=== PATIENT | male | born 1985 | race Caucasian/White ===

== ENCOUNTER → 2017-07-25 07:54 | Outpatient (CLI) | payer BC, SELFPAY ==
--- NOTE | 2017-07-25 08:06 | MRI_ITS ---
STUDY: MRI LEFT MIDFOOT REASON FOR EXAM: Male, 31 years old. Plantar fasciitis TECHNIQUE: Standardized fat and water weighted pulse sequences were obtained in all 3 orthogonal planes. COMPARISON: None. FINDINGS: There is mild edema about the plantar fascia insertion. There is a small plantar calcaneal enthesophyte (image 14, 16, 17/30 sagittal inversion recovery, T1). There is bone marrow edema at the plantar aspect of the lateral cuneiform (image 14, 15/30). There is mild bone marrow edema about the third tarsometatarsal joint (12/30 sagittal T2 fat sat). There is edema/atrophy of the abductor digiti minimi musculature (image 21/32 axial T2). There is chronic fracture deformity at the medial malleolus (image 13/32 axial T2). There is fluid at the first MTP joint (image 23/30 sagittal inversion recovery There is fluid at the intermetatarsal bursa at the third web space (image 48/32 axial T2). Normal talonavicular articulation. Normal calcaneocuboid articulation. Normal navicular-cuneiform articulations. Normal intercuneiform articulations. Normal first tarsometatarsal articulation. Normal Lisfranc ligament. Normal cuboid fourth and cuboid fifth tarsometatarsal articulation. Normal first through fifth metatarsi. Normal tibialis anterior tendon. Normal extensor hallucis longus tendon. Normal extensor digitorum longus tendons. Normal peroneus longus tendon and distal insertion. Normal peroneus brevis tendon and distal insertion. Normal subcutis adipose space. 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
--- NOTE | 2017-07-25 08:06 | MRI_ITS ---
STUDY: MRI RIGHT MIDFOOT REASON FOR EXAM: Male, 31 years old. Plantar foot pain for 5 years. No known injury. TECHNIQUE: Standardized fat and water weighted pulse sequences were obtained in all 3 orthogonal planes. COMPARISON: None. FINDINGS: Normal talonavicular articulation. Normal calcaneocuboid articulation. Normal navicular-cuneiform articulations. Normal intercuneiform articulations. Normal first tarsometatarsal articulation. Normal Lisfranc ligament. Normal second and third tarsometatarsal articulations. Normal cuboid fourth and cuboid fifth tarsometatarsal articulation. Normal first through fifth metatarsi. There is mild posterior tibialis tendinosis with tenosynovitis (axial series 8 images 9-14). Normal extensor hallucis longus tendon. Normal extensor digitorum longus tendons. Normal peroneus longus tendon and distal insertion. Normal peroneus brevis tendon and distal insertion. There is minimal thickening of the proximal plantar fascia with an inferior calcaneal spur which may represent mild plantar fasciitis (sagittal series 3 and 4 images 16-19). Normal intrinsic muscles of the mid and forefoot region. Normal extensor digitorum brevis muscle. Normal subcutis adipose space. MRI/Lower Ext/No Jt/w/o IMPRESSION: Mild posterior tibialis tendinosis with tenosynovitis. Mild proximal plantar fasciitis. Electronically Signed: Xavier Chapa MD at 19:17 EDT , Service support ,
== END ==
PROVIDERS: Family Provider Family Medicine; PCP Family Medicine; Visit Provider Podiatrist
DX: M72.2 Plantar fascial fibromatosis (principal)
CPT/HCPCS: 73718

== ENCOUNTER → 2017-11-05 06:59 | Outpatient (CLI) | payer BC, SELFPAY ==
[2017-11-05 07:52] LABS: Microalbumin,Random Urine 84.1 mg/L (NO RANGE EST.); Microalbumin:Creatinine Ratio 51.9 mg/g CRE (<30 mg/g CRE)
[2017-11-05 07:53] LABS: Hemoglobin A1c 7.6 % (4.2-6.3)
[2017-11-05 08:09] LABS: AST(SGOT) 23 U/L (15-37); Alanine Aminotransfer ALT/SGPT 51 U/L (16-61); Albumin, Serum 3.8 g/dL (3.2-5.0); Alkaline Phosphatase 84 U/L (45-117); Anion Gap 7 (5-15); BUN 19 mg/dL (7-18); BUN/Creat Ratio 20.5 RATIO (10-20); Chloride 104 mmol/L (98-107); Cholesterol 171 mg/dL (200); Creatinine, Serum 0.93 mg/dL (0.70-1.30); EST Glomerular Filtration Rate 101 mL/min (>60); Est Glom Filt Rate - Afr Amer 123 mL/min (>60); Free T3 3.9 pg/mL (2.18-3.98); Globulin 3.8 g/dL (2.2-4.2); Glucose 133 mg/dL (74-106); High Density Lipoprotein 41 mg/dL; Protein, Total 7.6 g/dL (6.4-8.2); Sodium Level 141 mmol/L (136-145); T4 Free Direct 0.92 ng/dL (0.76-1.46); Thyroid Stim Hormone (TSH) 2.84 uIU/mL (0.358-3.74); Triglycerides 140 mg/dL; Very Low Density Lipoprotein 28 mg/dL (5-40)
[2017-11-09 14:07] LABS: Testosterone, Free 11.15 ng/dL (5.00-21.00)
[2017-11-09 14:55] LABS: Testosterone, % Free 4.55 % (1.50-4.20); Testosterone, Total 245 ng/dL (264-916)
[2017-11-10 15:27] LABS: Vitamin D 1,25-Dihydroxy 29.1 pg/mL (19.9-79.3)
== END ==
PROVIDERS: Family Provider Family Medicine; PCP Family Medicine; Visit Provider Nurse Practitioner
DX: E10.9 Type 1 diabetes mellitus without complications (principal)
CPT/HCPCS: 36415; 80053; 80061; 82043; 82570; 82652; 83036; 84402; 84403; 84439; 84443; 84481

== ENCOUNTER → 2017-11-11 07:30 | Outpatient (CLI) | payer BC, SELFPAY ==
--- NOTE | 2017-11-11 07:32 | RAD_ITS ---
STUDY: X-RAY - PELVIS AND RIGHT HIP REASON FOR EXAM: Male, 32 years old. Right hip pain for one week TECHNIQUE: Radiological exam, hip, unilateral, with pelvis when performed; 2 or 3 views. COMPARISON: None. FINDINGS: There is a non-specific bowel gas pattern. Normal visualized soft tissue structures. Normal bilateral iliac wings, sacroiliac joints and visualized sacrum. Normal bilateral superior and inferior pubic rami. Normal pubic symphysis. Normal bilateral ischial tuberosities. There are calcifications on each side of the central pelvis that may suggest vas deferens calcifications. Normal visualized femoral head. Normal acetabulum. Os acetabuli noted. Normal hip joint. RAD/HIP, UNI W/ Pelvis 2-3 Views IMPRESSION: 1. Normal x-ray examination of the pelvis and hip. 2. Possible vas deferens calcifications, which can be associated with diabetes mellitus. Electronically Signed: Noah Osborne MD at 11:33 EDT , Service support ,
== END ==
PROVIDERS: Family Provider Family Medicine; PCP Family Medicine; Visit Provider Physician Assistant
DX: M25.551 Pain in right hip (principal)
CPT/HCPCS: 73502

== ENCOUNTER → 2017-11-18 06:38 | Outpatient (CLI) | payer BC, SELFPAY ==
[2017-11-18 09:25] LABS: D-Dimer Quantitative (DVT/PE) < 0.27 FEU/ug/m (0.27-0.49)
== END ==
PROVIDERS: Family Provider Family Medicine; PCP Family Medicine; Visit Provider Physician Assistant
DX: M79.651 Pain in right thigh (principal)
CPT/HCPCS: 36415; 85379

== ENCOUNTER → 2018-05-01 09:19 | Outpatient (CLI) | payer BC, SELFPAY ==
[2018-04-14 08:23] VITALS: BMI 50.4
[2018-05-01 09:25] LABS: Bacteria 0 SEEN /hpf (None Seen); Mucous, Urine 0 SEEN /hpf (<or=2+); Squamous Epithelial Cells - UA 0 SEEN /hpf (0-5); White Blood Cells 0 SEEN /hpf (0-5)
[2018-05-01 09:53] LABS: Color, Urine Yellow (Yellow); Glucose, Dipstick Normal (Normal); Ketone-Dipstick Negative (Negative); Leukocyte Esterase-Dipstick Negative /ul (Negative); Nitrite-Dipstick Negative (Negative); Occult Blood-Urine 10 /ul (Negative); Protein-Dipstick 30 mg/dl (Negative); Urine Bilirubin Dipstick Negative (Negative); Urine Clarity Sl. Cloudy (Clear); Urine Urobilinogen Normal (Normal)
[2018-05-01 10:01] LABS: Red Blood Cells-Urine 0-5 SEEN /hpf (0-5)
[2018-05-01 10:14] LABS: Microalbumin:Creatinine Ratio 42.5 mg/g CRE (<30 mg/g CRE)
[2018-05-01 10:25] LABS: ALB/GLOB Ratio 1.1 RATIO (0.9-2.4); AST(SGOT) 17 U/L (15-37); Alanine Aminotransfer ALT/SGPT 43 U/L (16-61); Albumin, Serum 3.8 g/dL (3.2-5.0); Alkaline Phosphatase 75 U/L (45-117); Anion Gap 9 (5-15); BUN 16 mg/dL (7-18); BUN/Creat Ratio 16.8 RATIO (10-20); Calcium,Total 8.8 mg/dL (8.5-10.1); Chloride 104 mmol/L (98-107); Creatinine, Serum 0.96 mg/dL (0.70-1.30); EST Glomerular Filtration Rate 98 mL/min (>60); Est Glom Filt Rate - Afr Amer 119 mL/min (>60); Globulin 3.5 g/dL (2.2-4.2); Glucose 144 mg/dL (74-106); Potassium 4.3 mmol/L (3.5-5.1); Protein, Total 7.3 g/dL (6.4-8.2); Sodium Level 142 mmol/L (136-145)
== END ==
PROVIDERS: Family Provider Family Medicine; PCP Family Medicine; Referring Provider Nurse Practitioner; Visit Provider Nurse Practitioner
DX: E10.9 Type 1 diabetes mellitus without complications (principal)
CPT/HCPCS: 36415; 80053; 81001; 82043; 82570; 83036

== ENCOUNTER → 2018-06-25 10:15 | Outpatient (CLI) | payer BC, SELFPAY ==
[2018-06-25 09:00] VITALS: BMI 50.4
--- NOTE | 2018-06-25 10:25 | RAD_ITS ---
STUDY: X-RAY - CERVICAL SPINE REASON FOR EXAM: Male, 32 years old. Bilateral arm numbness TECHNIQUE: . 4 view(s) of the cervical spine were obtained. COMPARISON: None FINDINGS: There is partial fusion of the liver to bodies and posterior elements of C2 and C3. There is there is asymmetry in the sizes of the first ribs. The left is smaller. There is straightening of the cervical spine. The disc spaces are well-maintained. The prevertebral soft tissues are normal. 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 No acute fractures. No disc disease. Electronically Signed: Waldo Quintero MD at 5:06 EDT Tel , Service support ,
== END ==
PROVIDERS: Family Provider Internal Medicine; PCP Internal Medicine; Referring Provider Internal Medicine; Visit Provider Internal Medicine
DX: G62.9 Polyneuropathy, unspecified (principal)
CPT/HCPCS: 72040

== ENCOUNTER → 2018-07-28 08:21 | Outpatient (CLI) | payer BC, SELFPAY ==
[2018-07-28 08:12] VITALS: BMI 50.4
--- NOTE | 2018-07-28 08:23 | RAD_ITS ---
STUDY: X-RAY - LEFT KNEE REASON FOR EXAM: Male, 32 years old. Pain, decreased range of motion TECHNIQUE: 5 view(s) of the knee. COMPARISON: 2015 FINDINGS: Normal visualized distal femur. Normal visualized proximal tibia and fibula. Normal proximal tibiofibular articulation. Normal medial femorotibial compartment. Normal lateral femorotibial compartment. Normal patellofemoral articulation. The soft tissue structures are unremarkable. RAD/Knee 4 or More Views IMPRESSION: Normal x-ray examination of the knee. Electronically Signed: Dmitry Cuevas MD at 8:54 EDT , Service support ,
== END ==
PROVIDERS: Family Provider Internal Medicine; PCP Internal Medicine; Referring Provider Orthopaedic Surgery; Visit Provider Orthopaedic Surgery
DX: M25.562 Pain in left knee (principal)
CPT/HCPCS: 73564

== ENCOUNTER → 2018-08-06 22:40 | Outpatient (CLI) | payer BC, SELFPAY ==
[2018-06-25 09:00] VITALS: BMI 50.4
[2018-07-28 08:12] VITALS: BMI 50.4
== END ==
PROVIDERS: Family Provider Internal Medicine; PCP Internal Medicine; Referring Provider Internal Medicine; Visit Provider Internal Medicine
DX: G47.33 Obstructive sleep apnea (adult) (pediatric) (principal)
CPT/HCPCS: 95811

== ENCOUNTER → 2018-11-29 08:00 | Outpatient (CLI) | payer BC, SELFPAY ==
[2018-08-20 09:51] VITALS: BMI 50.4
[2018-11-24 07:05] VITALS: BMI 50.4
== END ==
PROVIDERS: Family Provider Internal Medicine; PCP Internal Medicine; Referring Provider Nurse Practitioner Acute Care; Visit Provider Nurse Practitioner Acute Care
DX: Z46.89 Encounter for fitting and adjustment of other specified devices (principal)

== ENCOUNTER → 2019-01-07 14:42 | Outpatient (CLI) | payer BC, SELFPAY ==
[2019-01-07 07:35] VITALS: BMI 50.4
== END ==
PROVIDERS: Family Provider Internal Medicine; PCP Internal Medicine; Referring Provider Physician Assistant Surgical; Visit Provider Physician Assistant Surgical
DX: J02.9 Acute pharyngitis, unspecified (principal)
CPT/HCPCS: 87070

== ENCOUNTER → 2019-01-26 08:55 | Outpatient (CLI) | payer BC, SELFPAY ==
[2019-01-26 08:11] VITALS: BMI 50.4
--- NOTE | 2019-01-26 08:57 | RAD_ITS ---
STUDY: X-RAY CHEST REASON FOR EXAM: Male, 33 years old. 3 week history of congestion and cough. TECHNIQUE: PA and lateral views of the chest. COMPARISON: None. FINDINGS: Minimal increased markings at the lung bases suggestive of atelectasis. There is no demonstrated pleural abnormality. There is borderline cardiomegaly. Normal mediastinum and chris. Normal visualized pulmonary arteries. Normal visualized aortic arch and descending thoracic aorta. Normal visualized thoracic spine. Normal visualized ribs, clavicles, and shoulders. There is no demonstrated abnormality of the visualized soft tissue structures of the upper abdomen. RAD/Chest PA and Lateral IMPRESSION: Borderline cardiomegaly. Mild degree of increased markings at the lung bases suggestive of atelectasis. Electronically Signed: Elmer Boswell, at 15:43 EDT , Service support ,
== END ==
PROVIDERS: Family Provider Internal Medicine; PCP Internal Medicine; Referring Provider Nurse Practitioner Family; Visit Provider Nurse Practitioner Family
DX: R05 Cough (principal)
CPT/HCPCS: 71046

== ENCOUNTER → 2019-05-11 08:05 | Outpatient (CLI) | payer BC, SELFPAY ==
[2019-04-27 16:13] VITALS: BMI 50.4
[2019-05-11 08:08] LABS: Bacteria 0 SEEN /hpf (None Seen); Mucous, Urine 0 SEEN /hpf (<or=2+); Red Blood Cells-Urine 0 SEEN /hpf (0-5); Squamous Epithelial Cells - UA 0 SEEN /hpf (0-5); White Blood Cells 0 SEEN /hpf (0-5)
[2019-05-11 12:43] LABS: Color, Urine Yellow (Yellow); Glucose, Dipstick 1000 mg/dl (Normal); Ketone-Dipstick 5 mg/dl (Negative); Leukocyte Esterase-Dipstick Negative /ul (Negative); Nitrite-Dipstick Negative (Negative); Occult Blood-Urine Negative /ul (Negative); Protein-Dipstick 15 mg/dl (Negative); Urine Bilirubin Dipstick Negative (Negative); Urine Clarity Clear (Clear); Urine Urobilinogen Normal (Normal)
[2019-05-11 13:07] LABS: ALB/GLOB Ratio 0.9 RATIO (0.9-2.4); AST(SGOT) 24 U/L (15-37); Alanine Aminotransfer ALT/SGPT 70 U/L (12-78); Albumin, Serum 3.8 g/dL (3.4-5.0); Alkaline Phosphatase 101 U/L (50-136); Anion Gap 6 (5-15); BUN 25 mg/dL (7-18); BUN/Creat Ratio 21.4 RATIO (10-20); Calcium,Total 9.6 mg/dL (8.5-10.1); Chloride 100 mmol/L (98-107); Cholesterol 192 mg/dL (200); Creatinine, Serum 1.17 mg/dL (0.70-1.30); EST Glomerular Filtration Rate 77 mL/min (>60); Est Glom Filt Rate - Afr Amer 93 mL/min (>60); Globulin 4.1 g/dL (2.3-3.5); Glucose 276 mg/dL (70-110); High Density Lipoprotein 39 mg/dL; Potassium 4.2 mmol/L (3.5-5.1); Protein, Total 7.9 g/dL (6.4-8.2); Sodium Level 134 mmol/L (136-145); Triglycerides 181 mg/dL; Very Low Density Lipoprotein 36 mg/dL (5-40)
[2019-05-11 13:26] LABS: Microalbumin,Random Urine 91.6 mg/L (NO RANGE EST.); Microalbumin:Creatinine Ratio 97.9 mg/g CRE (<30 mg/g CRE)
== END ==
PROVIDERS: Internal Medicine Endocrinology, Diabetes & Metabolism; PCP Internal Medicine; Referring Provider Nurse Practitioner Family; Visit Provider Nurse Practitioner Family
DX: E10.9 Type 1 diabetes mellitus without complications (principal); R10.9 Unspecified abdominal pain
CPT/HCPCS: 36415; 80053; 80061; 81001; 82043; 82570; 84443; 87086

== ENCOUNTER 2019-07-19 08:00 | Outpatient (RCR) | payer BC, SELFPAY ==
[2019-05-11 08:08] VITALS: BMI 50.4
--- NOTE | 2019-05-25 09:12 | HP.PTEVAL_ITS ---
Patient's Visit Information TISH FLANAGAN is a 33 year old M referred to Physical Therapy by Gaurang Simon DPM with a diagnosis of B plantar fasciatis with heel spurring. Date of Evaluation: 05/24/19 Physical Therapist: Travis Negrete DPT - Visit Plan Frequency: 2x /Week Duration: 4 Weeks Plan: Start with graston/DN/US to B plantar fascia, DF stretching. Add in foot intrinsic strengthening, glute and glute med strengthening. Educate on gait mechanics as well. - Subjective Findings: Pt. is here today for his initial evaluation with diagnosis of B plantar fascitis, and heel spurs. Pt. is known to this PT as he has been seen for simialr issue a few years ago. Pt. reports having increased symptoms for years, but has been steadily getting worse. Pt. does year orthotics with some relief. Pt. works in [employer] where he stands on his feet most of the day. PT. reprots increased pain with initial standing and after working a longer day. He has increased pain with walking and standing. Pt. does have some tingling in his big toes, unknown cause. He also has had a previous L ACL repain inwhich reports has never been great. Pt. is hopeful to reduce symptoms in order to get back to all recreational and work activities without limitations. - Pain R plantar fascial origin Pain Intensity (Out of 10): 3 Pain Intensity Range: 1, 8 L plantar fascial origin Pain Intensity (Out of 10): 2 Pain Intensity Range: 1, 8 - Objective POSTURE: In stance patient has compensated rearfoot valgus, with subsequent knee valgus as well. PALPATION: Pt. has increased tenderness along plantar fascia and longitudinal arch Bilaterally. NO calf pain, no forefoot pain. ROM: Pt. has very tight B achilles tendon (R ankle 3deg of dorsiflexion, L ankle 5 deg of dorsiflexion. pt. has normal rest of motion of ankle. NEURO: normal sensation and DTR of B LEs. MMT: PT. has normal strenght of B ankles, hips weak especially with hip abd 4/5. GAIT: Pt. has increased calcaneal vaglus during heel strike with over pronation during heel to mid foot rocker moment, minimal supination during push off. Pt. has increased pain durign push off and stand phases of gait cycle bilaterally. STAIRS: Pt. has incraesed pain with dscending, early heel off noted. use of BHR to complete. - Goals Goal 1:: LTG: PT. to be I with HEP. Goal Time Frame: 4-6 Weeks Goal 2:: LTG: Pt. to have increased B ankle DF to atleast 12deg. Goal Time Frame: 4-6 Weeks Goal 3:: STG: Pt. to have decreased pain to 0-2/10 with initial walking in mornings. Goal Time Frame: 2-4 Weeks Goal 4:: LTG: Pt. complete all work related activities with 0-2/10 pain in B longitudinal arches. Goal Time Frame: 4-6 Weeks Goal 5:: LTG: pt. to ambulate unlimited distances with 0-2/10 pain in B longitudinal arches. Goal Time Frame: 4-6 Weeks - Rehabilitation Potential Physical Therapy Diagnosis: Pt. has signs and symptoms consistent with B plantar fasciatis with marked compensated rearfoot valgus. Pt. would benefit from PT to increase ankle mobility, especially DF, stabilization of rearfoot, hip abductor strengthening and pain management with use of initial modalitie. Rehabilitation Potential: Good - Anticipated Interventions Patient/Client Instruction: Educate patient on: Condition, Plan of Care, Risk Factors, Benefits of Fitness Program For the Purpose of:: To improve health and function, To foster healthy habits, To improve decision making, To facilitate caregiver knowledge, To improve self management, To prevent re-injury, To improve ability to perform tasks related to life management, To improve tolerance to ADL's Therapeutic Exercise to Include: Strength training, Power training, Body mechanics, Postural training, Flexibilty training, Gait and locomotor training, Passive ROM, Active ROM For the Purpose of:: To decrease pain, To decrease swelling/inflammation, To increase ROM, To improve nutrient delivery to tissue, To increase oxygenation perfusion, To improve muscle performance and motor function, To improve gait and locomotor functions, To improve health of tissue, To decrease soft tissue restriction, To increase flexibility/ROM Manual Therapy Techniques to Include: Mobilization, Passive ROM, Functional dry needling, Soft tissue mobilization For the Purpose of:: To decrease pain, To decrease swelling/inflammation, To increase ROM, To improve nutrient delivery to tissue, To improve muscle performance and motor function Ultrasound (thermal/non thermal): Yes For the Purpose of:: To decrease pain, To decrease swelling/inflammation, To inc rease ROM Thank you for the opportunity to evaluate your patient. For Medicare and Medicare HMO plans, please review the plan of care and approve it. It will need to be FAXED BACK to us at [phone] for Medicare purposes. For Medicare only, by signing this I certify the plan of care. Please let me know if there are questions or concerns regarding this plan of care. Physician Signature: Date:
--- NOTE | 2019-07-05 10:36 | HP.PTREVAL_ITS ---
Gaurang Simon, ZOEY, It has been my pleasure to treat TISH FLANAGAN over the last 6 visits for B plantar fasciatis with heel spurring. Please see the progress note below for an update on the physical therapy plan of care! Subjective: Pt. arrives today with reports I am doing okay today. Pt. reports having 2/10 pain in B feet this date. Pt. is to get his orthotics back tomorrow. I talked with him about weaning into wearing them to increase tolerance and he altering foot position. Pt. reports being 40% better overall. Pt. is hopeful that his orthotics with be helpful when he gets them. He continues to be sore by the end of the day/evening. He reports stretching at home with good consistency. Objective/Function: Pt. continues to have decreased symptoms post PT. Pt. has improved tolerance with stnding and walking, but continues to have increased pain by the end of a work day and with initial standing/walking in AMs. Pt. has not been able to wear his orthotics. pt. has imrpoved nkle DF to 9deg on R 10deg of L. Pt. has good strength of ankle throughout. Pt. continues to present with increased rearfoot varus bilatearlly. I am hopeful that a orthotic that will keep his calcaneus in a more neutral posioning that this will help his foot. Pt. reports having benefit with PT thus far and in ~40% better overall. I still believe he has more room to improve and that I can help him do so. I am asking for 4-6 more visits to address his symptoms and progress him with strengthening and stability with use of orthotics. Plan Plan: Start with osman/MARILYN/ to B plantar fascia, DF stretching. Add in foot intrinsic strengthening, glute and glute med strengthening. Educate on gait mec hanics as well. Goals Goal 1:: LTG: PT. to be I with HEP. Goal Time Frame: 4-6 Weeks Goal Progress: Progressing Goal 2:: LTG: Pt. to have increased B ankle DF to atleast 12deg. Goal Time Frame: 4-6 Weeks Goal Progress: Progressing Goal 3:: STG: Pt. to have decreased pain to 0-2/10 with initial walking in mornings. Goal Time Frame: 2-4 Weeks Goal Progress: Progressing Goal 4:: LTG: Pt. complete all work related activities with 0-2/10 pain in B longitudinal arches. Goal Time Frame: 4-6 Weeks Goal Progress: Progressing Goal 5:: LTG: pt. to ambulate unlimited distances with 0-2/10 pain in B longitudinal arches. Goal Time Frame: 4-6 Weeks Goal Progress: Progressing Anticipated Interventions Patient/Client Instruction: Educate patient on: Condition, Plan of Care, Risk Factors, Benefits of Fitness Program For the Purpose of:: To improve health and function, To foster healthy habits, To improve decision making, To facilitate caregiver knowledge, To improve self management, To prevent re-injury, To improve ability to perform tasks related to life management, To improve tolerance to ADL's Therapeutic Exercise to Include: Strength training, Power training, Body mechanics, Postural training, Flexibilty training, Gait and locomotor training, Passive ROM, Active ROM For the Purpose of:: To decrease pain, To decrease swelling/inflammation, To increase ROM, To improve nutrient delivery to tissue, To increase oxygenation perfusion, To improve muscle performance and motor function, To improve gait and locomotor functions, To improve health of tissue, To decrease soft tissue restriction, To increase flexibility/ROM Manual Therapy Techniques to Include: Mobilization, Passive ROM, Functional dry needling, Soft tissue mobilization For the Purpose of:: To decrease pain, To decrease swelling/inflammation, To increase ROM, To improve nutrient delivery to tissue, To improve muscle performance and motor function Ultrasound (thermal/non thermal): Yes For the Purpose of:: To decrease pain, To decrease swelling/inflammation, To increase ROM Please do not hesitate to contact me at [phone] by phone or if you have questions or concerns regarding this new plan of care! Sincerely, Travis Negrete DPT
--- NOTE | 2019-07-19 09:15 | HP.PTDCSUM_ITS ---
It has been my pleasure to treat TISH FLANAGAN referred by Gaurang Simon DPM, with the diagnosis of B plantar fasciatis with heel spurring for a total of 8 visit(s). Discharge Date: 07/19/19 Please see the following information for a summary of their discharge status. Subjective: Pt. reports that he is doing okay. He is still sore when he walking. He is stretching consistenty. He is liking his orthotics, but is still having symptoms. Pt. reports being ~50% better overall. R plantar fascial origin Pain Intensity (Out of 10): 2 L plantar fascial origin Pain Intensity (Out of 10): 2 % Improvement: 50 Objective/Function: Pt. has good ROM of his G/S complex ~12deg bilaterally. Pt. has good strength throughout. Pt. is point tender at his origin of his plantar facia. Pt. still presents with a calcaneal varus in stance. Improved with or thotics. Goal 1:: LTG: PT. to be I with HEP. Goal Progress: Goal Met Goal 2:: LTG: Pt. to have increased B ankle DF to atleast 12deg. Goal Progress: Goal Met Goal 3:: STG: Pt. to have decreased pain to 0-2/10 with initial walking in mornings. Goal Progress: Progressing Goal 4:: LTG: Pt. complete all work related activities with 0-2/10 pain in B longitudinal arches. Goal Progress: Progressing Goal 5:: LTG: pt. to ambulate unlimited distances with 0-2/10 pain in B longitudinal arches. Goal Progress: Progressing Plan: Pt. to be DC back to physician for follow up. Pt. is to continue with his stretching and strengthening at home. Discharge Comments: Pt. was treated for his B plantar fascitis. Pt. reports about 50% improvement of symptoms. Pt. was treated with stretching, manual and US. Pt. did not desire to try DN as he as done this in the past without success. Pt. made some progress, but still has some pain. Pt. is to follow up with his physician and continue with his stretching at home. Pt. consents. If there are questions or concerns regarding this patient's physical therapy, please feel free to call me at [phone]. Thank you for the referral of this patient. Sincerely, Travis Negrete DPT
== END 2019-07-19 10:29 | disposition home or self-care (01) ==
LOC: PT 08:00
PROVIDERS: PCP Internal Medicine; Referring Provider Podiatrist; Visit Provider Podiatrist
DX: M72.2 Plantar fascial fibromatosis (principal); M77.31 Calcaneal spur, right foot; M77.32 Calcaneal spur, left foot
CPT/HCPCS: 97035; 97140; 97161

== ENCOUNTER → 2019-09-21 07:42 | Outpatient (CLI) | payer BC, SELFPAY ==
[2019-06-08 08:10] VITALS: BMI 51.6
[2019-09-07 08:16] VITALS: BMI 50.4
--- NOTE | 2019-09-21 14:10 | NEURO ---
NCS and/or EMG Patient Report Ordering Doctor: Marko Hickey DATE OF SERVICE: 09/21/19 Chester Metcalf is a 34-year-old male presents for electrodiagnostic testing of the upper limbs. He reports numbness and tingling in both hands Electrodiagnostic findings: Median motor nerve demonstrates prolonged distal latency bilaterally with normal amplitude and reduced conduction velocity. Normal ulnar motor response noted bilaterally. Absent median sensory response at the wrist and palm bilaterally. Normal ulnar and radial sensory responses. Prolonged median and ulnar F waves are noted. On needle EMG, all muscles tested in the upper limb showed no evidence of denervation with normal motor unit action potentials. Electrodiagnostic assessment: This is an abnormal study in the upper limbs 1. Electrodiagnostic findings demonstrate bilateral median mononeuropathy. This consistent with an advanced bilateral carpal tunnel syndrome. If there are any further questions, please do not hesitate to contact me.
== END ==
PROVIDERS: PCP Internal Medicine; Referring Provider Nurse Practitioner Family; Visit Provider Nurse Practitioner Family
DX: R20.0 Anesthesia of skin (principal); R20.2 Paresthesia of skin
CPT/HCPCS: 95886; 95912

== ENCOUNTER → 2019-10-11 10:18 | Outpatient (CLI) | payer BC, SELFPAY ==
[2019-10-11 10:07] VITALS: BMI 50.4
--- NOTE | 2019-10-11 10:19 | RAD_ITS ---
STUDY: X-RAY - LEFT WRIST REASON FOR EXAM: Numbness/tingling in first through third fingers of bilateral hands and occasionally in the fourth and fifth fingers. TECHNIQUE: 3 view(s) of the wrist were obtained. COMPARISON: None. FINDINGS: Normal visualized distal radius and ulna. There is negative ulnar variance. Normal radiocarpal articulation. Normal distal radioulnar articulation. Normal carpal bones. Normal carpal articulations. Normal carpometacarpal articulation of the thumb. Normal second through fifth carpometacarpal articulations. Normal visualized metacarpal bones. The soft tissue structures are unremarkable. RAD/Wrist min 3 Views IMPRESSION: Unremarkable x-ray examination of the left wrist. Electronically Signed: Reji Reis MD at 13:55 EDT Tel , Service support ,
--- NOTE | 2019-10-11 10:19 | RAD_ITS ---
STUDY: X-RAY - RIGHT WRIST REASON FOR EXAM: Numbness/tingling in first through third fingers of bilateral hands and occasionally in the fourth and fifth fingers. TECHNIQUE: 3 view(s) of the wrist were obtained. COMPARISON: None. FINDINGS: Normal visualized distal radius and ulna. There is negative ulnar variance. Normal radiocarpal articulation. Normal distal radioulnar articulation. Normal carpal bones. Normal carpal articulations. Normal carpometacarpal articulation of the thumb. Normal second through fifth carpometacarpal articulations. Normal visualized metacarpal bones. There is a small metallic foreign body at the radial aspect of the distal first metacarpal diaphysis. RAD/Wrist min 3 Views IMPRESSION: Small metallic foreign body adjacent to the first metacarpal. Electronically Signed: Reji Reis MD at 13:55 EDT Tel , Service support ,
--- NOTE | 2019-10-11 11:09 | RAD_ITS ---
STUDY: X-RAY - RIGHT ELBOW REASON FOR EXAM: Male, 34 years old. BILATERAL WRIST N/T, ELBOW PAIN TECHNIQUE: 4 view(s) of the elbow. COMPARISON: None. FINDINGS: Normal visualized humerus, radius and ulna. Normal radiocapitellar and ulnotrochlear articulations. The soft tissue structures are unremarkable. There is no demonstrated fracture. RAD/Elbow min 3 Views IMPRESSION: Normal x-ray examination of the elbow. Electronically Signed: Eulalio Louis MD at 22:11 EDT , Service support ,
--- NOTE | 2019-10-11 11:23 | RAD_ITS ---
STUDY: X-RAY - LEFT ELBOW REASON FOR EXAM: Male, 34 years old. BILATERAL WRIST N/T, ELBOW PAIN TECHNIQUE: 3 view(s) of the elbow. COMPARISON: None. FINDINGS: Normal visualized humerus, radius and ulna. Normal radiocapitellar and ulnotrochlear articulations. The soft tissue structures are unremarkable. There is no demonstrated fracture. RAD/Elbow min 3 Views IMPRESSION: Normal x-ray examination of the elbow. Electronically Signed: Eulalio Louis MD at 22:13 EDT , Service support ,
== END ==
PROVIDERS: PCP Internal Medicine; Referring Provider Orthopaedic Surgery; Visit Provider Orthopaedic Surgery
DX: M77.11 Lateral epicondylitis, right elbow (principal); M77.12 Lateral epicondylitis, left elbow; G56.03 Carpal tunnel syndrome, bilateral upper limbs
CPT/HCPCS: 73080; 73110

== ENCOUNTER 2019-11-30 05:54 | Day surgery (SDC) | payer BC, SELFPAY ==
[2019-10-11 10:07] VITALS: BMI 50.4
--- NOTE | 2019-10-11 11:15 | HP_ITS ---
I have re-examined the patient. There are no clinical changes since date of exam. Intake Vital Signs 10/11/19 BMI 50.4 Intake Visit Reasons: Bilat wrist Chief Complaint: BL wrists Accompanied by: self Is patient in pain?: Yes Pain scale (1-10): 4 Allergies losartan Allergy (Severe, Verified 09/07/19 08:12) Unknown aspirin Allergy (Verified 09/07/19 08:12) Hives menthol [From Icy Hot] Adverse Reaction (Verified 09/07/19 08:12) Other methyl salicylate [From Icy Hot] Adverse Reaction (Verified 09/07/19 08:12) peeled skin off fabric softener Allergy (Unknown, Uncoded 09/07/19 08:12) Rash Medications cholecalciferol (vitamin D3) 125 mcg (5,000 unit) tablet 5,000 unit PO DAILY 06/25/18 [History Confirmed 10/11/19] multivitamin 1 tab PO DAILY 06/25/18 [History Confirmed 10/11/19] lisinopril 20 mg tablet 20 mg PO DAILY #90 tab 04/27/19 [Rx Confirmed 10/11/19] trazodone 50 mg tablet 50 mg PO QHS PRN #90 tab 04/27/19 [Rx Confirmed 10/11/19] flash glucose sensor See Rx Instructions .ROUTE .MEDSUPPLY #2 ea 07/07/19 [Rx Confirmed 10/11/19] blood sugar diagnostic See Dose Instructions .ROUTE .MEDSUPPLY #600 ea 08/07/19 [Rx Confirmed 10/11/19] metformin 1,000 mg tablet,extended release 24hr 1,000 mg PO BID #180 tab 08/07/19 [Rx Confirmed 10/11/19] fluticasone propionate 50 mcg/actuation nasal spray,suspension 2 spray INTRANASAL DAILY #15.8 g 08/09/19 [Rx Confirmed 10/11/19] insulin glulisine U-100 100 unit/mL subcutaneous solution See Rx Instructions SC .q day #50 ml 08/09/19 [Rx Confirmed 10/11/19] insulin syringe-needle U-100 0.5 mL 31 gauge x 16 See Rx Instructions .ROUTE .MEDSUPPLY #20 ea 08/09/19 [Rx Confirmed 10/11/19] montelukast 10 mg tablet 10 mg PO QHS #90 tab 08/09/19 [Rx Confirmed 10/11/19] lorazepam 0.5 mg tablet 0.5 mg PO QHS PRN #10 tab 09/07/19 [Rx Confirmed 10/11/19] PFSH Social History (Updated 10/11/19 @ 11:[address] Aishwarya Porter DO) Smoking Status: Never smoker second hand exposure: No alcohol intake: current substance use type: does not use what type of physical activity do you participate in: none HPI Bilat wrist: Surgical H&P: Yes Details: Parts of this documentation were recorded by a scribe, this documentation accurately reflects the service provided and the decisions made by me, Dr. Aishwarya Porter, 10/11/19 0959. TISH FLANAGAN is a 34 year old M here today for BL carpal tunnel syndrome. New patient seen today per request of dr price. States he has had this numbness for the last 5-6 years but has worsened over the last 6 months. He states he has BL 1st through 3rd finger numbness along with occasional numbness of the 4th and 5th fingers. He also c/o generalized hand pain along with BL elbow pain. 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 Denies any injections or surgery. He has been doing BL wrist night splinting for about 4 weeks which was not effective and made his symptoms worsen. Ortho Exam Right Wrist/Hand Skin/Wound: No Swelling, No Ecchymosis, Yes capillary refill normal Right Wrist: Yes ROM-Extension 0-60, ROM-Flexion 0-80, ROM-Pronation 0-80, ROM- Supination 0-90, Durken's Test, Phalen's and Thenar Atrophy Motor: EPL: 5, FDP-2: 4, 1st Dorsal Interosseous: 5, APB: 4 Sensation: Radial: I, Ulnar: I, Median: D Left Wrist/Hand Skin/Wound: No Swelling, No Ecchymosis, No erythema Left Wrist: Yes ROM-Extension 0-60, Yes ROM-Flexion 0-80, Yes ROM-Pronation 0- 80, Yes ROM-Supination 0-90, Yes Durken's Test, Yes Phalen's and Yes Thenar Atrophy Motor: EPL: 5, FDP-2: 4, 1st Dorsal Interosseous: 5, APB: 4 Sensation: Radial: I, Ulnar: I, Median: D Assessment & Plan Problems 1. Bilateral carpal tunnel syndrome G56.03 2. Lateral epicondylitis of both elbows M77.11; M77.12 Plan Personally reviewed patients EMG and X-rays of the BL wrists. Patient educated that he has BL severe carpal tunnel syndrome which is where his nerve is being compressed and causing the numbness. Treatment options include do nothing or bracing or injections or carpal tunnel release. Patient wishes to proceed with CTR of one of his wrists. Educated that he will be off work for about 6 weeks for recovery. Reviewed the pre-operative plans with the patient. Risks and benefits of the procedure were fully explained, including but not limited to infection, neurovascular injury, continued pain, arthritis, stiffness, need for further surgery, re-injury, DVT, PE, general risks of anesthesia, and loss of limb or life. Patient educated that he also has lateral epicondylitis which is the cause of his BL elbow pain and we can do this injection during his surgery because it is a painful injection. Treatment for the lateral epicondylitis is do nothing or injections or PT. Follow up to sign surgery consent or sooner if pain, swelling, numbness or associated symptoms, or concerns develop. All questions answered. Patient in agreement of plan. Orders Orders: Wrist min 3 Views Today G56.03 Elbow min 3 Views Today M77.11, M77.12 Wrist min 3 Views Today G56.03 Wrist min 3 Views Today G56.03 Elbow min 3 Views Today M77.11, M77.12 Elbow min 3 Views Today M77.11, M77.12 Coding Level of Care Code 32956 Diagnoses Bilateral carpal tunnel syndrome G56.03 Lateral epicondylitis of both elbows M77.11; M77.12 COVID (Procedure Consent) Procedure Criteria Procedure Criteria: Yes Elective The surgeon/proceduralist and patient have discussed in detail the risk of exposure to and/or potential harm posed by the COVID-19 virus with having a surgery/procedure at this time versus the risk of? delaying the surgery/procedure. It is not possible to know either the risk of delaying the surgery or procedure or chance of getting an infection with perfect accuracy, but a joint decision was made between the patient and the surgeon/proceduralist ?to proceed at this time with the scheduled surgery/procedure as indicated on the consent form. 10/11/19 1115 <Electronically signed by Aishwarya pena DO> Date _ Aishwarya Porter DO
[2019-11-10 08:19] VITALS: BMI 50.4
[2019-11-30] VITALS (7 sets, daily range): BP systolic 104–140; BP diastolic 70–94; PULSE 89–121; RESP 16–20; TEMP 36.4–36.7; O2SAT 95–97; BMI 51.8
[2019-11-30] MEDS: Lactated Ringers 1,000 ML 100 ML IV (06:59)
--- NOTE | 2019-11-30 07:22 | DCINST_ITS ---
Discharge Diet: No Restrictions - Leave dressing on until seen in postop clinic in 10-14 days for suture removal, keep dressing clean, dry, intact; change dressing if gets wet/dirty, call with concerns Discharge Activity: May Not Drive May shower in (days): 1 Ice area for (Minutes): 20 - Every hour while awake. Weight Bearing Status: Weight bearing as tolerated Keep extremity elevated above heart level: Operative Extremity Call your doctor if your incision/area has: Continuous Slow Oozing, Sudden Increased Bleeding, Increased Pain/ Swelling, Increased Redness, Foul Smelling Discharge Call your doctor if you observe: Fever of 101 or Higher, Coldness, Increased Pain, Numbness or Tingling, Change in Color, Calf discomfort Allergies/Adverse Reactions: Allergies losartan Allergy (Severe, Verified 11/30/19 06:51) Unknown aspirin Allergy (Verified 11/30/19 06:51) Hives menthol [From Icy Hot] Adverse Reaction (Verified 11/30/19 06:51) Other methyl salicylate [From Icy Hot] Adverse Reaction (Verified 11/30/19 06:51) peeled skin off fabric softener Allergy (Unknown, Uncoded 11/30/19 06:51) Rash Scented Medications to take at Discharge cholecalciferol (vitamin D3) 125 mcg (5,000 unit) tablet 5,000 unit PO DAILY 06/25/18 multivitamin 1 tab PO DAILY 06/25/18 lisinopril 20 mg tablet 20 mg PO DAILY #90 tab 04/27/19 trazodone 50 mg tablet 50 mg PO QHS PRN #90 tab 04/27/19 metformin 1,000 mg tablet,extended release 24hr 1,000 mg PO BID #180 tab 08/07/19 montelukast 10 mg tablet 10 mg PO QHS #90 tab 08/09/19 lorazepam 0.5 mg tablet 0.5 mg PO QHS PRN #10 tab 09/07/19 Fluticasone Propionate 2 spray INTRANASAL DAILY PRN 11/21/19 Insulin Glulisine [Apidra] 0 unit SQ CONT 11/21/19 Hydrocodone Bitart/Apap 5-325 [[place] 5MG-325MG] 1 - 2 tablet PO Q6H PRN PRN 5 Days #20 tablet 11/30/19 The following prescriptions were given: Hydrocodone Bitart/Apap 5-325 [[place] 5MG-325MG] 1 - 2 tablet PO Q6H PRN PRN 5 Days #20 tablet PRN Reason: Pain Transmission Status: Sent to [facility] Primary Care Physician: Laisha Pitt MD [Primary Care Provider] - Test Results: Test results from this visit will be discussed in further detail at your follow- up appointment, if applicable. Please Follow Up With: Aishwarya Porter, - [phone]
--- NOTE | 2019-11-30 07:22 | PCM.OPRPT ---
Report of Operation Date of Procedure: 11/30/19 Pre-Operative Diagnosis: left carpal tunnel syndrome Post-Operative Diagnosis: same Surgery/Procedure Performed:: left carpal tunnel release, left lateral epicondylitis injection Type of Anesthesia:: Zeinab Crook Anesthesiologist: Parminder Barnett Estimated Blood Loss (mL): min Fluids Replaced: see chart Description of Procedure: Preoperative note Patient is a { 34 yom } patient with nerve conduction study confirming carpal tunnel syndrome. Patient failed conservative treatment for carpal tunnel elected proceed with left carpal tunnel release. Risks benefits and alternatives surgery discussed with patient. Risks including but not limited to blood loss, blood clot, infection, neurovascular injury, failure procedure, loss of life and loss of limb. Patient is aware like proceed with left carpal tunnel release. We discussed the current risk associated COVID-19. While it is understood that there is a community spread of COVID 19 the risk of arabella COVID-19 while at [facility] is very low, however, the risk cannot be completely mitigated because of the community spread of the disease. We discussed in detail the risk of exposure to and or potential harm posed by the COVID-19 virus with having a surgery/procedure at this time versus the risk of delaying the surgery/procedure. Is not possible to know either the risk of delaying the surgery procedure or chance of getting an infection with perfect accuracy, but a joint decision was made to proceed at this time with a schedule surgery/procedure as indicated on the consent form. Patient was notified that we will need to comply with any screening or testing [facility] wishes to perform or that surgery may be delayed for any positive results. Operative note Patient seen and examined preoperative holding area. Left hand was marked. History and physical and consent reviewed. Patient was brought to the operating room placed supine on the operating table. Sign in, anesthesia, antibiotics were administered. Left upper extremity was prepped and draped after Zeinab block was initiated. All bony prominences well-padded SCDs placed on bilateral lower extremities. We marked out our incisions for our carpal tunnel release at the intersection of Wilfredo's line in the fourth ray flexed. We extended about a centimeter and a half. Timeout was performed. We then checked ensure that the [place] block was working with pickups which it was. We then used a 15 blade to make a skin incision. We then dissected down tenotomy syllable of the transverse carpal ligament. We then used a new 15 blade cut through the transverse carpal ligament down to the level of the median nerve. We then further released the median nerve the combination of the 15 blade and tenotomies. The nerve was grayish in color and adherent to the transverse carpal ligament volarly. We released the transverse carpal ligament distally to the fat pad and then proximally under standard technique. We then palpated to ensure that we released all of the transverse carpal ligament which we did. We irrigated the incision with copious amounts of sterile saline. All bleeders were coagulated. The incision was closed with interrupted 4-0 nylon stitches. Then under standard sterile technique we injected his left lateral condyle epicondyle with 1 cc bupivacaine 1/2 cc Kenalog 40. Tourniquet was deflated for total working time of 14 minutes. Patient tolerated procedure well there were no complications. Patient transferred to recovery room in stable condition. Postoperative note Hospital pharmacy has prescription Leave dressing clean dry and intact Follow-up in 2 weeks Call with concerns This note was generated with [employer] dictation software. It may contain incorrect words, spelling, and punctuation that were not noted in checking the note before signing.
[2019-11-30] MEDS: Mupirocin Ointment 22gm Tube 1 APPLIC (08:07)
[2019-11-30] MEDS: Bupivacaine Mpf 0.5% 30 ML VIAL (08:07)
[2019-11-30] MEDS: Triamcinolone Acetonide 40 MG/ML Vial (08:07)
[2019-11-30 08:10] LABS: Bedside Glucose 190 mg/dL (70-110)
--- NOTE | 2019-11-30 08:13 | HP_ITS ---
I have re-examined the patient. There are no clinical changes since date of exam. Intake Visit Reasons: Bilat wrist Chief Complaint: BL wrists Accompanied by: self Is patient in pain?: Yes Pain scale (1-10): 4 Allergies losartan Allergy (Severe, Verified 09/07/19 08:12) Unknown aspirin Allergy (Verified 09/07/19 08:12) Hives menthol [From Icy Hot] Adverse Reaction (Verified 09/07/19 08:12) Other methyl salicylate [From Icy Hot] Adverse Reaction (Verified 09/07/19 08:12) peeled skin off fabric softener Allergy (Unknown, Uncoded 09/07/19 08:12) Rash Medications cholecalciferol (vitamin D3) 125 mcg (5,000 unit) tablet 5,000 unit PO DAILY 06/25/18 [History Confirmed 10/11/19] multivitamin 1 tab PO DAILY 06/25/18 [History Confirmed 10/11/19] lisinopril 20 mg tablet 20 mg PO DAILY #90 tab 04/27/19 [Rx Confirmed 10/11/19] trazodone 50 mg tablet 50 mg PO QHS PRN #90 tab 04/27/19 [Rx Confirmed 10/11/19] flash glucose sensor See Rx Instructions .ROUTE .MEDSUPPLY #2 ea 07/07/19 [Rx Confirmed 10/11/19] blood sugar diagnostic See Dose Instructions .ROUTE .MEDSUPPLY #600 ea 08/07/19 [Rx Confirmed 10/11/19] metformin 1,000 mg tablet,extended release 24hr 1,000 mg PO BID #180 tab 08/07/19 [Rx Confirmed 10/11/19] fluticasone propionate 50 mcg/actuation nasal spray,suspension 2 spray INTRANASAL DAILY #15.8 g 08/09/19 [Rx Confirmed 10/11/19] insulin glulisine U-100 100 unit/mL subcutaneous solution See Rx Instructions SC .q day #50 ml 08/09/19 [Rx Confirmed 10/11/19] insulin syringe-needle U-100 0.5 mL 31 gauge x 08/19 See Rx Instructions .ROUTE .MEDSUPPLY #20 ea 08/09/19 [Rx Confirmed 10/11/19] montelukast 10 mg tablet 10 mg PO QHS #90 tab 08/09/19 [Rx Confirmed 10/11/19] lorazepam 0.5 mg tablet 0.5 mg PO QHS PRN #10 tab 09/07/19 [Rx Confirmed 10/11/19] [facility] Social History (Updated 10/11/19 @ 11:[address] Aishwarya Porter, ) Smoking Status: Never smoker second hand exposure: No alcohol intake: current substance use type: does not use what type of physical activity do you participate in: none HPI Bilat wrist: Surgical H&P: Yes Details: Parts of this documentation were recorded by a scribe, this documentation accurately reflects the service provided and the decisions made by me, Dr. Aishwarya Porter, 10/11/19 0959. TISH FLANAGAN is a 34 year old M here today for BL carpal tunnel syndrome. New patient seen today per request of dr price. States he has had this numbness for the last 5-6 years but has worsened over the last 6 months. He states he has BL 1st through 3rd finger numbness along with occasional numbness of the 4th and 5th fingers. He also c/o generalized hand pain along with BL elbow pain. 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 Denies any injections or surgery. He has been doing BL wrist night splinting for about 4 weeks which was not effective and made his symptoms worsen. Ortho Exam Right Wrist/Hand Skin/Wound: No Swelling, No Ecchymosis, Yes capillary refill normal Right Wrist: Yes ROM-Extension 0-60, ROM-Flexion 0-80, ROM-Pronation 0-80, ROM- Supination 0-90, Durken's Test, Phalen's and Thenar Atrophy Motor: EPL: 5, FDP-2: 4, 1st Dorsal Interosseous: 5, APB: 4 Sensation: Radial: I, Ulnar: I, Median: D Left Wrist/Hand Skin/Wound: No Swelling, No Ecchymosis, No erythema Left Wrist: Yes ROM-Extension 0-60, Yes ROM-Flexion 0-80, Yes ROM-Pronation 0- 80, Yes ROM-Supination 0-90, Yes Durken's Test, Yes Phalen's and Yes Thenar Atrophy Motor: EPL: 5, FDP-2: 4, 1st Dorsal Interosseous: 5, APB: 4 Sensation: Radial: I, Ulnar: I, Median: D Assessment & Plan Problems 1. Bilateral carpal tunnel syndrome G56.03 2. Lateral epicondylitis of both elbows M77.11; M77.12 Plan Personally reviewed patients EMG and X-rays of the BL wrists. Patient educated that he has BL severe carpal tunnel syndrome which is where his nerve is being compressed and causing the numbness. Treatment options include do nothing or bracing or injections or carpal tunnel release. Patient wishes to proceed with CTR of one of his wrists. Educated that he will be off work for about 6 weeks for recovery. Reviewed the pre-operative plans with the patient. Risks and benefits of the procedure were fully explained, including but not limited to infection, neurovascular injury, continued pain, arthritis, stiffness, need for further surgery, re-injury, DVT, PE, general risks of anesthesia, and loss of limb or life. Patient educated that he also has lateral epicondylitis which is the cause of his BL elbow pain and we can do this injection during his surgery because it is a painful injection. Treatment for the lateral epicondylitis is do nothing or injections or PT. Follow up to sign surgery consent or sooner if pain, swelling, numbness or associated symptoms, or concerns develop. All questions answered. Patient in agreement of plan. Orders Orders: Wrist min 3 Views Today G56.03 Elbow min 3 Views Today M77.11, M77.12 Wrist min 3 Views Today G56.03 Wrist min 3 Views Today G56.03 Elbow min 3 Views Today M77.11, M77.12 Elbow min 3 Views Today M77.11, M77.12 Coding Level of Care Code 81251 Diagnoses Bilateral carpal tunnel syndrome G56.03 Lateral epicondylitis of both elbows M77.11; M77.12 COVID (Procedure Consent) Procedure Criteria Procedure Criteria: Yes Elective The surgeon/proceduralist and patient have discussed in detail the risk of exposure to and/or potential harm posed by the COVID-19 virus with having a surgery/procedure at this time versus the risk of? delaying the surgery/procedure. It is not possible to know either the risk of delaying the surgery or procedure or chance of getting an infection with perfect accuracy, but a joint decision was made between the patient and the surgeon/proceduralist ?to proceed at this time with the scheduled surgery/procedure as indicated on the consent form.
== END 2019-11-30 09:14 | disposition home or self-care (01) ==
LOC: SDC 05:54 → AC 05:55
PROVIDERS: Anesthesiology; PCP Internal Medicine; Referring Provider Orthopaedic Surgery; Visit Provider Orthopaedic Surgery
PROC: (CPT 64721; principal; 2019-11-30 07:15)
DX: G56.02 Carpal tunnel syndrome, left upper limb (principal); M77.11 Lateral epicondylitis, right elbow; E11.9 Type 2 diabetes mellitus without complications; G47.30 Sleep apnea, unspecified; J32.9 Chronic sinusitis, unspecified; G25.81 Restless legs syndrome; Z87.891 Personal history of nicotine dependence; Z79.899 Other long term (current) drug therapy; Z79.4 Long term (current) use of insulin; Z96.41 Presence of insulin pump (external) (internal)
CPT/HCPCS: 20605; 64721; 82962; 87635; 94799; J7120; U0003

== ENCOUNTER 2019-12-14 17:00 | Outpatient (RCR) | payer BC, SELFPAY ==
[2019-09-07 08:16] VITALS: BMI 50.4
[2019-10-11 10:07] VITALS: BMI 50.4
--- NOTE | 2019-10-13 09:54 | HP.PTEVAL_ITS ---
Patient's Visit Information TISH FLANAGAN is a 34 year old M referred to Physical Therapy by Dr. Gaurang Simon DPM with a diagnosis of B plantar fascitis. Date of Evaluation: 10/13/19 Physical Therapist: Travis Negrete DPT - Visit Plan Frequency: 3x /Week Duration: 4 Weeks Plan: Start with agressive manual/DF/graston techniques. Add in calf stretching. Progress to foot intrinsic strengthening, ankle stability, glute strengthening and hip abductor strengthening. - Subjective Pt. is here today for his initial evaluatuon with diagnosis of B plantar fasciatis. Pt. 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 Pt. 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 Pt. has had therapy in the past with positive results and is wearing orthotics. Pt. reports symptoms are the same bilaterally. Pt. did have an MRI which showed PF and post tib tendonitis. Pt. reports that him and his physician did talk about EPAT machine and surgery and he wished to hold of on these options in lue of conservative care. Pt. is hopeful to reduce symptoms in order to get back to all recreational and work activities without limitations. - Pain R plantar fascia Pain Intensity (Out of 10): 4 Pain Intensity Range: 2, 9 L plantar fascia Pain Intensity (Out of 10): 4 Pain Intensity Range: 2, 9 - Objective POSTURE: Pt. has B pes planus that worsens in SLS bilaterally. Both feet are symmetrical in this positioning. He also has calcaneal valgus positoning. Pt. has B hip IR and knee valgus positining as well. PALPATION: Pt. is tender throughotu B planatar fascia, only medial aspect. No pain with lateral plantar fascia noted. Pt. has pain throughout B longitudinal arches as well. NEURO: B normal sensation and DTR. ROM: Pt. has tight calves bilaterally R ankle: 9deg DF, L ankle 11deg DF. Pt. has normal PF and ankle EVR. Pt. has tight HS and hip ER as well. MMT: Pt. has normal strength of BLEs, except hip ER and abd 4/5, and foot flexor intrinsics 4/5. GAIT: Pt. ambulates with decreased tempo. He has increased B ples planus with over pronation during stance phase Bilaterally. Pt. has increased knee valgus positining during stance phase Amadeo. Minimal hip ex tension noted. Special test: + windlass bilaterally, both Wbing and non WBing. - Goals Goal 1:: LTG: pt. to be I with HEP Goal Time Frame: 4-6 Weeks Goal 2:: STG: Pt. to have increased B ankle DF to 15deg allowing for improved gait pattern. Goal Time Frame: 2-4 Weeks Goal 3:: LTG: pt. to stand 8-10 hours (work shifts) with 0-2/10 pain in B plantar fascia allowing for increased tolerance to work duties. Goal Time Frame: 4-6 Weeks Goal 4:: STG: Pt. to walk community level distances with 0-2/10 pain B plantar fascia. Goal Time Frame: 2-4 Weeks Goal 5:: LTG: Pt. to have increased strength of B foot intrinsics, B hip abductors, B hip ER and B hip extensors. Goal Time Frame: 4-6 Weeks - Rehabilitation Potential Physical Therapy Diagnosis: Pt. has signs and symptoms consistent B plantar fascitis. Pt. has increased pain with WBing bilaterally and pain with stance phases of gait. Pt. would benefit from PT to work on aggresssive manual, Deep friction to reduce tissue tendon allowing for beter ability for mid and forefoot to contour to floor during stance phases. Progressing to foot/ankle and hip strengthening to promote better stability and foot with standing and walking. Rehabilitation Potential: Good - Anticipated Interventions Patient/Client Instruction: Educate patient on: Condition, Plan of Care, Risk Factors, Benefits of Fitness Program For the Purpose of:: To facilitate caregiver knowledge, To improve self management, To prevent re-injury, To improve ability to perform tasks related to life management, To improve tolerance to ADL's Therapeutic Exercise to Include: Strength training, Power training, Endurance training, Balance training, Flexibilty training, Passive ROM, Active ROM For the Purpose of:: To decrease pain, To decrease swelling/inflammation, To increase ROM, To improve nutrient delivery to tissue, To increase oxygenation perfusion, To improve muscle performance and motor function, To improve ability to perform ADL's, To increase tolerance to activity/condition/position, To improve gait and locomotor functions, To improve health of tissue, To decrease soft tissue restriction, To increase flexibility/ROM Manual Therapy Techniques to Include: Mobilization, Passive ROM, Soft tissue mobilization Comment: osman, aggressive deep friction For the Purpose of:: To decrease pain, To decrease swelling/inflammation, To increase ROM, To improve nutrient delivery to tissue, To increase oxygenation perfusion Thank you for the opportunity to evaluate your patient. For Medicare and Medicare HMO plans, please review the plan of care and approve it. It will need to be FAXED BACK to us at [phone] for Medicare purposes. For Medicare only, by signing this I certify the plan of care. Please let me know if there are questions or concerns regarding this plan of care. Physician Signature: Date:
--- NOTE | 2019-11-10 09:17 | HP.PTREVAL ---
Dr. Gaurang Simon, DPM, It has been my pleasure to treat TISH FLANAGAN over the last 7 visits for B plantar fascitis. Please see the progress note below for an update on the physical therapy plan of care! Subjective: Pt. reports about 20% better overall. Pt. reports I feel pretty good for about a day after PT, but then it comes back. He continues to report increased plantar fascia pain. Pt. did trial lying down on his stomach after work last time that really caused increased tightness in his feet and back. Pt. reports being HEP compliant Objective/Function: Pt. reports beign 20% better overall. Pt. has good relief 1/10 in B plantar fascia post PT, but reports relief stays about 8-16 hours after then wears off back to normal sorenes. His pain continues to be in medial longitudinal arch. GAIT: Pt. continues to walk with increased toeing out. Pt. has improved hindfoot varus, but still present. Pt. has antalgic pattern noted as well. Pt. has good strength, but cotniues to be tight with in his calf and foot. Pt. reports greatest relief with DFM and self pressure with baseball. Overall patient is slowly improving. Plan Plan: Requesting 6 more visits. Focus end range stretching, contract relax stretching, firm deep friction, and higher level functional strengthening. Goals Goal 1:: LTG: pt. to be I with HEP Goal Time Frame: 4-6 Weeks Goal Progress: Goal Met Goal 2:: STG: Pt. to have increased B ankle DF to 15deg allowing for improved gait pattern. Goal Time Frame: 2-4 Weeks Goal Progress: Progressing Goal 3:: LTG: pt. to stand 8-10 hours (work shifts) with 0-2/10 pain in B plantar fascia allowing for increased tolerance to work duties. Goal Time Frame: 4-6 Weeks Goal Progress: Progressing Goal 4:: STG: Pt. to walk community level distances with 0-2/10 pain B plantar fascia. Goal Time Frame: 2-4 Weeks Goal Progress: Progressing Goal 5:: LTG: Pt. to have increased strength of B foot intrinsics, B hip abductors, B hip ER and B hip extensors. Goal Time Frame: 4-6 Weeks Goal Progress: Progressing Anticipated Interventions Patient/Client Instruction: Educate patient on: Condition, Plan of Care, Risk Factors, Benefits of Fitness Program For the Purpose of:: To facilitate caregiver knowledge, To improve self management, To prevent re-injury, To improve ability to perform tasks related to life management, To improve tolerance to ADL's Therapeutic Exercise to Include: Strength training, Power training, Endurance training, Balance training, Flexibilty training, Passive ROM, Active ROM For the Purpose of:: To decrease pain, To decrease swelling/inflammation, To increase ROM, To improve nutrient delivery to tissue, To increase oxygenation perfusion, To improve muscle performance and motor function, To improve ability to perform ADL's, To increase tolerance to activity/condition/position, To improve gait and locomotor functions, To improve health of tissue, To decrease soft tissue restriction, To increase flexibility/ROM Manual Therapy Techniques to Include: Mobilization, Passive ROM, Soft tissue mobilization Comment: christie brewer deep friction For the Purpose of:: To decrease pain, To decrease swelling/inflammation, To increase ROM, To improve nutrient delivery to tissue, To increase oxygenation perfusion Please do not hesitate to contact me at [phone] by phone or if you have questions or concerns regarding this new plan of care! Sincerely, Travis Negrete DPT
--- NOTE | 2019-12-15 07:49 | HP.PTREVAL ---
Dr. Gaurang Simon, DPM, It has been my pleasure to treat TISH FLANAGAN over the last 8 visits for B plantar fascitis. Please see the progress note below for an update on the physical therapy plan of care! Subjective: Pt. reports my feet have been feeling a little bit better, but I have been off work for the last month or so. Pt. was unable to attend PT for the last month after having carpal tunnel surgery and having some mild complications with healing. Pt's wrist is doing better and is no ready to resume PT. Pt. date span is running out, so I am requesting more visit to again work on the previous plan of care. Objective/Function: Pt. reports beign 45% better overall. Pt. has good relief with PT previously and has decreased pain recently as he has been at home recovering from carpal tunnel surgery. GAIT: Pt. continues to walk with increased toeing out. Pt. has improved hindfoot varus, but still present. Pt. has antalgic pattern noted as well. He has overall decreased step length bilaterally and Pt. has good strength, but cotniues to be tight with in his calf and foot. Pt. reports greatest relief with DFM and self pressure with baseball. He has made some overall improvements with symptoms. He does have reduced symptoms with reduced time spent on his feet. I would like to contiune to work on ROM and increasing tissue tolerance to standing/walking. Plan Plan: Requesting another 4 visits as he was unable to attend his previous alotted visits due to have wrist surgery. Goals Goal 1:: LTG: pt. to be I with HEP Goal Time Frame: 4-6 Weeks Goal Progress: Goal Met Goal 2:: STG: Pt. to have increased B ankle DF to 15deg allowing for improved gait pattern. Goal Time Frame: 2-4 Weeks Goal Progress: Progressing Goal 3:: LTG: pt. to stand 8-10 hours (work shifts) with 0-2/10 pain in B plantar fascia allowing for increased tolerance to work duties. Goal Time Frame: 4-6 Weeks Goal Progress: Progressing Goal 4:: STG: Pt. to walk community level distances with 0-2/10 pain B plantar fascia. Goal Time Frame: 2-4 Weeks Goal Progress: Progressing Goal 5:: LTG: Pt. to have increased strength of B foot intrinsics, B hip abductors, B hip ER and B hip extensors. Goal Time Frame: 4-6 Weeks Goal Progress: Progressing Anticipated Interventions Patient/Client Instruction: Educate patient on: Condition, Plan of Care, Risk Factors, Benefits of Fitness Program For the Purpose of:: To facilitate caregiver knowledge, To improve self management, To prevent re-injury, To improve ability to perform tasks related to life management, To improve tolerance to ADL's Therapeutic Exercise to Include: Strength training, Power training, Endurance training, Balance training, Flexibilty training, Passive ROM, Active ROM For the Purpose of:: To decrease pain, To decrease swelling/inflammation, To increase ROM, To improve nutrient delivery to tissue, To increase oxygenation perfusion, To improve muscle performance and motor function, To improve ability to perform ADL's, To increase tolerance to activity/condition/position, To improve gait and locomotor functions, To improve health of tissue, To decrease soft tissue restriction, To increase flexibility/ROM Manual Therapy Techniques to Include: Mobilization, Passive ROM, Soft tissue mobilization Comment: christie brewer deep friction For the Purpose of:: To decrease pain, To decrease swelling/inflammation, To increase ROM, To improve nutrient delivery to tissue, To increase oxygenation perfusion Please do not hesitate to contact me at [phone] by phone or if you have questions or concerns regarding this new plan of care! Sincerely, Travis Negrete DPT
== END 2019-12-14 19:00 | disposition home or self-care (01) ==
LOC: PT 17:00
PROVIDERS: PCP Internal Medicine; Referring Provider Podiatrist; Visit Provider Podiatrist
DX: M72.2 Plantar fascial fibromatosis (principal)
CPT/HCPCS: 97110; 97140; 97161; 97164; 97530

== ENCOUNTER → 2019-12-28 10:26 | Outpatient (CLI) | payer BC, SELFPAY ==
[2019-12-28 09:57] VITALS: BMI 51.8
[2019-12-28 12:43] LABS: Absolute Lymphocyte Count 2.14 X10^3/uL (0.83-4.51); Absolute Neutrophil Count 5.8 X10^3/uL (2.0-7.7); Basophil# 0.05 X10^3/uL; Basophil% 0.6 % (0-1); Eosinophils% 2.2 % (0-5); Hematocrit 45.3 % (40-54); Hemoglobin 15.1 g/dL (13.0-16.5); Lymphocyte # 2.14 X10^3/ul (4.0); Lymphocyte % 24.1 % (19-41); Mean Corp Hgb Conc 33.3 g/dL (32-36); Mean Corpuscular Hgb 27.7 pg (27.0-32.0); Mean Corpuscular Volume 83.1 fL (80-94); Mean Platelet Vol. 9.8 fl (6.2-12.0); Monocyte# 0.62 X10^3/uL; NRBC Flagged by Analyzer 0 % (0-5); Neutrophil # 5.82 X10^3/uL (2.7-7.7); Neutrophil % 65.4 % (47-70); Platelet Count 241 K/mm3 (150-450); RBC Distribution Width CV 13.3 % (11.6-14.6); RBC Distribution Width SD 40.1 fl (35.1-43.9); Red Blood Count 5.45 M/mm3 (4.6-6.2); White Blood Count 8.9 K/mm3 (4.4-11.0)
[2019-12-28 13:24] LABS: AST(SGOT) 25 U/L (15-37); Alanine Aminotransfer ALT/SGPT 51 U/L (16-61); Albumin, Serum 3.8 g/dL (3.2-5.0); Alkaline Phosphatase 86 U/L (45-117); Anion Gap 6 (5-15); BUN 16 mg/dL (7-18); BUN/Creat Ratio 13.9 RATIO (10-20); Calcium,Total 9.5 mg/dL (8.5-10.1); Chloride 101 mmol/L (98-107); Cholesterol 191 mg/dL (200); Creatinine, Serum 1.15 mg/dL (0.70-1.30); EST Glomerular Filtration Rate 78 mL/min (>60); Est Glom Filt Rate - Afr Amer 95 mL/min (>60); Globulin 3.9 g/dL (2.2-4.2); Glucose 266 mg/dL (74-106); High Density Lipoprotein 45 mg/dL; Potassium 4.5 mmol/L (3.5-5.1); Protein, Total 7.7 g/dL (6.4-8.2); Sodium Level 136 mmol/L (136-145); Triglycerides 138 mg/dL; Very Low Density Lipoprotein 28 mg/dL (5-40)
[2019-12-28 13:36] LABS: Microalbumin,Random Urine 91.1 mg/L (NO RANGE EST.); Microalbumin:Creatinine Ratio 74.7 mg/g CRE (<30 mg/g CRE)
== END ==
PROVIDERS: PCP Internal Medicine; Visit Provider Nurse Practitioner Family
DX: E10.9 Type 1 diabetes mellitus without complications (principal); I10 Essential (primary) hypertension
CPT/HCPCS: 36415; 80053; 80061; 82043; 82570; 84443; 85025

== ENCOUNTER 2020-01-25 05:58 | Day surgery (SDC) | payer BC, SELFPAY ==
[2019-12-13 09:24] VITALS: BMI 51.8
[2020-01-10 09:44] VITALS: BMI 51.8
[2020-01-25] VITALS (7 sets, daily range): BP systolic 122–144; BP diastolic 61–91; PULSE 91–98; RESP 16–18; TEMP 36.4–37.2; O2SAT 95–100; BMI 52.9
[2020-01-25] MEDS: Lactated Ringers 1,000 ML 100 ML IV (06:40)
[2020-01-25 07:00] LABS: Bedside Glucose 211 mg/dL (70-110)
[2020-01-25] MEDS: Cefazolin 2 GM in 0.9% Normal Saline 100 ML IV (07:20)
--- NOTE | 2020-01-25 07:29 | PCM.HP.BLA ---
History and Physical Estrogen pain no changes I have re-examined the patient. There are no clinical changes since date of exam. This is for patient is here for a right carpal tunnel release and right lateral epicondyle injection ADDENDUM Addendum entered and electronically signed by Aishwarya Porter DO 01/17/20 08:55: Discussed with patient the fact that he still has chronic right carpal tunnel on his left on his right as well. His left is resolved. At this time patient will elected to proceed with right carpal tunnel release discussed possible right lateral epicondyle injection at the same time. As patient also has tender along his right lateral epicondyle with pain with resisted extension. Patient is aware of risks and would like to see with right carpal tunnel release and right carpal right lateral epicondyle injection. We discussed the current risk associated COVID-19. While it is understood that there is a community spread of COVID 19 the risk of arabella COVID-19 while at [facility] is very low, however, the risk cannot be completely mitigated because of the community spread of the disease. We discussed in detail the risk of exposure to and or potential harm posed by the COVID-19 virus with having a surgery/procedure at this time versus the risk of delaying the surgery/procedure. Is not possible to know either the risk of delaying the surgery procedure or chance of getting an infection with perfect accuracy, but a joint decision was made to proceed at this time with a schedule surgery/procedure as indicated on the consent form. Patient was notified that we will need to comply with any screening or testing [facility] wishes to perform or that surgery may be delayed for any positive results. Assessment & Plan Plan - Dr. Aishwarya Porter DO Advised d/t new skin, make sure to use sunscreen to protect. As well as using Vitamin E on scar to promote healing. Educated pt has pain at left cmc, numbness in first three fingers has resolved. Suggested ordering occupationall therapy. Patient is in agreement. Reviewed the pre-operative plans with the patient. Risks and benefits of the procedure were fully explained, including but not limited to infection, neurovascular injury, continued pain, arthritis, stiffness, need for further surgery, re-injury, DVT, PE, general risks of anesthesia, and loss of limb or life. The patient understands all the risks and does wish to proceed with written consent. All questions answered. Patient in agreement of plan. We discussed the current risk associated COVID-19. While it is understood that there is a community spread of COVID 19 the risk of arabella COVID-19 while at [facility] is very low, however, the risk cannot be completely mitigated because of the community spread of the disease. We discussed in detail the risk of exposure to and or potential harm posed by the COVID-19 virus with having a surgery/procedure at this time versus the risk of delaying the surgery/procedure. Is not possible to know either the risk of delaying the surgery procedure or chance of getting an infection with perfect accuracy, but a joint decision was made to proceed at this time with a schedule surgery/procedure as indicated on the consent form. Patient was notified that we will need to comply with any screening or testing [facility] wishes to perform or that surgery may be delayed for any positive results. Intake Intake Visit Reasons: Left Hand/Wrist Chief Complaint: 3 month f/u Allergies losartan Allergy (Severe, Verified 12/30/19 14:28) Unknown aspirin Allergy (Verified 12/30/19 14:28) Hives menthol [From Icy Hot] Adverse Reaction (Verified 12/30/19 14:28) Other methyl salicylate [From Icy Hot] Adverse Reaction (Verified 12/30/19 14:28) peeled skin off fabric softener Allergy (Unknown, Uncoded 12/30/19 14:28) Rash [facility] Social History (Updated 01/10/20 @ 10:[address] Aishwarya Porter DO) Smoking Status: Former smoker second hand exposure: No alcohol intake: current substance use type: does not use what type of physical activity do you participate in: none HPI Left Hand/Wrist: Details: Parts of this documentation were recorded by a scribe, this documentation accurately reflects the service provided and the decisions made by me, Dr. Aishwarya Porter, DO 01/10/20 0942. TISH FLANAGAN is a 34 year old M here today for f/u s/p left carpal tunnel release, left lateral epicondylitis injection. DOS: 11/30/2019. Ortho Exam Left Wrist/Hand Date of Surgery: 11/30/19 Skin/Wound: Yes healed Assessment & Plan Plan Advised d/t new skin, make sure to use sunscreen to protect. As well as using Vitamin E on scar to promote healing. Educated pt has pain at left cmc, numbness in first three fingers has resolved. Suggested ordering occupationall therapy. Patient is in agreement. Reviewed the pre-operative plans with the patient. Risks and benefits of the procedure were fully explained, including but not limited to infection, neurovascular injury, continued pain, arthritis, stiffness, need for further surgery, re-injury, DVT, PE, general risks of anesthesia, and loss of limb or life. The patient understands all the risks and does wish to proceed with written consent. All questions answered. Patient in agreement of plan. Coding Level of Care Code Global Post Op
--- NOTE | 2020-01-25 07:30 | DCINST_ITS ---
Discharge Diet: No Restrictions - Leave dressing on until seen in postop clinic in 10-14 days for suture removal, keep dressing clean, dry, intact; change dressing if gets wet/dirty, call with concerns Discharge Activity: May Not Drive May shower in (days): 1 Ice area for (Minutes): 20 - Every hour while awake. Weight Bearing Status: Weight bearing as tolerated Keep extremity elevated above heart level: Operative Extremity Call your doctor if your incision/area has: Continuous Slow Oozing, Sudden Increased Bleeding, Increased Pain/ Swelling, Increased Redness, Foul Smelling Discharge Call your doctor if you observe: Fever of 101 or Higher, Coldness, Increased Pain, Numbness or Tingling, Change in Color, Calf discomfort Allergies/Adverse Reactions: Allergies losartan Allergy (Severe, Verified 01/16/20 13:03) Unknown aspirin Allergy (Verified 01/16/20 13:03) Hives menthol [From Icy Hot] Adverse Reaction (Verified 01/16/20 13:03) Other methyl salicylate [From Icy Hot] Adverse Reaction (Verified 01/16/20 13:03) peeled skin off fabric softener Allergy (Unknown, Uncoded 01/16/20 13:03) Rash Scented Medications to take at Discharge cholecalciferol (vitamin D3) 125 mcg (5,000 unit) tablet 5,000 unit PO DAILY 06/25/18 multivitamin 1 tab PO DAILY 06/25/18 trazodone 50 mg tablet 50 mg PO QHS PRN #90 tab 04/27/19 Fluticasone Propionate 2 spray INTRANASAL DAILY PRN 11/21/19 Insulin Glulisine [Apidra] 0 unit SQ CONT 11/21/19 bupropion HCl 150 mg tablet,12 hr sustained-release 150 mg PO BID #180 ea 12/28/19 lisinopril 30 mg tablet 30 mg PO DAILY #90 tab 12/28/19 Montelukast Sodium 10 mg PO QHS PRN 01/16/20 Primary Care Physician: Laisha Pitt MD [Primary Care Provider] - Test Results: Test results from this visit will be discussed in further detail at your follow- up appointment, if applicable. Please Follow Up With: Aishwarya Porter, DO - [phone]
--- NOTE | 2020-01-25 07:30 | PCM.OPRPT ---
Report of Operation Date of Procedure: 01/25/20 Pre-Operative Diagnosis: right carpal tunnel syndrome, right lateral epicondylitis Post-Operative Diagnosis: same Surgery/Procedure Performed:: right carpal tunnel release, right lateral epicondyle injection 1/2cc kenalog, 1cc bupivicaine Type of Anesthesia:: BlockZeinab Anesthesiologist: Parminder Barnett Estimated Blood Loss (mL): min Fluids Replaced: 600cc Description of Procedure: Preoperative note Patient is a 34 year old patient with nerve conduction study confirming carpal tunnel syndrome And right lateral epicondylitis. Patient failed conservative treatment for her carpal tunnel elected proceed with right carpal tunnel release And right lateral epicondyle injection. Risks benefits and alternatives surgery discussed with patient. Risks including but not limited to blood loss, blood clot, infection, neurovascular injury, failure procedure, loss of life and loss of limb. Patient is aware like proceed with right carpal tunnel release And right lateral epicondyle injection. Operative note Patient seen and examined preoperative holding area. right hand was marked. History and physical and consent reviewed. Patient was brought to the operating room placed supine on the operating table. Sign in, anesthesia, antibiotics were administered. right upper extremity was prepped and draped after Zeinab block was initiated. All bony prominences well-padded SCDs placed on bilateral lower extremities. We marked out our incisions for our carpal tunnel release at the intersection of Wilfredo's line in the fourth ray flexed. We extended about a centimeter and a half. Timeout was performed. We then checked ensure that the [place] block was working with pickups which it was. We then used a 15 blade to make a skin incision. We then dissected down tenotomy syllable of the transverse carpal ligament. We then used a new 15 blade cut through the transverse carpal ligament down to the level of the median nerve. We then further released the median nerve the combination of the 15 blade and tenotomies. The nerve was grayish in color and adherent to the transverse carpal ligament volarly. We released the transverse carpal ligament distally to the fat pad and then proximally under standard technique. We then palpated to ensure that we released all of the transverse carpal ligament which we did. We irrigated the incision with copious amounts of sterile saline. All bleeders were coagulated. The incision was closed with interrupted 4-0 nylon stitches. Tourniquet was deflated for total working time of 11 minutes. We then entered standard sterile technique injected the lateral epicondyle and applied a bandaid to injection site. Patient tolerated procedure well there were no complications. Patient transferred to recovery room in stable condition. Postoperative note Leave dressing clean dry and intact Follow-up in 2 weeks Call with concerns This note was generated with Striking[employer] dictation software. It may contain incorrect words, spelling, and punctuation that were not noted in checking the note before signing
[2020-01-25] MEDS: Mupirocin Ointment 22gm Tube 1 APPLIC (07:58)
[2020-01-25] MEDS: Triamcinolone Acetonide 40 MG/ML Vial (07:59)
[2020-01-25] MEDS: Bupivacaine 0.25% 30 ML Vial (07:59)
== END 2020-01-25 09:19 | disposition home or self-care (01) ==
LOC: SDC 05:58 → AC 05:58
PROVIDERS: Anesthesiology; PCP Internal Medicine; Referring Provider Orthopaedic Surgery; Visit Provider Orthopaedic Surgery
PROC: (CPT 64721; principal; 2020-01-25 07:15)
DX: G56.01 Carpal tunnel syndrome, right upper limb (principal); M77.11 Lateral epicondylitis, right elbow; Z20.828 Contact with and (suspected) exposure to other viral communicable diseases; E11.9 Type 2 diabetes mellitus without complications; I10 Essential (primary) hypertension; G47.30 Sleep apnea, unspecified; Z96.41 Presence of insulin pump (external) (internal); Z79.899 Other long term (current) drug therapy; Z87.891 Personal history of nicotine dependence
CPT/HCPCS: 01810; 20605; 64721; 82962; 87635; C9803; J7120; A4216; U0003

== ENCOUNTER 2020-02-21 09:30 | Outpatient (RCR) | payer BC, SELFPAY ==
[2020-01-10 09:44] VITALS: BMI 51.8
--- NOTE | 2020-01-17 15:52 | HP.OTEVAL_ITS ---
Patient's Visit Information TISH FLANAGAN is a 34 year old M, referred to Occupational Therapy by Dr. Aishwarya Porter DO, with a diagnosis of left CTR/ right cmc OA. Date of Evaluation: 01/17/20 Occupational Therapist: Aleksandra Haskins, OTR/Vianca, CHT - Subjective This 34 year old male was seen for OT eval with dx of a left CTR/ left CMC OA. 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 pt states he had a CTR done 11/30/19. pt states tingling and numbess went away- but now has some thumb pain and feeling of thumb instability. pt would like his pain to decrease so he can use left UE prior to having his right CTR done in about a week. 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 with ADls and IADLs by d/c Goal:: pt will report no pain greater than 1/10 with use of left hand with ADls and IADls by d/c Goal:: pt will demo understanding of thumb care, thumb stabilization ex and possible use of brace for work tasks by end of 4th visit. - Rehabilitation General Assessment: pt demo with a decrease use of left hand/ pinch tasks for ADLs and IADLs. pain in left thumb while performing cooking tasks. pt would benefit from skilled OT services 2x week for 4 weeks to return pt to [facility]. Today therapist ed. pt on CMC OA, CTR, scar mtg and thumb stabilization ex. pt demo understanding and agree to POC. Rehabilitation Potential: Good - Anticipated Interventions A/AAROM/PROM, Strengthening, Scar Care, Modalities, Orthoses, Joint Protection/Energy Conservation, Ergonomic Education, ADL Training - Visit Plan Frequency: 1-2x /Week Duration: 4 Weeks General Plan: Therapy will cont. to ed. on thumb care and stabilization ex. along with use of PB or US to decrease pts pain. therapy will work with pt on work ergo. to avoid excessive stress of thumb positions with job tasks. pt agree to POC TEXT: Thank you for the opportunity to evaluate your patient. For Medicare and Medicare HMO plans, please review the plan of care and approve it. It will need to be FAXED BACK to us at [phone] for Medicare purposes. Please let me know if there are questions or concerns regarding this plan of care. Physician Signature: Date:
--- NOTE | 2020-02-21 10:26 | HP.OTDCSUM ---
It has been my pleasure to treat TISH FLANAGAN under orders from Dr. Aishwarya Porter, , for the diagnosis of left CTR/ right cmc OA for a total of 9 visit(s). Please see the following information for a summary of their discharge status. 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 left CTR 11/30/19 pt demo a increase in left carrier operator strength from 68# to 70# pts right lateral pinch is 12# a increase from 10# left lateral pinch initial was 10# and now 12#- pts right tripod pinch was 16# now 12# and left tripod pinch inital 4# now 12# and right tip pinch inital 8# now 10# and left initial tip pinch at 4# now 10#- pts sensation is now WNL at monofilament testing left hand all at 2.83 and right hand thumb, IF, RF,LF at 2.83 and right MF at 3.22 this demo a increase in pts sensation on right following sx. pt feels senation is wnl and he can perform all ADLs task at IND level- pt is c/o of bilateral cmc hand- therapist ed. pt on UB t-band HEP to increase posture and increase BUE strength. pt has handouts and agree to HEP Patient Goals: Regain Strength, Decrease Pain, Use Hand/Wrist/Arm Normally Again Goal:: pt will demo a increase in left thumb pinch strength by 4# to increase pts ind. with ADls and IADLs by d/c Goal:: pt will report no pain greater than 1/10 with use of left hand with ADls and IADls by d/c Goal:: pt will demo understanding of thumb care, thumb stabilization ex and possible use of brace for work tasks by end of 4th visit. Plan: D/C Discharge Comments: pt has made good gains with strength- pts sensation has returned and he's feeling good about that. But pt states he has bilateral thumb pain at CMC- therapist noted bilateral thumb MP motion is limited this will increase stress on CMC with FMS- therapsit ed. pt on joint protection and use of possible supportive cmc brace. pt demo understanding and will ask about pain and possible cortisone shot. pt d/c now with HEP. If there are questions or concerns regarding this patient's occupational therapy, please fell free to call me at [phone]. Thank you for the referral of this patient. Sincerely, Aleksandra Haskins OTR/L, CHT
== END 2020-02-21 12:32 | disposition home or self-care (01) ==
LOC: OT 09:30
PROVIDERS: PCP Internal Medicine; Referring Provider Orthopaedic Surgery; Visit Provider Orthopaedic Surgery
DX: Z47.89 Encounter for other orthopedic aftercare (principal); M18.9 Osteoarthritis of first carpometacarpal joint, unspecified
CPT/HCPCS: 97035; 97110; 97166; 97530; 97760

== ENCOUNTER → 2020-06-22 | Outpatient (CLI) | payer BC, SELFPAY ==
[2020-04-13 16:41] VITALS: BMI 51.9
[2020-06-22 22:40] LABS: M R Staph aureus DNA By PCR Negative (Negative); Probe Check PASS; Specimen Processing Control PASS; Staph aureus DNA By PCR NEGATIVE (Negative)
== END | disposition home or self-care (01) ==
LOC: LABSPEC 15:41
PROVIDERS: PCP Internal Medicine; Referring Provider Podiatrist; Visit Provider Podiatrist
DX: L60.0 Ingrowing nail (principal); L03.116 Cellulitis of left lower limb
CPT/HCPCS: 87070; 87075; 87077; 87186; 87205; 87640

== ENCOUNTER 2020-06-29 15:16 | Outpatient (RCR) | payer BC, SELFPAY ==
[2020-04-13 16:41] VITALS: BMI 51.9
== END 2020-09-11 23:59 ==
LOC: IMMUN 15:16
PROVIDERS: PCP Nurse Practitioner Family; Visit Provider Family Medicine
DX: Z23 Encounter for immunization (principal)
CPT/HCPCS: 0001A; 0002A; 91300

== ENCOUNTER → 2020-07-12 06:11 | Outpatient (CLI) | payer BC, SELFPAY ==
[2020-04-13 16:41] VITALS: BMI 51.9
[2020-07-12 06:50] LABS: Absolute Lymphocyte Count 1.86 X10^3/uL (0.83-4.51); Absolute Neutrophil Count 6.2 X10^3/uL (2.0-7.7); Basophil# 0.05 X10^3/uL; Basophil% 0.5 % (0-1); Eosinophil# 0.33 X10^3/uL; Eosinophils% 3.5 % (0-5); Hematocrit 44.2 % (40-54); Hemoglobin 14.6 g/dL (13.0-16.5); Lymphocyte # 1.86 X10^3/ul (4.0); Mean Corpuscular Hgb 27.4 pg (27.0-32.0); Mean Corpuscular Volume 82.9 fL (80-94); Mean Platelet Vol. 9.3 fl (6.2-12.0); Monocyte# 0.87 X10^3/uL; Monocyte% 9.3 % (0-10); NRBC Flagged by Analyzer 0 % (0-5); Neutrophil # 6.15 X10^3/uL (2.7-7.7); Neutrophil % 66.2 % (47-70); Platelet Count 216 K/mm3 (150-450); RBC Distribution Width CV 13.4 % (11.6-14.6); RBC Distribution Width SD 39.2 fl (35.1-43.9); Red Blood Count 5.33 M/mm3 (4.6-6.2); White Blood Count 9.3 K/mm3 (4.4-11.0)
[2020-07-12 07:14] LABS: ALB/GLOB Ratio 1.1 RATIO (0.9-2.4); AST(SGOT) 36 U/L (15-37); Alanine Aminotransfer ALT/SGPT 79 U/L (16-61); Albumin, Serum 3.7 g/dL (3.2-5.0); Alkaline Phosphatase 86 U/L (45-117); Anion Gap 4 (5-15); BUN 16 mg/dL (7-18); BUN/Creat Ratio 16.1 RATIO (10-20); Calcium,Total 8.9 mg/dL (8.5-10.1); Chloride 102 mmol/L (98-107); EST Glomerular Filtration Rate 92 mL/min (>60); Est Glom Filt Rate - Afr Amer 111 mL/min (>60); Globulin 3.4 g/dL (2.2-4.2); Glucose 149 mg/dL (74-106); Potassium 3.8 mmol/L (3.5-5.1); Protein, Total 7.1 g/dL (6.4-8.2); Sodium Level 137 mmol/L (136-145)
== END ==
PROVIDERS: PCP Nurse Practitioner Family; Referring Provider Podiatrist; Visit Provider Podiatrist
DX: L03.039 Cellulitis of unspecified toe (principal)
CPT/HCPCS: 36415; 80053; 85025

== ENCOUNTER → 2021-01-05 07:09 | Outpatient (CLI) | payer BC, SELFPAY ==
[2021-01-05 08:17] LABS: Microalbumin,Random Urine 32.2 mg/L (NO RANGE EST.); Microalbumin:Creatinine Ratio 35.2 mg/g CRE (<30 mg/g CRE)
[2021-01-05 08:39] LABS: ALB/GLOB Ratio 0.9 RATIO (0.9-2.4); AST(SGOT) 16 U/L (15-37); Alanine Aminotransfer ALT/SGPT 42 U/L (16-61); Albumin, Serum 3.5 g/dL (3.2-5.0); Alkaline Phosphatase 87 U/L (45-117); Anion Gap 8 (5-15); BUN 16 mg/dL (7-18); BUN/Creat Ratio 19.2 RATIO (10-20); Calcium,Total 8.7 mg/dL (8.5-10.1); Chloride 105 mmol/L (98-107); Cholesterol 156 mg/dL (200); Creatinine, Serum 0.83 mg/dL (0.70-1.30); EST Glomerular Filtration Rate 113 mL/min (>60); Est Glom Filt Rate - Afr Amer 136 mL/min (>60); Globulin 3.8 g/dL (2.2-4.2); Glucose 158 mg/dL (74-106); High Density Lipoprotein 44 mg/dL; Potassium 4.1 mmol/L (3.5-5.1); Protein, Total 7.3 g/dL (6.4-8.2); Sodium Level 139 mmol/L (136-145); Thyroid Stim Hormone (TSH) 1.15 uIU/mL (0.358-3.74); Triglycerides 59 mg/dL; Very Low Density Lipoprotein 12 mg/dL (5-40)
== END ==
PROVIDERS: PCP Family Medicine; Referring Provider Family Medicine; Visit Provider Family Medicine
DX: E10.9 Type 1 diabetes mellitus without complications (principal); I10 Essential (primary) hypertension; R63.5 Abnormal weight gain; R53.83 Other fatigue
CPT/HCPCS: 36415; 80053; 80061; 82043; 82533; 82570; 84402; 84403; 84443

== ENCOUNTER → 2021-01-21 | Outpatient (CLI) | payer BC, SELFPAY | END | disposition home or self-care (01) | PROVIDERS: PCP Family Medicine; Referring Provider Family Medicine; Visit Provider Family Medicine | DX: N39.0 Urinary tract infection, site not specified (principal) | CPT/HCPCS: 87086; 87088 ==

== ENCOUNTER 2021-04-04 17:30 | Outpatient (RCR) | payer BC, SELFPAY ==
--- NOTE | 2021-02-07 09:06 | HP.PTEVAL ---
Patient's Visit Information TISH FLANAGAN is a 35 year old M referred to Physical Therapy by Dr. Gaurang Simon DPM with a diagnosis of Bilateral plantar fasciitis. Date of Evaluation: 02/06/21 Physical Therapist: Travis Negrete DPT - Visit Plan Frequency: 1-2x /Week Duration: 6 Weeks Plan: Pt presents to physical therapy with limited ROM in dorsiflexion, weakness in dorsiflexors and pain with ambulation. It is my clinical impression that the patient would benefit from physical therapy to increase flexibility and decrease pain in plantarfascia allowing daily activities such as stairs and work to be more tolerable. - Subjective Tish presents to physical therapy with bilateral foot pain. He states his feet have always have problems, with a history of crum splints, plantar fasciitis, and a burning sensation on his feet. Pt reports his doctor would like him to improve right flexion of his big toe. In the past, utilization of graston has relieved some pain. Pt states 4-5 weeks ago is when he noticed the pain worsening, which led him to schedule a PT appointment. He states when he sits down or does stairs his pain will get worse. The pain is the worst in the morning, but continues through work each day. Pt states his goals for PT are to improve flexibility of his big toe and foot to help relieve some of the pain. - Pain Right Foot Pain Intensity (Out of 10): 5 Pain Intensity Range: 3, 10 Left Foot Pain Intensity (Out of 10): 5 Pain Intensity Range: 3, 10 - Objective ROM: Right :DF/PF : AROM: 10-0- 41 PROM 16-0- 60 ; Left DF/PF: AROM: 1-0-54, PROM 5-0- 54. STRENGTH: R foot: 4+ DF , PF 5, inversion 4+, eversion 5, L: R foot: 4+ DF , PF 5, inversion 4+, eversion 5. GAIT: walks very flat footed, excessive supination during stance phase avoids toe off big toe. PALPATION: pain on calcaneus near insertion point of plantar fascia. Special tests: + windlass test (bilaterally) - Balance/Special Test Scores Lower Extremity Functional Score: 58 - Goals Goal 1:: STG: Pt will report less than 4/ 10 pain during work Goal Time Frame: 2-4 Weeks Goal 2:: LTG: Pt will make it through full day of work with less than or equal to 0-2/10 pain. Goal Time Frame: 2-4 Weeks Goal 3:: LTG: Pt will improve L DF ROM to 7 degrees to improve gait pattern. Goal 4:: Pt will be independent with HEP. Goal Time Frame: 2-4 Weeks - Rehabilitation Potential Physical Therapy Diagnosis: dorsiflexion weakness, limited DF ROM, foot pain Rehabilitation Potential: Good - Anticipated Interventions Patient/Client Instruction: Educate patient on: Condition, Plan of Care, Benefits of Fitness Program For the Purpose of:: To decrease pain, To increase ROM, To improve ability to perform ADL's, To increase tolerance to activity/condition/position, To improve ability of physical actions for home/community/work/leisure, To increase flexibility/ROM Therapeutic Exercise to Include: Strength training, Passive ROM, Active ROM For the Purpose of:: To decrease pain, To increase ROM, To improve ability to perform ADL's, To decrease soft tissue restriction, To increase flexibility/ROM Manual Therapy Techniques to Include: Soft tissue mobilization For the Purpose of:: To decrease pain, To increase ROM, To decrease soft tissue restriction, To increase flexibility/ROM Thank you for the opportunity to evaluate your patient. For Medicare and Medicare HMO plans, please review the plan of care and approve it. It will need to be FAXED BACK to us at [phone] for Medicare purposes. For Medicare only, by signing this I certify the plan of care. Please let me know if there are questions or concerns regarding this plan of care. Physician Signature: Date:
--- NOTE | 2021-03-11 09:47 | HP.PTREVAL ---
Dr. Gaurang Simon, DPM, It has been my pleasure to treat TISH FLANAGAN over the last 7 visits for Bilateral plantar fasciitis. Please see the progress note below for an update on the physical therapy plan of care! Subjective: Pt. reports overall doing better. Pt. reports being 50% better when he is doing therapy and stretching, but does have increased pain in both B plantar fascia and at his B heels as well. Pt. reports 3/10 in B plantar fascia and 3/10 in R heel, 5/10 in L heel. Pt. reports no issues with HEP, but has pain with standing at work. Stands all day at work. Objective/Function: Pt. has decent DF bilaterally passively 12deg on R, 14deg on L. Pt. has ~6 deg bilat actively. Pt. has has flat feet bilaterally and increased pronation during stance phase. He does wear orthotics which seem to slightly help, but not drastically. I would like him to continue to work on intrinsic strengthening, post tibialis strengthening, DF stretching, self manual techniques. I would like to see him a few more visits to further progress his strengthening and monitor stretching. Plan Plan: I would like to see him x1 per week for 4 more weeks to further progress HEP with focus on stretching and intrinsic strengthening/ post tibialis strengthening. Balance/Gait/Functional tests - Balance/Special Test Scores Lower Extremity Functional Score: 61 Goals Goal 1:: STG: Pt will report less than 4/ 10 pain during work Goal Time Frame: 2-4 Weeks Goal Progress: Progressing Goal 2:: LTG: Pt will make it through full day of work with less than or equal to 0-2/10 pain. Goal Time Frame: 2-4 Weeks Goal Progress: Progressing Goal 3:: LTG: Pt will improve L DF ROM to 7 degrees to improve gait pattern. Goal Progress: Goal Met Goal 4:: Pt will be independent with HEP. Goal Time Frame: 2-4 Weeks Goal Progress: Progressing Anticipated Interventions Patient/Client Instruction: Educate patient on: Condition, Plan of Care, Benefits of Fitness Program For the Purpose of:: To decrease pain, To increase ROM, To improve ability to perform ADL's, To increase tolerance to activity/condition/position, To improve ability of physical actions for home/community/work/leisure, To increase flexibility/ROM Therapeutic Exercise to Include: Strength training, Passive ROM, Active ROM For the Purpose of:: To decrease pain, To increase ROM, To improve ability to perform ADL's, To decrease soft tissue restriction, To increase flexibility/ROM Manual Therapy Techniques to Include: Soft tissue mobilization For the Purpose of:: To decrease pain, To increase ROM, To decrease soft tissue restriction, To increase flexibility/ROM Please do not hesitate to contact me at [phone] by phone or if you have questions or concerns regarding this new plan of care! Sincerely, NICCI GarciaT
== END 2021-04-04 19:00 | disposition home or self-care (01) ==
LOC: PT 17:30
PROVIDERS: PCP Family Medicine; Referring Provider Podiatrist; Visit Provider Podiatrist
DX: M72.2 Plantar fascial fibromatosis (principal)
CPT/HCPCS: 97110; 97140; 97161; 97530

== ENCOUNTER → 2021-08-17 | Outpatient (CLI) | payer BC, SELFPAY ==
--- NOTE | 2021-08-17 08:17 | MRI_ITS ---
STUDY: MRI RIGHT MIDFOOT REASON FOR EXAM: Male, 35 years old. PLANTAR FASCITIS TECHNIQUE: Standardized fat and water weighted pulse sequences were obtained in all 3 orthogonal planes. COMPARISON: None. FINDINGS: Normal talonavicular articulation. Normal calcaneocuboid articulation. Normal navicular-cuneiform articulations. Normal intercuneiform articulations. Mild first tarsometatarsal joint arthrosis with erosion of the lateral aspect of the first cuneiform bone. Normal Lisfranc ligament. Mild second and third tarsometatarsal joint arthrosis with erosions of the base of the second third metatarsal bones and stress reaction of the proximal shaft. Mild fourth tarsometatarsal joint arthrosis with erosion of the base of the fourth metatarsal bone. Mild stress reaction of the proximal shaft of the second third metatarsal bones. Mild first, second, and third intermetatarsal bursitis. Normal tibialis anterior tendon. Normal extensor hallucis longus tendon. Normal extensor digitorum longus tendons. Normal peroneus longus tendon and distal insertion. Normal peroneus brevis tendon and distal insertion. Normal intrinsic muscles of the mid and forefoot region. Normal extensor digitorum brevis muscle. Normal subcutis adipose space. Mild plantar fasciitis. MRI/Lower Ext/No Jt/w/o IMPRESSION: Mild midfoot arthrosis with erosions and stress reaction of the proximal shaft of the second third metatarsal bones and the first, second, and third intermetatarsal bursitis. Electronically Signed: Jose Drake MD at 15:04 EDT ,
--- NOTE | 2021-08-17 08:17 | MRI_ITS ---
STUDY: MRI LEFT MIDFOOT REASON FOR EXAM: Male, 35 years old. PLANTAR FASCITIS TECHNIQUE: Standardized fat and water weighted pulse sequences were obtained in all 3 orthogonal planes. COMPARISON: 07/25/2017 FINDINGS: Normal talonavicular articulation. Normal calcaneocuboid articulation. Normal navicular-cuneiform articulations. Normal intercuneiform articulations. Normal first tarsometatarsal articulation. Normal Lisfranc ligament. Mild third tarsometatarsal joint arthrosis with a small erosion of the plantar aspect of the third cuneiform bone. Normal second tarsometatarsal joint. Normal cuboid fourth and cuboid fifth tarsometatarsal articulation. Mild stress reaction of the shaft of the second third metatarsal bones. Third intermetatarsal space bursitis. Normal tibialis anterior tendon. Normal extensor hallucis longus tendon. Normal extensor digitorum longus tendons. Normal peroneus longus tendon and distal insertion. Normal peroneus brevis tendon and distal insertion. Normal intrinsic muscles of the mid and forefoot region. Normal extensor digitorum brevis muscle. Normal subcutis adipose space. Mild plantar fasciitis. MRI/Lower Ext/No Jt/w/o IMPRESSION: Mild third tarsometatarsal joint arthrosis with mild stress reaction of the shaft of the second third metatarsal bones and third intermetatarsal space bursitis. Electronically Signed: Jose Drake MD at 14:57 EDT ,
== END | disposition home or self-care (01) ==
LOC: MRI 08:05
PROVIDERS: PCP Family Medicine; Visit Provider Podiatrist
DX: M72.2 Plantar fascial fibromatosis (principal)
CPT/HCPCS: 73718

== ENCOUNTER → 2021-09-04 | Outpatient (CLI) | payer BC, SELFPAY ==
[2021-09-04 17:34] LABS: Absolute Lymphocyte Count 2.51 X10^3/uL (0.83-4.51); Absolute Neutrophil Count 4.8 X10^3/uL (2.0-7.7); Basophil# 0.06 X10^3/uL; Basophil% 0.7 % (0-1); Eosinophil# 0.27 X10^3/uL; Eosinophils% 3.2 % (0-5); Hematocrit 45.6 % (40-54); Hemoglobin 15.3 g/dL (13.0-16.5); Lymphocyte # 2.51 X10^3/ul (0.83-4.51); Lymphocyte % 29.5 % (19-41); Mean Corp Hgb Conc 33.6 g/dL (32-36); Mean Corpuscular Hgb 27.1 pg (27.0-32.0); Mean Corpuscular Volume 80.7 fL (80-94); Mean Platelet Vol. 9.5 fl (6.2-12.0); Monocyte# 0.84 X10^3/uL; Monocyte% 9.9 % (0-10); NRBC Flagged by Analyzer 0 % (0-5); Neutrophil % 56.3 % (47-70); Platelet Count 236 K/mm3 (150-450); RBC Distribution Width CV 13.2 % (11.6-14.6); RBC Distribution Width SD 38.3 fl (35.1-43.9); Red Blood Count 5.65 M/mm3 (4.6-6.2); White Blood Count 8.5 K/mm3 (4.4-11.0)
[2021-09-04 17:49] LABS: Erythrocyte Sedimentation Rate 13 mm/hr (0-20)
[2021-09-04 18:01] LABS: ALB/GLOB Ratio 1.1 RATIO (0.9-2.4); AST(SGOT) 31 U/L (15-37); Alanine Aminotransfer ALT/SGPT 55 U/L (16-61); Albumin, Serum 3.8 g/dL (3.2-5.0); Alkaline Phosphatase 95 U/L (45-117); Anion Gap 9 (5-15); BUN 24 mg/dL (7-18); BUN/Creat Ratio 23.3 RATIO (10-20); CRP 9.64 mg/L (0.0-3.0); Calcium,Total 9.1 mg/dL (8.5-10.1); Chloride 102 mmol/L (98-107); Creatinine, Serum 1.03 mg/dL (0.70-1.30); EST Glomerular Filtration Rate 88 mL/min (>60); Est Glom Filt Rate - Afr Amer 106 mL/min (>60); Globulin 3.5 g/dL (2.2-4.2); Glucose 162 mg/dL (74-106); Potassium 3.6 mmol/L (3.5-5.1); Protein, Total 7.3 g/dL (6.4-8.2); Rheumatoid Factor < 10.0 IU/mL (<15); Sodium Level 137 mmol/L (136-145); Uric Acid 4.4 mg/dL (3.5-7.2)
[2021-09-06 16:40] LABS: ANTINUCLEAR ANTIBODIES DIRECT Negative (Negative)
[2021-09-07 07:33] LABS: CCP IgG Antibodies < 1 units (0-19)
== END | disposition home or self-care (01) ==
LOC: MTLAB 16:23
PROVIDERS: PCP Family Medicine; Referring Provider Podiatrist; Visit Provider Podiatrist
DX: M19.071 Primary osteoarthritis, right ankle and foot (principal); M19.072 Primary osteoarthritis, left ankle and foot
CPT/HCPCS: 36415; 80053; 82306; 84443; 84550; 85025; 85652; 86038; 86140; 86200; 86431

== ENCOUNTER → 2021-10-21 | Outpatient (CLI) | payer BC, SELFPAY ==
--- NOTE | 2021-10-21 14:04 | VDLE_ITS ---
Reason For Study: Calf Pain RIGHT LEFT GSV is normal. GSV is normal. CFV is compressible, spontaneous, phasic, CFV is compressible, spontaneous, phasic, competent and demonstrates normal competent, and demonstrates normal augmentation. augmentation. FV is compressible, spontaneous, phasic, FV is compressible, spontaneous, phasic, competent and demonstrates normal competent and demonstrates normal augmentation. augmentation. POP V is compressible, spontaneous, phasic, POP V is compressible, spontaneous, phasic, competent and demonstrates normal competent and demonstrates normal augmentation. augmentation. T/P Trunk is compressible. T/P Trunk is compressible. PTV is compressible. PTV is compressible. RT PerV is compressible. LT PerV is compressible. Procedure This is a venous duplex using B-mode, color flow and spectral Doppler. Exam performed in department. A preliminary report was called and/or faxed to Dr. Simon. VL/Venous Duplex US - Amadeo Extrem Interpretation Summary Deep veins of the lower extremities are bilaterally patent and compressible seg mentally. There is no evidence of deep vein thrombosis on either side. Valvular competence appears in tact within the proximal deep venous systems bilaterally. The great saphenous veins appear bila terally patent and compressible segmentally. Ordering Physician: Gaurang Simon Referring Physician: Marko Anne Performed By: Marisol Parker, TRUDY, RVT
== END | disposition home or self-care (01) ==
LOC: CVS 14:02
PROVIDERS: PCP Family Medicine; Referring Provider Podiatrist; Visit Provider Podiatrist
DX: M79.661 Pain in right lower leg (principal); I82.493 Acute embolism and thrombosis of other specified deep vein of lower extremity, bilateral; M79.662 Pain in left lower leg
CPT/HCPCS: 93970

== ENCOUNTER → 2021-11-16 | Outpatient (CLI) | payer BC, SELFPAY ==
--- NOTE | 2021-11-16 08:16 | RAD_ITS ---
STUDY: RIGHT KNEE X-RAY SERIES--2 VIEWS OF 0 HOURS ON 11/16/2021 REASON FOR EXAM: 36-year-old male with symptoms of inflammatory polyarthropathy. TECHNIQUE: 2 view(s) of the knee. COMPARISON: None. FINDINGS: No fractures or dislocations. Mild narrowing of the lateral joint space with mild osteophytic degenerative changes. No other arthritic or degenerative changes. No osseous lytic, sclerotic or mass lesions are evident. The patella has normal appearance. No joint effusion. Normal surrounding soft tissues. RAD/Knee 1 or 2 Views IMPRESSION: 1. Mild narrowing of the lateral joint space with mild osteophytic degenerative changes. 2. No other arthritic or degenerative changes. 3. Normal appearing patella. 4. No fractures or dislocations. 5. No joint effusion. Normal surrounding soft tissues. Electronically Signed: Padilla Hinojosa MD at 1:57 EDT ,
--- NOTE | 2021-11-16 08:17 | RAD_ITS ---
STUDY: UPRIGHT X-RAY OF THE LEFT KNEE AND A SUNRISE VIEW OF THE PATELLA OF 2037 HOURS ON 11/16/2021 REASON FOR EXAM: 36-year-old male with symptoms of an inflammatory polyarthropathy. TECHNIQUE: 2 view(s) of the knee. COMPARISON: None. FINDINGS: There is no evidence of fractures or dislocations. The left knee joint is balanced. There are no arthritic or degenerative changes. The patella has normal appearance. The surrounding soft tissues are normal. RAD/Knee 1 or 2 Views IMPRESSION: 1. Normal examination of the left knee. 2. No arthritic or degenerative changes. Balanced knee joint. 3. Normal appearing patella. 4. No fractures or dislocations. 5. Normal surrounding soft tissues. Electronically Signed: Padilla Hinojosa MD at 1:54 EDT ,
[2021-11-16 09:42] LABS: Absolute Lymphocyte Count 1.89 X10^3/uL (0.83-4.51); Absolute Neutrophil Count 5.1 X10^3/uL (2.0-7.7); Basophil# 0.05 X10^3/uL; Basophil% 0.6 % (0-1); Eosinophil# 0.14 X10^3/uL; Eosinophils% 1.8 % (0-5); Hematocrit 46.4 % (40-54); Hemoglobin 15.7 g/dL (13.0-16.5); Lymphocyte # 1.89 X10^3/ul (0.83-4.51); Lymphocyte % 24.1 % (19-41); Mean Corp Hgb Conc 33.8 g/dL (32-36); Mean Corpuscular Hgb 27.5 pg (27.0-32.0); Mean Corpuscular Volume 81.4 fL (80-94); Mean Platelet Vol. 9.7 fl (6.2-12.0); Monocyte# 0.63 X10^3/uL; NRBC Flagged by Analyzer 0 % (0-5); Neutrophil # 5.09 X10^3/uL (2.7-7.7); Neutrophil % 65.1 % (47-70); Platelet Count 219 K/mm3 (150-450); RBC Distribution Width CV 13.5 % (11.6-14.6); RBC Distribution Width SD 39.5 fl (35.1-43.9); White Blood Count 7.8 K/mm3 (4.4-11.0)
[2021-11-16 10:09] LABS: AST(SGOT) 19 U/L (15-37); Alanine Aminotransfer ALT/SGPT 42 U/L (16-61); Albumin, Serum 3.6 g/dL (3.2-5.0); Alkaline Phosphatase 91 U/L (45-117); Anion Gap 5 (5-15); BUN 19 mg/dL (7-18); BUN/Creat Ratio 20.6 RATIO (10-20); Calcium,Total 8.7 mg/dL (8.5-10.1); Chloride 105 mmol/L (98-107); Creatinine, Serum 0.92 mg/dL (0.70-1.30); EST Glomerular Filtration Rate 100 mL/min (>60); Est Glom Filt Rate - Afr Amer 121 mL/min (>60); Globulin 3.6 g/dL (2.2-4.2); Glucose 178 mg/dL (74-106); Potassium 4.2 mmol/L (3.5-5.1); Protein, Total 7.2 g/dL (6.4-8.2); Sodium Level 138 mmol/L (136-145)
[2021-11-18 08:35] LABS: Hepatitis B Surface Antibody Reactive; Hepatitis B Surface Antigen Non-Reactive (Nonreactive); Hepatitis C Antibody Non-Reactive (Nonreactive)
== END | disposition home or self-care (01) ==
LOC: RAD 08:14
PROVIDERS: PCP Family Medicine; Referring Provider Internal Medicine Rheumatology; Visit Provider Internal Medicine Rheumatology
DX: M06.4 Inflammatory polyarthropathy (principal); E10.9 Type 1 diabetes mellitus without complications; I10 Essential (primary) hypertension; F98.8 Other specified behavioral and emotional disorders with onset usually occurring in childhood and adolescence; M21.41 Flat foot [pes planus] (acquired), right foot
CPT/HCPCS: 36415; 73560; 80053; 85025; 86706; 86803; 87340

== ENCOUNTER → 2022-01-27 | Outpatient (CLI) | payer OTHER, SELFPAY ==
[2022-01-27 15:51] LABS: Absolute Lymphocyte Count 2.92 X10^3/uL (0.83-4.51); Absolute Neutrophil Count 6.4 X10^3/uL (2.0-7.7); Basophil# 0.06 X10^3/uL; Basophil% 0.6 % (0-1); Eosinophil# 0.18 X10^3/uL; Eosinophils% 1.8 % (0-5); Hematocrit 44.9 % (40-54); Hemoglobin 15.3 g/dL (13.0-16.5); Lymphocyte # 2.92 X10^3/ul (0.83-4.51); Lymphocyte % 28.4 % (19-41); Mean Corp Hgb Conc 34.1 g/dL (32-36); Mean Corpuscular Volume 82.1 fL (80-94); Mean Platelet Vol. 9.2 fl (6.2-12.0); Monocyte# 0.66 X10^3/uL; Monocyte% 6.4 % (0-10); NRBC Flagged by Analyzer 0 % (0-5); Neutrophil # 6.42 X10^3/uL (2.7-7.7); Neutrophil % 62.5 % (47-70); Platelet Count 232 K/mm3 (150-450); RBC Distribution Width CV 13.5 % (11.6-14.6); RBC Distribution Width SD 40.1 fl (35.1-43.9); Red Blood Count 5.47 M/mm3 (4.6-6.2); White Blood Count 10.3 K/mm3 (4.4-11.0)
[2022-01-27 16:29] LABS: ALB/GLOB Ratio 1.1 RATIO (0.9-2.4); AST(SGOT) 23 U/L (15-37); Alanine Aminotransfer ALT/SGPT 50 U/L (16-61); Albumin, Serum 3.8 g/dL (3.2-5.0); Alkaline Phosphatase 88 U/L (45-117); Anion Gap 5 (5-15); BUN 22 mg/dL (7-18); BUN/Creat Ratio 15.6 RATIO (10-20); Calcium,Total 8.9 mg/dL (8.5-10.1); Chloride 106 mmol/L (98-107); Creatinine, Serum 1.41 mg/dL (0.70-1.30); EST Glomerular Filtration Rate 61 mL/min (>60); Est Glom Filt Rate - Afr Amer 74 mL/min (>60); Globulin 3.4 g/dL (2.2-4.2); Glucose 153 mg/dL (74-106); Potassium 3.8 mmol/L (3.5-5.1); Protein, Total 7.2 g/dL (6.4-8.2); Sodium Level 139 mmol/L (136-145)
== END | disposition home or self-care (01) ==
LOC: LAB 15:09
PROVIDERS: PCP Family Medicine; Referring Provider Internal Medicine Rheumatology; Visit Provider Internal Medicine Rheumatology
DX: M06.4 Inflammatory polyarthropathy (principal); E10.9 Type 1 diabetes mellitus without complications; Z79.899 Other long term (current) drug therapy; I10 Essential (primary) hypertension; F98.8 Other specified behavioral and emotional disorders with onset usually occurring in childhood and adolescence; M21.41 Flat foot [pes planus] (acquired), right foot
CPT/HCPCS: 36415; 80053; 85025

== ENCOUNTER → 2022-03-27 | Outpatient (CLI) | payer OTHER, SELFPAY ==
[2022-03-27 17:08] LABS: Absolute Lymphocyte Count 3.35 X10^3/uL (0.83-4.51); Basophil# 0.06 X10^3/uL; Basophil% 0.6 % (0-1); Eosinophil# 0.25 X10^3/uL; Eosinophils% 2.4 % (0-5); Hematocrit 45.3 % (40-54); Lymphocyte # 3.35 X10^3/ul (0.83-4.51); Lymphocyte % 31.9 % (19-41); Mean Corp Hgb Conc 33.1 g/dL (32-36); Mean Corpuscular Hgb 27.3 pg (27.0-32.0); Mean Corpuscular Volume 82.5 fL (80-94); Monocyte# 0.79 X10^3/uL; Monocyte% 7.5 % (0-10); NRBC Flagged by Analyzer 0 % (0-5); Neutrophil % 57.1 % (47-70); Platelet Count 213 K/mm3 (150-450); RBC Distribution Width CV 13.5 % (11.6-14.6); RBC Distribution Width SD 40.3 fl (35.1-43.9); Red Blood Count 5.49 M/mm3 (4.6-6.2); White Blood Count 10.5 K/mm3 (4.4-11.0)
[2022-03-27 17:19] LABS: AST(SGOT) 48 U/L (15-37); Alanine Aminotransfer ALT/SGPT 57 U/L (16-61); Albumin, Serum 3.6 g/dL (3.2-5.0); Alkaline Phosphatase 100 U/L (45-117); Anion Gap 5 (5-15); BUN 22 mg/dL (7-18); BUN/Creat Ratio 19.8 RATIO (10-20); Calcium,Total 9.5 mg/dL (8.5-10.1); Chloride 100 mmol/L (98-107); Creatinine, Serum 1.11 mg/dL (0.70-1.30); EST Glomerular Filtration Rate 80 mL/min (>60); Est Glom Filt Rate - Afr Amer 97 mL/min (>60); Globulin 3.7 g/dL (2.2-4.2); Glucose 162 mg/dL (74-106); Potassium 4.2 mmol/L (3.5-5.1); Protein, Total 7.3 g/dL (6.4-8.2); Sodium Level 137 mmol/L (136-145)
== END | disposition home or self-care (01) ==
LOC: LAB 15:59
PROVIDERS: PCP Family Medicine; Visit Provider Internal Medicine Rheumatology
DX: M06.4 Inflammatory polyarthropathy (principal); Z79.899 Other long term (current) drug therapy
CPT/HCPCS: 36415; 80053; 85025

== ENCOUNTER → 2022-04-02 | Outpatient (CLI) | payer OTHER, SELFPAY ==
[2022-04-02 18:34] LABS: ALB/GLOB Ratio 1.2 RATIO (0.9-2.4); AST(SGOT) 25 U/L (15-37); Alanine Aminotransfer ALT/SGPT 58 U/L (16-61); Albumin, Serum 3.9 g/dL (3.2-5.0); Alkaline Phosphatase 109 U/L (45-117); Anion Gap 6 (5-15); BUN 21 mg/dL (7-18); BUN/Creat Ratio 20.8 RATIO (10-20); Calcium,Total 8.9 mg/dL (8.5-10.1); Chloride 101 mmol/L (98-107); Creatinine, Serum 1.01 mg/dL (0.70-1.30); EST Glomerular Filtration Rate 90 mL/min (>60); Est Glom Filt Rate - Afr Amer 108 mL/min (>60); Globulin 3.2 g/dL (2.2-4.2); Glucose 182 mg/dL (74-106); Potassium 3.9 mmol/L (3.5-5.1); Protein, Total 7.1 g/dL (6.4-8.2); Sodium Level 137 mmol/L (136-145)
== END | disposition home or self-care (01) ==
LOC: MTLAB 16:44
PROVIDERS: PCP Family Medicine; Referring Provider Internal Medicine Rheumatology; Visit Provider Internal Medicine Rheumatology
DX: M06.4 Inflammatory polyarthropathy (principal); E10.9 Type 1 diabetes mellitus without complications; I10 Essential (primary) hypertension; F98.8 Other specified behavioral and emotional disorders with onset usually occurring in childhood and adolescence; M21.41 Flat foot [pes planus] (acquired), right foot; Z79.899 Other long term (current) drug therapy
CPT/HCPCS: 36415; 80053

== ENCOUNTER → 2022-05-17 | Outpatient (CLI) | payer OTHER, SELFPAY ==
[2022-05-17 08:40] LABS: Absolute Lymphocyte Count 2.02 X10^3/uL (0.83-4.51); Absolute Neutrophil Count 5.1 X10^3/uL (2.0-7.7); Basophil# 0.07 X10^3/uL; Basophil% 0.8 % (0-1); Eosinophil# 0.28 X10^3/uL; Eosinophils% 3.4 % (0-5); Hematocrit 46.6 % (40-54); Hemoglobin 15.7 g/dL (13.0-16.5); Lymphocyte # 2.02 X10^3/ul (0.83-4.51); Lymphocyte % 24.5 % (19-41); Mean Corp Hgb Conc 33.7 g/dL (32-36); Mean Corpuscular Hgb 28.2 pg (27.0-32.0); Mean Corpuscular Volume 83.8 fL (80-94); Mean Platelet Vol. 9.2 fl (6.2-12.0); Monocyte# 0.73 X10^3/uL; Monocyte% 8.9 % (0-10); NRBC Flagged by Analyzer 0 % (0-5); Neutrophil # 5.09 X10^3/uL (2.7-7.7); Neutrophil % 61.8 % (47-70); Platelet Count 216 K/mm3 (150-450); RBC Distribution Width CV 14.2 % (11.6-14.6); RBC Distribution Width SD 42.5 fl (35.1-43.9); Red Blood Count 5.56 M/mm3 (4.6-6.2); White Blood Count 8.2 K/mm3 (4.4-11.0)
[2022-05-17 09:14] LABS: AST(SGOT) 34 U/L (15-37); Alanine Aminotransfer ALT/SGPT 65 U/L (16-61); Albumin, Serum 3.6 g/dL (3.2-5.0); Alkaline Phosphatase 84 U/L (45-117); BUN 21 mg/dL (7-18); BUN/Creat Ratio 22.4 RATIO (10-20); Calcium,Total 8.8 mg/dL (8.5-10.1); Chloride 105 mmol/L (98-107); Creatinine, Serum 0.94 mg/dL (0.70-1.30); EST Glomerular Filtration Rate 98 mL/min (>60); Est Glom Filt Rate - Afr Amer 118 mL/min (>60); Globulin 3.6 g/dL (2.2-4.2); Glucose 157 mg/dL (74-106); Potassium 4.1 mmol/L (3.5-5.1); Protein, Total 7.2 g/dL (6.4-8.2); Sodium Level 140 mmol/L (136-145)
[2022-05-17 09:15] LABS: Anion Gap 7 (5-15)
== END | disposition home or self-care (01) ==
LOC: LAB 08:20
PROVIDERS: PCP Family Medicine; Referring Provider Internal Medicine Rheumatology; Visit Provider Internal Medicine Rheumatology
DX: M06.4 Inflammatory polyarthropathy (principal); E10.9 Type 1 diabetes mellitus without complications; I10 Essential (primary) hypertension; F98.8 Other specified behavioral and emotional disorders with onset usually occurring in childhood and adolescence; M21.41 Flat foot [pes planus] (acquired), right foot; Z79.899 Other long term (current) drug therapy
CPT/HCPCS: 36415; 80053; 85025

== ENCOUNTER → 2022-06-17 | Outpatient (CLI) | payer OTHER, SELFPAY ==
[2022-06-17 17:42] LABS: Absolute Neutrophil Count 6.1 X10^3/uL (2.0-7.7); Eosinophil# 0.34 X10^3/uL; Eosinophils% 3.4 % (0-5); Hematocrit 45.7 % (40-54); Hemoglobin 15.1 g/dL (13.0-16.5); Lymphocyte % 26.2 % (19-41); Mean Corpuscular Hgb 27.6 pg (27.0-32.0); Mean Corpuscular Volume 83.5 fL (80-94); Mean Platelet Vol. 9.2 fl (6.2-12.0); Monocyte# 0.73 X10^3/uL; Monocyte% 7.4 % (0-10); NRBC Flagged by Analyzer 0 % (0-5); Neutrophil # 6.13 X10^3/uL (2.7-7.7); Neutrophil % 61.7 % (47-70); Platelet Count 213 K/mm3 (150-450); RBC Distribution Width CV 12.9 % (11.6-14.6); RBC Distribution Width SD 38.8 fl (35.1-43.9); Red Blood Count 5.47 M/mm3 (4.6-6.2); White Blood Count 9.9 K/mm3 (4.4-11.0)
[2022-06-17 19:15] LABS: ALB/GLOB Ratio 1.2 RATIO (0.9-2.4); AST(SGOT) 25 U/L (15-37); Alanine Aminotransfer ALT/SGPT 47 U/L (16-61); Albumin, Serum 3.8 g/dL (3.2-5.0); Alkaline Phosphatase 89 U/L (45-117); Anion Gap 8 (5-15); BUN 20 mg/dL (7-18); BUN/Creat Ratio 18.2 RATIO (10-20); Calcium,Total 9.6 mg/dL (8.5-10.1); Chloride 100 mmol/L (98-107); EST Glomerular Filtration Rate 81 mL/min (>60); Est Glom Filt Rate - Afr Amer 98 mL/min (>60); Globulin 3.3 g/dL (2.2-4.2); Glucose 177 mg/dL (74-106); Potassium 3.7 mmol/L (3.5-5.1); Protein, Total 7.1 g/dL (6.4-8.2); Sodium Level 137 mmol/L (136-145)
== END | disposition home or self-care (01) ==
PROVIDERS: PCP Family Medicine; Referring Provider Internal Medicine Rheumatology; Visit Provider Internal Medicine Rheumatology
DX: M06.4 Inflammatory polyarthropathy (principal); Z79.899 Other long term (current) drug therapy
CPT/HCPCS: 36415; 80053; 85025

== ENCOUNTER → 2022-06-21 | Outpatient (CLI) | payer OTHER, SELFPAY ==
--- NOTE | 2022-06-21 10:31 | US_ITS ---
STUDY: ABDOMINAL ULTRASOUND - RIGHT UPPER QUADRANT REASON FOR VISIT: Male, 36 years old. ABDOMEN PAIN ELEVATED LFT''S TECHNIQUE: Ultrasound evaluation of the right upper quadrant was performed with real-time and static solomon-scale imaging. TECHNICAL QUALITY: Adequate. COMPARISON: None FINDINGS: Liver: The liver has a size in centimeters of21. There is increased echogenicity consistent with fatty infiltration. The bile ducts are within normal limits. There is hepatic color flow. The direction of portal flow is hepatopetal. There is no demonstrated mass lesion. Gallbladder: Normal distended gallbladder. The gallbladder wall measures 2 mm. There is a negative sonographic Ann''s sign. There is no pericholecystic fluid. There are no gallstones. Common Bile Duct (C.B.D.): The common bile duct measures ( in mm): 6 Pancreas: Normal size of the head, body of the pancreas. There is normal echogenicity of the pancreas. There is no demonstrated pancreatic mass or cyst. Right Kidney: Normal size of the right kidney. The right kidney measures 14.2 cm. . Normal renal cortex. There is no demonstrated renal mass or cyst. There is no right hydronephrosis. Aorta: It is not visualized. There is too much overlying bowel gas. . US/Abdomen Limited IMPRESSION: Fatty liver. enlarged liver Electronically Signed: Corwin Agee MD at 21:52 EDT ,
== END | disposition home or self-care (01) ==
PROVIDERS: PCP Family Medicine; Visit Provider Internal Medicine Rheumatology
DX: M06.4 Inflammatory polyarthropathy (principal); Z79.899 Other long term (current) drug therapy
CPT/HCPCS: 76705

== ENCOUNTER → 2022-08-16 | Outpatient (CLI) | payer OTHER, SELFPAY ==
[2022-08-16 10:00] LABS: Absolute Lymphocyte Count 1.78 X10^3/uL (0.83-4.51); Absolute Neutrophil Count 4.5 X10^3/uL (2.0-7.7); Basophil# 0.05 X10^3/uL; Basophil% 0.7 % (0-1); Eosinophil# 0.14 X10^3/uL; Hematocrit 46.1 % (40-54); Hemoglobin 15.4 g/dL (13.0-16.5); Lymphocyte # 1.78 X10^3/ul (0.83-4.51); Lymphocyte % 25.2 % (19-41); Mean Corp Hgb Conc 33.4 g/dL (32-36); Mean Corpuscular Hgb 27.7 pg (27.0-32.0); Mean Corpuscular Volume 82.9 fL (80-94); Mean Platelet Vol. 9.5 fl (6.2-12.0); Monocyte# 0.55 X10^3/uL; Monocyte% 7.8 % (0-10); NRBC Flagged by Analyzer 0 % (0-5); Neutrophil # 4.53 X10^3/uL (2.7-7.7); Platelet Count 202 K/mm3 (150-450); RBC Distribution Width CV 13.9 % (11.6-14.6); RBC Distribution Width SD 41.9 fl (35.1-43.9); Red Blood Count 5.56 M/mm3 (4.6-6.2); White Blood Count 7.1 K/mm3 (4.4-11.0)
[2022-08-16 10:22] LABS: ALB/GLOB Ratio 1.3 RATIO (0.9-2.4); AST(SGOT) 22 U/L (15-37); Alanine Aminotransfer ALT/SGPT 51 U/L (16-61); Albumin, Serum 3.9 g/dL (3.2-5.0); Alkaline Phosphatase 74 U/L (45-117); Anion Gap 4 (5-15); BUN 16 mg/dL (7-18); Calcium,Total 8.7 mg/dL (8.5-10.1); Chloride 106 mmol/L (98-107); Creatinine, Serum 0.94 mg/dL (0.70-1.30); EST Glomerular Filtration Rate 97 mL/min (>60); Est Glom Filt Rate - Afr Amer 117 mL/min (>60); Globulin 3.1 g/dL (2.2-4.2); Glucose 168 mg/dL (74-106); Sodium Level 139 mmol/L (136-145)
== END | disposition home or self-care (01) ==
LOC: LAB 09:15
PROVIDERS: PCP Family Medicine; Referring Provider Internal Medicine Rheumatology; Visit Provider Internal Medicine Rheumatology
DX: M06.4 Inflammatory polyarthropathy (principal); Z79.899 Other long term (current) drug therapy
CPT/HCPCS: 36415; 80053; 85025

== ENCOUNTER → 2022-10-20 | Outpatient (CLI) | payer OTHER, SELFPAY ==
[2022-10-20 17:29] LABS: Absolute Lymphocyte Count 2.81 X10^3/uL (0.83-4.51); Basophil# 0.05 X10^3/uL; Basophil% 0.5 % (0-1); Eosinophil# 0.21 X10^3/uL; Eosinophils% 2.1 % (0-5); Hematocrit 46.2 % (40-54); Hemoglobin 15.2 g/dL (13.0-16.5); Lymphocyte # 2.81 X10^3/ul (0.83-4.51); Lymphocyte % 28.5 % (19-41); Mean Corp Hgb Conc 32.9 g/dL (32-36); Mean Corpuscular Volume 85.2 fL (80-94); Monocyte# 0.78 X10^3/uL; Monocyte% 7.9 % (0-10); NRBC Flagged by Analyzer 0 % (0-5); Neutrophil # 5.98 X10^3/uL (2.7-7.7); Neutrophil % 60.6 % (47-70); Platelet Count 223 K/mm3 (150-450); RBC Distribution Width CV 14.3 % (11.6-14.6); RBC Distribution Width SD 43.4 fl (35.1-43.9); Red Blood Count 5.42 M/mm3 (4.6-6.2); White Blood Count 9.9 K/mm3 (4.4-11.0)
[2022-10-20 18:03] LABS: ALB/GLOB Ratio 1.1 RATIO (0.9-2.4); AST(SGOT) 27 U/L (15-37); Alanine Aminotransfer ALT/SGPT 50 U/L (16-61); Albumin, Serum 3.7 g/dL (3.2-5.0); Alkaline Phosphatase 86 U/L (45-117); Anion Gap 6 (5-15); BUN 15 mg/dL (7-18); BUN/Creat Ratio 16.3 RATIO (10-20); Calcium,Total 9.6 mg/dL (8.5-10.1); Chloride 104 mmol/L (98-107); Cholesterol 156 mg/dL (200); Creatinine, Serum 0.92 mg/dL (0.70-1.30); EST Glomerular Filtration Rate 100 mL/min (>60); Est Glom Filt Rate - Afr Amer 121 mL/min (>60); Globulin 3.5 g/dL (2.2-4.2); Glucose 93 mg/dL (74-106); High Density Lipoprotein 45 mg/dL; Potassium 3.7 mmol/L (3.5-5.1); Protein, Total 7.2 g/dL (6.4-8.2); Sodium Level 138 mmol/L (136-145); Thyroid Stim Hormone (TSH) 2.31 uIU/mL (0.358-3.74); Triglycerides 129 mg/dL; Very Low Density Lipoprotein 26 mg/dL (5-40)
[2022-10-20 18:26] LABS: Creatinine, Urine (random) < 13.00 mg/dL (NO RANGE EST.); Microalbumin,Random Urine < 5.0 mg/L (NO RANGE EST.)
== END | disposition home or self-care (01) ==
PROVIDERS: PCP Family Medicine; Referring Provider Internal Medicine Rheumatology; Visit Provider Internal Medicine Rheumatology
DX: M06.4 Inflammatory polyarthropathy (principal); Z79.899 Other long term (current) drug therapy
CPT/HCPCS: 36415; 80053; 80061; 82043; 82570; 84443; 85025

== ENCOUNTER → 2022-12-27 | Outpatient (CLI) | payer OTHER, SELFPAY ==
[2022-12-27 07:38] LABS: Absolute Lymphocyte Count 2.17 X10^3/uL (0.83-4.51); Absolute Neutrophil Count 4.4 X10^3/uL (2.0-7.7); Basophil# 0.06 X10^3/uL; Basophil% 0.8 % (0-1); Eosinophil# 0.17 X10^3/uL; Eosinophils% 2.3 % (0-5); Hematocrit 45.7 % (40-54); Hemoglobin 15.1 g/dL (13.0-16.5); Lymphocyte # 2.17 X10^3/ul (0.83-4.51); Lymphocyte % 28.8 % (19-41); Mean Corpuscular Hgb 28.4 pg (27.0-32.0); Mean Corpuscular Volume 85.9 fL (80-94); Mean Platelet Vol. 9.2 fl (6.2-12.0); Monocyte# 0.67 X10^3/uL; Monocyte% 8.9 % (0-10); NRBC Flagged by Analyzer 0 % (0-5); Neutrophil # 4.43 X10^3/uL (2.7-7.7); Neutrophil % 58.8 % (47-70); Platelet Count 226 K/mm3 (150-450); RBC Distribution Width CV 14.2 % (11.6-14.6); RBC Distribution Width SD 43.1 fl (35.1-43.9); Red Blood Count 5.32 M/mm3 (4.6-6.2); White Blood Count 7.5 K/mm3 (4.4-11.0)
[2022-12-27 08:23] LABS: ALB/GLOB Ratio 1.1 RATIO (0.9-2.4); AST(SGOT) 15 U/L (15-37); Alanine Aminotransfer ALT/SGPT 51 U/L (16-61); Albumin, Serum 3.7 g/dL (3.2-5.0); Alkaline Phosphatase 80 U/L (45-117); Anion Gap 3 (5-15); BUN 23 mg/dL (7-18); BUN/Creat Ratio 23.2 RATIO (10-20); Calcium,Total 8.4 mg/dL (8.5-10.1); Chloride 108 mmol/L (98-107); Creatinine, Serum 0.99 mg/dL (0.70-1.30); EST Glomerular Filtration Rate 91 mL/min (>60); Est Glom Filt Rate - Afr Amer 110 mL/min (>60); Globulin 3.4 g/dL (2.2-4.2); Glucose 135 mg/dL (74-106); Potassium 3.9 mmol/L (3.5-5.1); Protein, Total 7.1 g/dL (6.4-8.2); Sodium Level 140 mmol/L (136-145)
== END | disposition home or self-care (01) ==
LOC: LAB 07:15
PROVIDERS: PCP Family Medicine; Referring Provider Internal Medicine Rheumatology; Visit Provider Internal Medicine Rheumatology
DX: M06.4 Inflammatory polyarthropathy (principal); E10.9 Type 1 diabetes mellitus without complications; I10 Essential (primary) hypertension; F98.8 Other specified behavioral and emotional disorders with onset usually occurring in childhood and adolescence; M21.41 Flat foot [pes planus] (acquired), right foot; K76.0 Fatty (change of) liver, not elsewhere classified; Z79.899 Other long term (current) drug therapy
CPT/HCPCS: 36415; 80053; 85025

== ENCOUNTER → 2022-12-29 | Outpatient (CLI) | payer OTHER, SELFPAY ==
--- NOTE | 2022-12-29 16:46 | NEURO ---
NCS and/or EMG Patient Report Ordering Doctor: Farhad Marshall DATE OF SERVICE: 12/29/22 Findings: Nerve conduction studies were performed in the right and left upper extremities. The right median motor study recording the abductor pollicis brevis showed a normal amplitude, prolonged distal latency and slowed conduction velocity. The right ulnar motor study recording the abductor digiti minimi showed a normal amplitude, normal distal latency and normal conduction velocity. No conduction block or focal slowing was present across the elbow. The right median sensory response recording digit two showed a reduced amplitude, prolonged latency and markedly slowed conduction velocity. The right ulnar sensory response recording digit five showed a normal amplitude, latency and conduction velocity. The right radial sensory response recording over the extensor snuff box showed a normal amplitude, latency and conduction velocity. The left median motor study recording the abductor pollicis brevis showed a reduced amplitude, prolonged distal latency and slowed conduction velocity. The left ulnar motor study recording the abductor digiti minimi showed a normal amplitude, normal distal latency and normal conduction velocity. No conduction block or focal slowing was present across the elbow. The left median sensory response recording digit two showed a reduced amplitude, prolonged latency and markedly slowed conduction velocity. The left ulnar sensory response recording digit five showed a normal amplitude, latency and conduction velocity. The left radial sensory response recording over the extensor snuff box showed a normal amplitude, latency and conduction velocity. Needle EMG of the right abductor pollicis brevis revealed no active denervation. Motor units were slightly large amplitude. Needle EMG of the left abductor pollicis brevis revealed sparse active denervation. Motor units were slightly large amplitude. Impression: This is an abnormal study. 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 The pathophysiology is demyelination, though there is significant sensory axon loss. That said, there has been interval improvement in sensory amplitudes compared to the prior study approximately three years ago. All of these findings are compatible with the clinical diagnosis of carpal tunnel syndrome. A neuromuscular ultrasound could be considered to evaluate for recurrent entrapment of the median nerve. Jin Ceja D.O. Multi Select Codes Neurology Neurology Interp Codes: 16337-31 [facility] [place] tst done w/nerv tst park (interp) (Qty:2) and 77422-[address] [facility] cnd test 9-10 studies (interp)
== END | disposition home or self-care (01) ==
LOC: PSN 15:27
PROVIDERS: PCP Family Medicine; Referring Provider Orthopaedic Surgery Sports Medicine; Visit Provider Orthopaedic Surgery Sports Medicine
DX: G56.03 Carpal tunnel syndrome, bilateral upper limbs (principal)
CPT/HCPCS: 95885; 95911

== ENCOUNTER → 2023-02-28 | Outpatient (CLI) | payer OTHER, SELFPAY ==
[2023-02-28 08:43] LABS: Absolute Lymphocyte Count 2.05 X10^3/uL (0.83-4.51); Absolute Neutrophil Count 4.3 X10^3/uL (2.0-7.7); Basophil# 0.05 X10^3/uL; Basophil% 0.7 % (0-1); Eosinophil# 0.23 X10^3/uL; Eosinophils% 3.2 % (0-5); Hemoglobin 15.5 g/dL (13.0-16.5); Lymphocyte # 2.05 X10^3/ul (0.83-4.51); Lymphocyte % 28.2 % (19-41); Mean Corp Hgb Conc 33.7 g/dL (32-36); Mean Corpuscular Hgb 28.7 pg (27.0-32.0); Mean Corpuscular Volume 85.2 fL (80-94); Mean Platelet Vol. 9.1 fl (6.2-12.0); Monocyte# 0.65 X10^3/uL; Monocyte% 8.9 % (0-10); NRBC Flagged by Analyzer 0 % (0-5); Neutrophil # 4.27 X10^3/uL (2.7-7.7); Neutrophil % 58.7 % (47-70); Platelet Count 198 K/mm3 (150-450); RBC Distribution Width CV 14.1 % (11.6-14.6); RBC Distribution Width SD 42.5 fl (35.1-43.9); White Blood Count 7.3 K/mm3 (4.4-11.0)
[2023-02-28 09:01] LABS: ALB/GLOB Ratio 1.2 RATIO (0.9-2.4); AST(SGOT) 14 U/L (15-37); Alanine Aminotransfer ALT/SGPT 45 U/L (16-61); Albumin, Serum 3.6 g/dL (3.2-5.0); Alkaline Phosphatase 72 U/L (45-117); Anion Gap 2 (5-15); BUN 16 mg/dL (7-18); BUN/Creat Ratio 16.3 RATIO (10-20); Calcium,Total 8.5 mg/dL (8.5-10.1); Chloride 107 mmol/L (98-107); Creatinine, Serum 0.98 mg/dL (0.70-1.30); EST Glomerular Filtration Rate 92 mL/min (>60); Est Glom Filt Rate - Afr Amer 111 mL/min (>60); Glucose 152 mg/dL (74-106); Potassium 4.1 mmol/L (3.5-5.1); Protein, Total 6.6 g/dL (6.4-8.2); Sodium Level 138 mmol/L (136-145)
[2023-03-04 00:06] LABS: QNTFERON TB Mitogen Value > 10.00 IU/mL (.); QNTFERON TB Nil Value 0.02 IU/mL (.); QNTFERON TB1+ Ag Value 0.03 IU/mL (.); QNTFERON TB2+ Ag Value 0.03 IU/mL (.); QNTIFERON TB Positive Criteria Negative (Negative)
== END | disposition home or self-care (01) ==
LOC: LAB 08:23
PROVIDERS: PCP Family Medicine; Referring Provider Internal Medicine Rheumatology; Visit Provider Internal Medicine Rheumatology
DX: M06.4 Inflammatory polyarthropathy (principal); Z79.899 Other long term (current) drug therapy
CPT/HCPCS: 36415; 80053; 85025; 86480

== ENCOUNTER → 2023-05-25 | Outpatient (CLI) | payer OTHER, SELFPAY ==
[2023-05-25 18:01] LABS: Absolute Lymphocyte Count 2.24 X10^3/uL (0.83-4.51); Absolute Neutrophil Count 4.2 X10^3/uL (2.0-7.7); Basophil# 0.05 X10^3/uL; Basophil% 0.7 % (0-1); Eosinophil# 0.24 X10^3/uL; Eosinophils% 3.2 % (0-5); Hematocrit 43.8 % (40-54); Hemoglobin 14.8 g/dL (13.0-16.5); Lymphocyte # 2.24 X10^3/ul (0.83-4.51); Lymphocyte % 29.4 % (19-41); Mean Corp Hgb Conc 33.8 g/dL (32-36); Mean Corpuscular Hgb 27.9 pg (27.0-32.0); Mean Corpuscular Volume 82.5 fL (80-94); Monocyte# 0.84 X10^3/uL; NRBC Flagged by Analyzer 0 % (0-5); Neutrophil # 4.23 X10^3/uL (2.7-7.7); Neutrophil % 55.6 % (47-70); Platelet Count 210 K/mm3 (150-450); RBC Distribution Width CV 14.1 % (11.6-14.6); RBC Distribution Width SD 41.6 fl (35.1-43.9); Red Blood Count 5.31 M/mm3 (4.6-6.2); White Blood Count 7.6 K/mm3 (4.4-11.0)
--- OUTSIDE RECORDS SUMMARY | 2023-05-25 18:01 | XMS RPT_ITS | CCD ---
Author Name Unknown Address [address] [place] [address] Organization [facility] Care Team Providers Care Machine Filler Servicer Name Role Phone Morgan Ty Unavailable Dilcia Plunkett NP Unavailable [phone] Kohler, Landy N Unavailable Kimberly Levine LPN Unavailable Unavailable Kohler, Landy N Unavailable Neda Shrestha Unavailable Edita, Landy N Unavailable Dilcia Plunkett NP Unavailable [phone] Kohler, Landy N Unavailable Kohler, Landy N Unavailable Allergies Allergy Classification Reported Allergen(s) Allergy Type Date of Onset Reaction(s) Facility (19 sources) aspirin; Translations: [ASPIRIN] drug allergy Hives, swelling [facility] Work Phone: (19 sources) losartan drug allergy 5 numbness/tingli ng [facility] Work Phone: Medications Completed/Discontinued Medications Medication Drug Class(es) Dates Sig (Normalized) Sig (Original) amoxicillin 875 mg / clavulanate 125 mg oral tablet (20 sources) Penicillin-class Antibacterial Start: 08-20-2015 End: 2015 take 1 tablet by mouth twice daily AMOXICILLIN-POT CLAVULANATE 875-125 MG TABS 1 tablet by mouth twice per day for sinusitis AMOXICILLIN-POT CLAVULANATE [id number] Marko Anne DO Problems Active Problems Problem Classification Problem Date Documented Date Episodic/Chronic Diabetes mellitus without complication (20 sources) Type 1 diabetes mellitus; Translations: [Type 2 diabetes mellitus] Onset: 05-07-2015 04-04-2014 Chronic Disorders of lipid metabolism (19 sources) Hyperlipidemia; Translations: [Hyperlipidemia, unspecified] Onset: 08-02-2016 08-02-2016 Chronic Essential hypertension (19 sources) Hypertensive disorder; Translations: [Essential (primary) hypertension] Onset: 10-05-2014 10-05-2014 Chronic Joint disorders and dislocations; trauma-related (20 sources) Derangement of lateral meniscus; Translations: [Derangement of knee] Onset: 06-27-2015 07-09-2015 Chronic Osteoarthritis (19 sources) Osteoarthritis of knee; Translations: [Unilateral primary osteoarthritis, left knee] Onset: 06-27-2015 07-09-2015 Chronic Other nutritional; endocrine; and metabolic disorders (20 sources) Morbid obesity; Translations: [Overweight] Onset: 04-04-2014 04-04-2014 Chronic Other nutritional; endocrine; and metabolic disorders (4 sources) Overweight; Translations: [Overweight] Onset: 08-02-2016 08-02-2016 Chronic Other upper respiratory disease (19 sources) Allergic rhinitis; Translations: [Allergic rhinitis, unspecified] Onset: 08-20-2015 08-20-2015 Chronic Unclassified (19 sources) Obstructive sleep apnea syndrome; Translations: [Obstructive sleep apnea (adult) (pediatric)] Onset: 04-19-2014 04-19-2014 Chronic Unclassified (9 sources) Aftercare ; Translations: [Encounter for other orthopedic aftercare] Onset: 11-10-2016 11-10-2016 Past or Other Problems Problem Classification Problem Date Documented Date Episodic/Chronic Allergic reactions (19 sources) Environmental allergy; Translations: [Other allergy] Onset: 10-05-2014 10-05-2014 Episodic Inflammation, infection of eye (19 sources) Conjunctivitis; Translations: [Unspecified conjunctivitis] Onset: 04-04-2014 04-04-2014 Episodic Other aftercare (9 sources) Sprain of anterior cruciate ligament of left knee, subsequent encounter; Translations: [Sprain of anterior cruciate ligament of left knee, subsequent encounter] Onset: 10-03-2016 10-10-2016 Episodic Other circulatory disease (20 sources) Elevated blood-pressure reading without diagnosis of hypertension; Translations: [Elevated blood-pressure reading, without diagnosis of hypertension] Onset: 04-04-2014 Resolved: 10-05-2014 04-04-2014 Episodic Other connective tissue disease (19 sources) Foot pain; Translations: [Pain in unspecified foot] Onset: 03-15-2015 Resolved: 03-18-2015 03-15-2015 Episodic Other non-traumatic joint disorders (20 sources) Knee pain; Translations: [Pain in unspecified knee] Onset: 06-20-2015 Resolved: 06-23-2015 06-20-2015 Episodic Other upper respiratory disease (19 sources) Nasal congestion; Translations: [Nasal congestion] Onset: 05-03-2015 05-03-2015 Episodic Other upper respiratory infections (20 sources) Acute sinusitis; Translations: [Acute sinusitis, unspecified] Onset: 04-04-2014 Resolved: 09-03-2015 10-05-2014 Episodic Spondylosis; intervertebral disc disorders; other back problems (19 sources) Piriformis syndrome; Translations: [Lesion of sciatic nerve, left lower limb] Onset: 05-03-2015 05-03-2015 Episodic Sprains and strains (20 sources) Sprain of anterior cruciate ligament of unspecified knee, initial encounter; Translations: [Sprain of anterior cruciate ligament of left knee, subsequent encounter] Onset: 11-05-2015 11-22-2015 Episodic Unclassified (20 sources) Hypersomnia; Translations: [Hypersomnia, unspecified] Onset: 04-04-2014 Resolved: 04-19-2014 04-19-2014 Episodic Results Test Name Value Interpretation Reference Range Facil ity Vital Signs Date Time Vital Sign Value Performing Clinician Facility 10-20-2016 16:23-0400 BMI (Body Mass Index) 52.04 kg/m2 [facility] Work Phone: 10-20-2016 16:23-0400 Body Temperature 97.8 [degF] [facility] Work Phone: 10-20-2016 16:23-0400 BP Diastolic 86 mm[Hg] [facility] Work Phone: 10-20-2016 16:23-0400 BP Systolic 138 mm[Hg] [facility] Work Phone: 10-20-2016 16:23-0400 Height 190.5 cm Morgan Salamanca [facility] Work Phone: 10-20-2016 16:23-0400 Pulse (Heart Rate) 93 /min [facility] Work Phone: 10-20-2016 16:23-0400 Respiratory Rate 22 /min Morgan JESSICA [facility]ad[facility] Work Phone: 10-20-2016 16:23-0400 Weight 188.88 kg Morgan Salamanca [facility] Work Phone: 07-24-2016 16:06-0400 BMI (Body Mass Index) 50.24 kg/m2 Dilcia Dimitrios [facility] Work Phone: 07-24-2016 16:06-0400 Body Temperature 98.1 [degF] Dilcia Boggsdominic [employer] GRINDER OPERATOR [facility] Work Phone: 07-24-2016 16:06-0400 BP Diastolic 98 mm[Hg] Dilcia Plunkett SHEAR GRINDER OPERATOR [facility] Work Phone: 07-24-2016 16:06-0400 BP Systolic 136 mm[Hg] Dilcia Plunkett SHEAR GRINDER OPERATOR [facility] Work Phone: 07-24-2016 16:06-0400 Height 190.5 cm Dilcia Plunkett SHEAR GRINDER OPERATOR [facility] Work Phone: 07-24-2016 16:06-0400 Pulse (Heart Rate) 106 /min Dilcia Boggsdominic SHEAR GRINDER OPERATOR [facility] Work Phone: 07-24-2016 16:06-0400 Pulse Oximetry 96 % Dilcia Boggsdominic [facility] Work Phone: 07-24-2016 16:06-0400 Respiratory Rate 16 /min Dilcia Boggsdominic SHEAR GRINDER OPERATOR [facility] Work Phone: 07-24-2016 16:06-0400 Weight 182.35 kg Dilcia Shodominic SHEAR GRINDER OPERATOR [facility] Work Phone: 08-20-2015 14:51-7206 BSA (Body Surface Area) 2.93 m2 [facility] Work Phone: Procedures Date Procedure Procedure Detail Performing Clinician Start: 10-26-2015 End: 10-29-2016 Mri any jt lower extrem w/o contrast matrl Morgan Ty Work Phone: Start: 10-26-2015 End: 10-29-2016 Mri jnt of lwr extre w/o dye Morgan Josh Ty Work Phone: Start: 06-27-2015 End: 10-29-2016 Radiologic exam knee complete 4/more views Morgan Ty Work Phone: Start: 06-27-2015 End: 10-29-2016 X-ray exam, knee, 4 or more Morgan Ty Work Phone: Plan of Treatment Date Care Activity Detail Author Start: 01-16-2017 End: 01-16-2017 Appointment Appointment [facility] Work Phone: Start: 12-05-2016 End: 12-05-2016 Appointment Appointment [facility] Work Phone: Start: 11-12-2016 End: 11-12-2016 Physical Therapy General Physical Therapy [facility], [address] [place] [address], [phone] [facility] Work Phone: Start: 11-12-2016 End: 11-12-2016 Physical Therapy General Physical Therapy [facility], [address] [place] [address], [phone] [facility] Work Phone: Start: 11-10-2016 End: 11-10-2016 Appointment Appointment [facility] Work Phone: Start: 10-28-2016 End: 10-28-2016 Appointment Appointment [facility] Work Phone: Start: 10-22-2016 End: 10-22-2016 Appointment Appointment [facility] Work Phone: Start: 10-22-2016 End: 10-22-2016 Appointment Appointment [facility] Work Phone: Start: 10-20-2016 End: 10-20-2016 Appointment Appointment [facility] Work Phone: Start: 10-20-2016 End: 10-20-2016 *CMP Complete Metabolic Panel *CMP Complete Metabolic Panel [facility] Work Phone: Start: 10-20-2016 End: 10-20-2016 *Microalbumin, Creatine Ratio, rand urine *Microalbumin, Creatine Ratio, rand urine [facility] Work Phone: Start: 10-20-2016 End: 10-20-2016 Hemoglobin A1c/Hemoglobin.total mass fraction (Bld) *HgA1C [facility] Work Phone: Start: 10-20-2016 End: 10-20-2016 Lipid panel [AGGREGATE] *Lipid Profile [facility] Work Phone: Start: 10-20-2016 End: 10-20-2016 *CMP Complete Metabolic Panel *CMP Complete Metabolic Panel [facility] Work Phone: Start: 10-20-2016 End: 10-20-2016 *Microalbumin, Creatine Ratio, rand urine *Microalbumin, Creatine Ratio, rand urine [facility] Work Phone: Start: 10-20-2016 End: 10-20-2016 HbA1c *HgA1C [facility] Work Phone: Start: 10-20-2016 End: 10-20-2016 Lipid panel [AGGREGATE] *Lipid Profile [facility] Work Phone: Start: 10-03-2016 End: 10-03-2016 Appointment Appointment [facility] Work Phone: Start: 07-24-2016 End: 08-02-2016 *CMP Complete Metabolic Panel *CMP Complete Metabolic Panel [facility] Work Phone: Start: 07-24-2016 End: 08-02-2016 *Microalbumin, Creatine Ratio, rand urine *Microalbumin, Creatine Ratio, rand urine [facility] Work Phone: Start: 07-24-2016 End: 08-02-2016 Hemoglobin A1c/Hemoglobin.total mass fraction (Bld) *HgA1C [facility] Work Phone: Start: 07-24-2016 End: 08-02-2016 Lipid panel [AGGREGATE] *Lipid Profile [facility] Work Phone: Start: 07-24-2016 End: 08-02-2016 *CMP Complete Metabolic Panel *CMP Complete Metabolic Panel [facility] Work Phone: Start: 07-24-2016 End: 08-02-2016 *Microalbumin, Creatine Ratio, rand urine *Microalbumin, Creatine Ratio, rand urine [facility] Work Phone: Start: 07-24-2016 End: 08-02-2016 HbA1c *HgA1C [facility] Work Phone: Start: 07-24-2016 End: 08-02-2016 Lipid panel [AGGREGATE] *Lipid Profile [facility] Work Phone: Start: 10-26-2015 End: 10-29-2016 Mri any jt lower extrem w/o contrast matrl MRI Joint Lower Extremity [facility] Work Phone: Start: 10-26-2015 End: 10-29-2016 Mri jnt of lwr extre w/o dye MRI Joint Lower Extremity [facility] Work Phone: Start: 10-04-2015 End: 10-09-[address] [facility] Nutrition Services, [address], [place], [address] [facility] Work Phone: Start: 10-04-2015 End: 10-09-[address] [facility] Nutrition Services, [address], [place], [address] [facility] Work Phone: Start: 06-27-2015 End: 10-29-2016 Radiologic exam knee complete 4/more views X-Ray, Knee [facility] Work Phone: Start: 06-27-2015 End: 10-29-2016 X-ray exam, knee, 4 or more X-Ray, Knee [facility] Work Phone: Start: 06-20-2015 End: 06-22-2015 Orthopedic Referral Orthopedic Referral Morgan Ty DO, [facility] Orthopa[facility] Medicine, [address] [place] [address], [address], [place], [address] [facility] Work Phone: Start: 06-20-2015 End: 06-22-2015 Orthopedic Referral Orthopedic Referral Morgan Ty DO, [facility] Orthopa[facility]ics [facility] Sports Medicine, [address] [place] [address], [address], [place], [address] [facility] Work Phone: Start: 05-07-2015 End: 05-09-2015 Endocrinology Referral Endocrinology Referral Reena Avalos MD, [address] [place] [address], [phone] [facility] Work Phone: Start: 05-07-2015 End: 05-09-2015 Endocrinology Referral Endocrinology Referral Reena Avalos MD, [address] [place] [address], [phone] [facility] Work Phone: Start: 03-15-2015 End: 03-16-2015 Podiatry Referral Podiatry Referral Gaurang Simon, [facility], [address], [facility], [place], [address] [facility] Work Phone: Start: 03-15-2015 End: 03-16-[address] [facility] Nutrition Services, [address] [place], [address] [facility] Work Phone: Start: 03-15-2015 End: 03-16-2015 Podiatry Referral Podiatry Referral [facility], [facility], [address] [facility], [place], [address] [facility] Work Phone: Start: 03-15-2015 End: 03-16-[address] [facility] Nutrition Services, [address] [place], [address] [facility] Work Phone: Start: 05-09-2014 End: 05-16-2014 Endocrinology Referral Endocrinology Referral Reena Avalos MD, [address] [place] [address], [phone] [facility] Work Phone: Start: 05-09-2014 End: 05-16-2014 Endocrinology Referral Endocrinology Referral Reena Avalos MD, [address] [place] [address], [phone] [facility] Work Phone: Medical Equipment Procedure Code Equipment Code Equipment Origin al Text Equipment Identifier Dates INSULIN PEN NEEDLE EASY TOUCH PE N NEEDLES 29G X 12MM [facility] [id number] Start: 08-18-2016 End: 11-18-2024 Additional Source Comments FOR RECORDS PERTAINING TO PATIENTS WHO ARE OR HAVE BEEN ENROLLED IN A CHEMICAL DEPENDENCY/SUBSTANCEABUSE PROGRAM, SOME INFORMATION MAY BE OMITTED. This clinical summary was aggregated from multiple sources. Caution should be exercised in using it in the provision of clinical care. This summary normalizes information from multiple sources, and as a consequence, information in this document may materially change the coding, format and clinical context of patient data. In addition, data may be omitted in some cases. CLINICAL DECISIONS SHOULD BE BASED ON THE PRIMARY CLINICAL RECORDS. [facility]. provides no warranty or guarantee of the accuracy or completeness of information in this document.
[2023-05-25 18:28] LABS: ALB/GLOB Ratio 1.1 RATIO (0.9-2.4); AST(SGOT) 29 U/L (15-37); Alanine Aminotransfer ALT/SGPT 57 U/L (16-61); Albumin, Serum 3.8 g/dL (3.2-5.0); Alkaline Phosphatase 80 U/L (45-117); Anion Gap 6 (5-15); BUN 17 mg/dL (7-18); BUN/Creat Ratio 16.2 RATIO (10-20); Calcium,Total 9.4 mg/dL (8.5-10.1); Chloride 102 mmol/L (98-107); Creatinine, Serum 1.05 mg/dL (0.70-1.30); EST Glomerular Filtration Rate 85 mL/min (>60); Est Glom Filt Rate - Afr Amer 103 mL/min (>60); Globulin 3.4 g/dL (2.2-4.2); Glucose 113 mg/dL (74-106); Potassium 3.5 mmol/L (3.5-5.1); Protein, Total 7.2 g/dL (6.4-8.2); Sodium Level 138 mmol/L (136-145)
== END | disposition home or self-care (01) ==
PROVIDERS: PCP Family Medicine; Referring Provider Internal Medicine Rheumatology; Visit Provider Internal Medicine Rheumatology
DX: M06.4 Inflammatory polyarthropathy (principal); Z79.899 Other long term (current) drug therapy
CPT/HCPCS: 36415; 80053; 85025

== ENCOUNTER → 2023-08-13 | Outpatient (CLI) | payer OTHER, SELFPAY ==
[2023-08-13 17:49] LABS: Absolute Lymphocyte Count 2.99 X10^3/uL (0.83-4.51); Absolute Neutrophil Count 6.3 X10^3/uL (2.0-7.7); Basophil# 0.07 X10^3/uL; Basophil% 0.7 % (0-1); Eosinophil# 0.19 X10^3/uL; Eosinophils% 1.8 % (0-5); Hematocrit 46.1 % (40-54); Hemoglobin 15.3 g/dL (13.0-16.5); Lymphocyte # 2.99 X10^3/ul (0.83-4.51); Lymphocyte % 28.7 % (19-41); Mean Corp Hgb Conc 33.2 g/dL (32-36); Mean Corpuscular Hgb 27.9 pg (27.0-32.0); Mean Corpuscular Volume 84.1 fL (80-94); Mean Platelet Vol. 9.5 fl (6.2-12.0); Monocyte# 0.81 X10^3/uL; Monocyte% 7.8 % (0-10); NRBC Flagged by Analyzer 0 % (0-5); Neutrophil # 6.34 X10^3/uL (2.7-7.7); Neutrophil % 60.7 % (47-70); Platelet Count 225 K/mm3 (150-450); RBC Distribution Width CV 14.1 % (11.6-14.6); RBC Distribution Width SD 42.8 fl (35.1-43.9); Red Blood Count 5.48 M/mm3 (4.6-6.2); White Blood Count 10.4 K/mm3 (4.4-11.0)
[2023-08-13 18:13] LABS: ALB/GLOB Ratio 1.2 RATIO (0.9-2.4); AST(SGOT) 34 U/L (15-37); Alanine Aminotransfer ALT/SGPT 69 U/L (16-61); Alkaline Phosphatase 74 U/L (45-117); Anion Gap 6 (5-15); BUN 19 mg/dL (7-18); BUN/Creat Ratio 20.4 RATIO (10-20); Calcium,Total 9.4 mg/dL (8.5-10.1); Chloride 103 mmol/L (98-107); Creatinine, Serum 0.93 mg/dL (0.70-1.30); EST Glomerular Filtration Rate 98 mL/min (>60); Est Glom Filt Rate - Afr Amer 118 mL/min (>60); Globulin 3.2 g/dL (2.2-4.2); Glucose 111 mg/dL (74-106); Potassium 3.9 mmol/L (3.5-5.1); Protein, Total 7.2 g/dL (6.4-8.2); Sodium Level 139 mmol/L (136-145)
== END | disposition home or self-care (01) ==
LOC: MTLAB 15:16
PROVIDERS: PCP Family Medicine; Referring Provider Internal Medicine Rheumatology; Visit Provider Internal Medicine Rheumatology
DX: M06.09 Rheumatoid arthritis without rheumatoid factor, multiple sites (principal); K76.0 Fatty (change of) liver, not elsewhere classified; Z79.899 Other long term (current) drug therapy
CPT/HCPCS: 36415; 80053; 85025

== ENCOUNTER → 2023-11-06 | Outpatient (CLI) | payer OTHER, SELFPAY ==
[2023-11-06 17:38] LABS: Absolute Lymphocyte Count 2.94 X10^3/uL (0.83-4.51); Absolute Neutrophil Count 5.4 X10^3/uL (2.0-7.7); Basophil# 0.06 X10^3/uL; Basophil% 0.6 % (0-1); Eosinophil# 0.24 X10^3/uL; Eosinophils% 2.5 % (0-5); Hematocrit 44.3 % (40-54); Hemoglobin 14.5 g/dL (13.0-16.5); Lymphocyte # 2.94 X10^3/ul (0.83-4.51); Lymphocyte % 30.9 % (19-41); Mean Corp Hgb Conc 32.7 g/dL (32-36); Mean Corpuscular Hgb 27.7 pg (27.0-32.0); Mean Corpuscular Volume 84.5 fL (80-94); Mean Platelet Vol. 10.3 fl (6.2-12.0); Monocyte# 0.86 X10^3/uL; NRBC Flagged by Analyzer 0 % (0-5); Neutrophil # 5.38 X10^3/uL (2.7-7.7); Neutrophil % 56.7 % (47-70); Platelet Count 209 K/mm3 (150-450); RBC Distribution Width CV 13.5 % (11.6-14.6); RBC Distribution Width SD 41.5 fl (35.1-43.9); Red Blood Count 5.24 M/mm3 (4.6-6.2); White Blood Count 9.5 K/mm3 (4.4-11.0)
[2023-11-06 18:10] LABS: ALB/GLOB Ratio 1.2 RATIO (0.9-2.4); AST(SGOT) 28 U/L (15-37); Alanine Aminotransfer ALT/SGPT 58 U/L (16-61); Albumin, Serum 3.8 g/dL (3.2-5.0); Alkaline Phosphatase 90 U/L (45-117); Anion Gap 7 (5-15); BUN 22 mg/dL (7-18); Calcium,Total 9.3 mg/dL (8.5-10.1); Chloride 103 mmol/L (98-107); Creatinine, Serum 1.22 mg/dL (0.70-1.30); EST Glomerular Filtration Rate 71 mL/min (>60); Est Glom Filt Rate - Afr Amer 86 mL/min (>60); Globulin 3.3 g/dL (2.2-4.2); Glucose 104 mg/dL (74-106); Potassium 3.7 mmol/L (3.5-5.1); Protein, Total 7.1 g/dL (6.4-8.2); Sodium Level 139 mmol/L (136-145)
== END | disposition home or self-care (01) ==
LOC: MTLAB 15:13
PROVIDERS: PCP Family Medicine; Referring Provider Internal Medicine Rheumatology; Visit Provider Internal Medicine Rheumatology
DX: M06.09 Rheumatoid arthritis without rheumatoid factor, multiple sites (principal); Z79.899 Other long term (current) drug therapy
CPT/HCPCS: 36415; 80053; 85025

== ENCOUNTER → 2024-01-26 | Outpatient (CLI) | payer OTHER, SELFPAY ==
[2024-01-26 17:39] LABS: Absolute Lymphocyte Count 2.36 X10^3/uL (0.83-4.51); Absolute Neutrophil Count 4.6 X10^3/uL (2.0-7.7); Basophil# 0.04 X10^3/uL; Basophil% 0.5 % (0-1); Eosinophil# 0.17 X10^3/uL; Eosinophils% 2.2 % (0-5); Hematocrit 44.4 % (40-54); Lymphocyte # 2.36 X10^3/ul (0.83-4.51); Lymphocyte % 30.4 % (19-41); Mean Corp Hgb Conc 33.8 g/dL (32-36); Mean Corpuscular Hgb 28.2 pg (27.0-32.0); Mean Corpuscular Volume 83.6 fL (80-94); Mean Platelet Vol. 9.3 fl (6.2-12.0); Monocyte# 0.54 X10^3/uL; NRBC Flagged by Analyzer 0 % (0-5); Neutrophil # 4.63 X10^3/uL (2.7-7.7); Neutrophil % 59.6 % (47-70); Platelet Count 215 K/mm3 (150-450); RBC Distribution Width CV 13.4 % (11.6-14.6); RBC Distribution Width SD 40.6 fl (35.1-43.9); Red Blood Count 5.31 M/mm3 (4.6-6.2); White Blood Count 7.8 K/mm3 (4.4-11.0)
[2024-01-26 18:02] LABS: ALB/GLOB Ratio 1.2 RATIO (0.9-2.4); AST(SGOT) 27 U/L (15-37); Alanine Aminotransfer ALT/SGPT 68 U/L (16-61); Albumin, Serum 3.9 g/dL (3.2-5.0); Alkaline Phosphatase 77 U/L (45-117); Anion Gap 6 (5-15); BUN 19 mg/dL (7-18); BUN/Creat Ratio 17.8 RATIO (10-20); Calcium,Total 9.5 mg/dL (8.5-10.1); Chloride 103 mmol/L (98-107); Creatinine, Serum 1.07 mg/dL (0.70-1.30); EST Glomerular Filtration Rate 83 mL/min (>60); Est Glom Filt Rate - Afr Amer 100 mL/min (>60); Globulin 3.3 g/dL (2.2-4.2); Glucose 147 mg/dL (74-106); Potassium 3.5 mmol/L (3.5-5.1); Protein, Total 7.2 g/dL (6.4-8.2); Sodium Level 138 mmol/L (136-145)
== END | disposition home or self-care (01) ==
LOC: MTLAB 15:17
PROVIDERS: PCP Family Medicine; Referring Provider Internal Medicine Rheumatology; Visit Provider Internal Medicine Rheumatology
DX: M06.09 Rheumatoid arthritis without rheumatoid factor, multiple sites (principal); Z79.899 Other long term (current) drug therapy
CPT/HCPCS: 36415; 80053; 85025

== ENCOUNTER → 2024-02-26 | Outpatient (CLI) | payer OTHER, SELFPAY ==
[2024-02-26 18:07] LABS: ALB/GLOB Ratio 1.1 RATIO (0.9-2.4); AST(SGOT) 24 U/L (15-37); Alanine Aminotransfer ALT/SGPT 50 U/L (16-61); Albumin, Serum 3.8 g/dL (3.2-5.0); Alkaline Phosphatase 81 U/L (45-117); Anion Gap 8 (5-15); BUN 22 mg/dL (7-18); BUN/Creat Ratio 23.7 RATIO (10-20); Calcium,Total 9.3 mg/dL (8.5-10.1); Chloride 100 mmol/L (98-107); Creatinine, Serum 0.93 mg/dL (0.70-1.30); EST Glomerular Filtration Rate 97 mL/min (>60); Est Glom Filt Rate - Afr Amer 118 mL/min (>60); Globulin 3.6 g/dL (2.2-4.2); Glucose 106 mg/dL (74-106); Potassium 3.6 mmol/L (3.5-5.1); Protein, Total 7.4 g/dL (6.4-8.2); Sodium Level 137 mmol/L (136-145)
== END | disposition home or self-care (01) ==
LOC: MTLAB 15:15
PROVIDERS: PCP Family Medicine; Referring Provider Internal Medicine Rheumatology; Visit Provider Internal Medicine Rheumatology
DX: M06.00 Rheumatoid arthritis without rheumatoid factor, unspecified site (principal); Z79.899 Other long term (current) drug therapy
CPT/HCPCS: 36415; 80053

== ENCOUNTER → 2024-04-25 | Outpatient (CLI) | payer BC, SELFPAY ==
[2024-04-25 17:22] LABS: Absolute Lymphocyte Count 2.68 X10^3/uL (0.83-4.51); Absolute Neutrophil Count 5.9 X10^3/uL (2.0-7.7); Basophil# 0.06 X10^3/uL; Basophil% 0.6 % (0-1); Eosinophil# 0.21 X10^3/uL; Eosinophils% 2.2 % (0-5); Hematocrit 44.2 % (40-54); Hemoglobin 14.6 g/dL (13.0-16.5); Lymphocyte # 2.68 X10^3/ul (0.83-4.51); Mean Corpuscular Hgb 27.3 pg (27.0-32.0); Mean Corpuscular Volume 82.8 fL (80-94); Mean Platelet Vol. 9.1 fl (6.2-12.0); Monocyte# 0.66 X10^3/uL; Monocyte% 6.9 % (0-10); NRBC Flagged by Analyzer 0 % (0-5); Neutrophil # 5.91 X10^3/uL (2.7-7.7); Neutrophil % 61.9 % (47-70); Platelet Count 250 K/mm3 (150-450); RBC Distribution Width CV 13.9 % (11.6-14.6); RBC Distribution Width SD 41.5 fl (35.1-43.9); Red Blood Count 5.34 M/mm3 (4.6-6.2); White Blood Count 9.6 K/mm3 (4.4-11.0)
[2024-04-25 17:36] LABS: ALB/GLOB Ratio 1.1 RATIO (0.9-2.4); AST(SGOT) 28 U/L (15-37); Alanine Aminotransfer ALT/SGPT 85 U/L (16-61); Albumin, Serum 3.7 g/dL (3.2-5.0); Alkaline Phosphatase 84 U/L (45-117); Anion Gap 7 (5-15); BUN 23 mg/dL (7-18); BUN/Creat Ratio 20.5 RATIO (10-20); Calcium,Total 9.4 mg/dL (8.5-10.1); Chloride 103 mmol/L (98-107); Creatinine, Serum 1.12 mg/dL (0.70-1.30); EST Glomerular Filtration Rate 79 mL/min (>60); Est Glom Filt Rate - Afr Amer 95 mL/min (>60); Globulin 3.4 g/dL (2.2-4.2); Glucose 118 mg/dL (74-106); Potassium 3.8 mmol/L (3.5-5.1); Protein, Total 7.1 g/dL (6.4-8.2); Sodium Level 139 mmol/L (136-145)
== END | disposition home or self-care (01) ==
PROVIDERS: PCP Family Medicine; Referring Provider Internal Medicine Rheumatology; Visit Provider Internal Medicine Rheumatology
DX: M06.00 Rheumatoid arthritis without rheumatoid factor, unspecified site (principal); Z79.899 Other long term (current) drug therapy
CPT/HCPCS: 36415; 80053; 85025

== ENCOUNTER → 2024-05-21 | Outpatient (CLI) | payer BC, SELFPAY ==
[2024-05-21 10:15] LABS: Cholesterol 141 mg/dL (200); Follicle Stimulating Hormone 7.3 mIU/mL; High Density Lipoprotein 43 mg/dL; Luteinizing Hormone 4.6 mIU/mL; Triglycerides 76 mg/dL; Very Low Density Lipoprotein 15 mg/dL (5-40)
[2024-05-21 11:35] LABS: Microalbumin,Random Urine 17.9 mg/L (NO RANGE EST.); Microalbumin:Creatinine Ratio 15.2 mg/g CRE (<30 mg/g CRE)
[2024-05-25 15:08] LABS: Testosterone, % Free 3.77 % (1.50-4.20); Testosterone, Free 12.29 ng/dL (5.00-21.00); Testosterone, Total 326 ng/dL (264-916)
== END | disposition home or self-care (01) ==
LOC: LAB 09:20
PROVIDERS: PCP Family Medicine; Referring Provider Internal Medicine Endocrinology, Diabetes & Metabolism; Visit Provider Internal Medicine Endocrinology, Diabetes & Metabolism
DX: E10.29 Type 1 diabetes mellitus with other diabetic kidney complication (principal); E66.01 Morbid (severe) obesity due to excess calories; Z68.42 Body mass index [BMI] 45.0-49.9, adult; E10.59 Type 1 diabetes mellitus with other circulatory complications; E10.42 Type 1 diabetes mellitus with diabetic polyneuropathy; R80.9 Proteinuria, unspecified; I10 Essential (primary) hypertension; Z96.41 Presence of insulin pump (external) (internal); E88.09 Other disorders of plasma-protein metabolism, not elsewhere classified
CPT/HCPCS: 36415; 80061; 82043; 82570; 83001; 83002; 84402; 84403

== ENCOUNTER → 2024-06-13 | Outpatient (CLI) | payer BC, SELFPAY ==
[2024-06-13 18:11] LABS: ALB/GLOB Ratio 1.6 RATIO (0.9-2.4); AST(SGOT) 27 U/L (<=37); Alanine Aminotransfer ALT/SGPT 37 U/L (<=46); Albumin, Serum 4.3 g/dL (3.5-5.0); Alkaline Phosphatase 83 U/L (40-129); Anion Gap 13 (5-15); BUN 22 mg/dL (4-19); BUN/Creat Ratio 20.8 RATIO (10-20); Calcium,Total 9.6 mg/dL (7.6-11.0); Carbon Dioxide 26.5 mmol/L (21.0-32.0); Chloride 99 mmol/L (98-108); Creatinine, Serum 1.05 mg/dL (0.70-1.20); EST Glomerular Filtration Rate 94 (>60); Globulin 2.7 g/dL (2.2-4.2); Glucose 117 mg/dL (70-99); Potassium 3.8 mmol/L (3.3-5.1); Sodium Level 139 mmol/L (133-145); Total Bilirubin 0.31 mg/dL (0.00-1.30)
== END | disposition home or self-care (01) ==
LOC: MTLAB 15:10
PROVIDERS: PCP Family Medicine; Referring Provider Internal Medicine Rheumatology; Visit Provider Internal Medicine Rheumatology
DX: M06.00 Rheumatoid arthritis without rheumatoid factor, unspecified site (principal); K76.0 Fatty (change of) liver, not elsewhere classified; Z79.899 Other long term (current) drug therapy
CPT/HCPCS: 36415; 80053

== ENCOUNTER → 2024-08-15 | Outpatient (CLI) | payer BC, SELFPAY ==
[2024-08-15 18:07] LABS: Absolute Neutrophil Count 6.9 X10^3/uL (2.0-7.7); Basophil# 0.05 X10^3/uL; Basophil% 0.5 % (0-1); Eosinophil# 0.04 X10^3/uL; Eosinophils% 0.4 % (0-5); Hematocrit 45.2 % (40-54); Hemoglobin 15.6 g/dL (13.0-16.5); Lymphocyte % 20.6 % (19-41); Mean Corp Hgb Conc 34.5 g/dL (32-36); Mean Corpuscular Hgb 27.7 pg (27.0-32.0); Mean Corpuscular Volume 80.3 fL (80-94); Mean Platelet Vol. 9.8 fl (6.2-12.0); Monocyte# 0.66 X10^3/uL; Monocyte% 6.8 % (0-10); NRBC Flagged by Analyzer 0 % (0-5); Neutrophil # 6.93 X10^3/uL (2.7-7.7); Neutrophil % 71.3 % (47-70); Platelet Count 231 K/mm3 (150-450); RBC Distribution Width CV 13.6 % (11.6-14.6); RBC Distribution Width SD 39.1 fl (35.1-43.9); Red Blood Count 5.63 M/mm3 (4.6-6.2); White Blood Count 9.7 K/mm3 (4.4-11.0)
[2024-08-15 19:15] LABS: ALB/GLOB Ratio 1.6 RATIO (0.9-2.4); AST(SGOT) 32 U/L (<=37); Alanine Aminotransfer ALT/SGPT 42 U/L (<=46); Albumin, Serum 4.4 g/dL (3.5-5.0); Alkaline Phosphatase 84 U/L (40-129); Anion Gap 13 (5-15); BUN 22 mg/dL (4-19); BUN/Creat Ratio 19.3 RATIO (10-20); Calcium,Total 9.5 mg/dL (7.6-11.0); Carbon Dioxide 24.9 mmol/L (21.0-32.0); Chloride 101 mmol/L (98-108); Creatinine, Serum 1.16 mg/dL (0.70-1.20); EST Glomerular Filtration Rate 84 (>60); Globulin 2.7 g/dL (2.2-4.2); Glucose 130 mg/dL (70-99); Potassium 3.7 mmol/L (3.3-5.1); Protein, Total 7.1 g/dL (5.9-8.4); Sodium Level 138 mmol/L (133-145); Total Bilirubin 0.41 mg/dL (0.00-1.30)
== END | disposition home or self-care (01) ==
LOC: MTLAB 15:09
PROVIDERS: PCP Family Medicine; Referring Provider Internal Medicine Rheumatology; Visit Provider Internal Medicine Rheumatology
DX: M06.00 Rheumatoid arthritis without rheumatoid factor, unspecified site (principal); Z79.899 Other long term (current) drug therapy
CPT/HCPCS: 36415; 80053; 85025

== ENCOUNTER → 2024-11-14 | Outpatient (CLI) | payer BC, SELFPAY ==
[2024-11-14 18:06] LABS: Hematocrit 44.3 % (40-54); Hemoglobin 15.3 g/dL (13.0-16.5); Immature Granulocytes Count 0.020 X10^3/uL (0.0-0.0); Mean Corp Hgb Conc 34.5 g/dL (32-36); Mean Corpuscular Volume 80.5 fL (80-94); Mean Platelet Vol. 9.8 fl (6.2-12.0); NRBC Flagged by Analyzer 0 % (0-5); Platelet Count 217 K/mm3 (150-450); RBC Distribution Width CV 13.6 % (11.6-14.6); RBC Distribution Width SD 39.3 fl (35.1-43.9); Red Blood Count 5.50 M/mm3 (4.6-6.2); White Blood Count 9.4 K/mm3 (4.4-11.0)
[2024-11-14 18:28] LABS: AST(SGOT) 27 U/L (<=37); Alanine Aminotransfer ALT/SGPT 37 U/L (<=46); Albumin, Serum 4.5 g/dL (3.5-5.0); Alkaline Phosphatase 77 U/L (40-129); Anion Gap 14 (5-15); BUN 19 mg/dL (4-19); BUN/Creat Ratio 17.3 RATIO (10-20); Calcium,Total 9.6 mg/dL (7.6-11.0); Carbon Dioxide 26.5 mmol/L (21.0-32.0); Chloride 98 mmol/L (98-108); Globulin 2.4 g/dL (2.2-4.2); Glucose 96 mg/dL (70-99); Potassium 3.5 mmol/L (3.3-5.1)
--- OUTSIDE RECORDS SUMMARY | 2024-11-14 21:13 | XMS RPT_ITS | CCD ---
Author Organization [facility] Care Team Providers [employer] Name Role Phone Morgan Ty Unavailable Dilcia Plunkett NP Unavailable Carmen Kohlerica N Unavailable Kimberly Levine LPN Unavailable Unavailable Carmen Kohlerica N Unavailable Neda Shrestha Unavailable González Kohlerssica N Unavailable Dilcia Plunkett NP Unavailable Carmen Kohlerica N Unavailable González Kohlerssica N Unavailable Ruperto POE, SELENA Zhu Referring Provider [phone] Alejandro Waddell Attending Provider [phone] Dr. Marko Anne Primary Care Provider [phone] Dr. Marko Anne Primary Care Provider [phone] Dr. Marko Anne Referring Provider SELENA Whitehead Attending Provider Dr. Marko Anne Primary Care Provider [phone] Dr. Marko Anne Referring Provider Dr. Alejandro Waddell Attending Provider [phone] Dr. Marko Anne Primary Care Provider [phone] Dr. Marko Anne Referring Provider Dr. Alejandro Waddell Attending Provider Dr. Marko Anne Primary Care Provider [phone] Dr. Marko Anne Referring Provider MD Farhad Marshall Attending Provider Dr. Marko Anne Primary Care Provider [phone] Dr. Marko Anne Referring Provider Dr. Alejandro Waddell Attending Provider MD Farhad Marshall Referring Provider MD Farhad Marshall Other Provider Dr. Jin Ceja Attending Provider MD Farhad Marshall Attending Provider Dr. Marko Anne Primary Care Provider [phone] Marko Anne Referring Provider Dr. Alejandro Waddell Attending Provider Omid MILLS, Dr. Zhu Primary Care Provider Nicole HEDRICK, Dr. Germain Attending Provider Nicole HEDRICK, Dr. Gemrain Referring Provider Omid MILLS, Dr. Zhu Referring Provider [phone] Dr. Alejandro Waddell MD Attending Provider Dr. Alejandro Waddell MD Referring Provider Dr. Marko Anne DO Primary Care Provider Dr. Jessa Rivera MD Attending Provider Dr. Jessa Rivera MD Referring Provider Dr. Marko Anne DO Primary Care Provider Dr. Alejandro Waddell MD Attending Provider Nicole HEDRICK, Dr. Germain Attending Provider Nicole HEDRICK, Dr. Germain Referring Provider Dr. Marko Anne DO Referring Provider [phone] Dr. Marko Anne DO Primary Care Provider Nicole HEDRICK, Dr. Germain Attending Provider Dr. Jessa Rivera MD Referring Provider Dr. Alejandro Waddell MD Attending Provider Zane Casas Attending Provider [phone] Omid, Marko Primary Care Unavailable Vellanki, Jessa Attending Unavailable Vellanki, Jessa Referring Unavailable Omid, Marko Primary Care Unavailable Vellanki, Jessa Attending Unavailable Vellanki, Jessa Referring Unavailable Omid, Marko Primary Care Unavailable Vellanki, Jessa Attending Unavailable Vellanki, Jessa Referring Unavailable Omid, Marko Primary Care Unavailable Bairon, Alejandro Referring Unavailable Bairon, Alejandro Attending Unavailable Omid, Marko Primary Care Unavailable Omid, Marko Referring Unavailable Bairon, Alejandro Attending Unavailable Omid, Marko Primary Care Unavailable Omid, Marko Referring Unavailable Bairon, Alejandro Attending Unavailable Omid, Marko Primary Care Unavailable Omid, Marko Referring Unavailable Zane Casas Attending Unavailable Omid, Marko Primary Care Unavailable Omid, Marko Referring Unavailable Bairon, Alejandro Attending Unavailable Omid, Marko Primary Care Unavailable Omid, Marko Referring Unavailable Zane Casas Attending Unavailable Omid, Marko Primary Care Unavailable Omid, Marko Referring Unavailable Chester Dnaiel Attending Unavailable Omid, Marko Primary Care Unavailable Vellanki, Jessa Attending Unavailable Vellanki, Jessa Referring Unavailable Omid, Marko Primary Care Unavailable Vellanki, Jessa Attending Unavailable Vellanki, Jessa Referring Unavailable Vellanki, Jessa Referring Unavailable Vellanki, Jessa Attending Unavailable Omid, Marko Primary Care Unavailable Allergies Allergy Classification Reported Allergen(s) Allergy Type Date of Onset Reaction(s) Facility (20 sources) aspirin; Translations: [ASPIRIN] drug allergy 05-28-19 22 Hives, swelling, Hives [facility] Work Phone: (19 sources) losartan drug allergy 07-04-19 15 numbness/tingl ing [facility] Work Phone: (15 sources) Losartan Drug Allergy 05-28-19 22 Unknown [facility] (15 sources) Menthol Drug Allergy 05-28-19 22 Other [facility] (15 sources) methyl salicylate Drug Allergy 05-28-19 22 peeled skin off [facility] (16 sources) Penicillins; Translations: [Penicillins] Propensity to adverse reactions 05-28-19 22 Itching [facility] (8 sources) fabric softener Allergy to substance 05-28-19 Rash [facility] (8 sources) Environmental Allergies: Uncoded; Translations: [Environmental Allergies: Uncoded] Allergy to substance 09-26-19 Rash [facility] Comment on above: fabric softener (1 source) Losartan Drug Allergy 10-15-19 [facility] (1 source) Menthol Drug Allergy 10-15-19 [facility] (1 source) methyl salicylate Drug Allergy 10-15-19 [facility] Medications Current Medications Medication Drug Class(es) Dates Sig (Normalized) Sig (Original) Adalimumab-Adaz (4 sources) Start: 11-20-2023 Adalimumab-Adaz (Hyrimoz(Cf) Pen) 40 mg/0.4 mL pen injector Active 40 mg SC every 2 weeks November 20, 2023 12:00am cholecalciferol 0.125 mg oral tablet (20 sources) Vitamin D Start: 06-25-2018 take 1 tablet by mouth once daily Cholecalciferol (Vitamin D3) 5,000 unit tablet Active 5000 U PO DAILY June 25, 2018 12:00am Start: 10-27-2016 End: 11-11-2017 take 1 capsule by mouth once daily Cholecalciferol (Vitamin D3) 2,000 UNIT capsule Discontinued 2000 U PO DAILY October 27, 2016 12:00am November 11, 2017 6:56am Start: 04-04-2014 take 1 tablet by kwan th once daily TH VITAMIN D3 2000 UNIT CAPS One tablet by mouth daily CHOLECALCIFEROL [id number] Marko Anne DO fluticasone propionate 0.05 mg/actuat metered dose nasal spray (20 sources) Corticosteroid Start: 11-21-2019 Fluticasone Pr opionate 16 GM spray,suspension Active 2 NMA INTRANASAL DAILY as needed for Nasal Congestion November 21, 2019 9:03am administer into each nostril Start: 08-09-2019 End: 11-21-2019 take 50 ug nasal route once daily Fluticasone Propionate (Flonase Allergy Relief) 50 mcg/actuation spray,suspension Discontinued 2 NMA INTRANASAL DAILY 15.8 1 August 09, 2019 12:00am November 21, 2019 9:03am administer into each nostril Start: 08-09-2019 End: 11-21-2019 take 1 spray(s) nasal route once daily Fluticasone Propionate Active 2 SPRAY INTRANASAL DAILY November 21, 2019 8:03am administer into each nostril folic acid 1 mg oral tablet (6 sources) Start: 11-18-2022 take 1 tablet by mouth once daily Folic Acid 1 mg tablet Active 1 mg PO DAILY November 18, 2022 12:00am 0.1 ml glucagon 5 mg/ml auto-injector (4 sources) Antihypoglycemic Agent Start: 05-13-2024 Glucagon (Gvoke Hypopen 2-Pack) 0.5 mg/0.1 mL auto-injector Active 1 mg SC ONCE 0.2 3 May 13, 2024 1:00am as a single dose; may repeat once after 15 minutes if no response hydroCHLOROthiazide 12.5 mg oral tablet (20 sources) Thiazide Diuretic Start: 09-15-2024 End: 09-15-2024 take 1 tablet by mouth once daily in the morning Hydrochlorothiazide 12.5 mg tablet Active 12.5 mg PO EVERY MORNING 90 3 September 15, 2024 4:19pm Start: 11-28-2021 End: 11-18-2022 take 1 tablet by mouth once daily Hydrochlorothiazide 12.5 mg tablet Discontinued 12.5 mg PO DAILY 90 1 November 28, 2021 12:00am November 18, 2022 3:37pm Hypertension Essential (primary) hypertension Start: 03-28-2020 End: 05-28-2021 take 1 tablet by mouth once daily in the morning Hydrochlorothiazide 25 mg tablet Discontinued 25 mg PO EVERY MORNING 90 March 28, 2020 1:00am May 28, 2021 4:57pm hydroxychloroquine sulfate 200 mg oral tablet (6 sources) Antimalarial, Antirheumatic Agent Start: 11-18-2022 take 1 tablet by mouth twice daily Hydroxychloroquine 200 mg tablet Active 200 mg PO TWICE A DAY November 18, 2022 12:00am Insulin Glargine (Lantus U-100 Insulin) 100 unit/mL solution (14 sources) Start: 09-15-2024 Insulin Glargine (Lantus U-100 Insulin) 100 unit/mL solution Active 40 U SC TWICE A DAY as needed for in case of pump failure September 15, 2024 4:01pm Start: 01-02-2022 End: 09-15-2024 Insulin Glargine (Lantus U-1 00 Insulin) 100 unit/mL solution Discontinued 40 U SC TWICE A DAY 01 04January 02, 2022 12:00am September 15, 2024 4:02pm in case of pump failure Start: 01-02-2022 End: 09-15-2024 Insulin Glargine (Lantus U-1 00 Insulin) 100 unit/mL solution Discontinued 40 U SC TWICE A DAY January 02, 2022 12:00am September 15, 2024 4:02pm Start: 01-02-2022 Insulin Glargi ne (Lantus U-100 Insulin) 100 unit/mL solution Active 40 U SC TWICE A DAY January 02, 2022 12:00am Start: 01-02-2022 Insulin Glargi ne (Lantus U-100 Insulin) 100 unit/mL solution Active 40 UNIT SC TWICE A DAY January 01, 2022 11:00pm Start: 01-02-2022 Insulin Glargi ne (Lantus U-100 Insulin) 100 unit/mL solution Active 40 UNIT SC TWICE A DAY January 02, 2022 12:00am methotrexate 2.5 mg oral tablet (8 sources) Folate Analog Metabolic Inhibitor Start: 09-15-2024 Methotrexate Sodium 2.5 mg tablet Active 15 mg PO EVERY WEEK September 15, 2024 4:02pm Start: 11-18-2022 End: 09-15-2024 take 1 tablet by mouth every week Methotrexate Sodium 2.5 mg tablet Discontinued 2.5 mg PO EVERY WEEK November 18, 2022 12:00am September 15, 2024 4:02pm montelukast 10 mg oral tablet (20 sources) Leukotriene Receptor Antagonist Start: 08-09-2019 End: 01-16-2020 take 1 tablet by mouth at bedtime as needed Montelukast 10 MG tablet Active 10 mg PO AT BEDTIME as needed for Allergies January 16, 2020 1:05pm Start: 08-20-2015 End: 04-14-2017 take 1 tablet by mouth at bedtime Montelukast (Singulair) 10 mg tablet Discontinued 10 mg PO AT BEDTIME April 02, 2017 1:00am April 14, 2017 9:01am Multivitamin (One-A-Day Essential) tablet (15 sources) Start: 06-25-2018 take 1 tablet by mouth once daily Multivitamin (One-A-Day Essential) tablet Active 1 TABLET PO DAILY June 25, 2018 8:39am Start: 06-25-2018 Multivitamin ( One-A-Day Essential) tablet Active 1 {tbl} PO DAILY June 25, 2018 12:00am Start: 06-25-2018 take 1 tablet by kwan th once daily Multivitamin (One-A-Day Essential) tablet Active 1 TABLET PO DAILY June 24, 2018 11:00pm Start: 06-25-2018 take 1 tablet by kwan th once daily Multivitamin (One-A-Day Essential) tablet Active 1 TABLET PO DAILY June 25, 2018 12:00am predniSONE 10 mg oral tablet (6 sources) Start: 11-18-2022 Prednisone 10 mg tablet Active 10 mg PO As Directed November 18, 2022 12:00am see taper instructions Tirzepatide (Mounjaro) 15 mg/0.5 mL pen injector (4 sources) Start: 05-13-2024 Tirzepatide (M ounjaro) 15 mg/0.5 mL pen injector Active 15 mg SC EVERY WEEK 2 May 13, 2024 1:00am Start: 05-13-2024 Tirzepatide (M ounjaro) 15 mg/0.5 mL pen injector Active 15 mg SC EVERY WEEK 2 May 13, 2024 1:00am traMADol hydrochloride 50 mg oral tablet (2 sources) Opioid Agonist Start: 09-15-2024 take 1 tablet by mouth three times daily as needed Tramadol 50 mg tablet Active 50 mg PO THREE TIMES A DAY as needed September 15, 2024 12:00am Completed/Discontinued Medications Medication Drug Class(es) Dates Sig (Normalized) Sig (Original) acetaminophen 325 mg / HYDROcodone bitartrate 5 mg oral tablet (20 sources) Opioid Agonist Start: 11-30-2019 End: 12-05-2019 take 1-2 tablets by mouth every six hours as needed for pain Hydrocodone-Acetamin ophen 1 TABLET tablet Discontinued 1 - 2 {tbl} PO EVERY 6 HOURS NEEDED as needed for Pain 20 5 0 November 30, 2019 December 04, 2019 12:00am December 05, 2019 12:02am Postoperative pain Other acute postprocedural pain stop all other narcotics and tylenol products Start: 11-30-2019 End: 12-05-2019 take 1-2 tablets by mouth every six hours as needed Hydrocodone-Acetaminophen Discontinued 1 - 2 TABLET PO EVERY 6 HOURS NEEDED 20 5 November 30, 2019 December 04, 2019 11:02pm stop all other narcotics and tylenol products Start: 10-28-2016 End: 04-02-2017 Hydrocodone-Acetaminophen 1 TABLET tablet Discontinued 1 - 2 {tbl} PO EVERY 6 HOURS NEEDED as needed for Pain 60 0 October 28, 2016 12:00am April 02, 2017 1:11pm Start: 10-28-2016 End: 04-02-2017 take 1 tablet by mouth every six hours as needed Hydrocodone-Acetaminophen Discontinued 1 - 2 TABLET PO EVERY 6 HOURS NEEDED 60 October 27, 2016 11:00pm April 02, 2017 12:11pm amLODIPine 5 mg oral tablet (6 sources) Dihydropyridine Calcium Channel Gina Start: 11-18-2022 End: 09-15-2024 take 1 tablet by mouth once daily Amlodipine 5 mg tablet Discontinued 5 mg PO DAILY November 18, 2022 12:00am September 15, 2024 4:19pm amoxicillin 875 mg / clavulanate 125 mg oral tablet (20 sources) Penicillin-class Antibacterial Start: 12-24-2018 End: 01-03-2019 Amoxicillin-Pot Clavulanate (Augmentin) 875-125 mg tablet Discontinued 1 {tbl} PO Q12H 20 10 0 December 24, 2018 12:00am January 02, 2019 12:00am January 03, 2019 12:07am Acute sinusitis, unspecified Start: 03-29-2018 End: 04-08-2018 Amoxicillin-Pot Clavulanate (Augmentin) 875-125 mg tablet Discontinued 1 {tbl} PO Q12H 20 10 0 March 29, 2018 1:00am April 07, 2018 1:00am April 08, 2018 1:10am Acute sinusitis, unspecified Start: 12-25-2017 End: 01-04-2018 Amoxicillin-Pot Clavulanate (Augmentin) 875-125 mg tablet Discontinued 1 {tbl} PO Q12H 20 10 0 December 25, 2017 12:00am January 03, 2018 12:00am January 04, 2018 12:10am Local infection of the skin and subcutaneous tissue, unspecified Start: 08-20-2015 End: 2015 take 1 tablet by mouth twice daily AMOXICILLIN-POT CLAVULANATE 875-125 MG TABS 1 tablet by mouth twice per day for sinusitis AMOXICILLIN-POT CLAVULANATE [id number] Marko A Omid DO Start: 04-04-2014 End: 04-14-2014 take 1 tablet by mouth twice daily AMOXICILLIN-POT CLAVULANATE 875-125 MG TABS 1 tablet by mouth twice per day for sinusitis AMOXICILLIN-POT CLAVULANATE [id number] Marko A Omid DO 24 hr amphetamine aspartate 5 mg / amphetamine sulfate 5 mg / dextroamphetamine saccharate 5 mg / dextroamphetamine sulfate 5 mg extended release oral capsule (15 sources) Central Nervous System Stimulant Start: 05-28-2021 End: 11-18-2022 Dextroamphetamine-Amphetamin e 20 mg capsule,extended release 24hr Discontinued NMA PO 0 May 28, 2021 1:00am November 18, 2022 3:36pm ascorbic acid 1000 mg oral tablet (20 sources) Start: 04-02-2017 End: 11-11-2017 take 1 g by mouth once daily Ascorbic Acid (Vitamin C) Discontinued 1 GM PO daily April 02, 2017 12:00am November 11, 2017 5:56am Start: 04-04-2014 End: 11-11-2017 take 1 g by mouth once daily Ascorbic Acid (Vitamin C) 1,000 mg tablet Discontinued 1 g PO daily April 02, 2017 1:00am November 11, 2017 6:56am atomoxetine 40 mg oral capsule (6 sources) Norepinephrine Reuptake Inhibitor Start: 11-18-2022 End: 05-13-2024 take 1 capsule by mouth twice daily Atomoxetine 40 mg capsule Discontinued 40 mg PO TWICE A DAY November 18, 2022 12:00am May 13, 2024 4:35pm azithromycin 250 mg oral tablet (20 sources) Macrolide Antimicrobial Start: 04-19-2014 End: 05-03-2015 take 2 tablets by mouth once, then take 1 tablet by mouth once daily, then take 2-5 tablets by mouth AZITHROMYCIN 250 MG TABS 2 PO on day 1 then 1 PO daily on days 2-5 AZITHROMYCIN [id number] Marko Anne DO benzonatate 100 mg oral capsule (15 sources) Non-narcotic Antitussive Start: 01-26-2019 End: 02-25-2019 take 1 capsule by mouth three times daily as needed for cough Benzonatate (Tessalon Perles) 100 mg capsule Discontinued 100 mg PO THREE TIMES A DAY as needed for cough 30 0 January 26, 2019 12:00am February 25, 2019 5:23pm 12 hr buPROPion hydrochloride 150 mg extended release oral tablet (20 sources) Aminoketone Start: 12-28-2019 End: 05-20-2022 Bupropion Hcl (Wellbutrin Sr) 150 mg tablet sustained-release 12 hr Discontinued 150 mg PO TWICE A DAY 180 1 December 28, 2019 12:00am May 20, 2022 4:33pm start daily for the first 3 days then increase to twice daily Start: 06-25-2018 End: 02-25-2019 take 1 tablet by mouth twice daily Bupropion Hcl 150 mg tablet sustained-release 12 hr Discontinued 150 mg PO TWICE A DAY 180 2 July 23, 2018 9:03am February 25, 2019 5:23pm canagliflozin 300 mg oral tablet (15 sources) Sodium-Glucose Cotransporter 2 Inhibitor Start: 03-24-2019 End: 03-24-2019 take 1 tablet by mouth once daily in the morning Canagliflozin (Invokana) 300 mg tablet Discontinued 300 mg PO EVERY MORNING 90 3 March 24, 2019 1:00am March 24, 2019 10:35am cephalexin 500 mg oral capsule (19 sources) Cephalosporin Antibacterial Start: 01-14-2024 End: 01-24-2024 take 1 capsule by mouth every eight hours Cephalexin 500 mg capsule Discontinued 500 mg PO Q8H 30 10 0 January 14, 2024 12:00am January 23, 2024 12:00am January 24, 2024 12:08am Start: 10-28-2016 End: 04-02-2017 take 1 capsule by mouth every twelve hours Cephalexin 500 MG capsule Discontinued 500 mg PO EVERY 12 HOURS 10 October 28, 2016 12:00am April 02, 2017 1:11pm dapagliflozin 10 mg oral tablet (20 sources) Sodium-Glucose Cotransporter 2 Inhibitor Start: 11-27-2020 End: 06-09-2024 take 1 tablet by mouth once daily Dapagliflozin Propanediol (Farxiga) 10 mg tablet Discontinued 10 mg PO DAILY June 29, 2023 12:48pm November 20, 2023 3:58pm docusate sodium 100 mg oral capsule (20 sources) Start: 10-28-2016 End: 04-02-2017 take 1 capsule by mouth twice daily as needed for constipation Docusate Sodium 100 MG capsule Discontinued 100 mg PO TWICE DAILY NEEDED as needed for Constipation October 28, 2016 12:00am April 02, 2017 1:11pm doxycycline hyclate 100 mg oral capsule (15 sources) Tetracycline-class Drug Start: 01-07-2019 End: 01-17-2019 take 1 capsule by mouth twice daily Doxycycline Hyclate 100 mg capsule Discontinued 100 mg PO TWICE A DAY 20 January 07, 2019 12:00am January 16, 2019 12:00am January 17, 2019 12:08am Acute sinusitis, unspecified empagliflozin 25 mg oral tablet (15 sources) Sodium-Glucose Cotransporter 2 Inhibitor Start: 03-24-2019 End: 04-27-2019 take 1 tablet by mouth once daily in the morning Empagliflozin (Jardiance) 25 mg tablet Discontinued 25 mg PO EVERY MORNING March 24, 2019 1:00am April 27, 2019 9:11am GLUCOSE BLOOD (10 sources) Start: 08-18-2016 End: 11-18-2024 ONETOUCH ULTRA BLUE STRP Check BG 4-6 times daily GLUCOSE BLOOD [id number] Dilcia Plunkett NP Start: 08-18-2016 End: 11-18-2024 ONETOUCH ULTRA BLUE STRP Zeenat ck BG 4-6 times daily GLUCOSE BLOOD [id number] Dilcia Plunkett NP GLUCOSE BLOOD (3 sources) Start: 08-18-2016 End: 11-18-2024 ONETOUCH ULTRA BLUE STRP Check BG 4-6 times daily GLUCOSE BLOOD [id number] Dilcia Plunkett NP GLUCOSE BLOOD (4 sources) Start: 08-18-2016 End: 11-18-2024 Magisto ULTRA BLUE STRP Check BG 4-6 times daily GLUCOSE BLOOD [id number] Dilcia Plunkett NP 1.5 ml insulin glargine 300 unt/ml pen injector (20 sources) Insulin Analog Start: 10-27-2016 End: 03-17-2017 Insulin Glargine U-300 Conc 300 UNIT/ML insulin pen Discontinued 70 U SQ AT BEDTIME October 27, 2016 12:00am March 17, 2017 4:17pm Start: 04-04-2014 End: 03-17-2017 inject 30 [IU] by subcutaneous injection once daily Insulin Glargine U-300 Conc 300 UNIT/ML insulin pen Discontinued 30 U SQ DAILY October 27, 2016 12:00am March 17, 2017 4:17pm Start: 04-04-2014 TOUJEO SOLOSTA R 300 UNIT/ML SOPN 30 U in the morning and 90U in the evening INSULIN GLARGINE [id number] Dilcia Plunkett NP Start: 04-04-2014 TOUJEO SOLOSTA R 300 UNIT/ML SOPN 30 U in the morning and 88U in the evening INSULIN GLARGINE [id number] Marko A [facility] DO Start: 04-04-2014 LANTUS SOLOSTA R 100 UNIT/ML SOPN 57 units in the morning, and 63 units in the evening. INSULIN GLARGINE [id number] [facility] DO Start: 04-04-2014 LANTUS SOLOSTA R 100 UNIT/ML SOPN 57 units in the morning, and 63 units in the evening. INSULIN GLARGINE [id number] [facility] DO Start: 04-04-2014 LANTUS SOLOSTA R 100 UNIT/ML SOPN 55 units in the morning, and 65 units in the evening. INSULIN GLARGINE [id number] Laura Tidwell LPN Start: 04-04-2014 TOUJEO SOLOSTA R 300 UNIT/ML SOPN 30 U in the morning and 90U in the evening INSULIN GLARGINE [id number] Dilcia Plunkett [employer] Start: 04-04-2014 TOUJEO SOLOSTA R 300 UNIT/ML SOPN morning and evening INSULIN GLARGINE [id number] Marko Clark [facility] Start: 04-04-2014 TOUJEO SOLOSTA R 300 UNIT/ML SOPN 30 U in the morning and 90U in the evening INSULIN GLARGINE [id number] Dilcia Plunkett [employer] Start: 04-04-2014 LANTUS SOLOSTA R 100 UNIT/ML SOPN 57 units in the morning, and 63 units in the evening. INSULIN GLARGINE [id number] Marko Clark [facility] Start: 04-04-2014 LANTUS SOLOSTA R 100 UNIT/ML SOPN 55 units in the morning, and 65 units in the evening. INSULIN GLARGINE [id number] Laura Tidwell LPN Start: 04-04-2014 LANTUS SOLOSTA R 100 UNIT/ML SOPN 55 units in the morning, and 65 units in the evening. INSULIN GLARGINE [id number] Marko Clark [facility] Start: 04-04-2014 TOUJEO SOLOSTA R 300 UNIT/ML SOPN morning and evening INSULIN GLARGINE [id number] Marko Amber [facility] Start: 04-04-2014 TOUJEO SOLOSTA R 300 UNIT/ML SOPN 30 U in the morning and 88U in the evening INSULIN GLARGINE [id number] Marko Amber [facility] insulin glulisine, human 100 unt/ml injectable solution (20 sources) Insulin Analog Start: 12-03-2022 End: 06-13-2024 Insulin Glulisine U-100 (Apidra U-100 Insulin) 100 unit/mL solution Discontinued 160 U continuous subcutaneous infusion .continuous 144 1 October 20, 2023 9:03am June 13, 2024 9:14am Type 1 diabetes mellitus Type 1 diabetes mellitus with other diabetic kidney complication Proteinuria, unspecified Start: 02-04-2021 End: 05-28-2021 Insulin Glulisine U-100 100 unit/mL solution Discontinued 180 U SC DAILY 60 6 February 04, 2021 9:41am May 28, 2021 4:54pm VIA PUMP Start: 04-13-2020 End: 02-01-2021 Insulin Glulisine U-100 100 unit/mL solution Discontinued 180 U SC DAILY 60 6 November 27, 2020 3:58pm February 01, 2021 2:49pm VIA PUMP Start: 11-21-2019 End: 04-13-2020 Insulin Glulisine U-100 100 UNIT/ML solution Discontinued 0 U SQ Continuous November 21, 2019 12:00am April 13, 2020 5:59pm dose varies/via pump Start: 11-21-2019 End: 04-13-2020 Insulin Glulisine U-100 Disc ontinued 0 UNIT SQ Continuous November 20, 2019 11:00pm April 13, 2020 4:59pm dose varies/via pump Start: 08-02-2019 End: 08-09-2019 Insulin Glulisine U-100 (Api olga U-100 Insulin) 100 unit/mL solution Discontinued 0 SC .q day 50 6 August 02, 2019 10:04am August 09, 2019 8:56am Type 1 diabetes mellitus without complications e10.9 uses up to 160U qd via pump SC .q day Start: 10-29-2017 End: 08-09-2019 Insulin Glulisine U-100 (Api olga Solostar U-100 Insulin) 100 unit/mL insulin pen Discontinued 40 U SC once daily before breakfast 15 4 August 20, 2018 2:17pm August 09, 2019 8:56am Use in case of pump failure Start: 08-04-2017 End: 08-02-2019 Insulin Glulisine U-100 (Api olga U-100 Insulin) 100 unit/mL solution Discontinued 0 SC .q day 50 August 20, 2018 2:17pm August 02, 2019 10:47am Type 1 diabetes mellitus without complications e10.9 uses up to 150U qd via pump SC .q day insulin lispro 100 unt/ml injectable solution (20 sources) Insulin Analogue Start: 11-18-2022 End: 12-03-2022 Insulin Lispro (Humalog U-100 Insulin) 100 unit/mL solution Discontinued 150 U SC DAILY 50 7 November 18, 2022 12:00am December 03, 2022 11:51am via insulin pump Start: 02-18-2021 End: 02-17-2022 Insulin Lispro (Humalog U-10 0 Insulin) 100 unit/mL solution Discontinued 180 U continuous subcutaneous infusion .continuous 60 6 May 28, 2021 4:54pm February 17, 2022 9:08am Diabetes mellitus Obesity Type 1 diabetes mellitus with hyperglycemia Morbid (severe) obesity due to excess calories Body mass index [BMI] 50.0-59.9, adult Start: 02-01-2021 End: 02-04-2021 Insulin Lispro (Humalog U-10 0 Insulin) 100 unit/mL solution Discontinued 180 U continuous subcutaneous infusion .continuous 60 6 February 01, 2021 12:00am February 04, 2021 9:41am Start: 03-17-2017 End: 03-19-2017 inject 1 [IU] by subcutaneous injection every hour at mealtime Insulin Lispro (Humalog U-100 Insulin) 100 unit/mL solution Discontinued 3 units/hr Continuous Subcutaneous Infusion daily 50 0 March 17, 2017 1:00am March 19, 2017 4:57pm Type 1 diabetes mellitus without complications approx 20-25 units per meal Start: 07-30-2016 HUMALOG KWIKPE N 100 UNIT/ML SOPN Use 20 units in the AM, Use 27 units with lunch, and 26 units in the evening. Add 2 units for every 50 points. over 150. INSULIN LISPRO [id number] Dilcia Plunkett NP Start: 07-30-2016 HUMALOG KWIKPE N 100 UNIT/ML SOPN Use 20 units in the AM, Use 27 units with lunch, and 26 units in the evening. Add 2 units for every 50 points. over 150. INSULIN LISPRO [id number] Dilcia Plunkett NP Start: 07-30-2016 HUMALOG KWIKPE N 100 UNIT/ML SOPN Use 20 units in the AM, Use 27 units with lunch, and 26 units in the evening. Add 2 units for every 50 points. over 150. INSULIN LISPRO [id number] Dilcia Plunkett NP Start: 07-30-2016 HUMALOG KWIKPE N 100 UNIT/ML SOPN Use 20 units in the AM, Use 27 units with lunch, and 26 units in the evening. Add 2 units for every 50 points. over 150. INSULIN LISPRO [id number] Dilcia Plunkett NP Start: 07-30-2016 HUMALOG KWIKPE N 100 UNIT/ML SOPN Use 20 units in the AM, Use 27 units with lunch, and 26 units in the evening. Add 2 units for every 50 carbs over 150. INSULIN LISPRO [id number] Dilcia Plunkett NP Start: 07-30-2016 HUMALOG KWIKPE N 100 UNIT/ML SOPN Use 20 units in the AM, Use 27 units with lunch, and 26 units in the evening. Add 2 units for every 50 carbs over 150. INSULIN LISPRO [id number] Dilcia Plunkett NP INSULIN PEN NEEDLE (10 sources) Start: 08-18-2016 End: 11-18-2024 EASY TOUCH PEN NEEDLES 29G X 12MM Use 5-6 daily INSULIN PEN NEEDLE [id number] Dilcia Plunkett NP Start: 08-18-2016 End: 11-18-2024 EASY TOUCH PEN NEEDLES 29G X 12MM MISC Use 5-6 daily INSULIN PEN NEEDLE [id number] Dilcia Plunkett NP INSULIN PEN NEEDLE (3 sources) Start: 08-18-2016 End: 11-18-2024 EASY TOUCH PEN NEEDLES 29G X 12MM Use 5-6 daily INSULIN PEN NEEDLE [id number] Dilcia Plunkett NP insulin aspart, human 100 unt/ml injectable solution (20 sources) Insulin Analog Start: 11-06-2023 End: 05-13-2024 Insulin Aspart (Niacinamide) (Fiasp U-100 Insulin) 100 unit/mL solution Discontinued 160 U SC DAILY 150 November 06, 2023 12:00am May 13, 2024 4:35pm via insulin pump Start: 02-17-2022 End: 12-03-2022 Insulin Aspart (Niacinamide) (Fiasp U-100 Insulin) 100 unit/mL solution Discontinued 180 U SC DAILY 160 July 07, 2022 12:00am December 03, 2022 11:51am via insulin pump Start: 03-19-2017 End: 08-04-2017 inject 20-25 [IU] by subcutaneous injection once at mealtime Insulin Aspart U-100 (Novolog U-100 Insulin Aspart) 100 unit/mL solution Discontinued 3 units/hr Continuous Subcutaneous Infusion daily 50 April 16, 2017 1:51pm August 04, 2017 1:26pm MDD up to 150 U daily approx 20-25 U per meal Start: 10-27-2016 End: 04-02-2017 Insulin Aspart U-100 100 UNI TS/ML insulin pen Discontinued 20 U SC DAILY October 27, 2016 12:00am April 02, 2017 1:08pm Start: 10-27-2016 End: 04-02-2017 Insulin Aspart U-100 Discont inued 20 UNITS SC DAILY October 26, 2016 11:00pm April 02, 2017 12:08pm Start: 04-04-2014 End: 07-03-2022 NOVOLOG FLEXPEN 100 UNIT/ML SOPN Take 35 units with each meal and correction up to total of 135 daily INSULIN ASPART [id number] Dilcia Plunkett NP Start: 04-04-2014 End: 07-03-2022 NOVOLOG FLEXPEN 100 UNIT/ML SOPN Take 35 units with each meal and correction up to total of 135 daily INSULIN ASPART [id number] Dilcia Plunkett NP Start: 04-04-2014 NOVOLOG FLEXPE N 100 UNIT/ML SOPN 15 units with breakfast, 27 units with lunch, and 28 units with dinner. For every 50 over 150, add 2 extra units INSULIN ASPART [id number] Marko Anne DO Start: 04-04-2014 NOVOLOG FLEXPE N 100 UNIT/ML SOPN 20 units with breakfast, 27 units with lunch, and 26 units with dinner. For every 50 over 150, add 2 extra units INSULIN ASPART [id number] Dilcia Plunkett NP Start: 04-04-2014 End: 07-03-2022 NOVOLOG FLEXPEN 100 UNIT/ML SOPN Take 35 units with each meal and correction up to total of 135 daily INSULIN ASPART [id number] Dilcia Tijerina Dimitrios [employer] Start: 04-04-2014 NOVOLOG FLEXPE N 100 UNIT/ML SOPN 20 units with breakfast, 27 units with lunch, and 26 units with dinner. For every 50 over 150, add 2 extra units INSULIN ASPART [id number] Dilcia Tijerina Dimitrios [employer] Start: 04-04-2014 NOVOLOG FLEXPE N 100 UNIT/ML SOPN 20 units with breakfast, 27 units with lunch, and 26 units with dinner. For every 50 over 150, add 2 extra units INSULIN ASPART [id number] Dilcia Tijerina Dimitrios [employer] Start: 04-04-2014 NOVOLOG FLEXPE N 100 UNIT/ML SOPN 20 units with breakfast, 27 units with lunch, and 26 units with dinner. For every 50 over 150, add 2 extra units INSULIN ASPART [id number] Marko Anne DO Start: 04-04-2014 NOVOLOG FLEXPE N 100 UNIT/ML SOPN 15 units with breakfast, 27 units with lunch, and 27 units with dinner. For every 50 over 150, add 2 extra units INSULIN ASPART [id number] Marko Anne DO Start: 04-04-2014 NOVOLOG FLEXPE N 100 UNIT/ML SOPN 15 units with breakfast, 27 units with lunch, and 28 units with dinner. For every 50 over 150, add 2 extra units INSULIN ASPART [id number] Marko Anne DO Start: 04-04-2014 NOVOLOG FLEXPE N 100 UNIT/ML SOPN 15 units with breakfast, 27 units with lunch, and 28 units with dinner. For every 50 over 150, add 2 extra units INSULIN ASPART [id number] Laura Tidwell LPN levoFLOXacin 500 mg oral tablet (15 sources) Quinolone Antimicrobial Start: 01-26-2019 End: 02-25-2019 take 1 tablet by mouth once daily Levofloxacin (Levaquin) 500 mg tablet Discontinued 500 mg PO DAILY 10 0 January 26, 2019 12:00am February 25, 2019 5:24pm lisinopril 40 mg oral tablet (20 sources) Angiotensin Converting Enzyme Inhibitor Start: 03-28-2020 End: 05-28-2021 take 1 tablet by mouth once daily Lisinopril 40 mg tablet Discontinued 40 mg PO DAILY 90 3 March 28, 2020 10:54am May 28, 2021 4:57pm Start: 12-28-2019 End: 03-28-2020 take 1 tablet by mouth once daily Lisinopril 30 mg tablet Discontinued 30 mg PO DAILY 90 3 December 28, 2019 10:12am March 28, 2020 10:58am Start: 04-27-2019 End: 12-28-2019 take 1 tablet by mouth once daily Lisinopril 20 mg tablet Discontinued 20 mg PO DAILY 90 3 April 27, 2019 1:00am December 28, 2019 10:14am Start: 01-26-2019 End: 03-24-2019 take 1 tablet by mouth once daily Lisinopril 20 mg tablet Discontinued 20 mg PO DAILY 90 3 January 26, 2019 8:34am March 24, 2019 9:32am Start: 10-26-2018 End: 01-26-2019 take 1 tablet by mouth once daily Lisinopril 10 mg tablet Discontinued 10 mg PO DAILY 90 3 October 26, 2018 9:18am January 26, 2019 8:34am Start: 07-03-2014 End: 10-26-2018 take 1 tablet by mouth once daily Lisinopril 5 mg tablet Discontinued 5 mg PO DAILY 30 May 05, 2018 2:58pm October 26, 2018 9:19am LORazepam 0.5 mg oral tablet (20 sources) Benzodiazepine Start: 06-08-2019 End: 12-28-2019 take 1 tablet by mouth at bedtime as needed for anxiety Lorazepam (Ativan) 0.5 mg tablet Discontinued 0.5 mg PO AT BEDTIME as needed for anxiety 10 0 September 07, 2019 4:03pm December 28, 2019 10:24am losartan potassium 50 mg oral tablet (15 sources) Angiotensin 2 Receptor Gina Start: 03-24-2019 End: 04-27-2019 take 1 tablet by mouth once daily Losartan 50 mg tablet Discontinued 50 mg PO DAILY 30 March 24, 2019 1:00am April 27, 2019 9:10am meloxicam 15 mg oral tablet (15 sources) Nonsteroidal Anti-inflammatory Drug Start: 07-28-2018 End: 11-24-2018 take 1 tablet by mouth once daily Meloxicam (Mobic) 15 mg tablet Discontinued 15 mg PO DAILY 30 1 Britt 24th, 2019 12:00am November 24, 2018 6:50am do not take with other NSAID osmotic 24 hr metFORMIN hydrochloride 1000 mg extended release oral tablet (20 sources) Biguanide Start: 08-07-2019 End: 12-30-2019 take 1 tablet by mouth twice daily Metformin 1,000 mg tablet extended release 24hr Discontinued 1000 mg PO TWICE A DAY 180 August 07, 2019 12:00am December 30, 2019 2:29pm Start: 01-26-2019 End: 03-24-2019 take 1 tablet by mouth twice daily Metformin 1,000 mg tablet Discontinued 1000 mg PO TWICE A DAY 180 3 January 26, 2019 8:33am March 24, 2019 9:46am Start: 06-25-2018 End: 01-26-2019 take 1 tablet by mouth twice daily Metformin 500 mg tablet Discontinued 500 mg PO TWICE A DAY 180 3 July 23, 2018 9:04am January 26, 2019 8:34am methylPREDNISolone acetate 40 mg/ml injectable suspension (2 sources) Corticosteroid Start: 07-28-2018 End: 07-28-2018 Depo-Medrol (methylprednisolone acetate) 40 mg/mL suspension for injection Discontinued 40 MG INTRAARTIC ONCE July 28, 2018 7:37am July 28, 2018 9:00am mometasone furoate 0.05 mg/actuat metered dose nasal spray (20 sources) Corticosteroid Start: 04-02-2017 End: 04-14-2017 Mometasone (Nasonex) 50 mcg/actuation spray,non-aerosol Discontinued 2 NMA INTRANASAL daily April 02, 2017 1:00am April 14, 2017 9:02am Start: 04-02-2017 End: 04-14-2017 Mometasone (Nasonex) 50 mcg/ actuation spray,non-aerosol Discontinued 2 SPRAY INTRANASAL daily April 02, 2017 12:00am April 14, 2017 8:02am Start: 10-05-2014 take 2 spray(s) nasa l route once daily NASONEX 50 MCG/ACT SUSP 2 sprays in each nostril daily MOMETASONE FUROATE [id number] Laura Tidwell LPN Start: 10-05-2014 take 2 spray(s) nasa l route once daily NASONEX 50 MCG/ACT SUSP 2 sprays in each nostril daily MOMETASONE FUROATE [id number] Marko A Omid DO Start: 10-05-2014 take 2 spray(s) nasa l route once daily NASONEX 50 MCG/ACT SUSP 2 sprays in each nostril daily MOMETASONE FUROATE [id number] Laura Tidwell LPN Start: 10-05-2014 take 2 spray(s) nasa l route once daily NASONEX 50 MCG/ACT SUSP 2 sprays in each nostril daily MOMETASONE FUROATE [id number] Laura Tidwell LPN Start: 10-05-2014 take 2 spray(s) nasa l route once daily NASONEX 50 MCG/ACT SUSP 2 sprays in each nostril daily MOMETASONE FUROATE [id number] Marko A Omid DO MULTIPLE VITAMINS-MINERALS (12 sources) Start: 04-04-2014 take 1 tablet by mouth once daily MENS MULTIVITAMIN PLUS TABS One tablet by mouth daily MULTIPLE VITAMINS-MINERALS [id number] Marko A Omid DO MULTIPLE VITAMINS-MINERALS (7 sources) Start: 04-04-2014 take 1 tablet by mouth once daily MENS MULTIVITAMIN PLUS TABS One tablet by mouth daily MULTIPLE VITAMINS-MINERALS [id number] Marko A Omid DO Start: 04-04-2014 take 1 tablet by kwan th once daily MENS MULTIVITAMIN PLUS TABS One tablet by mouth daily MULTIPLE VITAMINS-MINERALS [id number] Marko A [facility] DO Multivitamin preparation (11 sources) Start: 04-02-2017 End: 11-11-2017 take 1 tablet by mouth once daily Multivitamin Discontinued 1 TABLET PO daily April 02, 2017 1:13pm November 11, 2017 6:56am Start: 04-02-2017 End: 11-11-2017 take 1 tablet by mouth once daily Multivitamin Discontinued 1 TABLET PO daily April 02, 2017 12:00am November 11, 2017 5:56am Start: 04-02-2017 End: 11-11-2017 take 1 tablet by mouth once daily Multivitamin Discontinued 1 TABLET PO daily April 02, 2017 1:00am November 11, 2017 6:56am Multivitamin tablet (4 sources) Start: 04-02-2017 End: 11-11-2017 Multivitamin tablet Discontinued 1 {tbl} PO daily April 02, 2017 1:00am November 11, 2017 6:56am prednisoLONE acetate 10 mg/ml ophthalmic suspension (20 sources) Corticosteroid Start: 04-02-2017 End: 04-14-2017 Prednisolone Acetate (Omnipred) 1 % drops,suspension Discontinued 1 NMA OPHTHALMIC EVERY 6 HOURS April 02, 2017 1:00am April 14, 2017 9:01am Start: 04-04-2014 OMNIPRED 1 % S SKILLED NURSING as instructed by ophthalmology PREDNISOLONE ACETATE [id number] Laura Tidwell LPN Start: 04-04-2014 OMNIPRED 1 % S SKILLED NURSING as instructed by ophthalmology PREDNISOLONE ACETATE [id number] Marko Anne DO Start: 04-04-2014 OMNIPRED 1 % S SKILLED NURSING as instructed by ophthalmology PREDNISOLONE ACETATE [id number] Laura Tidwell LPN Start: 04-04-2014 OMNIPRED 1 % S SKILLED NURSING as instructed by ophthalmology PREDNISOLONE ACETATE [id number] Laura Tidwell LPN Start: 04-04-2014 OMNIPRED 1 % S SKILLED NURSING as instructed by ophthalmology PREDNISOLONE ACETATE [id number] Marko Anne DO promethazine hydrochloride 25 mg oral tablet (20 sources) Phenothiazine Start: 10-28-2016 End: 04-02-2017 take 1 tablet by mouth every four hours as needed for nausea Promethazine 25 MG tablet Discontinued 25 mg PO EVERY 4 HOURS NEEDED as needed for Nausea 10 0 October 28, 2016 12:00am April 02, 2017 1:11pm 0.25 mg, 0.5 mg dose 1.5 ml semaglutide 1.34 mg/ml pen injector (9 sources) Start: 05-20-2022 End: 07-07-2022 Semaglutide (Ozempic) 0.25 mg or 0.5 mg(2 mg/1.5 mL) pen injector Discontinued 0.5 mg SC EVERY WEEK 1.5 6 May 20, 2022 1:00am July 07, 2022 8:54am for 4 weeks Semaglutide (7 sources) Start: 07-07-2022 End: 08-08-2022 Semaglutide (Ozempic) 1 mg/dose (4 mg/3 mL) pen injector Discontinued 1 mg SC EVERY WEEK 3 July 07, 2022 12:00am August 08, 2022 12:41pm Start: 07-07-2022 End: 08-08-2022 Semaglutide (Ozempic) 1 mg/d ose (4 mg/3 mL) pen injector Discontinued 1 mg SC EVERY WEEK July 07, 2022 12:00am August 08, 2022 12:41pm Start: 07-07-2022 End: 08-08-2022 Semaglutide (Ozempic) 1 mg/d ose (4 mg/3 mL) pen injector Discontinued 1 MG SC EVERY WEEK July 06, 2022 11:00pm August 08, 2022 11:41am Start: 07-07-2022 End: 08-08-2022 Semaglutide (Ozempic) 1 mg/d ose (4 mg/3 mL) pen injector Discontinued 1 MG SC EVERY WEEK July 07, 2022 12:00am August 08, 2022 12:41pm Semaglutide (Ozempic) 2 mg/d ose (8 mg/3 mL) pen injector (11 sources) Start: 06-30-2023 End: 11-20-2023 Semaglutide (Ozempic) 2 mg/d ose (8 mg/3 mL) pen injector Discontinued 2 mg SC EVERY WEEK 3 June 30, 2023 7:23am November 20, 2023 3:56pm Start: 06-30-2023 End: 11-20-2023 Semaglutide (Ozempic) 2 mg/d ose (8 mg/3 mL) pen injector Discontinued 2 mg SC EVERY WEEK 3 June 30, 2023 7:23am November 20, 2023 3:56pm Start: 08-08-2022 End: 11-18-2022 Semaglutide (Ozempic) 2 mg/d ose (8 mg/3 mL) pen injector Discontinued 2 mg SC EVERY WEEK 3 August 08, 2022 12:00am November 18, 2022 3:37pm Start: 08-08-2022 End: 11-18-2022 Semaglutide (Ozempic) 2 mg/d ose (8 mg/3 mL) pen injector Discontinued 2 mg SC EVERY WEEK 3 August 08, 2022 12:00am November 18, 2022 3:37pm Start: 08-08-2022 End: 11-18-2022 Semaglutide (Ozempic) 2 mg/d ose (8 mg/3 mL) pen injector Discontinued 2 MG SC EVERY WEEK 3 August 07, 2022 11:00pm November 18, 2022 2:37pm Start: 08-08-2022 Semaglutide (O zempic) 2 mg/dose (8 mg/3 mL) pen injector Active 2 MG SC EVERY WEEK 3 August 08, 2022 12:00am Tirzepatide (Mounjaro) 10 mg/0.5 mL pen injector (4 sources) Start: 11-20-2023 End: 03-17-2024 Tirzepatide (Mounjaro) 10 mg /0.5 mL pen injector Discontinued 10 mg SC EVERY WEEK 2 November 20, 2023 12:00am March 17, 2024 12:01pm Start: 11-20-2023 End: 03-17-2024 Tirzepatide (Mounjaro) 10 mg /0.5 mL pen injector Discontinued 10 mg SC EVERY WEEK 2 November 20, 2023 12:00am March 17, 2024 12:01pm Tirzepatide (Mounjaro) 12.5 mg/0.5 mL pen injector (4 sources) Start: 03-17-2024 End: 05-13-2024 Tirzepatide (Mounjaro) 12.5 mg/0.5 mL pen injector Discontinued 12.5 mg SC EVERY WEEK 6 March 17, 2024 1:00am May 13, 2024 5:13pm Start: 03-17-2024 End: 05-13-2024 Tirzepatide (Mounjaro) 12.5 mg/0.5 mL pen injector Discontinued 12.5 mg SC EVERY WEEK March 17, 2024 1:00am May 13, 2024 5:13pm Tirzepatide (Mounjaro) 2.5 mg/0.5 mL pen injector (12 sources) Start: 11-28-2021 End: 05-20-2022 Tirzepatide (Mounjaro) 2.5 mg/0.5 mL pen injector Discontinued 2.5 mg SC EVERY WEEK 2 03 06November 28, 2021 12:00am May 20, 2022 4:34pm Start: 11-28-2021 End: 05-20-2022 Tirzepatide (Mounjaro) 2.5 m g/0.5 mL pen injector Discontinued 2.5 mg SC EVERY WEEK 2 November 28, 2021 12:00am May 20, 2022 4:34pm Start: 11-28-2021 End: 05-20-2022 Tirzepatide (Mounjaro) 2.5 m g/0.5 mL pen injector Discontinued 2.5 MG SC EVERY WEEK 2 November 28, 2021 12:00am May 20, 2022 4:34pm Start: 11-28-2021 End: 05-20-2022 Tirzepatide (Mounjaro) 2.5 m g/0.5 mL pen injector Discontinued 2.5 MG SC EVERY WEEK 2 November 27, 2021 11:00pm May 20, 2022 3:34pm Start: 11-28-2021 Tirzepatide (M ounjaro) 2.5 mg/0.5 mL pen injector Active 2.5 MG SC EVERY WEEK 2 November 27, 2021 11:00pm Start: 11-28-2021 Tirzepatide (M ounjaro) 2.5 mg/0.5 mL pen injector Active 2.5 MG SC EVERY WEEK 2 November 28, 2021 12:00am traZODone hydrochloride 50 mg oral tablet (15 sources) Serotonin Reuptake Inhibitor Start: 04-27-2019 End: 11-20-2023 take 1 tablet by mouth at bedtime as needed Trazodone 50 mg tablet Discontinued 50 mg PO AT BEDTIME as needed for insomnia 90 April 27, 2019 1:00am November 20, 2023 3:37pm triamcinolone acetonide 0.055 mg/actuat metered dose nasal spray (15 sources) Corticosteroid Start: 10-27-2016 End: 04-02-2017 Triamcinolone Acetonide 1 SPRAY aerosol,spray Discontinued 3 NMA NS TWICE A DAY October 27, 2016 12:00am April 02, 2017 1:11pm Start: 10-27-2016 End: 04-02-2017 Triamcinolone Acetonide Disc ontinued 3 SPRAY NS TWICE A DAY October 26, 2016 11:00pm April 02, 2017 12:11pm valsartan 80 mg oral tablet (15 sources) Angiotensin 2 Receptor Gina Start: 05-28-2021 End: 11-18-2022 take 1 tablet by mouth once daily Valsartan 80 mg tablet Discontinued 80 mg PO DAILY 03 10May 28, 2021 1:00am November 18, 2022 3:37pm Problems Active Problems Problem Classification Problem Date Documented Date Episodic/Chronic Administrative/social admission (15 sources) Patient encounter status; Translations: [Persons encountering health services in other specified circumstances] 03-15-2020 Episodic Diabetes mellitus with complications (6 sources) Type 2 diabetes mellitus with other circulatory complications; Translations: [Diabetes with other specified manifestations, type II or unspecified type, not stated as uncontrolled] Onset: 09-15-2024 Chronic Diabetes mellitus without complication (20 sources) Type 1 diabetes mellitus; Translations: [Type 2 diabetes mellitus] Onset: 05-07-2015 04-04-2014 Chronic Diabetes mellitus without complication (20 sources) Insulin pump present; Translations: [Presence of insulin pump (external) (internal)] Onset: 09-15-2024 Episodic Disorders of lipid metabolism (19 sources) Hyperlipidemia; Translations: [Hyperlipidemia, unspecified] Onset: 08-02-2016 08-02-2016 Chronic Essential hypertension (20 sources) Hypertensive disorder; Translations: [Type 2 diabetes mellitus with other circulatory complications] Onset: 10-05-2014 10-05-2014 Chronic Genitourinary symptoms and ill-defined conditions (20 sources) Microalbuminuria; Translations: [Proteinuria, unspecified] Onset: 09-15-2024 11-27-2020 Episodic Inflammation, infection of eye (20 sources) Conjunctivitis; Translations: [Giant papillary conjunctivitis] Onset: 04-04-2014 04-04-2014 Episodic Joint disorders and dislocations; trauma-related (20 sources) Derangement of lateral meniscus; Translations: [Derangement of knee] Onset: 06-27-2015 07-09-2015 Chronic Mood disorders (15 sources) Depressive disorder; Translations: [Depression] 08-20-2018 Chronic Nutritional deficiencies (15 sources) Vitamin D deficiency; Translations: [Vitamin D deficiency, unspecified] 11-30-2019 Chronic Open wounds of extremities (19 sources) Laceration of left index finger; Translations: [Laceration without foreign body of left index finger without damage to nail, initial encounter] 07-25-2019 Episodic Osteoarthritis (20 sources) Osteoarthritis of knee; Translations: [Arthritis] Onset: 06-27-2015 07-09-2015 Chronic Other connective tissue disease (15 sources) Thigh pain; Translations: [Pain in right thigh] 11-11-2017 Episodic Other connective tissue disease (15 sources) Plantar fasciitis; Translations: [Plantar fascial fibromatosis] 06-25-2018 Episodic Other endocrine disorders (15 sources) Hypotestosteronism; Translations: [Endocrine disorder, unspecified] 11-30-2019 Episodic Other injuries and conditions due to external causes (15 sources) Fracture of bone; Translations: [Other injury of unspecified body region, initial encounter] 11-30-2019 Episodic Other nervous system disorders (15 sources) Neuropathy; Translations: [Polyneuropathy, unspecified] 08-20-2018 Chronic Other nervous system disorders (5 sources) Polyneuropathy, unspecified; Translations: [Mononeuritis of unspecified site] Onset: 11-20-2023 Chronic Other nervous system disorders (7 sources) Carpal tunnel syndrome; Translations: [Carpal tunnel syndrome, bilateral upper limbs] 09-25-2022 Chronic Other nervous system disorders (2 sources) Carpal tunnel syndrome, bilateral upper limbs; Translations: [Carpal tunnel syndrome] 09-25-2022 Chronic Other non-traumatic joint disorders (15 sources) Pain in right knee; Translations: [Pain in both knees] 08-20-2018 Episodic Other non-traumatic joint disorders (15 sources) Hip pain; Translations: [Pain in right hip] 11-11-2017 Episodic Other nutritional; endocrine; and metabolic disorders (20 sources) Morbid obesity; Translations: [Overweight] Onset: 04-04-2014 04-04-2014 Chronic Other nutritional; endocrine; and metabolic disorders (4 sources) Overweight; Translations: [Overweight] Onset: 08-02-2016 08-02-2016 Chronic Other nutritional; endocrine; and metabolic disorders (18 sources) Obesity; Translations: [Obesity, unspecified] 05-22-2022 Chronic Other nutritional; endocrine; and metabolic disorders (7 sources) Obesity, unspecified; Translations: [Obesity, unspecified] Chronic Other nutritional; endocrine; and metabolic disorders (1 source) Morbid (severe) obesity due to excess calories; Translations: [Morbid (severe) obesity due to excess calories] Onset: 09-15-2024 Chronic Other nutritional; endocrine; and metabolic disorders (1 source) Body mass index (BMI) 45.0-49.9, adult; Translations: [Body mass index [BMI] 45.0-49.9, adult] Onset: 09-15-2024 Chronic Other upper respiratory disease (19 sources) Allergic rhinitis; Translations: [Allergic rhinitis, unspecified] Onset: 08-20-2015 08-20-2015 Chronic Other upper respiratory disease (15 sources) Seasonal allergy; Translations: [Other seasonal allergic rhinitis] 11-30-2019 Chronic Other upper respiratory infections (15 sources) Chronic sinusitis; Translations: [Chronic sinusitis, unspecified] 08-20-2018 Chronic Other upper respiratory infections (20 sources) Acute sinusitis; Translations: [Acute sinusitis, unspecified] Onset: 04-04-2014 Resolved: 09-03-2015 10-05-2014 Episodic Pneumonia (except that caused by tuberculosis or sexually transmitted disease) (15 sources) Pneumonia; Translations: [Pneumonia, unspecified organism] 11-30-2019 Episodic Residual codes; unclassified (15 sources) Sleep apnea; Translations: [Sleep apnea, unspecified] 11-30-2019 Chronic Residual codes; unclassified (15 sources) Hypersomnia; Translations: [Hypersomnia, unspecified] 08-20-2018 Chronic Residual codes; unclassified (15 sources) History of orthopedic surgery; Translations: [Other specified postprocedural states] 11-30-2019 Episodic Comment on above: Left arm Fx 1992 Rheumatoid arthritis and related disease (2 sources) Rheumatoid arthritis without rheumatoid factor, unspecified site; Translations: [Rheumatoid arthritis without rheumatoid factor, multiple sites] Onset: 02-19-2024 Chronic Skin and subcutaneous tissue infections (15 sources) Staphylococcal infection of skin; Translations: [Local infection of the skin and subcutaneous tissue, unspecified] 12-25-2017 Episodic Spondylosis; intervertebral disc disorders; other back problems (20 sources) Piriformis syndrome; Translations: [Back problem] Onset: 05-03-2015 05-03-2015 Episodic Unclassified (20 sources) Obstructive sleep apnea syndrome; Translations: [Obstructive sleep apnea (adult) (pediatric)] Onset: 04-19-2014 04-19-2014 Chronic Unclassified (9 sources) Aftercare ; Translations: [Encounter for other orthopedic aftercare] Onset: 11-10-2016 11-10-2016 Past or Other Problems Problem Classification Problem Date Documented Date Episodic/Chronic Allergic reactions (19 sources) Environmental allergy; Translations: [Other allergy] Onset: 10-05-2014 10-05-2014 Episodic Immunizations and screening for infectious disease (1 source) Encounter for immunization; Translations: [Encounter for immunization] Onset: 01-14-2024 Episodic Other aftercare (9 sources) Sprain of [...] Translations: [Nasal congestion] Onset: 05-03-2015 05-03-2015 Episodic Sprains and strains (20 sources) Sprain of anterior cruciate ligament of unspecified knee, initial encounter; Translations: [Sprain of anterior cruciate ligament of left knee, subsequent encounter] Onset: 11-05-2015 11-22-2015 Episodic Unclassified (20 sources) Hypersomnia; Translations: [Hypersomnia, unspecified] Onset: 04-04-2014 Resolved: 04-19-2014 04-19-2014 Episodic Unclassified (12 sources) sinoplasty 11-04-2021 Results Test Name Value Interpretation Reference Range Facility Urgent Care Visit Reporton 0 10-14-2024 Urgent Care Visit Report [facility] [address], [address] [place] [address] OFFICE VISIT Date of Service: 10/14/24 MR#: [id number] Acct: [id number] Name: CHESTER FLANAGAN Rep #: [id number] : 1985 Provider: TERRELL Steve Age/Sex: 39/M Location[place] [facility] Status: Signed Intake Vital Signs 09/15/24 15:54 10/14/24 17:19 Height 6 ft 5 in Weight: 404 lb BMI 47.9 BP 138/88 H 144/84 H Blood Pressure Location Lt brachial Lt brachial Position Sitting Sitting Respiration 16 Pulse 100 88 Pulse Source Monitor NIBP Temp 97.9 F Temp Source Oral Pulse Oximetry (%) 98 97 Oxygen Delivery Method room air room air Intake Visit Reasons: SORE THROAT Chief Complaint: ST, enlarged tonsils Family Court Counsellor Required: No Is patient in pain?: Yes Allergies losartan Allergy (Severe, Verified 10/14/24 17:19) Unknown aspirin Allergy (Verified 10/14/24 17:19) Hives Environmental Allergies: Uncoded Allergy (Verified 10/14/24 17:19) Rash Penicillins Adverse Reaction (Mild, Verified 10/14/24 17:19) Itching menthol (From Icy Hot) Adverse Reaction (Verified 10/14/24 17:19) Other methyl salicylate (From Icy Hot) Adverse Reaction (Verified 10/14/24 17:19) peeled skin off Have you fallen in the past year?: No Nurse's Note: ST, enlarged tonsils x 2-3 days. believes he saw red and white spots in throat. denies RAMOS, BA, fever. HX RA. concern for strep PFSH Medical History Obesity Bilateral carpal tunnel syndrome Diabetes mellitus type 1 Microalbuminuria sinoplasty Recurrent infections Hypoglycemia Hives Chronic headache GI problem Carpal tunnel syndrome Bilateral knee pain Hypertension Chronic sinusitis Hypersomnolence Neuropathy Depression Sleep apnea Vitamin D deficiency Pneumonia Testosterone deficiency Bone fracture Back problem Arthritis Seasonal allergies Plantar fasciitis MICAELA (obstructive sleep apnea) Giant papillary conjunctivitis Surgical History History of carpal tunnel surgery of left wrist History of orthopedic surgery H/O left knee surgery Family History Mother Diabetes Anxiety Arthritis Depression Father Heart disease Diabetes Arthritis Depression Hypertension Kidney disease Sleep apnea Sister Leukemia Uncle Blood clot in vein Cancer Liver disease Sister Leukemia Grandfather Diabetes Social History Smoking Status: Former smoker second hand exposure: No alcohol intake: current substance use type: does not use what type of physical activity do you participate in: none HPI HPI Chief Complaint: ST, enlarged tonsils Details: CHESTER FLANAGAN, is a 39 M who presents to the office today for complaint of sore throat enlarged tonsils for the past 2 to 3 days. Patient denies cough, shortness of breath or difficulty breathing. No fever, chills or sweats. No nausea, vomiting or diarrhea. No loss of taste or smell. No other associated symptoms or alleviating/aggravatin g factors. ROS Const Constitutional: No other (6 system ROS completed with pertinent findings in the HPI otherwise normal.) Exam Const General: cooperative and healthy appearing [facility] Head: normal to inspection Ears: hearing grossly normal bilaterally, TM's normal bilaterally and EAC's normal Nose: external nose normal and nasal discharge clear Mouth: oral mucosae normal Throat: abnormal tonsil bilaterally Resp Effort Inspection: normal respiratory effort Auscultation: Bilateral: Clear to Auscultation Cardio Rate: regular rate Rhythm: regular rhythm Neuro General: patient alert Psych Appearance: grossly normal Mental Status: mental status grossly normal Results POC Jailene Rapid Strep POC Jailene Rapid Strep Negative Last Edit by Thelma Brantley on 10/14/24 17:32 Coding Level of Care Code Off vis,est,level 3 Diagnoses Acute pharyngitis J02.9 Assessment and Plan Assessment and Plan (1) Acute pharyngitis: Status: Acute Plan: Patient tested negative for strep in the office today. Ipratropium as prescribed today. Encouraged to get plenty of rest, drink lots of clear liquids, and use Tylenol or Ibuprofen (unless contraindicated) for fever and comfort. Patient also educated on other symptomatic management techniques. To be seen in 7-10 days if no improvement; sooner if worsening of symptoms. Patient advised of potential red flags and when appropriate to report to the ED. Patient verbalized understanding and agreement with all the above. Orders: Orders POC Jailene Rapid Strep A Today Medications: New ipratropium bromide adminis (more content not included)... Normal [facility] Endocrinology Visit Reporton 09-15-2024 Endocrinology Visit Report [facility] [address] [place] [address] OFFICE VISIT Date of Service: 09/15/24 MR#: [id number] Acct: [id number] Name: CHESTER FLANAGAN Rep #: [id number] : 1985 Provider: Nasreen Garcia Age/Sex: 39/M [place] [facility] [place]: Signed Intake Vital Signs 05/13/24 15:29 09/15/24 15:54 Height 6 ft 5 in 6 ft 5 in Weight: 416 lb 8 oz 404 lb BMI 49.4 47.9 BP 137/81 H 138/88 H Blood Pressure Location Rt brachial Lt brachial Position Sitting Sitting Pulse 84 100 Pulse Source Monitor Monitor Pulse Oximetry (%) 97 98 Oxygen Delivery Method room air room air Intake Visit Reasons: 4 M FU Chief Complaint: Diabetes Family Court Counsellor Required: No Accompanied by: Self Is patient in pain?: No Allergies losartan Allergy (Severe, Verified 09/15/24 15:54) Unknown aspirin Allergy (Verified 09/15/24 15:54) Hives Environmental Allergies: Uncoded Allergy (Verified 09/15/24 15:54) Rash Penicillins Adverse Reaction (Mild, Verified 09/15/24 15:54) Itching menthol (From Icy Hot) Adverse Reaction (Verified 09/15/24 15:54) Other methyl salicylate (From Icy Hot) Adverse Reaction (Verified 09/15/24 15:54) peeled skin off Medications ???Medication ???Instructions ???Recorded ???Confirmed ???Type cholecalciferol (vitamin D3) 125 5,000 unit PO DAILY 06/25/1809/15 History mcg (5,000 unit) tablet multivitamin (One-A-Day Essential 1 tab PO DAILY 06/25/18 09/15/24 History tablet) fluticasone propionate 50 2 spray intranasal DAILY PRN Nasal 11/21/19 09/15/24 History mcg/actuation nasal Congestion spray,suspension montelukast 10 mg tablet 10 mg PO QHS PRN Allergies 0 09/15/24 History lancets (Accu-Chek Fastclix Lancet #75 ea 03/18/21 09/15/24 Rx Drum) blood sugar diagnostic (Accu-Chek #550 ea 05/28/21 09/15/24 Rx Guide test strips) folic acid 1 mg tablet 1 mg PO DAILY 11/18/22 09/15/24 Hi story hydroxychloroquine 200 mg tablet 200 mg PO BID 11/18/22 09/15/24 Hi story prednisone 10 mg tablet 10 mg PO DIRECTED 11/18/2209/04 History adalimumab-adaz 40 mg/0.4 mL 40 mg subcut Q2W 11/20/23 09/15/24 History subcutaneous pen injector (Hyrimoz(CF) Pen) glucagon 0.5 mg/0.1 mL 1 mg (0.2 mL) subcut ONCE #0.2 mL 05/13/24 09/15/24 Rx subcutaneous auto-injector (Gvoke HypoPen 2-Pack) tirzepatide 15 mg/0.5 mL 15 mg (0.5 mL) subcut QWEEK #2 mL 05/13/24 09/15/24 Rx subcutaneous pen injector (Mounjaro) Farxiga 10 mg tablet 10 mg PO DAILY #90 tabs 06/09/24 0 09/15/24 Rx (dapagliflozin propanediol) insulin glulisine U-100 100 160 unit (1.6 mL) continuous 06/1309/15/24 Rx unit/mL subcutaneous solution subcutaneous infusion .continuous (Apidra U-100 Insulin) #144 mL hydrochlorothiazide 12.5 mg tablet 12.5 mg PO QAM #90 tabs 09/15/24 09/15/24 Rx insulin glargine 100 unit/mL 40 unit subcut BID PRN in case of 09/15/24 09/15/24 History subcutaneous solution (Lantus pump failure U-100 Insulin) methotrexate sodium 2.5 mg tablet 15 mg PO QWEEK 09/15/24 09/15/24 History tramadol 50 mg tablet 50 mg PO TID PRN 09/15/24 09/15/24 History PFSH Medical History Obesity Bilateral carpal tunnel syndrome Diabetes mellitus type 1 Microalbuminuria sinoplasty Recurrent infections Hypoglycemia Hives Chronic headache GI problem Carpal tunnel syndrome Bilateral knee pain Hypertension Chronic sinusitis Hypersomnolence Neuropathy Depression Sleep apnea Vitamin D deficiency Pneumonia Testosterone deficiency Bone fracture Back problem Arthritis Seasonal allergies Plantar fasciitis MICAELA (obstructive sleep apnea) Giant papillary conjunctivitis Surgical History History of carpal tunnel surgery of left wrist History of orthopedic surgery H/O left knee surgery Family History Mother Diabetes Anxiety Arthritis Depression Father Heart disease Diabetes Arthritis Depression Hypertension Kidney disease Sleep apnea Sister Leukemia Uncle Blood clot in vein Cancer Liver disease Sister Leukemia Grandfather Diabetes Social History Smoking Status: Former smoker second hand exposure: No alcohol intake: current substance use type: does not use what type of physical activity do you participate in: none HPI HPI Chief Complaint: Diabetes Details: CHESTER FLANAGAN, is a 39 M who presents to the office today for follow up. A1C is 5.9% He is using Medtronic 780g insulin pump with Guardian CGM and auto mode. Blood sugars are unde (more content not included)... Normal [facility] - Hematology and Cell countsOrdered By: Alejandro Waddell on 09-15-2024 HbA1c (Bld) [Mass fraction] 5.9 % 4.2-6.3 [facility] Absolute lymphocyte countOrd ered By: Jessa Rivera on 08-15-2024 Lymphocytes Auto (Unsp spec) [#/Vol] 2.00 10*3/uL 0.83-4.51 [facility] Absolute neutrophil countOrd ered By: Jessa Rivera on 08-15-2024 Neutrophils (Bld) [#/Vol] 6.9 10*3/uL 2.0-7.7 [facility] Anion gap in Serum or Plasma Ordered By: Jessa Rivera on 08-15-2024 Anion gap [Moles/Vol] 13 mmol/L 5-15 [facility] Automated lymphocyte count a s percentage of total leukocytesOrdered By: Jessa Rivera on 08-15-2024 Lymphocytes/100 WBC Auto (Unsp spec) 20.6 % - [facility] BUN/creatinine ratioOrdered By: Jessatammy Rivera on 08-15-2024 Urea nitrogen/Creatinine [Mass ratio] 19.3 mg/mg 10- [facility] Basophil percentageOrdered B y: Jessa Rivera on 08-15-2024 Basophils/100 WBC (Bld) 0.5 % 0- [facility] Bilirubin, totalOrdered By: [facility] Nicole on 08-15-2024 Bilirubin [Mass/Vol] 0.41 mg/dL 0.00-1.30 [facility] CBC W/Diff, Automatedon 08-04 Absolute Lymph 2.00 X10 3/uL Normal 0.83-4.51 [facility] Comment on above: Performed By: #### L 500.4050, L100.0100 #### [facility] [address] [place], [address] Absolute Neut 6.9 X10 3/uL Normal 2.0-7.7 [facility] Comment on above: Performed By: #### L 500.4050, L100.0100 #### [facility] [address] [place], [address] Basophils/100 WBC (Bld) 0.5 % Normal 0-1 [facility] Comment on above: Performed By: #### L 500.4050, L100.0100 #### [facility] [address] [place], [address] Eosinophils/100 WBC (Bld) 0.4 % Normal 0-5 [facility] Comment on above: Performed By: #### L 500.4050, L100.0100 #### [facility] [address] [place], [address] Erythrocyte distribution width (RBC) [Ratio] 13.6 % Normal 11.6-14.6 [facility] Comment on above: Performed By: #### L 500.4050, L100.0100 #### [facility] [address] [place], [address] Hematocrit (Bld) [Volume fraction] 45.2 % Normal 40-54 [facility] Comment on above: Performed By: #### L 500.4050, L100.0100 #### [facility] [address] [place], [address] Hemoglobin (Bld) [Mass/Vol] 15.6 g/dL Normal 13.0-16.5 [facility] Comment on above: Performed By: #### L 500.4050, L100.0100 #### [facility] [address] [place], [address] IG% 0.400 Normal 0.0-0.9 [facility] Comment on above: Result Comment: IG% - Immature Granulocytes (promyelocytes, myelocytes and metamyelocytes) > 1% indicates that a LEFT SHIFT is Present. Performed By: #### L 500.4050, L100.0100 #### [facility] [address] [place], [address] Lymphocytes/100 WBC (Bld) 20.6 % Normal 19-41 [facility] Comment on above: Performed By: #### L 500.4050, L100.0100 #### [facility] [address] [place], [address] MCH (RBC) [Entitic mass] 27.7 pg Normal 27.0-32.0 [facility] Comment on above: Performed By: #### L 500.4050, L100.0100 #### [facility] [address], [address] MCHC (RBC) [Mass/Vol] 34.5 g/dL Normal 32-36 [facility] Comment on above: Performed By: #### L 500.4050, L100.0100 #### [facility] [address] [place], [address] MCV (RBC) [Entitic vol] 80.3 fL Normal 80-94 [facility] Comment on above: Performed By: #### L 500.4050, L100.0100 #### [facility] [address] [place], [address] Monocytes/100 WBC (Bld) 6.8 % Normal 0-10 [facility] Comment on above: Performed By: #### L 500.4050, L100.0100 #### [facility] [address] [place], [address] Neutrophils/100 WBC (Bld) 71.3 % High 47-70 [facility] Comment on above: Performed By: #### L 500.4050, L100.0100 #### [facility] [address] [place], [address] Nucleated RBC (Bld) [#/Vol] 0 10*3/uL Normal 0-5 [facility] Comment on above: Performed By: #### L 500.4050, L100.0100 #### [facility] [address] [place], [address] Platelet mean volume (Bld) [Entitic vol] 9.8 fL Normal 6.2-12.0 [facility] Comment on above: Performed By: #### L 500.4050, L100.0100 #### [facility] [address] [place], [address] Platelets (Bld) [#/Vol] 231 10*3/uL Normal 150-450 [facility] Comment on above: Performed By: #### L 500.4050, L100.0100 #### [facility] [address] [place], [address] RBC (Bld) [#/Vol] 5.63 10*6/uL Normal 4.6-6.2 [facility] Comment on above: Performed By: #### L 500.4050, L100.0100 #### [facility] [address] [place], [address] RDW SD 39.1 fl Normal 35.1-43.9 [facility] Comment on above: Performed By: #### L 500.4050, L100.0100 #### [facility] [address] [place], [address] WBC (Bld) [#/Vol] 9.7 10*3/uL Normal 4.4-11.0 [facility] Comment on above: Performed By: #### L 500.4050, L100.0100 #### [facility] [address] [place], [address] Carbon dioxide, total [Moles /volume] in Central venous bloodOrdered By: Jessa Rivera on 08-15-2024 CO2 [Moles/Vol] 24.9 mmol/L 21.0-32.0 [facility] Chloride assayOrdered By: Terrell Rivera on 08-15-2024 Chloride [Moles/Vol] 101 mmol/L 98-108 [facility] Comprehensive Metabolic Prof ilon 08-15-2024 Albumin [Mass/Vol] 4.4 g/dL Normal 3.5-5.0 [facility] Comment on above: Performed By: #### L 500.4050, L100.0100 #### [facility] [address] [place], [address] Albumin/Globulin [Mass ratio] 1.6 {ratio} Normal 0.9-2.4 [facility] Comment on above: Performed By: #### L 500.4050, L100.0100 #### [facility] [address] [place], [address] ALK PHOS 84 U/L Normal 40-129 [facility] Comment on above: Performed By: #### L 500.4050, L100.0100 #### [facility] [address] [place], [address] ALT [Catalytic activity/Vol] 42 U/L Normal <=46 [facility] Comment on above: Performed By: #### L 500.4050, L100.0100 #### [facility] [address] [place], [address] AST [Catalytic activity/Vol] 32 U/L Normal <=37 [facility] Comment on above: Performed By: #### L 500.4050, L100.0100 #### [facility] [address] [place], [address] Bilirubin [Mass/Vol] 0.41 mg/dL Normal 0.00-1.30 [facility] Comment on above: Performed By: #### L 500.4050, L100.0100 #### [facility] [address] [place], [address] BUN/CRE 19.3 RATIO Normal 10-20 [facility] Comment on above: Performed By: #### L 500.4050, L100.0100 #### [facility] [address] [place], [address] Calcium [Mass/Vol] 9.5 mg/dL Normal 7.6-11.0 [facility] Comment on above: Performed By: #### L 500.4050, L100.0100 #### [facility] [address] [place], [address] Chloride [Moles/Vol] 101 mmol/L Normal 98-108 [facility] Comment on above: Performed By: #### L 500.4050, L100.0100 #### [facility] [address] [place], [address] CO2 [Moles/Vol] 24.9 mmol/L Normal 21.0-32.0 [facility] Comment on above: Performed By: #### L 500.4050, L100.0100 #### [facility] [address] [place], [address] Creatinine [Mass/Vol] 1.16 mg/dL Normal 0.70-1.20 [facility] Comment on above: Performed By: #### L 500.4050, L100.0100 #### [facility] [address] [place], [address] GAP 13 Normal 5-15 [facility] Comment on above: Performed By: #### L 500.4050, L100.0100 #### [facility] [address] [place], [address] GFR/1.73 sq M.predicted among non-blacks MDRD (S/P/Bld) [Vol rate/Area] 84 mL/min/{1.73_m2} Normal >60 [facility] Comment on above: Result Comment: mL/m in/1.73m2 CKD-EPI Creatinine Equation (2020) Performed By: #### L 500.4050, L100.0100 #### [facility] [address] [place], [address] Globulin (S) [Mass/Vol] 2.7 g/dL Normal 2.2-4.2 [facility] Comment on above: Performed By: #### L 500.4050, L100.0100 #### [facility] [address] [place], [address] Glucose [Mass/Vol] 130 mg/dL High 70-99 [facility] Comment on above: Performed By: #### L 500.4050, L100.0100 #### [facility] [address] [place], [address] Potassium [Moles/Vol] 3.7 mmol/L Normal 3.3-5.1 [facility] Comment on above: Performed By: #### L 500.4050, L100.0100 #### [facility] [address] [place], [address] Sodium [Moles/Vol] 138 mmol/L Normal 133-145 [facility] Comment on above: Performed By: #### L 500.4050, L100.0100 #### [facility] [address] [place], [address] T PROT 7.1 g/dL Normal 5.9-8.4 [facility] Comment on above: Performed By: #### L 500.4050, L100.0100 #### [facility] [address] [place], [address] Urea nitrogen [Mass/Vol] 22 mg/dL High 4-19 [facility] Comment on above: Performed By: #### L 500.4050, L100.0100 #### [facility] [address] [place], [address] Eosinophil percentageOrdered By: Jessa Rivera on 08-15-2024 Eosinophils/100 WBC (Bld) 0.4 % 0-5 [facility] Erythrocyte distribution wid th ratioOrdered By: Jessa Rivera on 08-15-2024 Erythrocyte distribution width (RBC) [Ratio] 13.6 % 11.6-14.6 [facility] Erythrocyte distribution wid th standard deviationOrdered By: Jessa Nicole on 08-15-2024 Erythrocyte distribution width (RBC) [Ratio] 39.1 fl 35.1-43.9 [facility] Glomerular filtration rate ( GFR) estimation/1.73 sq m using serum, plasma, or whole bOrdered By: Jessa Rivera on 08-15-2024 GFR/1.73 sq M.predicted among non-blacks MDRD (S/P/Bld) [Vol rate/Area] 84 mL/min/{1.73_m2} >60 [facility] Comment on above: mL/min/1.73m2 CKD-EP I Creatinine Equation (2020) Hematocrit Auto (Bld) [Volum e fraction]Ordered By: Jessa Rivera on 08-15-2024 Hematocrit (Bld) [Volume fraction] 45.2 % 40-54 [facility] Hemoglobin measurementOrdere d By: Jessa Rivera on 08-15-2024 Hemoglobin (Bld) [Mass/Vol] 15.6 g/dL 13.0-16.5 [facility] Immature granulocytes/100 WB C Auto (Bld)Ordered By: Jessa Rivera on 08-15-2024 Immature granulocytes/100 WBC (Bld) 0.400 % 0.0-0.9 [facility] Comment on above: IG% - Immature Granu locytes (promyelocytes, myelocytes and metamyelocytes) > 1% indicates that a LEFT SHIFT is Present. Laboratory - Chemistry and C hemistry - challengeOrdered By: Jessa Rivera on 08-15-2024 AST [Catalytic activity/Vol] 32 U/L <38 [facility] MCV (mean corpuscular volume ) determinationOrdered By: Jessa Rivera on 08-15-2024 MCV (RBC) [Entitic vol] 80.3 fL 80-94 [facility] Mean corpuscular hemoglobin (MCH) determinationOrdered By: Jessa Rivera on 08-15-2024 MCH (RBC) [Entitic mass] 27.7 pg 27.0-32.0 [facility] Mean corpuscular hemoglobin concentration (MCHC) determinationOrdered By: Jessa Rivera on 08-15-2024 MCHC (RBC) [Mass/Vol] 34.5 g/dL 32-36 [facility] Mean platelet volume determi nationOrdered By: Jsesa Rivera on 08-15-2024 Platelet mean volume (Bld) [Entitic vol] 9.8 fL 6.2-12.0 [facility] Monocyte percentageOrdered B y: Jessa Rivera on 08-15-2024 Monocytes/100 WBC (Bld) 6.8 % 0-10 [facility] Neutrophil percentageOrdered By: Jessa Rivera on 08-15-2024 Neutrophils/100 WBC (Bld) 71.3 % High 47-70 [facility] Nucleated red blood cell per centageOrdered By: Jessa Rivera on 08-15-2024 Nucleated RBC/100 WBC (Bld) [Ratio] 0 % 0-5 [facility] Platelet countOrdered By: Terrell Rivera on 08-15-2024 Platelets (Bld) [#/Vol] 231 10*3/uL 150-450 [facility] Potassium measurement (mass/ volume)Ordered By: Jessa Rivera on 08-15-2024 Potassium (Unsp spec) [Mass/Vol] 3.7 mmol/L 3.3-5.1 [facility] RBC Auto (Bld) [#/Vol]Ordere d By: Jessa Rivera on 08-15-2024 RBC (Bld) [#/Vol] 5.63 10*6/uL 4.6-6.2 [facility] Serum creatinine measurement (mass/volume)Ordered By: Jessa Rivera on 08-15-2024 Creatinine [Mass/Vol] 1.16 mg/dL 0.70-1.20 [facility] Serum globulin measurementOr dered By: Jessa Rivera on 08-15-2024 Globulin (S) [Mass/Vol] 2.7 g/dL 2.2-4.2 [facility] Serum glucose measurement (m ass/volume)Ordered By: Jessa Rivera on 08-15-2024 Glucose [Mass/Vol] 130 mg/dL High 70-99 [facility] Serum or plasma alanine arteaga otransferase (ALT) measurementOrdered By: Jessa Rivera on 08-15-2024 ALT [Catalytic activity/Vol] 42 U/L <47 [facility] Serum or plasma albumin sayda urement (mass/volume)Ordered By: Jessa Rivera on 08-15-2024 Albumin [Mass/Vol] 4.4 g/dL 3.5-5.0 [facility] Serum or plasma albumin/glob ulin mass ratioOrdered By: Jessa Rivera on 08-15-2024 Albumin/Globulin [Mass ratio] 1.6 {ratio} 0.9-2.4 [facility] Serum or plasma alkaline herber sphatase measurementOrdered By: Jessa Rivera on 08-15-2024 ALP [Catalytic activity/Vol] 84 U/L 40-129 [facility] Serum or plasma calcium sayda urement (mass/volume)Ordered By: Jessa Rivera on 08-15-2024 Calcium [Mass/Vol] 9.5 mg/dL 7.6-11.0 [facility] Serum or plasma urea nitroge n measurement (mass/volume)Ordered By: Jessa Rivera on 08-15-2024 Urea nitrogen [Mass/Vol] 22 mg/dL High 4-19 [facility] Sodium levelOrdered By: Dakota Rivera on 08-15-2024 Sodium [Moles/Vol] 138 mmol/L 133-145 [facility] Total proteinOrdered By: Mike Rivera on 08-15-2024 Protein [Mass/Vol] 7.1 g/dL 5.9-8.4 [facility] White blood cell (WBC) count Ordered By: Jessa Rivera on 08-15-2024 WBC (Bld) [#/Vol] 9.7 10*3/uL 4.4-11.0 [facility] Anion gap in Serum or Plasma Ordered By: Jessa Rivera on 06-13-2024 Anion gap [Moles/Vol] 13 mmol/L 5-15 [facility] BUN/creatinine ratioOrdered By: Jessa Rivera on 06-13-2024 Urea nitrogen/Creatinine [Mass ratio] 20.8 mg/mg High 10-20 [facility] Bilirubin, totalOrdered By: Jessa Rivera on 06-13-2024 Bilirubin [Mass/Vol] 0.31 mg/dL 0.00-1.30 [facility] Carbon dioxide, total [Moles /volume] in Central venous bloodOrdered By: Jessa Rivera on 06-13-2024 CO2 [Moles/Vol] 26.5 mmol/L 21.0-32.0 [facility] Chloride assayOrdered By: Terrell Rivera on 06-13-2024 Chloride [Moles/Vol] 99 mmol/L 98-108 [facility] Comprehensive Metabolic Prof ilon 06-13-2024 Albumin [Mass/Vol] 4.3 g/dL Normal 3.5-5.0 [facility] Comment on above: Performed By: #### L 500.4050, L100.0100 #### [facility] [address] [place], [address] Albumin/Globulin [Mass ratio] 1.6 {ratio} Normal 0.9-2.4 [facility] Comment on above: Performed By: #### L 500.4050, L100.0100 #### [facility] [address] [place], [address] ALK PHOS 83 U/L Normal 40-129 [facility] Comment on above: Performed By: #### L 500.4050, L100.0100 #### [facility] [address] [place], [address] ALT [Catalytic activity/Vol] 37 U/L Normal <=46 [facility] Comment on above: Performed By: #### L 500.4050, L100.0100 #### [facility] [address] [place], [address] AST [Catalytic activity/Vol] 27 U/L Normal <=37 [facility] Comment on above: Performed By: #### L 500.4050, L100.0100 #### [facility] [address] [place], [address] Bilirubin [Mass/Vol] 0.31 mg/dL Normal 0.00-1.30 [facility] Comment on above: Performed By: #### L 500.4050, L100.0100 #### [facility] [address] [place], [address] BUN/CRE 20.8 RATIO High 10-20 [facility] Comment on above: Performed By: #### L 500.4050, L100.0100 #### [facility] [address] [place], [address] Calcium [Mass/Vol] 9.6 mg/dL Normal 7.6-11.0 [facility] Comment on above: Performed By: #### L 500.4050, L100.0100 #### [facility] [address] [place], [address] Chloride [Moles/Vol] 99 mmol/L Normal 98-108 [facility] Comment on above: Performed By: #### L 500.4050, L100.0100 #### [facility] [address] [place], [address] CO2 [Moles/Vol] 26.5 mmol/L Normal 21.0-32.0 [facility] Comment on above: Performed By: #### L 500.4050, L100.0100 #### [facility] [address] [place], [address] Creatinine [Mass/Vol] 1.05 mg/dL Normal 0.70-1.20 [facility] Comment on above: Performed By: #### L 500.4050, L100.0100 #### [facility] [address] [place], [address] GAP 13 Normal 5-15 [facility] Comment on above: Performed By: #### L 500.4050, L100.0100 #### [facility] [address] [place], [address] GFR/1.73 sq M.predicted among non-blacks MDRD (S/P/Bld) [Vol rate/Area] 94 mL/min/{1.73_m2} Normal >60 [facility] Comment on above: Result Comment: mL/m in/1.73m2 CKD-EPI Creatinine Equation (2020) Performed By: #### L 500.4050, L100.0100 #### [facility] [address] [place], [address] Globulin (S) [Mass/Vol] 2.7 g/dL Normal 2.2-4.2 [facility] Comment on above: Performed By: #### L 500.4050, L100.0100 #### [facility] [address] [place], [address] Glucose [Mass/Vol] 117 mg/dL High 70-99 [facility] Comment on above: Performed By: #### L 500.4050, L100.0100 #### [facility] [address] [place], [address] Potassium [Moles/Vol] 3.8 mmol/L Normal 3.3-5.1 [facility] Comment on above: Performed By: #### L 500.4050, L100.0100 #### [facility] [address], [address] Sodium [Moles/Vol] 139 mmol/L Normal 133-145 [facility] Comment on above: Performed By: #### L 500.4050, L100.0100 #### [facility] [address] [place], [address] T PROT 7.0 g/dL Normal 5.9-8.4 [facility] Comment on above: Performed By: #### L 500.4050, L100.0100 #### [facility] [address] [place], [address] Urea nitrogen [Mass/Vol] 22 mg/dL High 4-19 [facility] Comment on above: Performed By: #### L 500.4050, L100.0100 #### [facility] [address] [place], [address] GFR/1.73 sq M.predicted syed g non-blacks MDRD (S/P/Bld) [Vol rate/Area]Ordered By: Jessa Rivera on 06-13-2024 Estimated GFR (MDRD) Non-Af Amer 94 >60 [facility] Comment on above: mL/min/1.73m2 CKD-EP I Creatinine Equation (2020) Glomerular filtration rate ( GFR) estimation/1.73 sq m using serum, plasma, or whole bOrdered By: Jessa Rivera on 06-13-2024 GFR/1.73 sq M.predicted among non-blacks MDRD (S/P/Bld) [Vol rate/Area] 94 mL/min/{1.73_m2} >60 [facility] Comment on above: mL/min/1.73m2 CKD-EP I Creatinine Equation (2020) Laboratory - Chemistry and C hemistry - challengeOrdered By: Jessa Rivera on 06-13-2024 AST [Catalytic activity/Vol] 27 U/L <38 [facility] Potassium (Unsp spec) [Mass/ Vol]Ordered By: Jessa Rivera on 06-13-2024 Potassium [Moles/Vol] 3.8 mmol/L 3.3-5.1 [facility] Potassium measurement (mass/ volume)Ordered By: Jessa Rivera on 06-13-2024 Potassium (Unsp spec) [Mass/Vol] 3.8 mmol/L 3.3-5.1 [facility] Serum creatinine measurement (mass/volume)Ordered By: Jessa Rivera on 06-13-2024 Creatinine [Mass/Vol] 1.05 mg/dL 0.70-1.20 [facility] Serum globulin measurementOr dered By: Jessa Rivera on 06-13-2024 Globulin (S) [Mass/Vol] 2.7 g/dL 2.2-4.2 [facility] Serum glucose measurement (m ass/volume)Ordered By: Jessa Rivera on 06-13-2024 Glucose [Mass/Vol] 117 mg/dL High 70-99 [facility] Serum or plasma alanine arteaga otransferase (ALT) measurementOrdered By: Jessa Rivera on 06-13-2024 ALT [Catalytic activity/Vol] 37 U/L <47 [facility] Serum or plasma albumin sayda urement (mass/volume)Ordered By: Jessa Rivera on 06-13-2024 Albumin [Mass/Vol] 4.3 g/dL 3.5-5.0 [facility] Serum or plasma albumin/glob ulin mass ratioOrdered By: Jessa Rivera on 06-13-2024 Albumin/Globulin [Mass ratio] 1.6 {ratio} 0.9-2.4 [facility] Serum or plasma alkaline herber sphatase measurementOrdered By: Jessa Rivera on 06-13-2024 ALP [Catalytic activity/Vol] 83 U/L 40-129 [facility] Serum or plasma calcium sayda urement (mass/volume)Ordered By: Jessa Rivera on 06-13-2024 Calcium [Mass/Vol] 9.6 mg/dL 7.6-11.0 [facility] Serum or plasma urea nitroge n measurement (mass/volume)Ordered By: Jessa Rivera on 06-13-2024 Urea nitrogen [Mass/Vol] 22 mg/dL High -19 [facility] Sodium levelOrdered By: Dakota Rivera on 06-13-2024 Sodium [Moles/Vol] 139 mmol/L 133-145 [facility] Total proteinOrdered By: Mike Rivera on 06-13-2024 Protein [Mass/Vol] 7.0 g/dL 5.9-8.4 [facility] Testosterone, Total / Freeon 05-25-2024 TESTOSTER,FREE 12.29 ng/dL Normal 5.00-21.00 [facility] Comment on above: Order Comment: N Performed By: #### L 500.4050, L100.0100 #### [facility] [address] [place], [address] TESTOSTER,TOTAL 326 ng/dL Normal 264-916 [facility] Comment on above: Order Comment: N Result Comment: Adul t male reference interval is based on a population of healthy nonobese males (BMI <30) between 19 and 39 years old. sierra Rebolledo.al. JCEM 2017,102;4880-7156. PMID: [id number]. Performed By: #### L 500.4050, L100.0100 #### [facility] [address] [place], [place], [id number] TESTOSTERONE,%F 3.77 Normal 1.50-4.20 [facility] Comment on above: Order Comment: N Result Comment: Perf ormed at: [facility] [address] [id number] Chemical Dependency Nurse: Sukhi Ryan PhD, Phone: [phone] Performed at: - [facility] [id number] Chemical Dependency Nurse: Satinder Chase MD, Phone: [phone] Performed By: #### L 500.4050, L100.0100 #### [facility] [address] [place], [place], [id number] FSH and LHon 05-21-2024 FSH 7.3 mIU/mL Normal [facility] Comment on above: Result Comment: NORMAL REFERENCE RANGES FEMALE FOLLICULAR 2.3 - 12.6 mIU/mL MID-CYCLE PEAK 5.2 - 17.5 mIU/mL LUTEAL 1.7 - 12.9 mIU/mL POST-MENOPAUSAL ON MHT 5.9 - 72.8 mIU/mL NOT ON MHT 12.7 - 132.2 mlU/mL MALE 0.7 - 10.8 mIU/mL Performed By: #### L 500.4100, L3100.5310, L3100.5055, L502.0250 #### [facility] [address] [place], [place], [id number] LH 4.6 mIU/mL Normal [facility] Comment on above: Result Comment: NORMAL REFERENCE RANGES FEMALE FOLLICULAR 1.9 - 26.2 mIU/mL MID-CYCLE PEAK 22.8 - 76.1 mIU/mL LUTEAL 0.6 - 16.6 mIU/mL POST-MENOPAUSAL ON MHT 1.1 - 52.4 mIU/mL NOT ON MHT 8.6 - 61.8 mIU/mL MALE 1.2 - 10.6 mIU/mL Performed By: #### L 500.4100, L3100.5310, L3100.5055, L502.0250 #### [facility] [address] [place], [address] Follicle stimulating hormone (FSH) levelOrdered By: Alejandro Waddell on 05-21-2024 Follicle Stimulating Hormone 7.3 mIU/mL [facility] Comment on above: NORMAL REFERENCE RAN GES FEMALE FOLLICULAR 2.3 - 12.6 mIU/mL MID-CYCLE PEAK 5.2 - 17.5 mIU/mL LUTEAL 1.7 - 12.9 mIU/mL POST-MENOPAUSAL ON MHT 5.9 - 72.8 mIU/mL NOT ON MHT 12.7 - 132.2 mlU/mL MALE 0.7 - 10.8 mIU/mL Free testosterone percentage Ordered By: Alejandro Waddell on 05-21-2024 Testosterone Free/Testosterone.tota l [Mass fraction] 3.77 % 1.50-4.20 [facility] Comment on above: Performed at: [address] [id number] Director: Sukhi Ryan PhD, Phone: [phone] at: - [facility] [address] [id number] Director: Satinder Chase MD, Phone: [phone] High density lipoprotein (HD L) measurementOrdered By: Alejandro Waddell on 05-21-2024 Cholesterol in HDL [Mass/Vol] 43 mg/dL >40 [facility] Comment on above: The drugs N-Acetylcy steine and Metamizole may falsely depress this assay. Reference Range HDL <40 mg/dL Low HDL Cholesterol HDL >or= 60 mg/dL High HDL Cholesterol Lipid Profileon 05-21-2024 Cholesterol [Mass/Vol] 141 mg/dL Normal 200 [facility] Comment on above: Result Comment: <200 mg/dL Desirable 200-240 mg/dL Borderline >240 mg/dL High Risk Performed By: #### L 500.4100, L3100.5310, L3100.5055, L502.0250 #### [facility] [address] [place], [address] Cholesterol in HDL [Mass/Vol] 43 mg/dL Normal [facility] Comment on above: Result Comment: The drugs N-Acetylcysteine and Metamizole may falsely depress this assay. Reference Range HDL <40 mg/dL Low HDL Cholesterol HDL >or= 60 mg/dL High HDL Cholesterol Performed By: #### L 500.4100, L3100.5310, L3100.5055, L502.0250 #### [facility] [address] [place], [address] Cholesterol in LDL [Mass/Vol] 83 mg/dL Normal 0-130 [facility] Comment on above: Performed By: #### L 500.4100, L3100.5310, L3100.5055, L502.0250 #### [facility] [address] [place], [address] Cholesterol in VLDL [Mass/Vol] 15 mg/dL Normal 5-40 [facility] Comment on above: Performed By: #### L 500.4100, L3100.5310, L3100.5055, L502.0250 #### [facility] [address] [place], [address] Triglyceride [Mass/Vol] 76 mg/dL Normal [facility] Comment on above: Result Comment: The drugs N-Acetylcysteine and Metamizole may falsely depress this assay. Serum Triglycerides Reference Interval Normal <150 mg/dL Borderline high 150 - 199 mg/dL High 200 - 499 mg/dL Very High > or = 500 mg/dL Performed By: #### L 500.4100, L3100.5310, L3100.5055, L502.0250 #### [facility] [address] [place], [address] Low density lipoprotein (LDL ) cholesterol measurementOrdered By: Alejandro Wdadell on 05-21-2024 Cholesterol in LDL [Mass/Vol] 83 mg/dL 0-130 [facility] Luteinizing hormone measurem entOrdered By: Alejandro Waddell on 05-21-2024 Luteinizing Hormone 4.6 mIU/mL [facility] Comment on above: NORMAL REFERENCE RAN GES FEMALE FOLLICULAR 1.9 - 26.2 mIU/mL MID-CYCLE PEAK 22.8 - 76.1 mIU/mL LUTEAL 0.6 - 16.6 mIU/mL POST-MENOPAUSAL ON MHT 1.1 - 52.4 mIU/mL NOT ON MHT 8.6 - 61.8 mIU/mL MALE 1.2 - 10.6 mIU/mL Microalb:Creat Ratio,Random URon 05-21-2024 Creatinine [Mass/Vol] 118.00 mg/dL Normal NO RAN GE EST. [facility] Comment on above: Performed By: #### L 500.4100, L3100.5310, L3100.5055, L502.0250 #### [facility] [address] [place], [address] MALB:CRE 15.2 mg/g CRE Normal <30 mg/g CRE [facility] Comment on above: Performed By: #### L 500.4100, L3100.5310, L3100.5055, L502.0250 #### [facility] [address] [place], [address] MICROALBUMIN,UR 17.9 mg/L Normal NO RANGE EST. [facility] Comment on above: Performed By: #### L 500.4100, L3100.5310, L3100.5055, L502.0250 #### [facility] [address] [facility] [place], [place], [facility] Random urine microalbumin me asurementOrdered By: Alejandro Waddell on 05-21-2024 Urine Random Microalbumin 17.9 mg/L NO RANGE EST. [facility] Serum or plasma cholesterol measurement (mass/volume)Ordered By: Alejandro Waddell on 05-21-2024 Cholesterol [Mass/Vol] 141 mg/dL <200 [facility] Comment on above: <200 mg/dL Desirable 200-240 mg/dL Borderline >240 mg/dL High Risk Serum or plasma free testost erone measurement (mass/volume)Ordered By: Alejandro Waddell on 05-21-2024 Testosterone Free [Mass/Vol] 12.29 ng/dL 5.00-21.00 [facility] Testosterone Free [Mass/Vol] Ordered By: Alejandro Waddell on 05-21-2024 Free Testosterone 12.29 ng/dL 5.00-21.00 [facility] Testosterone Free/Testostero ne.total [Mass fraction]Ordered By: Alejandro Waddell on 05-21-2024 Percent Free Testosterone 3.77 % 1.50-4.20 [facility] Comment on above: Performed at: - [facility] [address] [id number] Director: Sukhi Ryan PhD, Phone: [phone] at: - [facility] [id number] Director: Satinder Chase MD, Phone: [phone] Testosterone, totalOrdered B y: Alejandro Waddell on 05-21-2024 Testosterone [Mass/Vol] 326 ng/dL 264-916 [facility] Comment on above: Adult male reference interval is based on a population ofhealthy nonobese males (BMI <30) between 19 and 39 yearsold. Aamury et.al. JCEM 2017,102;6228-8685. PMID:[id number]. Triglycerides measurementOrd ered By: Alejandro Waddell on 05-21-2024 Triglyceride [Mass/Vol] 76 mg/dL <199 [facility] Comment on above: The drugs N-Acetylcy steine and Metamizole may falsely depress this assay.Serum Triglycerides Reference Interval Normal <150 mg/dL Borderline high 150 - 199 mg/dL High 200 - 499 mg/dL Very High > or = 500 mg/dL Urine albumin/creatinine rat io for detection of microalbuminuriaOrdered By: Alejandro Waddell on 05-21-2024 Urine Microalbumin/Creatinin e Ratio 15.2 mg/g CRE <30 [facility] Urine creatinine measurement (mass/volume)Ordered By: Alejandro Waddell on 05-21-2024 Creatinine (U) [Mass/Vol] 118.00 mg/dL NO RANGE EST. [facility] Very low density lipoprotein (VLDL) cholesterol measurementOrdered By: Alejandro Waddell on 05-21-2024 Very low density lipoprotein (VLDL) cholesterol measurement 15 mg/dL 5-40 [facility] VLDL Cholesterol 15 mg/dL -40 [facility] Endocrinology Visit Reporton 05-13-2024 Endocrinology Visit Report [facility] [address] [place] [address] OFFICE VISIT Date of Service: 05/13/24 MR#: [id number] Acct: [id number] Name: CHESTER FLANAGAN Rep #: [id number] : 1985 Provider: Nasreen Garcia Age/Sex: 38/M [place] [facility] [place]: Signed Intake Vital Signs 11/20/23 15:32 01/25/24 07:47 05/13/24 15:29 Height 6 ft 5 in 6 ft 5 in 6 ft 5 in Weight: 416 lb 8 oz BMI 49.4 BP 137/81 H Blood Pressure Location Rt brachial Position Sitting Pulse 84 Pulse Source Monitor Pulse Oximetry (%) 97 Oxygen Delivery Method room air Intake Visit Reasons: 6 M FU Chief Complaint: Diabetes Is patient in pain?: No Allergies losartan Allergy (Severe, Verified 05/13/24 15:34) Unknown aspirin Allergy (Verified 05/13/24 15:34) Hives Environmental Allergies: Uncoded Allergy (Verified 05/13/24 15:34) Rash Penicillins Adverse Reaction (Mild, Verified 05/13/24 15:34) Itching menthol (From Icy Hot) Adverse Reaction (Verified 05/13/24 15:34) Other methyl salicylate (From Icy Hot) Adverse Reaction (Verified 05/13/24 15:34) peeled skin off Medications ???Medication ???Instructions ???Recorded ???Confirmed ???Type cholecalciferol (vitamin D3) 125 5,000 unit PO DAILY 06/25/1805/13 History mcg (5,000 unit) tablet multivitamin (One-A-Day Essential 1 tab PO DAILY 06/25/18 05/13/24 History tablet) fluticasone propionate 50 2 spray intranasal DAILY PRN Nasal 11/21/19 05/13/24 History mcg/actuation nasal Congestion spray,suspension montelukast 10 mg tablet 10 mg PO QHS PRN Allergies 0 05/13/24 History lancets (Accu-Chek Fastclix Lancet #75 ea 03/18/21 05/13/24 Rx Drum) blood sugar diagnostic (Accu-Chek #550 ea 05/28/21 01/25/24 Rx Guide test strips) insulin glargine 100 unit/mL 40 unit (0.4 mL) subcut BID in 05/13/24 Rx subcutaneous solution (Lantus case of pump failure #10 mL U-100 Insulin) amlodipine 5 mg tablet 5 mg PO DAILY 11/18/22 05/13/24 Hi story folic acid 1 mg tablet 1 mg PO DAILY 11/18/22 05/13/24 Hi story hydroxychloroquine 200 mg tablet 200 mg PO BID 11/18/22 05/13/24 Hi story methotrexate sodium 2.5 mg tablet 2.5 mg PO QWEEK 11/18/22 05/13/24 History prednisone 10 mg tablet 10 mg PO DIRECTED 11/18/2210/28 History insulin glulisine U-100 100 160 unit (1.6 mL) continuous 10/1905/13/24 Rx unit/mL subcutaneous solution subcutaneous infusion .continuous (Apidra U-100 Insulin) #144 mL Farxiga 10 mg tablet 10 mg PO DAILY #90 tabs 11/20/23 0 05/13/24 Rx (dapagliflozin propanediol) adalimumab-adaz 40 mg/0.4 mL 40 mg subcut Q2W 11/20/23 05/13/24 History subcutaneous pen injector (Hyrimoz(CF) Pen) glucagon 0.5 mg/0.1 mL 1 mg (0.2 mL) subcut ONCE #0.2 mL 05/13/24 05/13/24 Rx subcutaneous auto-injector (Gvoke HypoPen 2-Pack) tirzepatide 15 mg/0.5 mL 15 mg (0.5 mL) subcut QWEEK #2 mL 05/13/24 05/13/24 Rx subcutaneous pen injector (Mounjaro) [facility] Medical History Obesity Bilateral carpal tunnel syndrome Diabetes mellitus type 1 Microalbuminuria sinoplasty Recurrent infections Hypoglycemia Hives Chronic headache GI problem Carpal tunnel syndrome Bilateral knee pain Hypertension Chronic sinusitis Hypersomnolence Neuropathy Depression Sleep apnea Vitamin D deficiency Pneumonia Testosterone deficiency Bone fracture Back problem Arthritis Seasonal allergies Plantar fasciitis MICAELA (obstructive sleep apnea) Giant papillary conjunctivitis Surgical History History of carpal tunnel surgery of left wrist History of orthopedic surgery H/O left knee surgery Family History Mother Diabetes Anxiety Arthritis Depression Father Heart disease Diabetes Arthritis Depression Hypertension Kidney disease Sleep apnea Sister Leukemia Uncle Blood clot in vein Cancer Liver disease Sister Leukemia Grandfather Diabetes Social History Smoking Status: Former smoker second hand exposure: No alcohol intake: current substance use type: does not use what type of physical activity do you participate in: none HPI HPI Chief Complaint: Diabetes Details: CHESTER FLANAGAN, is a 38 M who presents to the office today for follow up. A1C is 6% He is using 1jiajie 780G insulin pump with Guardian CGM and auto mode Upload shows controlled blood sugars. He is taking Mounjaro 12.5 mg weekly. Total insulin requirements have dropped. He has systemic arthritis. No new complaints today. ROS (more content not included)... Normal [facility] - Hematology and Cell countsOrdered By: Alejandro Waddell on 05-13-2024 HbA1c (Bld) [Mass fraction] 6.0 % 4.2-6.3 [facility] Absolute lymphocyte countOrd ered By: Jessa Rivera on 04-25-2024 Lymphocytes Auto (Unsp spec) [#/Vol] 2.68 10*3/uL 0.83-4.51 [facility] Absolute neutrophil countOrd ered By: Jessa Rivera on 04-25-2024 Neutrophils (Bld) [#/Vol] 5.9 10*3/uL 2.0-7.7 [facility] Albumin to globulin ratioOrd ered By: Jessa Rivera on 04-25-2024 Albumin/Globulin [Mass ratio] 1.1 {ratio} 0.9-2.4 [facility] Automated lymphocyte count a s percentage of total leukocytesOrdered By: Jessa Rivera on 04-25-2024 Lymphocytes/100 WBC Auto (Unsp spec) 28.0 % [facility] Basophil percentageOrdered B y: Jessa Rivera on 04-25-2024 Basophils/100 WBC (Bld) 0.6 % 0-1 [facility] Bilirubin, totalOrdered By: Jessa Rivera on 04-25-2024 Bilirubin [Mass/Vol] 0.40 mg/dL 0.20-1.00 [facility] Comment on above: For patients on eltr ombopag therapy, use of Dimension [place] TBIL is not recommended. Blood urea nitrogen (BUN)/cr eatinine ratioOrdered By: Jessa Rivera on 04-25-2024 Urea nitrogen/Creatinine [Mass ratio] 20.5 mg/mg High 01-23 [facility] CBC W/Diff, Automatedon 04-07 Absolute Lymph 2.68 X10 3/uL Normal 0.83-4.51 [facility] Comment on above: Performed By: #### L 500.4050, L100.0100 #### [facility] [address] [place], [address] Absolute Neut 5.9 X10 3/uL Normal 2.0-7.7 [facility] Comment on above: Performed By: #### L 500.4050, L100.0100 #### [facility] [address] [place], [address] Basophils/100 WBC (Bld) 0.6 % Normal 0-1 [facility] Comment on above: Performed By: #### L 500.4050, L100.0100 #### [facility] [facility] [address] [place], [address] Eosinophils/100 WBC (Bld) 2.2 % Normal 0-5 [facility] Comment on above: Performed By: #### L [id number], L100.0100 #### [facility] [address] [place], [address] Erythrocyte distribution width (RBC) [Ratio] 13.9 % Normal 11.6-14.6 [facility] Comment on above: Performed By: #### L [id number], L100.0100 #### [facility] [address] [place], [address] Hematocrit (Bld) [Volume fraction] 44.2 % Normal 40-54 [facility] Comment on above: Performed By: #### L 500.4050, L100.0100 #### [facility] [address] [place], [address] Hemoglobin (Bld) [Mass/Vol] 14.6 g/dL Normal 13.0-16.5 [facility] Comment on above: Performed By: #### L 500.4050, L100.0100 #### [facility] [address] [place], [address] IG% 0.400 Normal 0.0-0.9 [facility] Comment on above: Result Comment: IG% - Immature Granulocytes (promyelocytes, myelocytes and metamyelocytes) > 1% indicates that a LEFT SHIFT is Present. Performed By: #### L 500.4050, L100.0100 #### [facility] [address] [place], [address] Lymphocytes/100 WBC (Bld) 28.0 % Normal 19-41 [facility] Comment on above: Performed By: #### L 500.4050, L100.0100 #### [facility] [address] [place], [address] MCH (RBC) [Entitic mass] 27.3 pg Normal 27.0-32.0 [facility] Comment on above: Performed By: #### L 500.4050, L100.0100 #### [facility] [address] [place], [address] MCHC (RBC) [Mass/Vol] 33.0 g/dL Normal 32-36 [facility] Comment on above: Performed By: #### L [id number], L100.0100 #### [facility] [address] [place], [address] MCV (RBC) [Entitic vol] 82.8 fL Normal 80-94 [facility] Comment on above: Performed By: #### L 500.4050, L100.0100 #### [facility] [address] [place], [address] Monocytes/100 WBC (Bld) 6.9 % Normal 0-10 [facility] Comment on above: Performed By: #### L 500.4050, L100.0100 #### [facility] [address] [place], [address] Neutrophils/100 WBC (Bld) 61.9 % Normal 47-70 [facility] Comment on above: Performed By: #### L 500.4050, L100.0100 #### [facility] [address] [place], [address] Nucleated RBC (Bld) [#/Vol] 0 10*3/uL Normal 0-5 [facility] Comment on above: Performed By: #### L 500.4050, L100.0100 #### [facility] [address] [place], [address] Platelet mean volume (Bld) [Entitic vol] 9.1 fL Normal 6.2-12.0 [facility] Comment on above: Performed By: #### L 500.4050, L100.0100 #### [facility] [address] [place], [address] Platelets (Bld) [#/Vol] 250 10*3/uL Normal 150-450 [facility] Comment on above: Performed By: #### L 500.4050, L100.0100 #### [facility] [address] [place], [address] RBC (Bld) [#/Vol] 5.34 10*6/uL Normal 4.6-6.2 [facility] Comment on above: Performed By: #### L 500.4050, L100.0100 #### [facility] [address] [place], [address] RDW SD 41.5 fl Normal 35.1-43.9 [facility] Comment on above: Performed By: #### L 500.4050, L100.0100 #### [facility] [address] [place], [address] WBC (Bld) [#/Vol] 9.6 10*3/uL Normal 4.4-11.0 [facility] Comment on above: Performed By: #### L 500.4050, L100.0100 #### [facility] [address] [place], [address] Carbon dioxide measurementOr dered By: Jessa Rivera on 04-25-2024 CO2 [Moles/Vol] 28.0 mmol/L 21.0-32.0 [facility] Chloride measurementOrdered By: Jessa Rivera on 04-25-2024 Chloride [Moles/Vol] 103 mmol/L 98-107 [facility] Comprehensive Metabolic Prof ilon 04-25-2024 Albumin [Mass/Vol] 3.7 g/dL Normal 3.2-5.0 [facility] Comment on above: Performed By: #### L 500.4050, L100.0100 #### [facility] [address] [place], [address] Albumin/Globulin [Mass ratio] 1.1 {ratio} Normal 0.9-2.4 [facility] Comment on above: Performed By: #### L 500.4050, L100.0100 #### [facility] [address] [place], [address] ALK P 84 U/L Normal 45-117 [facility] Comment on above: Performed By: #### L 500.4050, L100.0100 #### [facility] [address] [place], [address] ALT [Catalytic activity/Vol] 85 U/L High 16-61 [facility] Comment on above: Performed By: #### L 500.4050, L100.0100 #### [facility] [address] [place], [address] AST [Catalytic activity/Vol] 28 U/L Normal 15-37 [facility] Comment on above: Performed By: #### L 500.4050, L100.0100 #### [facility] [address] [place], [address] Bilirubin [Mass/Vol] 0.40 mg/dL Normal 0.20-1.00 [facility] Comment on above: Result Comment: For patients on eltrombopag therapy, use of Dimension [place] TBIL is not recommended. Performed By: #### L 500.4050, L100.0100 #### [facility] [address] [place], [address] BUN/CRE 20.5 RATIO High 10-20 [facility] Comment on above: Performed By: #### L 500.4050, L100.0100 #### [facility] [address] [place], [address] CA,Total 9.4 mg/dL Normal 8.5-10.1 [facility] Comment on above: Performed By: #### L 500.4050, L100.0100 #### [facility] [address] [place], [address] Chloride [Moles/Vol] 103 mmol/L Normal 98-107 [facility] Comment on above: Performed By: #### L 500.4050, L100.0100 #### [facility] [address] [place], [address] CO2 [Moles/Vol] 28.0 mmol/L Normal 21.0-32.0 [facility] Comment on above: Performed By: #### L 500.4050, L100.0100 #### [facility] [address] [place], [address] Creatinine [Mass/Vol] 1.12 mg/dL Normal 0.70-1.30 [facility] Comment on above: Result Comment: The validity of the calculated GFR GFRAA in patients over 70 years has not been determined. Clinical correlation is essential. Performed By: #### L 500.4050, L100.0100 #### [facility] [address] [place], [address] EST GFR - AA 95 mL/min Normal >60 [facility] Comment on above: Result Comment: Afri can Tanzanian GFR Calc Performed By: #### L 500.4050, L100.0100 #### [facility] [address] [place], [address] GAP 7 Normal 5-15 [facility] Comment on above: Performed By: #### L 500.4050, L100.0100 #### [facility] [address] [place], [address] GFR/1.73 sq M.predicted among non-blacks MDRD (S/P/Bld) [Vol rate/Area] 79 mL/min/{1.73_m2} Normal >60 [facility] Comment on above: Result Comment: Non- GFR Calc Performed By: #### L 500.4050, L100.0100 #### [facility] [address] [place], [address] Globulin (S) [Mass/Vol] 3.4 g/dL Normal 2.2-4.2 [facility] Comment on above: Performed By: #### L 500.4050, L100.0100 #### [facility] [address] [place], [address] Glucose [Mass/Vol] 118 mg/dL High 74-106 [facility] Comment on above: Result Comment: Fast ing Glucose result from 100 to 125 mg/dL suggests IMPAIRED HOMEOSTASIS per A.D.A. criteria. Performed By: #### L 500.4050, L100.0100 #### [facility] [address] [place], [address] Potassium [Moles/Vol] 3.8 mmol/L Normal 3.5-5.1 [facility] Comment on above: Performed By: #### L 500.4050, L100.0100 #### [facility] [address] [place], [address] Sodium [Moles/Vol] 139 mmol/L Normal 136-145 [facility] Comment on above: Performed By: #### L 500.4050, L100.0100 #### [facility] [address] [place], [address] T PROT 7.1 g/dL Normal 6.4-8.2 [facility] Comment on above: Performed By: #### L 500.4050, L100.0100 #### [facility] [address] [place], [address] Urea nitrogen [Mass/Vol] 23 mg/dL High 7-18 [facility] Comment on above: Performed By: #### L 500.4050, L100.0100 #### [facility] [address] [place], [address] Eosinophil percentageOrdered By: Jessa Rivera on 04-25-2024 Eosinophils/100 WBC (Bld) 2.2 % 0-5 [facility] Erythrocyte distribution wid th ratioOrdered By: Jessa Rivera on 04-25-2024 Erythrocyte distribution width (RBC) [Ratio] 13.9 % 11.6-14.6 [facility] Erythrocyte distribution wid th standard deviationOrdered By: Jessa Rivera on 04-25-2024 Erythrocyte distribution width (RBC) [Entitic vol] 41.5 fL 35.1-43.9 [facility] Erythrocyte distribution width (RBC) [Ratio] 41.5 fl 35.1-43.9 [facility] Estimated glomerular filtrat ion rate (GFR) AmericanOrdered By: Jessa Rivera on 04-25-2024 Estimated GFR (MDRD) Amer 95 mL/min >60 [facility] Comment on above: GFR Calc Glomerular filtration rate ( GFR) estimationOrdered By: Jessa Rivera on 04-25-2024 Estimated GFR (MDRD) Non-Af Amer 79 mL/min >60 [facility] Comment on above: Non- GFR Calc GFR/1.73 sq M.predicted among non-blacks MDRD (S/P/Bld) [Vol rate/Area] 79 mL/min/{1.73_m2} >60 [facility] Comment on above: Non- GFR Calc Glucose measurementOrdered B y: Jessa Rivera on 04-25-2024 Glucose [Mass/Vol] 118 mg/dL High 74-106 [facility] Comment on above: Fasting Glucose resu lt from 100 to 125 mg/dL suggests IMPAIRED HOMEOSTASIS per A.D.A. criteria. Hematocrit Auto (Bld) [Volum e fraction]Ordered By: Jessa Rivera on 04-25-2024 Hematocrit (Bld) [Volume fraction] 44.2 % 40-54 [facility] Hemoglobin measurementOrdere d By: Jessa Rivera on 04-25-2024 Hemoglobin (Bld) [Mass/Vol] 14.6 g/dL 13.0-16.5 [facility] Immature granulocytes/100 WB C Auto (Bld)Ordered By: Jessa Rivera on 04-25-2024 Immature granulocytes/100 WBC (Bld) 0.400 % 0.0-0.9 [facility] Comment on above: IG% - Immature Granu locytes (promyelocytes, myelocytes and metamyelocytes) > 1% indicates that a LEFT SHIFT is Present. Laboratory - Chemistry and C hemistry - challengeOrdered By: Jessa Rivera on 04-25-2024 AST [Catalytic activity/Vol] 28 U/L 15-37 [facility] Lymphocytes Auto (Unsp spec) [#/Vol]Ordered By: Jessa Rivera on 04-25-2024 Lymphocytes (Bld) [#/Vol] 2.68 10*3/uL 0.83-4.51 [facility] Lymphocytes/100 WBC Auto (Un sp spec)Ordered By: Jessa Rivera on 04-25-2024 Lymphocytes/100 WBC (Bld) 28.0 % 19-41 [facility] MCV (mean corpuscular volume ) determinationOrdered By: Jessa Rivera on 04-25-2024 MCV (RBC) [Entitic vol] 82.8 fL 80-94 [facility] Mean corpuscular hemoglobin (MCH) determinationOrdered By: Jessa Rivera on 04-25-2024 MCH (RBC) [Entitic mass] 27.3 pg 27.0-32.0 [facility] Mean corpuscular hemoglobin concentration (MCHC) determinationOrdered By: Jessa Rivera on 04-25-2024 MCHC (RBC) [Mass/Vol] 33.0 g/dL 32-36 [facility] Mean platelet volume determi nationOrdered By: Jessa Rivera on 04-25-2024 Platelet mean volume (Bld) [Entitic vol] 9.1 fL 6.2-12.0 [facility] Monocyte percentageOrdered B y: Jessa Rivera on 04-25-2024 Monocytes/100 WBC (Bld) 6.9 % 0-10 [facility] Neutrophil percentageOrdered By: Jessa Rivera on 04-25-2024 Neutrophils/100 WBC (Bld) 61.9 % 47-70 [facility] Nucleated red blood cell per centageOrdered By: Jessa Rivera on 04-25-2024 Nucleated RBC/100 WBC (Bld) [Ratio] 0 % 0-5 [facility] Platelet countOrdered By: Terrell Rivera on 04-25-2024 Platelets (Bld) [#/Vol] 250 10*3/uL 150-450 [facility] Potassium measurementOrdered By: Jessa Rivera on 04-25-2024 Potassium [Moles/Vol] 3.8 mmol/L 3.5-5.1 [facility] RBC Auto (Bld) [#/Vol]Ordere d By: Jessa Rivera on 04-25-2024 RBC (Bld) [#/Vol] 5.34 10*6/uL 4.6-6.2 [facility] Serum anion gap measurementO rdered By: Jessa Rivera on 04-25-2024 Anion gap [Moles/Vol] 7 mmol/L 5-15 [facility] Serum globulin measurementOr dered By: Jessa Rivera on 04-25-2024 Globulin (S) [Mass/Vol] 3.4 g/dL 2.2-4.2 [facility] Serum or plasma alanine arteaga otransferase (ALT) measurementOrdered By: Jessa Rivera on 04-25-2024 ALT [Catalytic activity/Vol] 85 U/L High 16-61 [facility] Serum or plasma albumin sayda urement (mass/volume)Ordered By: Jessa Rivera on 04-25-2024 Albumin [Mass/Vol] 3.7 g/dL 3.2-5.0 [facility] Serum or plasma alkaline herber sphatase measurementOrdered By: Jessa Rivera on 04-25-2024 ALP [Catalytic activity/Vol] 84 U/L 45-117 [facility] Serum or plasma calcium sayda urement (mass/volume)Ordered By: Jessa Rivera on 04-25-2024 Calcium [Mass/Vol] 9.4 mg/dL 8.5-10.1 [facility] Serum or plasma creatinine m easurement (mass/volume)Ordered By: Jessa Rivera on 04-25-2024 Creatinine [Mass/Vol] 1.12 mg/dL 0.70-1.30 [facility] Comment on above: The validity of the calculated GFR & GFRAA in patients over 70 years has not been determined. Clinical correlation is essential. Serum or plasma urea nitroge n measurement (mass/volume)Ordered By: Jessa Rivera on 04-25-2024 Urea nitrogen [Mass/Vol] 23 mg/dL High 7-18 [facility] Sodium levelOrdered By: Dakota Rivera on 04-25-2024 Sodium [Moles/Vol] 139 mmol/L 136-145 [facility] Total proteinOrdered By: Mike Rivera on 04-25-2024 Protein [Mass/Vol] 7.1 g/dL 6.4-8.2 [facility] White blood cell (WBC) count Ordered By: Jessa Rivera on 04-25-2024 WBC (Bld) [#/Vol] 9.6 10*3/uL 4.4-11.0 [facility] Albumin to globulin ratioOrd ered By: Jessa Rivera on 02-26-2024 Albumin/Globulin [Mass ratio] 1.1 {ratio} 0.9-2.4 [facility] Bilirubin, totalOrdered By: Jessa Rivera on 02-26-2024 Bilirubin [Mass/Vol] 0.40 mg/dL 0.20-1.00 [facility] Comment on above: For patients on eltr ombopag therapy, use of Dimension [place] TBIL is not recommended. Blood urea nitrogen (BUN)/cr eatinine ratioOrdered By: Jessa Rivera on 02-26-2024 Urea nitrogen/Creatinine [Mass ratio] 23.7 mg/mg High 01-23 [facility] Carbon dioxide measurementOr dered By: Jessa Rivera on 02-26-2024 CO2 [Moles/Vol] 29.0 mmol/L 21.0-32.0 [facility] Chloride measurementOrdered By: Jessa Rivera on 02-26-2024 Chloride [Moles/Vol] 100 mmol/L 98-107 [facility] Comprehensive Metabolic Prof ilon 02-26-2024 Albumin [Mass/Vol] 3.8 g/dL Normal 3.2-5.0 [facility] Comment on above: Performed By: #### L 500.4051 #### [facility] [place], [address] Albumin/Globulin [Mass ratio] 1.1 {ratio} Normal 0.9-2.4 [facility] Comment on above: Performed By: #### L 500.4050 #### [facility] [address] [place], [address] ALK P 81 U/L Normal 45-117 [facility] Comment on above: Performed By: #### L 500.4050 #### [facility] [address] [place], [address] ALT [Catalytic activity/Vol] 50 U/L Normal 16-61 [facility] Comment on above: Performed By: #### L 500.4050 #### [facility] [address] [place], [address] AST [Catalytic activity/Vol] 24 U/L Normal 15-37 [facility] Comment on above: Performed By: #### L 500.4050 #### [facility] [address] [place], [address] Bilirubin [Mass/Vol] 0.40 mg/dL Normal 0.20-1.00 [facility] Comment on above: Result Comment: For patients on eltrombopag therapy, use of Dimension [place] TBIL is not recommended. Performed By: #### L 500.4050 #### [facility] [address] [place], [address] BUN/CRE 23.7 RATIO High 10-20 [facility] Comment on above: Performed By: #### L 500.4050 #### [facility] [address] [place], [address] CA,Total 9.3 mg/dL Normal 8.5-10.1 [facility] Comment on above: Performed By: #### L 500.4050 #### [facility] [address] [place], [address] Chloride [Moles/Vol] 100 mmol/L Normal 98-107 [facility] Comment on above: Performed By: #### L [id number] #### [facility] [address] [place], [address] CO2 [Moles/Vol] 29.0 mmol/L Normal 21.0-32.0 [facility] Comment on above: Performed By: #### L 500.4050 #### [facility] [address] [place], [address] Creatinine [Mass/Vol] 0.93 mg/dL Normal 0.70-1.30 [facility] Comment on above: Result Comment: The validity of the calculated GFR GFRAA in patients over 70 years has not been determined. Clinical correlation is essential. Performed By: #### L 500.4050 #### [facility] [address] [place], [address] EST GFR - AA 118 mL/min Normal >60 [facility] Comment on above: Result Comment: Afri can Tanz[place] GFR Calc Performed By: #### L 500.4050 #### [facility] [address] [place], [address] GAP 8 Normal 5-15 [facility] Comment on above: Performed By: #### L 500.4050 #### [facility] [address] [place], [address] GFR/1.73 sq M.predicted among non-blacks MDRD (S/P/Bld) [Vol rate/Area] 97 mL/min/{1.73_m2} Normal >60 [facility] Comment on above: Result Comment: Non- GFR Calc Performed By: #### L 500.4050 #### [facility] [address] [place], [address] Globulin (S) [Mass/Vol] 3.6 g/dL Normal 2.2-4.2 [facility] Comment on above: Performed By: #### L 500.4050 #### [facility] [address] [place], [address] Glucose [Mass/Vol] 106 mg/dL Normal 74-106 [facility] Comment on above: Result Comment: Fast ing Glucose result from 100 to 125 mg/dL suggests IMPAIRED HOMEOSTASIS per A.D.A. criteria. Performed By: #### L 500.4050 #### [facility] [address] [place], [address] Potassium [Moles/Vol] 3.6 mmol/L Normal 3.5-5.1 [facility] Comment on above: Performed By: #### L 500.4050 #### [facility] [address] [place], [address] Sodium [Moles/Vol] 137 mmol/L Normal 136-145 [facility] Comment on above: Performed By: #### L 500.4050 #### [facility] [address] [place], [address] T PROT 7.4 g/dL Normal 6.4-8.2 [facility] Comment on above: Performed By: #### L 500.4050 #### [facility] [address] [place], [address] Urea nitrogen [Mass/Vol] 22 mg/dL High 7-18 [facility] Comment on above: Performed By: #### L 500.4050 #### [facility] [address] [place], [address] Estimated glomerular filtrat ion rate (GFR) AmericanOrdered By: Jessa Rivera on 02-26-2024 Estimated GFR (MDRD) Amer 118 mL/min >60 [facility] Comment on above: GFR Calc Glomerular filtration rate ( GFR) estimationOrdered By: Jessa Rivera on 02-26-2024 Estimated GFR (MDRD) Non-Af Amer 97 mL/min >60 [facility] Comment on above: Non- GFR Calc Glucose measurementOrdered B y: Jessa Rivera on 02-26-2024 Glucose [Mass/Vol] 106 mg/dL 74-106 [facility] Comment on above: Fasting Glucose resu lt from 100 to 125 mg/dL suggests IMPAIRED HOMEOSTASIS per A.D.A. criteria. Laboratory - Chemistry and C hemistry - challengeOrdered By: Jessa Rivera on 02-26-2024 AST [Catalytic activity/Vol] 24 U/L 15-37 [facility] Potassium measurementOrdered By: Jessa Rivera on 02-26-2024 Potassium [Moles/Vol] 3.6 mmol/L 3.5-5.1 [facility] Serum anion gap measurementO rdered By: Jessa Rivera on 02-26-2024 Anion gap [Moles/Vol] 8 mmol/L 5-15 [facility] Serum globulin measurementOr dered By: Jessa Rivera on 02-26-2024 Globulin (S) [Mass/Vol] 3.6 g/dL 2.2-4.2 [facility] Serum or plasma alanine arteaga otransferase (ALT) measurementOrdered By: Jessa Rivera on 02-26-2024 ALT [Catalytic activity/Vol] 50 U/L 16-61 [facility] Serum or plasma albumin sayda urement (mass/volume)Ordered By: Jessa Rivera on 02-26-2024 Albumin [Mass/Vol] 3.8 g/dL 3.2-5.0 [facility] Serum or plasma alkaline herber sphatase measurementOrdered By: Jessa Rivera on 02-26-2024 ALP [Catalytic activity/Vol] 81 U/L 45-117 [facility] Serum or plasma calcium sayda urement (mass/volume)Ordered By: Jessa Rivera on 02-26-2024 Calcium [Mass/Vol] 9.3 mg/dL 8.5-10.1 [facility] Serum or plasma creatinine m easurement (mass/volume)Ordered By: Jessa Rivera on 02-26-2024 Creatinine [Mass/Vol] 0.93 mg/dL 0.70-1.30 [facility] Comment on above: The validity of the calculated GFR & GFRAA in patients over 70 years has not been determined. Clinical correlation is essential. Serum or plasma urea nitroge n measurement (mass/volume)Ordered By: Jessa Rivera on 02-26-2024 Urea nitrogen [Mass/Vol] 22 mg/dL High 7-18 [facility] Sodium levelOrdered By: Dakota Rivera on 02-26-2024 Sodium [Moles/Vol] 137 mmol/L 136-145 [facility] Total proteinOrdered By: Mike Rivera on 02-26-2024 Protein [Mass/Vol] 7.4 g/dL 6.4-8.2 [facility] CBC W/Diff, Automatedon 01-05 Absolute Lymph 2.36 X10 3/uL Normal 0.83-4.51 [facility] Comment on above: Performed By: #### L 100.0100, L500.4050 #### [facility] [address] [place], [address] Absolute Neut 4.6 X10 3/uL Normal 2.0-7.7 [facility] Comment on above: Performed By: #### L 100.0100, L500.4050 #### [facility] [address] [place], [address] Basophils/100 WBC (Bld) 0.5 % Normal 0-1 [facility] Comment on above: Performed By: #### L 100.0100, L500.4050 #### [facility] [address], [address] Eosinophils/100 WBC (Bld) 2.2 % Normal 0-5 [facility] Comment on above: Performed By: #### L 100.0100, L500.4050 #### [facility] [address] [place], [address] Erythrocyte distribution width (RBC) [Ratio] 13.4 % Normal 11.6-14.6 [facility] Comment on above: Performed By: #### L 100.0100, L500.4050 #### [facility] [facility] [address] [place], [address] Hematocrit (Bld) [Volume fraction] 44.4 % Normal 40-54 [facility] Comment on above: Performed By: #### L 100.0100, L500.4050 #### [facility] [address] [place], [address] Hemoglobin (Bld) [Mass/Vol] 15.0 g/dL Normal 13.0-16.5 [facility] Comment on above: Performed By: #### L 100.0100, L500.4050 #### [facility] [address] [place], [address] IG% 0.300 Normal 0.0-0.9 [facility] Comment on above: Result Comment: IG% - Immature Granulocytes (promyelocytes, myelocytes and metamyelocytes) > 1% indicates that a LEFT SHIFT is Present. Performed By: #### L 100.0100, L500.4050 #### [facility] [address] [place], [address] Lymphocytes/100 WBC (Bld) 30.4 % Normal 19-41 [facility] Comment on above: Performed By: #### L 100.0100, L500.4050 #### [facility] [address] [place], [address] MCH (RBC) [Entitic mass] 28.2 pg Normal 27.0-32.0 [facility] Comment on above: Performed By: #### L 100.0100, L500.4050 #### [facility] [address] [place], [address] MCHC (RBC) [Mass/Vol] 33.8 g/dL Normal 32-36 [facility] Comment on above: Performed By: #### L 100.0100, L500.4050 #### [facility] [address] [place], [address] MCV (RBC) [Entitic vol] 83.6 fL Normal 80-94 [facility] Comment on above: Performed By: #### L 100.0100, L500.4050 #### [facility] [address] [place], [address] Monocytes/100 WBC (Bld) 7.0 % Normal 0-10 [facility] Comment on above: Performed By: #### L 100.0100, L500.4050 #### [facility] [address] [place], [address] Neutrophils/100 WBC (Bld) 59.6 % Normal 47-70 [facility] Comment on above: Performed By: #### L 100.0100, L500.4050 #### [facility] [address] [place], [address] Nucleated RBC (Bld) [#/Vol] 0 10*3/uL Normal 0-5 [facility] Comment on above: Performed By: #### L 100.0100, L500.4050 #### [facility] [address] [place], [address] Platelet mean volume (Bld) [Entitic vol] 9.3 fL Normal 6.2-12.0 [facility] Comment on above: Performed By: #### L 100.0100, L500.4050 #### [facility] [address] [place], [address] Platelets (Bld) [#/Vol] 215 10*3/uL Normal 150-450 [facility] Comment on above: Performed By: #### L 100.0100, L500.4050 #### [facility] [address] [place], [address] RBC (Bld) [#/Vol] 5.31 10*6/uL Normal 4.6-6.2 [facility] Comment on above: Performed By: #### L 100.0100, L500.4050 #### [facility] [address] [place], [address] RDW SD 40.6 fl Normal 35.1-43.9 [facility] Comment on above: Performed By: #### L 100.0100, L500.4050 #### [facility] [address] [place], [address] WBC (Bld) [#/Vol] 7.8 10*3/uL Normal 4.4-11.0 [facility] Comment on above: Performed By: #### L 100.0100, L500.4050 #### [facility] [address] [place], [address] Comprehensive Metabolic Prof ilon 01-26-2024 Albumin [Mass/Vol] 3.9 g/dL Normal 3.2-5.0 [facility] Comment on above: Performed By: #### L 100.0100, L500.4050 #### [facility] [address] [place], [address] Albumin/Globulin [Mass ratio] 1.2 {ratio} Normal 0.9-2.4 [facility] Comment on above: Performed By: #### L 100.0100, L500.4050 #### [facility] [address] [place], [address] ALK P 77 U/L Normal 45-117 [facility] Comment on above: Performed By: #### L 100.0100, L500.4050 #### [facility] [address] [place], [address] ALT [Catalytic activity/Vol] 68 U/L High 16-61 [facility] Comment on above: Performed By: #### L 100.0100, L500.4050 #### [facility] [address] [place], [address] AST [Catalytic activity/Vol] 27 U/L Normal 15-37 [facility] Comment on above: Performed By: #### L 100.0100, L500.4050 #### [facility] [address] [place], [address] Bilirubin [Mass/Vol] 0.40 mg/dL Normal 0.20-1.00 [facility] Comment on above: Result Comment: For patients on eltrombopag therapy, use of Dimension [place] TBIL is not recommended. Performed By: #### L 100.0100, L500.4050 #### [facility] [address] [place], [address] BUN/CRE 17.8 RATIO Normal 10-20 [facility] Comment on above: Performed By: #### L 100.0100, L500.4050 #### [facility] [address] [place], [address] CA,Total 9.5 mg/dL Normal 8.5-10.1 [facility] Comment on above: Performed By: #### L 100.0100, L500.4050 #### [facility] [address] [place], [address] Chloride [Moles/Vol] 103 mmol/L Normal 98-107 [facility] Comment on above: Performed By: #### L 100.0100, L500.4050 #### [facility] [address] [place], [address] CO2 [Moles/Vol] 29.0 mmol/L Normal 21.0-32.0 [facility] Comment on above: Performed By: #### L 100.0100, L500.4050 #### [facility] [address] [place], [address] Creatinine [Mass/Vol] 1.07 mg/dL Normal 0.70-1.30 [facility] Comment on above: Result Comment: The validity of the calculated GFR GFRAA in patients over 70 years has not been determined. Clinical correlation is essential. Performed By: #### L 100.0100, L500.4050 #### [facility] [address] [place], [address] EST GFR - AA 100 mL/min Normal >60 [facility] Comment on above: Result Comment: Afri can [place] GFR Calc Performed By: #### L 100.0100, L500.4050 #### [facility] [address] [place], [address] GAP 6 Normal 5-15 [facility] Comment on above: Performed By: #### L 100.0100, L500.4050 #### [facility] [address] [place], [address] GFR/1.73 sq M.predicted among non-blacks MDRD (S/P/Bld) [Vol rate/Area] 83 mL/min/{1.73_m2} Normal >60 [facility] Comment on above: Result Comment: Non- GFR Calc Performed By: #### L 100.0100, L500.4050 #### [facility] [address] [place], [address] Globulin (S) [Mass/Vol] 3.3 g/dL Normal 2.2-4.2 [facility] Comment on above: Performed By: #### L 100.0100, L500.4050 #### [facility] [address] [place], [address] Glucose [Mass/Vol] 147 mg/dL High 74-106 [facility] Comment on above: Result Comment: Fast ing Glucose result greater than or equal to 126 mg/dL suggests DIABETES MELLITUS per A.D.A. criteria. Performed By: #### L 100.0100, L500.4050 #### [facility] [address] [place], [address] Potassium [Moles/Vol] 3.5 mmol/L Normal 3.5-5.1 [facility] Comment on above: Performed By: #### L 100.0100, L500.4050 #### [facility] [address] [place], [address] Sodium [Moles/Vol] 138 mmol/L Normal 136-145 [facility] Comment on above: Performed By: #### L 100.0100, L500.4050 #### [facility] [address] [place], [address] T PROT 7.2 g/dL Normal 6.4-8.2 [facility] Comment on above: Performed By: #### L 100.0100, L500.4050 #### [facility] [address] [place], [address] Urea nitrogen [Mass/Vol] 19 mg/dL High 7-18 [facility] Comment on above: Performed By: #### L 100.0100, L500.4050 #### [facility] [address] [place], [address] Urgent Care Visit Reporton 1 Urgent Care Visit Report [facility] [address], [address] [place], [place] [address] OFFICE VISIT Date of Service: 01/25/24 MR#: [id number] Acct: [id number] Name: CHESTER FLANAGANLARRY Rep #: [id number] : 1985 Provider: TERRELL Zaldivar Age/Sex: 38/M Location[place] [facility] Status: Signed Intake Vital Signs 01/14/24 07:29 01/25/24 07:47 Height 6 ft 5 in 6 ft 5 in Weight: 399 lb 4 oz BMI 47.3 BP 120/80 Position Sitting Pulse 103 H Temp 99.1 F Temp Source Oral Pulse Oximetry (%) 99 Oxygen Delivery Method room air Intake Visit Reasons: SUTURE REMOVAL/ [place] BRASS Chief Complaint: WC left leg wound Allergies losartan Allergy (Severe, Verified 01/25/24 07:50) Unknown aspirin Allergy (Verified 01/25/24 07:50) Hives Environmental Allergies: Uncoded Allergy (Verified 01/25/24 07:50) Rash Penicillins Adverse Reaction (Mild, Verified 01/25/24 07:50) Itching menthol (From Icy Hot) Adverse Reaction (Verified 01/25/24 07:50) Other methyl salicylate (From Icy Hot) Adverse Reaction (Verified 01/25/24 07:50) peeled skin off Medications ???Medication ???Instructions ???Recorded ???Confirmed ???Type cholecalciferol (vitamin D3) 125 5,000 unit PO DAILY 06/25/18 01/25/24 History mcg (5,000 unit) tablet multivitamin (One-A-Day Essential 1 tab PO DAILY 06/25/18 01/25/24 History tablet) fluticasone propionate 50 2 spray intranasal DAILY PRN Nasal 11/21/19 01/25/24 History mcg/actuation nasal Congestion spray,suspension montelukast 10 mg tablet 10 mg PO QHS PRN Allergies 01/16/20 01/25/24 History lancets (Accu-Chek Fastclix Lancet #75 ea 03/18/21 01/25/24 Rx Drum) blood sugar diagnostic (Accu-Chek #550 ea 05/28/21 01/25/24 Rx Guide test strips) insulin glargine 100 unit/mL 40 unit (0.4 mL) subcut BID in 01/02/22 01/25/24 Rx subcutaneous solution (Bartolometus case of pump failure #10 mL U-100 Insulin) amlodipine 5 mg tablet 5 mg PO DAILY 11/18/22 01/25/24 History atomoxetine 40 mg capsule 40 mg PO BID 11/18/22 01/25/24 History folic acid 1 mg tablet 1 mg PO DAILY 11/18/22 01/25/24 History hydroxychloroquine 200 mg tablet 200 mg PO BID 11/18/22 01/25/24 History methotrexate sodium 2.5 mg tablet 2.5 mg PO QWEEK 11/18/22 01/25/24 History prednisone 10 mg tablet 10 mg PO DIRECTED 11/18/22 01/25/24 History insulin glulisine U-100 100 160 unit (1.6 mL) continuous 10/20/23 01/25/24 Rx unit/mL subcutaneous solution subcutaneous infusion .continuous (Apidra U-100 Insulin) #144 mL Fiasp U-100 Insulin 100 unit/mL 160 unit subcut DAILY #150 mL 11/06/23 01/25/24 Rx subcutaneous solution (insulin aspart (niacinamide)) Farxiga 10 mg tablet 10 mg PO DAILY #90 tabs 11/20/23 01/25/24 Rx (dapagliflozin propanediol) Mounjaro 10 mg/0.5 mL subcutaneous 10 mg (0.5 mL) subcut QWEEK #2 mL 11/20/23 01/25/24 Rx pen injector (tirzepatide) adalimumab-adaz 40 mg/0.4 mL 40 mg subcut Q2W 11/20/23 01/25/24 History subcutaneous pen injector (Hyrimoz(CF) Pen) Nurse's Note: Patient here for a f/u to his [facility] leg injury, Patient is getting his stitches out. [facility] Medical History Obesity Bilateral carpal tunnel syndrome Diabetes mellitus type 1 Microalbuminuria sinoplasty Recurrent infections Hypoglycemia Hives Chronic headache GI problem Carpal tunnel syndrome Bilateral knee pain Hypertension Chronic sinusitis Hypersomnolence Neuropathy Depression Sleep apnea Vitamin D deficiency Pneumonia Testosterone deficiency Bone fracture Back problem Arthritis Seasonal allergies Plantar fasciitis MICAELA (obstructive sleep apnea) Giant papillary conjunctivitis Surgical History History of carpal tunnel surgery of left wrist History of orthopedic surgery H/O left knee surgery Family History Mother Diabetes Anxiety Arthritis Depression Father Heart disease Diabetes Arthritis Depression Hypertension Kidney disease Sleep apnea Sister Leukemia Uncle Blood clot in vein Cancer Liver disease Sister Leukemia Grandfather Diabetes Social History Smoking Status: Former smoker second hand exposure: No alcohol intake: current substance use type: does not use what type of physical activity do you participate in: none HPI HPI Chief Complaint: WC left leg wound Details: CHESTER FLANAGAN, is a 38 M who presents to the office today for f/u of a left leg laceration suffered at work on 01/14/2024 pt so states. Patient states that a stool fell and hit into his left leg causing a laceration. Patient denies numbness, tingling or loss range of motion to the leg. He (more content not included)... 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 Chief Complaint: WC left leg wound Allergies losartan Allergy (Severe, Verified 01/14/24 07:47) Unknown aspirin Allergy (Verified 01/14/24 07:47) Hives Environmental Allergies: Uncoded Allergy (Verified 01/14/24 07:47) Rash Penicillins Adverse Reaction (Mild, Verified 01/14/24 07:47) Itching menthol (From Icy Hot) Adverse Reaction (Verified 01/14/24 07:47) Other methyl salicylate (From Icy Hot) Adverse Reaction (Verified 01/14/24 07:47) peeled skin off [facility] Medical History Obesity Bilateral carpal tunnel syndrome Diabetes mellitus type 1 Microalbuminuria sinoplasty Recurrent infections Hypoglycemia Hives Chronic headache GI problem Carpal tunnel syndrome Bilateral knee pain Hypertension Chronic sinusitis Hypersomnolence Neuropathy Depression Sleep apnea Vitamin D deficiency Pneumonia Testosterone deficiency Bone fracture Back problem Arthritis Seasonal allergies Plantar fasciitis MICAELA (obstructive sleep apnea) Giant papillary conjunctivitis Surgical History History of carpal tunnel surgery of left wrist History of orthopedic surgery H/O left knee surgery Family History Mother Diabetes Anxiety Arthritis Depression Father Heart disease Diabetes Arthritis Depression Hypertension Kidney disease Sleep apnea Sister Leukemia Uncle Blood clot in vein Cancer Liver disease Sister Leukemia Grandfather Diabetes Social History Smoking Status: Former smoker second hand exposure: No alcohol intake: current substance use type: does not use what type of physical activity do you participate in: none HPI HPI Chief Complaint: WC left leg wound Details: CHESTER FLANAGAN, is a 38 M who presents to the office today for CALLED IN TO CANCEL; RESCHEDULE DATE TBD Coding Level of Care Code No Charge 01/22/24 1236 Date Chester Fernandes Signature: Date (if applicable) CC: Normal [facility] Office Visit Reporton 2023 Office Visit Report [facility] [address] [place] [address] OFFICE VISIT Date of Service: 01/14/24 MR#: [id number] Acct: [id number] Patient: CHESTER FLANAGAN Rep #: [id number] : 1985 Provider: TERRELL Steve Age/Sex: 38/M Location: [facility] Status: Signed Intake Vital Signs 01/14/24 07:29 Height 6 ft 5 in Intake Visit Reasons: PA NON DOT DRUG SCREEN/ [place] BRASS Chief Complaint: WC left leg wound Allergies losartan Allergy (Severe, Verified 01/25/24 07:50) Unknown aspirin Allergy (Verified 01/25/24 07:50) Hives Environmental Allergies: Uncoded Allergy (Verified 01/25/24 07:50) Rash Penicillins Adverse Reaction (Mild, Verified 01/25/24 07:50) Itching menthol (From Icy Hot) Adverse Reaction (Verified 01/25/24 07:50) Other methyl salicylate (From Icy Hot) Adverse Reaction (Verified 01/25/24 07:50) peeled skin off [facility] Procedures [facility] Billing Sheet Testing Post-Accident NON-DOT Drug Screen in [facility]: Yes 01/29/24 0750 Date Zane Fernandes Signature: Date (if applicable) CC: Normal [facility] Urgent Care Visit Reporton 1 Urgent Care Visit Report [facility] [address], [address] [place] [address] OFFICE VISIT Date of Service: 01/14/24 MR#: [id number] Acct: [id number] Name: CHESTER FLANAGAN Rep #: [id number] : 1985 Provider: TERRELL Steve Age/Sex: 38/M Location: [facility] Status: Signed Intake Vital Signs 11/20/23 15:32 01/14/24 07:29 Height 6 ft 5 in 6 ft 5 in Weight: 415 lb BMI 49.1 BP 128/81 H Blood Pressure Location Lt brachial Position Sitting Respiration 14 Pulse 106 H Pulse Source Monitor Temp 96.2 F L Temp Source Temporal Pulse Oximetry (%) 96 Oxygen Delivery Method room air Intake Visit Reasons: CUT ON L CHUNG/ AKRON BRASS Chief Complaint: WC left leg wound Family Court Counsellor Required: No Is patient in pain?: Yes Allergies losartan Allergy (Severe, Verified 01/14/24 07:47) Unknown aspirin Allergy (Verified 01/14/24 07:47) Hives Environmental Allergies: Uncoded Allergy (Verified 01/14/24 07:47) Rash Penicillins Adverse Reaction (Mild, Verified 01/14/24 07:47) Itching menthol (From Icy Hot) Adverse Reaction (Verified 01/14/24 07:47) Other methyl salicylate (From Icy Hot) Adverse Reaction (Verified 01/14/24 07:47) peeled skin off Have you fallen in the past year?: Yes PFSH Medical History Obesity Bilateral carpal tunnel syndrome Diabetes mellitus type 1 Microalbuminuria sinoplasty Recurrent infections Hypoglycemia Hives Chronic headache GI problem Carpal tunnel syndrome Bilateral knee pain Hypertension Chronic sinusitis Hypersomnolence Neuropathy Depression Sleep apnea Vitamin D deficiency Pneumonia Testosterone deficiency Bone fracture Back problem Arthritis Seasonal allergies Plantar fasciitis MICAELA (obstructive sleep apnea) Giant papillary conjunctivitis Surgical History History of carpal tunnel surgery of left wrist History of orthopedic surgery H/O left knee surgery Family History Mother Diabetes Anxiety Arthritis Depression Father Heart disease Diabetes Arthritis Depression Hypertension Kidney disease Sleep apnea Sister Leukemia Uncle Blood clot in vein Cancer Liver disease Sister Leukemia Grandfather Diabetes Social History Smoking Status: Former smoker second hand exposure: No alcohol intake: current substance use type: does not use what type of physical activity do you participate in: none HPI HPI Chief Complaint: WC left leg wound Details: CHESTER FLANAGAN, is a 38 M who presents to the office today for initial evaluation of a left leg laceration. Patient states that a stool fell and hit into his left leg causing a laceration. He is unaware of his last tetanus immunization. Patient denies numbness, tingling or loss range of motion to the leg. He does state cleaning the area well prior to coming to the office today. He does have several other health conditions that cause him to be immunocompromised however. No other associated symptoms or alleviating/aggravatin g factors. ROS Const Constitutional: No other (6 system ROS completed with pertinent findings in the HPI otherwise normal.) Exam Const General: cooperative and healthy appearing Resp Effort Inspection: normal respiratory effort Cardio Rate: regular rate Pulses: dorsalis pedis present Skin Other: Laceration to the anterior left lower leg over the chung that measured approximately 6 cm.The wound was prepped and draped in sterile fashion. Anesthesia was achieved with 3 mL of 1% lidocaine. The wound was irrigated and explored. There were no foreign bodies, exposed tendon or bone. The wound was reapproximated using five 3-0 Ethilon sutures. There was excellent reapproximation of the wound edges. Wound dressed with bacitracin and sterile gauze. The patient tolerated the procedure without complication. Patient instructed to f/u for suture removal in 8 days. Neuro General: patient alert Psych Appearance: grossly normal Mental Status: mental status grossly normal Immunizations Boostrix Tdap 2.5 Lf unit-8 mcg-5 Lf/0.5 mL intramuscular syringe Performing Provider: TERRELL Monique Performing Location: [facility] Administered by: Thelma Brantley on 01/14/24 08:00 Dose Route Admin Location Dispensed Lot Number Expiration Date NDC Man ufacturer 0.5 mL IM Right Deltoid 0.5 mL [id number] 02/12/26 75566-661-77 [employer] VIS Given Date VIS Provided VIS Publication Date 01/14/24 Single Vaccine 20 Eligibility Eligibility Date Funding Source Not Applicable Coding Level of Care Code Off vis,new,level 4 Diagnoses Laceration of left (more content not included)... Normal [facility] Endocrinology Visit Reporton 11-20-2023 Endocrinology Visit Report [facility] [address] [place] [address] OFFICE VISIT Date of Service: 11/20/23 MR#: [id number] Acct: [id number] Name: CHESTER FLANAGAN Rep #: [id number] : 1985 Provider: Nasreen Garcia Age/Sex: 38/M [place] [facility]: Signed Intake Vital Signs 05/21/23 15:33 11/20/23 15:32 Height 6 ft 5 in 6 ft 5 in Weight: 413 lb 415 lb BMI 48.9 49.1 BP 146/86 H 128/81 H Blood Pressure Location Lt brachial Lt brachial Position Sitting Sitting Respiration 18 14 Pulse 88 106 H Pulse Source Monitor Monitor Temp 98.6 F 96.2 F L Temp Source Temporal Temporal Pulse Oximetry (%) 97 96 Oxygen Delivery Method room air room air Intake Visit Reasons: 6 M FU Chief Complaint: Diabetes Accompanied by: Self Is patient in pain?: No Allergies losartan Allergy (Severe, Verified 11/20/23 15:34) Unknown aspirin Allergy (Verified 11/20/23 15:34) Hives Environmental Allergies: Uncoded Allergy (Verified 11/20/23 15:34) Rash Penicillins Adverse Reaction (Mild, Verified 11/20/23 15:34) Itching menthol (From Icy Hot) Adverse Reaction (Verified 11/20/23 15:34) Other methyl salicylate (From Icy Hot) Adverse Reaction (Verified 11/20/23 15:34) peeled skin off Medications ???Medication ???Instructions ???Recorded ???Confirmed ???Type cholecalciferol (vitamin D3) 125 5,000 unit PO DAILY 06/25/18 11/20/23 History mcg (5,000 unit) tablet multivitamin (One-A-Day Essential 1 tab PO DAILY 06/25/18 11/20/23 History tablet) fluticasone propionate 50 2 spray intranasal DAILY PRN Nasal 11/21/19 11/20/23 History mcg/actuation nasal Congestion spray,suspension montelukast 10 mg tablet 10 mg PO QHS PRN Allergies 01/16/20 11/20/23 History lancets (Accu-Chek Fastclix Lancet #75 ea 03/18/21 11/20/23 Rx Drum) blood sugar diagnostic (Accu-Chek #550 ea 05/28/21 11/20/23 Rx Guide test strips) insulin glargine 100 unit/mL 40 unit (0.4 mL) subcut BID in 01/02/22 11/20/23 Rx subcutaneous solution (Lantus case of pump failure #10 mL U-100 Insulin) amlodipine 5 mg tablet 5 mg PO DAILY 11/18/22 11/20/23 History atomoxetine 40 mg capsule 40 mg PO BID 11/18/22 11/20/23 History folic acid 1 mg tablet 1 mg PO DAILY 11/18/22 11/20/23 History hydroxychloroquine 200 mg tablet 200 mg PO BID 11/18/22 11/20/23 History methotrexate sodium 2.5 mg tablet 2.5 mg PO QWEEK 11/18/22 11/20/23 History prednisone 10 mg tablet 10 mg PO DIRECTED 11/18/22 11/20/23 History insulin glulisine U-100 100 160 unit (1.6 mL) continuous 10/20/23 11/20/23 Rx unit/mL subcutaneous solution subcutaneous infusion .continuous (Apidra U-100 Insulin) #144 mL Fiasp U-100 Insulin 100 unit/mL 160 unit subcut DAILY #150 mL 11/06/23 11/20/23 Rx subcutaneous solution (insulin aspart (niacinamide)) Farxiga 10 mg tablet 10 mg PO DAILY #90 tabs 11/20/23 11/20/23 Rx (dapagliflozin propanediol) Mounjaro 10 mg/0.5 mL subcutaneous 10 mg (0.5 mL) subcut QWEEK #2 mL 11/20/23 11/20/23 Rx pen injector (tirzepatide) adalimumab-adaz 40 mg/0.4 mL 40 mg subcut Q2W 11/20/23 11/20/23 History subcutaneous pen injector (Hyrimoz(CF) Pen) [facility] Medical History (Updated 11/23/23 @ 07:[address] Alejandro Waddell MD) Obesity Bilateral carpal tunnel syndrome Diabetes mellitus type 1 Microalbuminuria sinoplasty Recurrent infections Hypoglycemia Hives Chronic headache GI problem Carpal tunnel syndrome Bilateral knee pain Hypertension Chronic sinusitis Hypersomnolence Neuropathy Depression Sleep apnea Vitamin D deficiency Pneumonia Testosterone deficiency Bone fracture Back problem Arthritis Seasonal allergies Plantar fasciitis MICAELA (obstructive sleep apnea) Giant papillary conjunctivitis Surgical History History of carpal tunnel surgery of left wrist History of orthopedic surgery H/O left knee surgery Family History Mother Diabetes Anxiety Arthritis Depression Father Heart disease Diabetes Arthritis Depression Hypertension Kidney disease Sleep apnea Sister Leukemia Uncle Blood clot in vein Cancer Liver disease Sister Leukemia Grandfather Diabetes Social History Smoking Status: Former smoker second hand exposure: No alcohol intake: current substance use type: does not use what type of physical activity do you participate in: none HPI HPI Chief Complaint: Diabetes Details: CHESTER FLANAGAN, is a 38 M who presents to the office today for follow up. A1C is 6.4% He is using Medtronic 780G insulin pump. Upload shows controlled blood sugars. He is s (more content not included)... Normal [facility] CBC W/Diff, Automatedon 08-0 2-2023 Absolute Lymph 2.94 X10 3/uL Normal 0.83-4.51 [facility] Comment on above: Performed By: #### L 100.0100, L500.4050 #### [facility] [address] [place], [address] Absolute Neut 5.4 X10 3/uL Normal 2.0-7.7 [facility] Comment on above: Performed By: #### L 100.0100, L500.4050 #### [facility] [address] [place], [address] Basophils/100 WBC (Bld) 0.6 % Normal 0-1 [facility] Comment on above: Performed By: #### L 100.0100, L500.4050 #### [facility] [address] [place], [address] Eosinophils/100 WBC (Bld) 2.5 % Normal 0-5 [facility] Comment on above: Performed By: #### L 100.0100, L500.4050 #### [facility] [address] [place], [address] Erythrocyte distribution width (RBC) [Ratio] 13.5 % Normal 11.6-14.6 [facility] Comment on above: Performed By: #### L 100.0100, [id number] #### [facility] [address] [place], [address] Hematocrit (Bld) [Volume fraction] 44.3 % Normal 40-54 [facility] Comment on above: Performed By: #### L 100.0100, L500.4050 #### [facility] [address] [place], [address] Hemoglobin (Bld) [Mass/Vol] 14.5 g/dL Normal 13.0-16.5 [facility] Comment on above: Performed By: #### L 100.0100, L500.4050 #### [facility] [address] [place], [address] IG% 0.300 Normal 0.0-0.9 [facility] Comment on above: Result Comment: IG% - Immature Granulocytes (promyelocytes, myelocytes and metamyelocytes) > 1% indicates that a LEFT SHIFT is Present. Performed By: #### L 100.0100, L500.4050 #### [facility] [address] [place], [address] Lymphocytes/100 WBC (Bld) 30.9 % Normal 19-41 [facility] Comment on above: Performed By: #### L 100.0100, L500.4050 #### [facility] [address] [place], [address] MCH (RBC) [Entitic mass] 27.7 pg Normal 27.0-32.0 [facility] Comment on above: Performed By: #### L 100.0100, L500.4050 #### [facility] [address] [place], [address] MCHC (RBC) [Mass/Vol] 32.7 g/dL Normal 32-36 [facility] Comment on above: Performed By: #### L 100.0100, L500.4050 #### [facility] [address] [place], [address] MCV (RBC) [Entitic vol] 84.5 fL Normal 80-94 [facility] Comment on above: Performed By: #### L 100.0100, L500.4050 #### [facility] [address] [place], [address] Monocytes/100 WBC (Bld) 9.0 % Normal 0-10 [facility] Comment on above: Performed By: #### L 100.0100, L500.4050 #### [facility] [address] [place], [address] Neutrophils/100 WBC (Bld) 56.7 % Normal 47-70 [facility] Comment on above: Performed By: #### L 100.0100, L500.4050 #### [facility] [address] [place], [address] Nucleated RBC (Bld) [#/Vol] 0 10*3/uL Normal 0-5 [facility] Comment on above: Performed By: #### L 100.0100, L500.4050 #### [facility] [address] [place], [address] Platelet mean volume (Bld) [Entitic vol] 10.3 fL Normal 6.2-12.0 [facility] Comment on above: Performed By: #### L 100.0100, L500.4050 #### [facility] [address] [place], [address] Platelets (Bld) [#/Vol] 209 10*3/uL Normal 150-450 [facility] Comment on above: Performed By: #### L 100.0100, L500.4050 #### [facility] [address] [place], [address] RBC (Bld) [#/Vol] 5.24 10*6/uL Normal 4.6-6.2 [facility] Comment on above: Performed By: #### L 100.0100, L500.4050 #### [facility] [address] [place], [address] RDW SD 41.5 fl Normal 35.1-43.9 [facility] Comment on above: Performed By: #### L 100.0100, L500.4050 #### [facility] [address] [place], [address] WBC (Bld) [#/Vol] 9.5 10*3/uL Normal 4.4-11.0 [facility] Comment on above: Performed By: #### L 100.0100, L500.4050 #### [facility] [address] [place], [address] Comprehensive Metabolic Prof ilon 11-06-2023 Albumin [Mass/Vol] 3.8 g/dL Normal 3.2-5.0 [facility] Comment on above: Performed By: #### L 100.0100, L500.4050 #### [facility] [address] [place], [address] Albumin/Globulin [Mass ratio] 1.2 {ratio} Normal 0.9-2.4 [facility] Comment on above: Performed By: #### L 100.0100, L500.4050 #### [facility] [address] [place], [address] ALK P 90 U/L Normal 45-117 [facility] Comment on above: Performed By: #### L 100.0100, L500.4050 #### [facility] [address] [place], [address] ALT [Catalytic activity/Vol] 58 U/L Normal 16-61 [facility] Comment on above: Performed By: #### L 100.0100, L500.4050 #### [facility] [address] [place], [address] AST [Catalytic activity/Vol] 28 U/L Normal 15-37 [facility] Comment on above: Performed By: #### L 100.0100, L500.4050 #### [facility] [address] [place], [address] Bilirubin [Mass/Vol] 0.40 mg/dL Normal 0.20-1.00 [facility] Comment on above: Result Comment: For patients on eltrombopag therapy, use of Dimension [place] TBIL is not recommended. Performed By: #### L 100.0100, L500.4050 #### [facility] [address] [place], [address] BUN/CRE 18.0 RATIO Normal 10-20 [facility] Comment on above: Performed By: #### L 100.0100, L500.4050 #### [facility] [address] [place], [address] CA,Total 9.3 mg/dL Normal 8.5-10.1 [facility] Comment on above: Performed By: #### L 100.0100, L500.4050 #### [facility] [address] [place], [address] Chloride [Moles/Vol] 103 mmol/L Normal 98-107 [facility] Comment on above: Performed By: #### L 100.0100, L500.4050 #### [facility] [address] [place], [address] CO2 [Moles/Vol] 29.0 mmol/L Normal 21.0-32.0 [facility] Comment on above: Performed By: #### L 100.0100, L500.4050 #### [facility] [address] [place], [address] Creatinine [Mass/Vol] 1.22 mg/dL Normal 0.70-1.30 [facility] Comment on above: Result Comment: The validity of the calculated GFR GFRAA in patients over 70 years has not been determined. Clinical correlation is essential. Performed By: #### L 100.0100, L500.4050 #### [facility] [address] [place], [address] EST GFR - AA 86 mL/min Normal >60 [facility] Comment on above: Result Comment: Afri can [place] GFR Calc Performed By: #### L 100.0100, L500.4050 #### [facility] [address] [place], [address] GAP 7 Normal 5-15 [facility] Comment on above: Performed By: #### L 100.0100, L500.4050 #### [facility] [address] [place], [address] GFR/1.73 sq M.predicted among non-blacks MDRD (S/P/Bld) [Vol rate/Area] 71 mL/min/{1.73_m2} Normal >60 [facility] Comment on above: Result Comment: Non- GFR Calc Performed By: #### L 100.0100, L500.4050 #### [facility] [address] [place], [address] Globulin (S) [Mass/Vol] 3.3 g/dL Normal 2.2-4.2 [facility] Comment on above: Performed By: #### L 100.0100, L500.4050 #### [facility] [address] [place], [address] Glucose [Mass/Vol] 104 mg/dL Normal 74-106 [facility] Comment on above: Result Comment: Fast ing Glucose result from 100 to 125 mg/dL suggests IMPAIRED HOMEOSTASIS per A.D.A. criteria. Performed By: #### L 100.0100, L500.4050 #### [facility] [address] [place], [address] Potassium [Moles/Vol] 3.7 mmol/L Normal 3.5-5.1 [facility] Comment on above: Performed By: #### L 100.0100, L500.4050 #### [facility] [address] [place], [address] Sodium [Moles/Vol] 139 mmol/L Normal 136-145 [facility] Comment on above: Performed By: #### L 100.0100, L500.4050 #### [facility] [address] [place], [address] T PROT 7.1 g/dL Normal 6.4-8.2 [facility] Comment on above: Performed By: #### L 100.0100, L500.4050 #### [facility] [address] [place], [address] Urea nitrogen [Mass/Vol] 22 mg/dL High 7-18 [facility] Comment on above: Performed By: #### L 100.0100, L500.4050 #### [facility] [address] [place], [address] Absolute lymphocyte countOrd ered By: Jessa Rivera on 05-25-2023 Lymphocytes Auto (Unsp spec) [#/Vol] 2.24 10*3/uL 0.83-4.51 [facility] Automated lymphocyte count a s percentage of total leukocytesOrdered By: Jessa Rivera on 05-25-2023 Lymphocytes/100 WBC Auto (Unsp spec) 29.4 % 19-41 [facility] Basophil percentageOrdered B y: Jessa Rivera on 05-25-2023 Basophils/100 WBC (Bld) 0.7 % 0-1 [facility] Bilirubin [Mass/Vol] 0.50 mg/dL 0.20-1.00 [facility] Comment on above: For patients on eltr ombopag therapy, use of Dimension [place] TBIL is not recommended. Chloride [Moles/Vol] 102 mmol/L 98-107 [facility] Eosinophils/100 WBC (Bld) 3.2 % 0-5 [facility] Glucose [Mass/Vol] 113 mg/dL 74-106 [facility] Comment on above: Fasting Glucose resu lt from 100 to 125 mg/dL suggests IMPAIRED HOMEOSTASIS per A.D.A. criteria. Hemoglobin (Bld) [Mass/Vol] 14.8 g/dL 13.0-16.5 [facility] Monocytes/100 WBC (Bld) 11.0 % 0-10 [facility] Neutrophils (Bld) [#/Vol] 4.2 10*3/uL 2.0-7.7 [facility] Neutrophils/100 WBC (Bld) 55.6 % 47-70 [facility] Potassium [Moles/Vol] 3.5 mmol/L 3.5-5.1 [facility] Protein [Mass/Vol] 7.2 g/dL 6.4-8.2 [facility] Sodium [Moles/Vol] 138 mmol/L 136-145 [facility] WBC (Bld) [#/Vol] 7.6 10*3/uL 4.4-11.0 [facility] Determination of erythrocyte mean corpuscular volume (MCV)Ordered By: Jessa Rivera on 05-25-2023 MCV (RBC) [Entitic vol] 82.5 fL 80-94 [facility] Erythrocyte distribution wid th ratioOrdered By: Jessa Rivera on 05-25-2023 Erythrocyte distribution width (RBC) [Ratio] 14.1 % 11.6-14.6 [facility] Erythrocyte distribution wid th standard deviationOrdered By: Jessa Rivera on 05-25-2023 Erythrocyte distribution width (RBC) [Entitic vol] 41.6 fL 35.1-43.9 [facility] Hematocrit Auto (Bld) [Volum e fraction]Ordered By: Jessa Rivera on 05-25-2023 Hematocrit (Bld) [Volume fraction] 43.8 % 40-54 [facility] Immature granulocytes/100 WB C Auto (Bld)Ordered By: Jessa Rivera on 05-25-2023 Immature granulocytes/100 WBC (Bld) 0.100 % 0.0-0.9 [facility] Comment on above: IG% - Immature Granu locytes (promyelocytes, myelocytes and metamyelocytes) > 1% indicates that a LEFT SHIFT is Present. Laboratory - Chemistry and C hemistry - challengeOrdered By: Jessa Rivera on 05-25-2023 Albumin/Globulin [Mass ratio] 1.1 {ratio} 0.9-2.4 [facility] ALP [Catalytic activity/Vol] 80 U/L 45-117 [facility] ALT [Catalytic activity/Vol] 57 U/L 16-61 [facility] CO2 [Moles/Vol] 30.0 mmol/L 21.0-32.0 [facility] Globulin (S) [Mass/Vol] 3.4 g/dL 2.2-4.2 [facility] Urea nitrogen/Creatinine [Mass ratio] 16.2 mg/mg 10-20 [facility] - Hematology and Cell countsOrdered By: Jessa Rivera on 05-25-2023 MCH (RBC) [Entitic mass] 27.9 pg 27.0-32.0 [facility] MCHC (RBC) [Mass/Vol] 33.8 g/dL 32-36 [facility] Nucleated RBC/100 WBC (Bld) [Ratio] 0 % 0-5 [facility] Platelet mean volume (Bld) [Entitic vol] 9.0 fL 6.2-12.0 [facility] Platelets (Bld) [#/Vol] 210 10*3/uL 150-450 [facility] No Panel InformationOrdered By: Jessa Rivera on 05-25-2023 Estimated GFR (MDRD) Amer 103 mL/min >60 [facility] Comment on above: GFR Calc Estimated GFR (MDRD) Non-Af Amer 85 mL/min >60 [facility] Comment on above: Non- GFR Calc RBC Auto (Bld) [#/Vol]Ordere d By: Jessa Rivera on 05-25-2023 RBC (Bld) [#/Vol] 5.31 10*6/uL 4.6-6.2 [facility] Serum or plasma calcium sayda urement (mass/volume)Ordered By: Jessa Rivera on 05-25-2023 Calcium [Mass/Vol] 9.4 mg/dL 8.5-10.1 [facility] Serum or plasma creatinine m easurement (mass/volume)Ordered By: Jessa Rivera on 05-25-2023 Creatinine [Mass/Vol] 1.05 mg/dL 0.70-1.30 [facility] Comment on above: The validity of the calculated GFR & GFRAA in patients over 70 years has not been determined. Clinical correlation is essential. Serum or plasma urea nitroge n measurement (mass/volume)Ordered By: Jessa Rivera on 05-25-2023 Urea nitrogen [Mass/Vol] 17 mg/dL 7-18 [facility] Thin prep Papanicolaou smear with manual screeningOrdered By: Jessa Rivera on 05-25-2023 Thin prep Papanicolaou smear with manual screening 3.8 g/dL 3.2-5.0 [facility] Thin prep Papanicolaou smear with manual screening 29 U/L 15-37 [facility] Thin prep Papanicolaou smear with manual screening 6 5-15 [facility] - Hematology and Cell countson 05-21-2023 HbA1c (Bld) [Mass fraction] 6.6 % 4.2-6.3 [facility] Absolute lymphocyte countOrd ered By: Jessa Rivera on 02-28-2023 Lymphocytes Auto (Unsp spec) [#/Vol] 2.05 10*3/uL 0.83-4.51 [facility] Basophil percentageOrdered B y: Jessa Rivera on 02-28-2023 Basophils/100 WBC (Bld) 0.7 % 0-1 [facility] Bilirubin [Mass/Vol] 0.50 mg/dL 0.20-1.00 [facility] Comment on above: For patients on eltr ombopag therapy, use of Dimension [place] TBIL is not recommended. Chloride [Moles/Vol] 107 mmol/L 98-107 [facility] Eosinophils/100 WBC (Bld) 3.2 % 0-5 [facility] Glucose [Mass/Vol] 152 mg/dL 74-106 [facility] Comment on above: Fasting Glucose resu lt greater than or equal to 126 mg/dL suggests DIABETES MELLITUS per A.D.A. criteria. Neutrophils (Bld) [#/Vol] 4.3 10*3/uL 2.0-7.7 [facility] Neutrophils/100 WBC (Bld) 58.7 % 47-70 [facility] Potassium [Moles/Vol] 4.1 mmol/L 3.5-5.1 [facility] Protein [Mass/Vol] 6.6 g/dL 6.4-8.2 [facility] Sodium [Moles/Vol] 138 mmol/L 136-145 [facility] WBC (Bld) [#/Vol] 7.3 10*3/uL 4.4-11.0 [facility] Blood erythrocytes count (nu mber/volume)Ordered By: Jessa Rivera on 02-28-2023 RBC (Bld) [#/Vol] 5.40 10*6/uL 4.6-6.2 [facility] Blood hemoglobin measurement (mass/volume)Ordered By: Jessa Rivera on 02-28-2023 Hemoglobin (Bld) [Mass/Vol] 15.5 g/dL 13.0-16.5 [facility] Blood lymphocytes/100 leukoc ytesOrdered By: Jessatammy Rivera on 02-28-2023 Lymphocytes/100 WBC (Bld) 28.2 % 19-41 [facility] Blood monocytes/100 leukocyt esOrdered By: Jessatammy Rivera on 02-28-2023 Monocytes/100 WBC (Bld) 8.9 % 0-10 [facility] Blood platelet mean volumeOr dered By: Jessa Rivera on 02-28-2023 Platelet mean volume (Bld) [Entitic vol] 9.1 fL 6.2-12.0 [facility] Determination of erythrocyte mean corpuscular volume (MCV)Ordered By: Jessatammy Rivera on 02-28-2023 MCV (RBC) [Entitic vol] 85.2 fL 80-94 [facility] Hematocrit Auto (Bld) [Volum e fraction]Ordered By: Jessa Rivera on 02-28-2023 Hematocrit (Bld) [Volume fraction] 46.0 % 40-54 [facility] - Chemistry and C hemistry - challengeOrdered By: Jessatammy Rivera on 02-28-2023 ALP [Catalytic activity/Vol] 72 U/L 45-117 [facility] ALT [Catalytic activity/Vol] 45 U/L 16-61 [facility] CO2 [Moles/Vol] 29.0 mmol/L 21.0-32.0 [facility] Globulin (S) [Mass/Vol] 3.0 g/dL 2.2-4.2 [facility] Urea nitrogen/Creatinine [Mass ratio] 16.3 mg/mg 10-20 [facility] - Hematology and Cell countsOrdered By: Jessa Rivera on 02-28-2023 Erythrocyte distribution width (RBC) [Entitic vol] 42.5 fL 35.1-43.9 [facility] Erythrocyte distribution width (RBC) [Ratio] 14.1 % 11.6-14.6 [facility] Immature granulocytes/100 WBC (Bld) 0.300 % 0.0-0.9 [facility] Comment on above: IG% - Immature Granu locytes (promyelocytes, myelocytes and metamyelocytes) > 1% indicates that a LEFT SHIFT is Present. MCH (RBC) [Entitic mass] 28.7 pg 27.0-32.0 [facility] Nucleated RBC/100 WBC (Bld) [Ratio] 0 % 0-5 [facility] MCHC Auto (RBC) [Mass/Vol]Or dered By: Jessa Rivera on 02-28-2023 MCHC (RBC) [Mass/Vol] 33.7 g/dL 32-36 [facility] No Panel InformationOrdered By: Jessa Rivera on 02-28-2023 Estimated GFR (MDRD) Amer 111 mL/min >60 [facility] Comment on above: GFR Calc Estimated GFR (MDRD) Non-Af Amer 92 mL/min >60 [facility] Comment on above: Non- GFR Calc Platelets bldOrdered By: Mike Rivera on 02-28-2023 Platelets (Bld) [#/Vol] 198 10*3/uL 150-450 [facility] Qualitative QuantiFERON-TB g old in tube testOrdered By: Jessa Rivera on 02-28-2023 M. tuberculosis tuberculin stim IFN-g Ql (Bld) 0.03 IU/mL . [facility] Serum or plasma albumin sayda urement (mass/volume)Ordered By: Jessa Rivera on 02-28-2023 Albumin [Mass/Vol] 3.6 g/dL 3.2-5.0 [facility] Serum or plasma albumin/glob ulin mass ratioOrdered By: Jessa Rivera on 02-28-2023 Albumin/Globulin [Mass ratio] 1.2 {ratio} 0.9-2.4 [facility] Serum or plasma calcium sayda urement (mass/volume)Ordered By: Jessa Rivera on 02-28-2023 Calcium [Mass/Vol] 8.5 mg/dL 8.5-10.1 [facility] Serum or plasma creatinine m easurement (mass/volume)Ordered By: Jessa Rivera on 02-28-2023 Creatinine [Mass/Vol] 0.98 mg/dL 0.70-1.30 [facility] Comment on above: The validity of the calculated GFR & GFRAA in patients over 70 years has not been determined. Clinical correlation is essential. Serum or plasma urea nitroge n measurement (mass/volume)Ordered By: Jessa Rivera on 02-28-2023 Urea nitrogen [Mass/Vol] 16 mg/dL 7-18 [facility] Thin prep Papanicolaou smear with manual screeningOrdered By: Jessa Rivera on 02-28-2023 Thin prep Papanicolaou smear with manual screening 14 U/L 15-37 [facility] Thin prep Papanicolaou smear with manual screening 2 5-15 [facility] Thin prep Papanicolaou smear with manual screening Comment . [facility] Comment on above: QuantiFERON-TB Gold Plus is a qualitative indirect test forM tuberculosis infection (including disease) and isintended for use in conjunction with risk assessment,radiography, and other medical and diagnostic evaluations.The QuantiFERON-TB Gold Plus result is determined bysubtracting the Nil value from either TB antigen (Ag)value. The Mitogen tube serves as a control for the test. Thin prep Papanicolaou smear with manual screening 0.03 IU/mL . [facility] Thin prep Papanicolaou smear with manual screening 0.02 IU/mL . [facility] Thin prep Papanicolaou smear with manual screening > 10.00 IU/mL . [facility] Thin prep Papanicolaou smear with manual screening Negative Negative [facility] Comment on above: No response to M tub erculosis antigens detected.Infection with M tuberculosis is unlikely, but high riskindividuals should be considered for additional testing(ATS/IDSA/CDC Clinical Practice Guidelines, 2017). Thereference range is an Antigen minus Nil result of <0.35IU/mL.The specimen received for QuantiFERON testing was incubatedby the ordering institution. Specific procedures outlinedin our Directory of Services and in the package insert forthe QuantiFERON Gold (In Tube) test must be followed toenable for proper stimulation of cells for the productionof interferon gamma. Chemiluminescence immunoassaymethodologyPerformed at: [facility] [id number] Director: Sukhi Ryan PhD, Phone: [phone] Absolute lymphocyte countOrd ered By: Jessa Rivera on 12-27-2022 Lymphocytes Auto (Unsp spec) [#/Vol] 2.17 10*3/uL 0.83-4.51 [facility] Basophil percentageOrdered B y: Jessa Rivera on 12-27-2022 Basophils/100 WBC (Bld) 0.8 % 0-1 [facility] Bilirubin [Mass/Vol] 0.40 mg/dL 0.20-1.00 [facility] Comment on above: For patients on eltr ombopag therapy, use of Dimension [place] TBIL is not recommended. Chloride [Moles/Vol] 108 mmol/L 98-107 [facility] Eosinophils/100 WBC (Bld) 2.3 % 0-5 [facility] Glucose [Mass/Vol] 135 mg/dL 74-106 [facility] Comment on above: Fasting Glucose resu lt greater than or equal to 126 mg/dL suggests DIABETES MELLITUS per A.D.A. criteria. Neutrophils (Bld) [#/Vol] 4.4 10*3/uL 2.0-7.7 [facility] Neutrophils/100 WBC (Bld) 58.8 % 47-70 [facility] Potassium [Moles/Vol] 3.9 mmol/L 3.5-5.1 [facility] Protein [Mass/Vol] 7.1 g/dL 6.4-8.2 [facility] Sodium [Moles/Vol] 140 mmol/L 136-145 [facility] WBC (Bld) [#/Vol] 7.5 10*3/uL 4.4-11.0 [facility] Blood erythrocytes count (nu mber/volume)Ordered By: Jessa Rivera on 12-27-2022 RBC (Bld) [#/Vol] 5.32 10*6/uL 4.6-6.2 [facility] Blood hemoglobin measurement (mass/volume)Ordered By: Jessa Rivera on 12-27-2022 Hemoglobin (Bld) [Mass/Vol] 15.1 g/dL 13.0-16.5 [facility] Blood lymphocytes/100 leukoc ytesOrdered By: Jessa Rivera on 12-27-2022 Lymphocytes/100 WBC (Bld) 28.8 % 19-41 [facility] Blood monocytes/100 leukocyt esOrdered By: Jessa Rivera on 12-27-2022 Monocytes/100 WBC (Bld) 8.9 % 0-10 [facility] Blood platelet mean volumeOr dered By: Jessa Rivera on 12-27-2022 Platelet mean volume (Bld) [Entitic vol] 9.2 fL 6.2-12.0 [facility] Determination of erythrocyte mean corpuscular volume (MCV)Ordered By: Jessa Rivera on 12-27-2022 MCV (RBC) [Entitic vol] 85.9 fL 80-94 [facility] Hematocrit Auto (Bld) [Volum e fraction]Ordered By: Jessa Rivera on 12-27-2022 Hematocrit (Bld) [Volume fraction] 45.7 % 40-54 [facility] Laboratory - Chemistry and C hemistry - challengeOrdered By: Jessa Rivera on 12-27-2022 ALP [Catalytic activity/Vol] 80 U/L 45-117 [facility] ALT [Catalytic activity/Vol] 51 U/L 16-61 [facility] CO2 [Moles/Vol] 29.0 mmol/L 21.0-32.0 [facility] Globulin (S) [Mass/Vol] 3.4 g/dL 2.2-4.2 [facility] Urea nitrogen/Creatinine [Mass ratio] 23.2 mg/mg 10-20 [facility] Laboratory - Hematology and Cell countsOrdered By: Jessa Rivera on 12-27-2022 Erythrocyte distribution width (RBC) [Entitic vol] 43.1 fL 35.1-43.9 [facility] Erythrocyte distribution width (RBC) [Ratio] 14.2 % 11.6-14.6 [facility] Immature granulocytes/100 WBC (Bld) 0.400 % 0.0-0.9 [facility] Comment on above: IG% - Immature Granu locytes (promyelocytes, myelocytes and metamyelocytes) > 1% indicates that a LEFT SHIFT is Present. MCH (RBC) [Entitic mass] 28.4 pg 27.0-32.0 [facility] Nucleated RBC/100 WBC (Bld) [Ratio] 0 % 0-5 [facility] MCHC Auto (RBC) [Mass/Vol]Or dered By: Jessa Rivera on 12-27-2022 MCHC (RBC) [Mass/Vol] 33.0 g/dL 32-36 [facility] No Panel InformationOrdered By: Jessa Rivera on 12-27-2022 Estimated GFR (MDRD) Amer 110 mL/min >60 [facility] Comment on above: GFR Calc Estimated GFR (MDRD) Non-Af Amer 91 mL/min >60 [facility] Comment on above: Non- GFR Calc Platelets bldOrdered By: Mike Rivera on 12-27-2022 Platelets (Bld) [#/Vol] 226 10*3/uL 150-450 [facility] Serum or plasma albumin sayda urement (mass/volume)Ordered By: Jessa Rivera on 12-27-2022 Albumin [Mass/Vol] 3.7 g/dL 3.2-5.0 [facility] Serum or plasma albumin/glob ulin mass ratioOrdered By: Jessa Rivera on 12-27-2022 Albumin/Globulin [Mass ratio] 1.1 {ratio} 0.9-2.4 [facility] Serum or plasma calcium sayda urement (mass/volume)Ordered By: Jessa Rivera on 12-27-2022 Calcium [Mass/Vol] 8.4 mg/dL 8.5-10.1 [facility] Serum or plasma creatinine m easurement (mass/volume)Ordered By: Jessa Rivera on 12-27-2022 Creatinine [Mass/Vol] 0.99 mg/dL 0.70-1.30 [facility] Comment on above: The validity of the calculated GFR & GFRAA in patients over 70 years has not been determined. Clinical correlation is essential. Serum or plasma urea nitroge n measurement (mass/volume)Ordered By: Jessa Rivera on 12-27-2022 Urea nitrogen [Mass/Vol] 23 mg/dL 7-18 [facility] Thin prep Papanicolaou smear with manual screeningOrdered By: Jessa Rivera on 12-27-2022 Thin prep Papanicolaou smear with manual screening 15 U/L 15-37 [facility] Thin prep Papanicolaou smear with manual screening 3 5-15 [facility] Laboratory - Hematology and Cell countson 11-18-2022 HbA1c (Bld) [Mass fraction] 6.7 % 4.2-6.3 [facility] Absolute lymphocyte countOrd ered By: Jessa Rivera on 10-20-2022 Lymphocytes Auto (Unsp spec) [#/Vol] 2.81 10*3/uL 0.83-4.51 [facility] Basophil percentageOrdered B y: Jessa Rivera on 10-20-2022 Basophils/100 WBC (Bld) 0.5 % 0-1 [facility] Bilirubin [Mass/Vol] 0.40 mg/dL 0.20-1.00 [facility] Comment on above: For patients on eltr ombopag therapy, use of Dimension [place] TBIL is not recommended. Chloride [Moles/Vol] 104 mmol/L 98-107 [facility] Cholesterol [Mass/Vol] 156 mg/dL <200 [facility] Comment on above: <200 mg/dL Desirable 200-240 mg/dL Borderline >240 mg/dL High Risk Eosinophils/100 WBC (Bld) 2.1 % 0-5 [facility] Glucose [Mass/Vol] 93 mg/dL 74-106 [facility] Neutrophils (Bld) [#/Vol] 6.0 10*3/uL 2.0-7.7 [facility] Neutrophils/100 WBC (Bld) 60.6 % 47-70 [facility] Potassium [Moles/Vol] 3.7 mmol/L 3.5-5.1 [facility] Protein [Mass/Vol] 7.2 g/dL 6.4-8.2 [facility] Sodium [Moles/Vol] 138 mmol/L 136-145 [facility] Triglyceride [Mass/Vol] 129 mg/dL <199 [facility] Comment on above: The drugs N-Acetylcy steine and Metamizole may falsely depress this assay.Serum Triglycerides Reference Interval Normal <150 mg/dL Borderline high 150 - 199 mg/dL High 200 - 499 mg/dL Very High > or = 500 mg/dL WBC (Bld) [#/Vol] 9.9 10*3/uL 4.4-11.0 [facility] Blood erythrocytes count (nu mber/volume)Ordered By: Jessa Rivera on 10-20-2022 RBC (Bld) [#/Vol] 5.42 10*6/uL 4.6-6.2 [facility] Blood hemoglobin measurement (mass/volume)Ordered By: Jessa Rivera on 10-20-2022 Hemoglobin (Bld) [Mass/Vol] 15.2 g/dL 13.0-16.5 [facility] Blood lymphocytes/100 leukoc ytesOrdered By: Jessa Rivera on 10-20-2022 Lymphocytes/100 WBC (Bld) 28.5 % 19-41 [facility] Blood monocytes/100 leukocyt esOrdered By: Jessatammy Rivera on 10-20-2022 Monocytes/100 WBC (Bld) 7.9 % 0-10 [facility] Blood platelet mean volumeOr dered By: Jessa Rivera on 10-20-2022 Platelet mean volume (Bld) [Entitic vol] 10.0 fL 6.2-12.0 [facility] Determination of erythrocyte mean corpuscular volume (MCV)Ordered By: Jessa Rivera on 10-20-2022 MCV (RBC) [Entitic vol] 85.2 fL 80-94 [facility] Hematocrit Auto (Bld) [Volum e fraction]Ordered By: [facility] Nicole on 10-20-2022 Hematocrit (Bld) [Volume fraction] 46.2 % 40-54 [facility] Laboratory - Chemistry and C hemistry - challengeOrdered By: Jessa Rivera on 10-20-2022 ALP [Catalytic activity/Vol] 86 U/L 45-117 [facility] ALT [Catalytic activity/Vol] 50 U/L 16-61 [facility] CO2 [Moles/Vol] 28.0 mmol/L 21.0-32.0 [facility] Globulin (S) [Mass/Vol] 3.5 g/dL 2.2-4.2 [facility] Urea nitrogen/Creatinine [Mass ratio] 16.3 mg/mg 10-20 [facility] Laboratory - Hematology and Cell countsOrdered By: Jessa Rivera on 10-20-2022 Erythrocyte distribution width (RBC) [Entitic vol] 43.4 fL 35.1-43.9 [facility] Erythrocyte distribution width (RBC) [Ratio] 14.3 % 11.6-14.6 [facility] Immature granulocytes/100 WBC (Bld) 0.400 % 0.0-0.9 [facility] Comment on above: IG% - Immature Granu locytes (promyelocytes, myelocytes and metamyelocytes) > 1% indicates that a LEFT SHIFT is Present. MCH (RBC) [Entitic mass] 28.0 pg 27.0-32.0 [facility] Nucleated RBC/100 WBC (Bld) [Ratio] 0 % 0-5 [facility] MCHC Auto (RBC) [Mass/Vol]Or dered By: Jessa Rivera on 10-20-2022 MCHC (RBC) [Mass/Vol] 32.9 g/dL 32-36 [facility] No Panel InformationOrdered By: Jessa Rivera on 10-20-2022 Estimated GFR (MDRD) Amer 121 mL/min >60 [facility] Comment on above: GFR Calc Estimated GFR (MDRD) Non-Af Amer 100 mL/min >60 [facility] Comment on above: Non- GFR Calc Thyroid Stimulating Hormone (TSH) 2.31 uIU/mL 0.358-3.74 [facility] Urine Microalbumin/Creatinin e Ratio TNP [facility] Comment on above: Test not performed Platelets bldOrdered By: Mike Rivera on 10-20-2022 Platelets (Bld) [#/Vol] 223 10*3/uL 150-450 [facility] Serum or plasma albumin sayda urement (mass/volume)Ordered By: Jessa Rivera on 10-20-2022 Albumin [Mass/Vol] 3.7 g/dL 3.2-5.0 [facility] Serum or plasma albumin/glob ulin mass ratioOrdered By: Jessa Rivera on 10-20-2022 Albumin/Globulin [Mass ratio] 1.1 {ratio} 0.9-2.4 [facility] Serum or plasma calcium sayda urement (mass/volume)Ordered By: Jessa Rivera on 10-20-2022 Calcium [Mass/Vol] 9.6 mg/dL 8.5-10.1 [facility] Serum or plasma cholesterol in HDL measurement (mass/volume)Ordered By: Jessa Rivera on 10-20-2022 Cholesterol in HDL [Mass/Vol] 45 mg/dL >40 [facility] Comment on above: The drugs N-Acetylcy steine and Metamizole may falsely depress this assay. Reference Range HDL <40 mg/dL Low HDL Cholesterol HDL >or= 60 mg/dL High HDL Cholesterol Serum or plasma cholesterol in VLDL measurement (mass/volume)Ordered By: Jessa Rivera on 10-20-2022 Cholesterol in VLDL [Mass/Vol] 26 mg/dL 5-40 [facility] Serum or plasma creatinine m easurement (mass/volume)Ordered By: Jessa Rivera on 10-20-2022 Creatinine [Mass/Vol] 0.92 mg/dL 0.70-1.30 [facility] Comment on above: The validity of the calculated GFR & GFRAA in patients over 70 years has not been determined. Clinical correlation is essential. Serum or plasma low density lipoprotein (LDL) cholesterol measurement (mass/volume)Ordered By: Jessa Rivera on 10-20-2022 Cholesterol in LDL [Mass/Vol] 85 mg/dL 0-130 [facility] Serum or plasma urea nitroge n measurement (mass/volume)Ordered By: Jessa Rviera on 10-20-2022 Urea nitrogen [Mass/Vol] 15 mg/dL 7-18 [facility] Thin prep Papanicolaou smear with manual screeningOrdered By: Jessa Rivera on 10-20-2022 Thin prep Papanicolaou smear with manual screening 27 U/L 15-37 [facility] Thin prep Papanicolaou smear with manual screening 6 5-15 [facility] Thin prep Papanicolaou smear with manual screening < 5.0 mg/L NO RANGE EST. [facility] Urine creatinine measurement (mass/volume)Ordered By: Jessa Rivera on 10-20-2022 Creatinine (U) [Mass/Vol] mg/dL NO RANGE EST. [facility] Absolute lymphocyte countOrd ered By: Jessa Rivera on 08-16-2022 Lymphocytes Auto (Unsp spec) [#/Vol] 1.78 10*3/uL 0.83-4.51 [facility] Basophil percentageOrdered B y: Jessa Rivera on 08-16-2022 Basophils/100 WBC (Bld) 0.7 % 0-1 [facility] Bilirubin [Mass/Vol] 0.60 mg/dL 0.20-1.00 [facility] Comment on above: For patients on eltr ombopag therapy, use of Dimension [place] TBIL is not recommended. Chloride [Moles/Vol] 106 mmol/L 98-107 [facility] Eosinophils/100 WBC (Bld) 2.0 % 0-5 [facility] Glucose [Mass/Vol] 168 mg/dL 74-106 [facility] Comment on above: Fasting Glucose resu lt greater than or equal to 126 mg/dL suggests DIABETES MELLITUS per A.D.A. criteria. Neutrophils (Bld) [#/Vol] 4.5 10*3/uL 2.0-7.7 [facility] Neutrophils/100 WBC (Bld) 64.0 % 47-70 [facility] Potassium [Moles/Vol] 4.0 mmol/L 3.5-5.1 [facility] Protein [Mass/Vol] 7.0 g/dL 6.4-8.2 [facility] Sodium [Moles/Vol] 139 mmol/L 136-145 [facility] WBC (Bld) [#/Vol] 7.1 10*3/uL 4.4-11.0 [facility] Blood erythrocytes count (nu mber/volume)Ordered By: Jessa Rivera on 08-16-2022 RBC (Bld) [#/Vol] 5.56 10*6/uL 4.6-6.2 [facility] Blood hemoglobin measurement (mass/volume)Ordered By: Jessa Rivera on 08-16-2022 Hemoglobin (Bld) [Mass/Vol] 15.4 g/dL 13.0-16.5 [facility] Blood lymphocytes/100 leukoc ytesOrdered By: Jessa Rivera on 08-16-2022 Lymphocytes/100 WBC (Bld) 25.2 % 19-41 [facility] Blood monocytes/100 leukocyt esOrdered By: Jessa Rivera on 08-16-2022 Monocytes/100 WBC (Bld) 7.8 % 0-10 [facility] Blood platelet mean volumeOr dered By: Jessa Rivera on 08-16-2022 Platelet mean volume (Bld) [Entitic vol] 9.5 fL 6.2-12.0 [facility] Determination of erythrocyte mean corpuscular volume (MCV)Ordered By: Jessa Rivera on 08-16-2022 MCV (RBC) [Entitic vol] 82.9 fL 80-94 [facility] Hematocrit Auto (Bld) [Volum e fraction]Ordered By: Jessa Rivera on 08-16-2022 Hematocrit (Bld) [Volume fraction] 46.1 % 40-54 [facility] Laboratory - Chemistry and C hemistry - challengeOrdered By: [facility] Nicole on 08-16-2022 ALP [Catalytic activity/Vol] 74 U/L 45-117 [facility] ALT [Catalytic activity/Vol] 51 U/L 16-61 [facility] CO2 [Moles/Vol] 29.0 mmol/L 21.0-32.0 [facility] Globulin (S) [Mass/Vol] 3.1 g/dL 2.2-4.2 [facility] Urea nitrogen/Creatinine [Mass ratio] 17.0 mg/mg 10-20 [facility] Laboratory - Hematology and Cell countsOrdered By: Jessa Rivera on 08-16-2022 Erythrocyte distribution width (RBC) [Entitic vol] 41.9 fL 35.1-43.9 [facility] Erythrocyte distribution width (RBC) [Ratio] 13.9 % 11.6-14.6 [facility] Immature granulocytes/100 WBC (Bld) 0.300 % 0.0-0.9 [facility] Comment on above: IG% - Immature Granu locytes (promyelocytes, myelocytes and metamyelocytes) > 1% indicates that a LEFT SHIFT is Present. MCH (RBC) [Entitic mass] 27.7 pg 27.0-32.0 [facility] Nucleated RBC/100 WBC (Bld) [Ratio] 0 % 0-5 [facility] MCHC Auto (RBC) [Mass/Vol]Or dered By: Jessa Rivera on 08-16-2022 MCHC (RBC) [Mass/Vol] 33.4 g/dL 32-36 [facility] No Panel InformationOrdered By: Jessa Rivera on 08-16-2022 Estimated GFR (MDRD) Amer 117 mL/min >60 [facility] Comment on above: GFR Calc Estimated GFR (MDRD) Non-Af Amer 97 mL/min >60 [facility] Comment on above: Non- GFR Calc Platelets bldOrdered By: Mike Rivera on 08-16-2022 Platelets (Bld) [#/Vol] 202 10*3/uL 150-450 [facility] Serum or plasma albumin sayda urement (mass/volume)Ordered By: Jessa Rivera on 08-16-2022 Albumin [Mass/Vol] 3.9 g/dL 3.2-5.0 [facility] Serum or plasma albumin/glob ulin mass ratioOrdered By: Jessa Rivera on 08-16-2022 Albumin/Globulin [Mass ratio] 1.3 {ratio} 0.9-2.4 [facility] Serum or plasma calcium sayda urement (mass/volume)Ordered By: Jessa Rivera on 08-16-2022 Calcium [Mass/Vol] 8.7 mg/dL 8.5-10.1 [facility] Serum or plasma creatinine m easurement (mass/volume)Ordered By: Jessa Rivera on 08-16-2022 Creatinine [Mass/Vol] 0.94 mg/dL 0.70-1.30 [facility] Comment on above: The validity of the calculated GFR & GFRAA in patients over 70 years has not been determined. Clinical correlation is essential. Serum or plasma urea nitroge n measurement (mass/volume)Ordered By: Jessa Rivera on 08-16-2022 Urea nitrogen [Mass/Vol] 16 mg/dL 7-18 [facility] Thin prep Papanicolaou smear with manual screeningOrdered By: Jessa Rivera on 08-16-2022 Thin prep Papanicolaou smear with manual screening 22 U/L 15-37 [facility] Thin prep Papanicolaou smear with manual screening 4 5-15 [facility] Absolute lymphocyte countOrd ered By: Dr. Rivera on 06-17-2022 Lymphocytes Auto (Unsp spec) [#/Vol] 2.60 10*3/uL 0.83-4.51 [facility] Basophil percentageOrdered B y: Dr. Rivera on 06-17-2022 Basophils/100 WBC (Bld) 1.0 % 0-1 [facility] Bilirubin [Mass/Vol] 0.40 mg/dL 0.20-1.00 [facility] Comment on above: For patients on eltr ombopag therapy, use of Dimension [place] TBIL is not recommended. Chloride [Moles/Vol] 100 mmol/L 98-107 [facility] Eosinophils/100 WBC (Bld) 3.4 % 0-5 [facility] Glucose [Mass/Vol] 177 mg/dL 74-106 [facility] Comment on above: Fasting Glucose resu lt greater than or equal to 126 mg/dL suggests DIABETES MELLITUS per A.D.A. criteria. Neutrophils (Bld) [#/Vol] 6.1 10*3/uL 2.0-7.7 [facility] Neutrophils/100 WBC (Bld) 61.7 % 47-70 [facility] Potassium [Moles/Vol] 3.7 mmol/L 3.5-5.1 [facility] Protein [Mass/Vol] 7.1 g/dL 6.4-8.2 [facility] Sodium [Moles/Vol] 137 mmol/L 136-145 [facility] WBC (Bld) [#/Vol] 9.9 10*3/uL 4.4-11.0 [facility] Blood erythrocytes count (nu mber/volume)Ordered By: Dr. Rivera on 06-17-2022 RBC (Bld) [#/Vol] 5.47 10*6/uL 4.6-6.2 [facility] Blood hemoglobin measurement (mass/volume)Ordered By: Dr. Rivera on 06-17-2022 Hemoglobin (Bld) [Mass/Vol] 15.1 g/dL 13.0-16.5 [facility] Blood lymphocytes/100 leukoc ytesOrdered By: Dr. Rivera on 06-17-2022 Lymphocytes/100 WBC (Bld) 26.2 % 19-41 [facility] Blood monocytes/100 leukocyt esOrdered By: Dr. Rivera on 06-17-2022 Monocytes/100 WBC (Bld) 7.4 % 0-10 [facility] Blood platelet mean volumeOr dered By: Dr. Rivera on 06-17-2022 Platelet mean volume (Bld) [Entitic vol] 9.2 fL 6.2-12.0 [facility] Determination of erythrocyte mean corpuscular volume (MCV)Ordered By: Dr. Rivera on 06-17-2022 MCV (RBC) [Entitic vol] 83.5 fL 80-94 [facility] Hematocrit Auto (Bld) [Volum e fraction]Ordered By: Dr. Rivera on 06-17-2022 Hematocrit (Bld) [Volume fraction] 45.7 % 40-54 [facility] Laboratory - Chemistry and C hemistry - challengeOrdered By: Dr. Rivera on 06-17-2022 ALP [Catalytic activity/Vol] 89 U/L 45-117 [facility] ALT [Catalytic activity/Vol] 47 U/L 16-61 [facility] CO2 [Moles/Vol] 29.0 mmol/L 21.0-32.0 [facility] Globulin (S) [Mass/Vol] 3.3 g/dL 2.2-4.2 [facility] Urea nitrogen/Creatinine [Mass ratio] 18.2 mg/mg 10-20 [facility] Laboratory - Hematology and Cell countsOrdered By: Dr. Rivera on 06-17-2022 Erythrocyte distribution width (RBC) [Entitic vol] 38.8 fL 35.1-43.9 [facility] Erythrocyte distribution width (RBC) [Ratio] 12.9 % 11.6-14.6 [facility] Immature granulocytes/100 WBC (Bld) 0.300 % 0.0-0.9 [facility] Comment on above: IG% - Immature Granu locytes (promyelocytes, myelocytes and metamyelocytes) > 1% indicates that a LEFT SHIFT is Present. MCH (RBC) [Entitic mass] 27.6 pg 27.0-32.0 [facility] Nucleated RBC/100 WBC (Bld) [Ratio] 0 % 0-5 [facility] MCHC Auto (RBC) [Mass/Vol]Or dered By: Dr. Rivera on 06-17-2022 MCHC (RBC) [Mass/Vol] 33.0 g/dL 32-36 [facility] No Panel InformationOrdered By: Dr. Rivera on 06-17-2022 Estimated GFR (MDRD) Amer 98 mL/min >60 [facility] Comment on above: GFR Calc Estimated GFR (MDRD) Non-Af Amer 81 mL/min >60 [facility] Comment on above: Non- GFR Calc Platelets bldOrdered By: Dr. Rivera on 06-17-2022 Platelets (Bld) [#/Vol] 213 10*3/uL 150-450 [facility] Serum or plasma albumin sayda urement (mass/volume)Ordered By: Dr. Rivera on 06-17-2022 Albumin [Mass/Vol] 3.8 g/dL 3.2-5.0 [facility] Serum or plasma albumin/glob ulin mass ratioOrdered By: Dr. Rivera on 06-17-2022 Albumin/Globulin [Mass ratio] 1.2 {ratio} 0.9-2.4 [facility] Serum or plasma calcium sayda urement (mass/volume)Ordered By: Dr. Rivera on 06-17-2022 Calcium [Mass/Vol] 9.6 mg/dL 8.5-10.1 [facility] Serum or plasma creatinine m easurement (mass/volume)Ordered By: Dr. Rivera on 06-17-2022 Creatinine [Mass/Vol] 1.10 mg/dL 0.70-1.30 [facility] Comment on above: The validity of the calculated GFR & GFRAA in patients over 70 years has not been determined. Clinical correlation is essential. Serum or plasma urea nitroge n measurement (mass/volume)Ordered By: Dr. Rivera on 06-17-2022 Urea nitrogen [Mass/Vol] 20 mg/dL 7-18 [facility] Thin prep Papanicolaou smear with manual screeningOrdered By: Dr. Rivera on 06-17-2022 Thin prep Papanicolaou smear with manual screening 25 U/L 15-37 [facility] Thin prep Papanicolaou smear with manual screening 8 5-15 [facility] Laboratory - Hematology and Cell countson 05-20-2022 HbA1c (Bld) [Mass fraction] 8.1 % 4.2-6.3 [facility] Absolute lymphocyte countOrd ered By: Dr. Rivera on 05-17-2022 Lymphocytes Auto (Unsp spec) [#/Vol] 2.02 10*3/uL 0.83-4.51 [facility] Basophil percentageOrdered B y: Dr. Rivera on 05-17-2022 Basophils/100 WBC (Bld) 0.8 % 0-1 [facility] Bilirubin [Mass/Vol] 0.50 mg/dL 0.20-1.00 [facility] Comment on above: For patients on eltr ombopag therapy, use of Dimension [place] TBIL is not recommended. Chloride [Moles/Vol] 105 mmol/L 98-107 [facility] Eosinophils/100 WBC (Bld) 3.4 % 0-5 [facility] Glucose [Mass/Vol] 157 mg/dL 74-106 [facility] Comment on above: Fasting Glucose resu lt greater than or equal to 126 mg/dL suggests DIABETES MELLITUS per A.D.A. criteria. Neutrophils (Bld) [#/Vol] 5.1 10*3/uL 2.0-7.7 [facility] Neutrophils/100 WBC (Bld) 61.8 % 47-70 [facility] Potassium [Moles/Vol] 4.1 mmol/L 3.5-5.1 [facility] Protein [Mass/Vol] 7.2 g/dL 6.4-8.2 [facility] Sodium [Moles/Vol] 140 mmol/L 136-145 [facility] WBC (Bld) [#/Vol] 8.2 10*3/uL 4.4-11.0 [facility] Blood erythrocytes count (nu mber/volume)Ordered By: Dr. Rivera on 05-17-2022 RBC (Bld) [#/Vol] 5.56 10*6/uL 4.6-6.2 [facility] Blood hemoglobin measurement (mass/volume)Ordered By: Dr. Rivera on 05-17-2022 Hemoglobin (Bld) [Mass/Vol] 15.7 g/dL 13.0-16.5 [facility] Blood lymphocytes/100 leukoc ytesOrdered By: Dr. Rivera on 05-17-2022 Lymphocytes/100 WBC (Bld) 24.5 % 19-41 [facility] Blood monocytes/100 leukocyt esOrdered By: Dr. Rivera on 05-17-2022 Monocytes/100 WBC (Bld) 8.9 % 0-10 [facility] Blood platelet mean volumeOr dered By: Dr. Rivera on 05-17-2022 Platelet mean volume (Bld) [Entitic vol] 9.2 fL 6.2-12.0 [facility] Determination of erythrocyte mean corpuscular volume (MCV)Ordered By: Dr. Rivera on 05-17-2022 MCV (RBC) [Entitic vol] 83.8 fL 80-94 [facility] Hematocrit Auto (Bld) [Volum e fraction]Ordered By: Dr. Rivera on 05-17-2022 Hematocrit (Bld) [Volume fraction] 46.6 % 40-54 [facility] Laboratory - Chemistry and C hemistry - challengeOrdered By: Dr. Rivera on 05-17-2022 ALP [Catalytic activity/Vol] 84 U/L 45-117 [facility] ALT [Catalytic activity/Vol] 65 U/L 16-61 [facility] CO2 [Moles/Vol] 28.0 mmol/L 21.0-32.0 [facility] Globulin (S) [Mass/Vol] 3.6 g/dL 2.2-4.2 [facility] Urea nitrogen/Creatinine [Mass ratio] 22.4 mg/mg 10-20 [facility] Laboratory - Hematology and Cell countsOrdered By: Dr. Rivera on 05-17-2022 Erythrocyte distribution width (RBC) [Entitic vol] 42.5 fL 35.1-43.9 [facility] Erythrocyte distribution width (RBC) [Ratio] 14.2 % 11.6-14.6 [facility] Immature granulocytes/100 WBC (Bld) 0.600 % 0.0-0.9 [facility] Comment on above: IG% - Immature Granu locytes (promyelocytes, myelocytes and metamyelocytes) > 1% indicates that a LEFT SHIFT is Present. MCH (RBC) [Entitic mass] 28.2 pg 27.0-32.0 [facility] Nucleated RBC/100 WBC (Bld) [Ratio] 0 % 0-5 [facility] MCHC Auto (RBC) [Mass/Vol]Or dered By: Dr. Rivera on 05-17-2022 MCHC (RBC) [Mass/Vol] 33.7 g/dL 32-36 [facility] No Panel InformationOrdered By: Dr. Rivera on 05-17-2022 Estimated GFR (MDRD) Amer 118 mL/min >60 [facility] Comment on above: GFR Calc Estimated GFR (MDRD) Non-Af Amer 98 mL/min >60 [facility] Comment on above: Non- GFR Calc Platelets bldOrdered By: Dr. Rivera on 05-17-2022 Platelets (Bld) [#/Vol] 216 10*3/uL 150-450 [facility] Serum or plasma albumin sayda urement (mass/volume)Ordered By: Dr. Rivera on 05-17-2022 Albumin [Mass/Vol] 3.6 g/dL 3.2-5.0 [facility] Serum or plasma albumin/glob ulin mass ratioOrdered By: Dr. Rivera on 05-17-2022 Albumin/Globulin [Mass ratio] 1.0 {ratio} 0.9-2.4 [facility] Serum or plasma calcium sayda urement (mass/volume)Ordered By: Dr. Rivera on 05-17-2022 Calcium [Mass/Vol] 8.8 mg/dL 8.5-10.1 [facility] Serum or plasma creatinine m easurement (mass/volume)Ordered By: Dr. Rivera on 05-17-2022 Creatinine [Mass/Vol] 0.94 mg/dL 0.70-1.30 [facility] Comment on above: The validity of the calculated GFR & GFRAA in patients over 70 years has not been determined. Clinical correlation is essential. Serum or plasma urea nitroge n measurement (mass/volume)Ordered By: Dr. Rivera on 05-17-2022 Urea nitrogen [Mass/Vol] 21 mg/dL 7-18 [facility] Thin prep Papanicolaou smear with manual screeningOrdered By: Dr. Rivera on 05-17-2022 Thin prep Papanicolaou smear with manual screening 34 U/L 15-37 [facility] Thin prep Papanicolaou smear with manual screening 7 5-15 [facility] Basophil percentageOrdered B y: Dr. Rivera on 04-02-2022 Bilirubin [Mass/Vol] 0.40 mg/dL 0.20-1.00 [facility] Comment on above: For patients on eltr ombopag therapy, use of Dim[place] TBIL is not recommended. Chloride [Moles/Vol] 101 mmol/L 98-107 [facility] Glucose [Mass/Vol] 182 mg/dL 74-106 [facility] Comment on above: Fasting Glucose resu lt greater than or equal to 126 mg/dL suggests DIABETES MELLITUS per A.D.A. criteria. Potassium [Moles/Vol] 3.9 mmol/L 3.5-5.1 [facility] Protein [Mass/Vol] 7.1 g/dL 6.4-8.2 [facility] Sodium [Moles/Vol] 137 mmol/L 136-145 [facility] Laboratory - Chemistry and C hemistry - challengeOrdered By: Dr. Rivera on 04-02-2022 ALP [Catalytic activity/Vol] 109 U/L 45-117 [facility] ALT [Catalytic activity/Vol] 58 U/L 16-61 [facility] CO2 [Moles/Vol] 30.0 mmol/L 21.0-32.0 [facility] Globulin (S) [Mass/Vol] 3.2 g/dL 2.2-4.2 [facility] Urea nitrogen/Creatinine [Mass ratio] 20.8 mg/mg 10-20 [facility] No Panel InformationOrdered By: Dr. Rivera on 04-02-2022 Estimated GFR (MDRD) Amer 108 mL/min >60 [facility] Comment on above: GFR Calc Estimated GFR (MDRD) Non-Af Amer 90 mL/min >60 [facility] Comment on above: Non- GFR Calc Serum or plasma albumin sayda urement (mass/volume)Ordered By: Dr. Rivera on 04-02-2022 Albumin [Mass/Vol] 3.9 g/dL 3.2-5.0 [facility] Serum or plasma albumin/glob ulin mass ratioOrdered By: Dr. Rivera on 04-02-2022 Albumin/Globulin [Mass ratio] 1.2 {ratio} 0.9-2.4 [facility] Serum or plasma calcium sayda urement (mass/volume)Ordered By: Dr. Rivera on 04-02-2022 Calcium [Mass/Vol] 8.9 mg/dL 8.5-10.1 [facility] Serum or plasma creatinine m easurement (mass/volume)Ordered By: Dr. Rivera on 04-02-2022 Creatinine [Mass/Vol] 1.01 mg/dL 0.70-1.30 [facility] Comment on above: The validity of the calculated GFR & GFRAA in patients over 70 years has not been determined. Clinical correlation is essential. Serum or plasma urea nitroge n measurement (mass/volume)Ordered By: Dr. Rivera on 04-02-2022 Urea nitrogen [Mass/Vol] 21 mg/dL 7-18 [facility] Thin prep Papanicolaou smear with manual screeningOrdered By: Dr. Rivera on 04-02-2022 Thin prep Papanicolaou smear with manual screening 25 U/L 15-37 [facility] Thin prep Papanicolaou smear with manual screening 6 5-15 [facility] Absolute lymphocyte countOrd ered By: Dr. Rivera on 03-27-2022 Lymphocytes Auto (Unsp spec) [#/Vol] 3.35 10*3/uL 0.83-4.51 [facility] Basophil percentageOrdered B y: Dr. Rivera on 03-27-2022 Basophils/100 WBC (Bld) 0.6 % 0-1 [facility] Bilirubin [Mass/Vol] 0.40 mg/dL 0.20-1.00 [facility] Comment on above: For patients on eltr ombopag therapy, use of [employer] [place] TBIL is not recommended. Chloride [Moles/Vol] 100 mmol/L 98-107 [facility] Eosinophils/100 WBC (Bld) 2.4 % 0-5 [facility] Glucose [Mass/Vol] 162 mg/dL 74-106 [facility] Comment on above: Fasting Glucose resu lt greater than or equal to 126 mg/dL suggests DIABETES MELLITUS per A.D.A. criteria. Neutrophils (Bld) [#/Vol] 6.0 10*3/uL 2.0-7.7 [facility] Neutrophils/100 WBC (Bld) 57.1 % 47-70 [facility] Potassium [Moles/Vol] 4.2 mmol/L 3.5-5.1 [facility] Comment on above: Moderate Hemolysis, Result may be falsely increased. Protein [Mass/Vol] 7.3 g/dL 6.4-8.2 [facility] Sodium [Moles/Vol] 137 mmol/L 136-145 [facility] WBC (Bld) [#/Vol] 10.5 10*3/uL 4.4-11.0 [facility] Blood erythrocytes count (nu mber/volume)Ordered By: Dr. Rivera on 03-27-2022 RBC (Bld) [#/Vol] 5.49 10*6/uL 4.6-6.2 [facility] Blood hemoglobin measurement (mass/volume)Ordered By: Dr. Rivera on 03-27-2022 Hemoglobin (Bld) [Mass/Vol] 15.0 g/dL 13.0-16.5 [facility] Blood lymphocytes/100 leukoc ytesOrdered By: Dr. Rivera on 03-27-2022 Lymphocytes/100 WBC (Bld) 31.9 % 19-41 [facility] Blood monocytes/100 leukocyt esOrdered By: Dr. Rivera on 03-27-2022 Monocytes/100 WBC (Bld) 7.5 % 0-10 [facility] Blood platelet mean volumeOr dered By: Dr. Rivera on 03-27-2022 Platelet mean volume (Bld) [Entitic vol] 10.0 fL 6.2-12.0 [facility] Determination of erythrocyte mean corpuscular volume (MCV)Ordered By: Dr. Rivera on 03-27-2022 MCV (RBC) [Entitic vol] 82.5 fL 80-94 [facility] Hematocrit Auto (Bld) [Volum e fraction]Ordered By: Dr. Rivera on 03-27-2022 Hematocrit (Bld) [Volume fraction] 45.3 % 40-54 [facility] Laboratory - Chemistry and C hemistry - challengeOrdered By: Dr. Rivera on 03-27-2022 ALP [Catalytic activity/Vol] 100 U/L 45-117 [facility] ALT [Catalytic activity/Vol] 57 U/L 16-61 [facility] CO2 [Moles/Vol] 32.0 mmol/L 21.0-32.0 [facility] Globulin (S) [Mass/Vol] 3.7 g/dL 2.2-4.2 [facility] Urea nitrogen/Creatinine [Mass ratio] 19.8 mg/mg 10-20 [facility] Laboratory - Hematology and Cell countsOrdered By: Dr. Rivera on 03-27-2022 Erythrocyte distribution width (RBC) [Entitic vol] 40.3 fL 35.1-43.9 [facility] Erythrocyte distribution width (RBC) [Ratio] 13.5 % 11.6-14.6 [facility] Immature granulocytes/100 WBC (Bld) 0.500 % 0.0-0.9 [facility] Comment on above: IG% - Immature Granu locytes (promyelocytes, myelocytes and metamyelocytes) > 1% indicates that a LEFT SHIFT is Present. MCH (RBC) [Entitic mass] 27.3 pg 27.0-32.0 [facility] Nucleated RBC/100 WBC (Bld) [Ratio] 0 % 0-5 [facility] MCHC Auto (RBC) [Mass/Vol]Or dered By: Dr. Rivera on 03-27-2022 MCHC (RBC) [Mass/Vol] 33.1 g/dL 32-36 [facility] No Panel InformationOrdered By: Dr. Rivera on 03-27-2022 Estimated GFR (MDRD) Amer 97 mL/min >60 [facility] Comment on above: GFR Calc Estimated GFR (MDRD) Non-Af Amer 80 mL/min >60 [facility] Comment on above: Non- GFR Calc Platelets bldOrdered By: Dr. Rivera on 03-27-2022 Platelets (Bld) [#/Vol] 213 10*3/uL 150-450 [facility] Serum or plasma albumin sayda urement (mass/volume)Ordered By: Dr. Rivera on 03-27-2022 Albumin [Mass/Vol] 3.6 g/dL 3.2-5.0 [facility] Serum or plasma albumin/glob ulin mass ratioOrdered By: Dr. Rivera on 03-27-2022 Albumin/Globulin [Mass ratio] 1.0 {ratio} 0.9-2.4 [facility] Serum or plasma calcium sayda urement (mass/volume)Ordered By: Dr. Rivera on 03-27-2022 Calcium [Mass/Vol] 9.5 mg/dL 8.5-10.1 [facility] Serum or plasma creatinine m easurement (mass/volume)Ordered By: Dr. Rivera on 03-27-2022 Creatinine [Mass/Vol] 1.11 mg/dL 0.70-1.30 [facility] Comment on above: The validity of the calculated GFR & GFRAA in patients over 70 years has not been determined. Clinical correlation is essential. Serum or plasma urea nitroge n measurement (mass/volume)Ordered By: Dr. Rivera on 03-27-2022 Urea nitrogen [Mass/Vol] 22 mg/dL 7-18 [facility] Thin prep Papanicolaou smear with manual screeningOrdered By: Dr. Rivera on 03-27-2022 Thin prep Papanicolaou smear with manual screening 48 U/L 15-37 [facility] Comment on above: Moderate Hemolysis, Result may be falsely increased. Thin prep Papanicolaou smear with manual screening 5 5-15 [facility] Absolute lymphocyte countOrd ered By: Dr. Rivera on 01-27-2022 Lymphocytes Auto (Unsp spec) [#/Vol] 2.92 10*3/uL 0.83-4.51 [facility] Basophil percentageOrdered B y: Dr. Rivera on 01-27-2022 Basophils/100 WBC (Bld) 0.6 % 0-1 [facility] Bilirubin [Mass/Vol] 0.40 mg/dL 0.20-1.00 [facility] Comment on above: For patients on eltr ombopag therapy, use of [employer] [place] TBIL is not recommended. Chloride [Moles/Vol] 106 mmol/L 98-107 [facility] Eosinophils/100 WBC (Bld) 1.8 % 0-5 [facility] Glucose [Mass/Vol] 153 mg/dL 74-106 [facility] Comment on above: Fasting Glucose resu lt greater than or equal to 126 mg/dL suggests DIABETES MELLITUS per A.D.A. criteria. Neutrophils (Bld) [#/Vol] 6.4 10*3/uL 2.0-7.7 [facility] Neutrophils/100 WBC (Bld) 62.5 % 47-70 [facility] Potassium [Moles/Vol] 3.8 mmol/L 3.5-5.1 [facility] Protein [Mass/Vol] 7.2 g/dL 6.4-8.2 [facility] Sodium [Moles/Vol] 139 mmol/L 136-145 [facility] WBC (Bld) [#/Vol] 10.3 10*3/uL 4.4-11.0 [facility] Blood erythrocytes count (nu mber/volume)Ordered By: Dr. Rivera on 01-27-2022 RBC (Bld) [#/Vol] 5.47 10*6/uL 4.6-6.2 [facility] Blood hemoglobin measurement (mass/volume)Ordered By: Dr. Rivera on 01-27-2022 Hemoglobin (Bld) [Mass/Vol] 15.3 g/dL 13.0-16.5 [facility] Blood lymphocytes/100 leukoc ytesOrdered By: Dr. Rivera on 01-27-2022 Lymphocytes/100 WBC (Bld) 28.4 % 19-41 [facility] Blood monocytes/100 leukocyt esOrdered By: Dr. Rivera on 01-27-2022 Monocytes/100 WBC (Bld) 6.4 % 0-10 [facility] Blood platelet mean volumeOr dered By: Dr. Rivera on 01-27-2022 Platelet mean volume (Bld) [Entitic vol] 9.2 fL 6.2-12.0 [facility] Determination of erythrocyte mean corpuscular volume (MCV)Ordered By: Dr. Rivera on 01-27-2022 MCV (RBC) [Entitic vol] 82.1 fL 80-94 [facility] Hematocrit Auto (Bld) [Volum e fraction]Ordered By: Dr. Rivera on 01-27-2022 Hematocrit (Bld) [Volume fraction] 44.9 % 40-54 [facility] Laboratory - Chemistry and C hemistry - challengeOrdered By: Dr. Rivera on 01-27-2022 ALP [Catalytic activity/Vol] 88 U/L 45-117 [facility] ALT [Catalytic activity/Vol] 50 U/L 16-61 [facility] CO2 [Moles/Vol] 28.0 mmol/L 21.0-32.0 [facility] Globulin (S) [Mass/Vol] 3.4 g/dL 2.2-4.2 [facility] Urea nitrogen/Creatinine [Mass ratio] 15.6 mg/mg 10-20 [facility] Laboratory - Hematology and Cell countsOrdered By: Dr. Rivera on 01-27-2022 Erythrocyte distribution width (RBC) [Entitic vol] 40.1 fL 35.1-43.9 [facility] Erythrocyte distribution width (RBC) [Ratio] 13.5 % 11.6-14.6 [facility] Immature granulocytes/100 WBC (Bld) 0.300 % 0.0-0.9 [facility] Comment on above: IG% - Immature Granu locytes (promyelocytes, myelocytes and metamyelocytes) > 1% indicates that a LEFT SHIFT is Present. MCH (RBC) [Entitic mass] 28.0 pg 27.0-32.0 [facility] Nucleated RBC/100 WBC (Bld) [Ratio] 0 % 0-5 [facility] MCHC Auto (RBC) [Mass/Vol]Or dered By: Dr. Rivera on 01-27-2022 MCHC (RBC) [Mass/Vol] 34.1 g/dL 32-36 [facility] No Panel InformationOrdered By: Dr. Rivera on 01-27-2022 Estimated GFR (MDRD) Amer 74 mL/min >60 [facility] Comment on above: GFR Calc Estimated GFR (MDRD) Non-Af Amer 61 mL/min >60 [facility] Comment on above: Non- GFR Calc Platelets bldOrdered By: Dr. Rivera on 01-27-2022 Platelets (Bld) [#/Vol] 232 10*3/uL 150-450 [facility] Serum or plasma albumin sayda urement (mass/volume)Ordered By: Dr. Rivera on 01-27-2022 Albumin [Mass/Vol] 3.8 g/dL 3.2-5.0 [facility] Serum or plasma albumin/glob ulin mass ratioOrdered By: Dr. Rivera on 01-27-2022 Albumin/Globulin [Mass ratio] 1.1 {ratio} 0.9-2.4 [facility] Serum or plasma calcium sayda urement (mass/volume)Ordered By: Dr. Rivera on 01-27-2022 Calcium [Mass/Vol] 8.9 mg/dL 8.5-10.1 [facility] Serum or plasma creatinine m easurement (mass/volume)Ordered By: Dr. Rivera on 01-27-2022 Creatinine [Mass/Vol] 1.41 mg/dL 0.70-1.30 [facility] Comment on above: The validity of the calculated GFR & GFRAA in patients over 70 years has not been determined. Clinical correlation is essential. Serum or plasma urea nitroge n measurement (mass/volume)Ordered By: Dr. Rivera on 01-27-2022 Urea nitrogen [Mass/Vol] 22 mg/dL 7-18 [facility] Thin prep Papanicolaou smear with manual screeningOrdered By: Dr. Rivera on 01-27-2022 Thin prep Papanicolaou smear with manual screening 23 U/L 15-37 [facility] Thin prep Papanicolaou smear with manual screening 5 5-15 [facility] Laboratory - Hematology and Cell countson 11-28-2021 HbA1c (Bld) [Mass fraction] 7.0 % [facility] Work Phone: Absolute lymphocyte counton 11-16-2021 Lymphocytes Auto (Unsp spec) [#/Vol] 1.89 10*3/uL 0.83-4.51 [facility] Work Phone: Basophil percentageon 2021 Basophils/100 WBC (Bld) 0.6 % 0-1 [facility] Work Phone: Bilirubin [Mass/Vol] 0.60 mg/dL 0.20-1.00 [facility] Work Phone: Comment on above: For patients on eltr ombopag therapy, use of [employer] [place] TBIL is not recommended. Chloride [Moles/Vol] 105 mmol/L 98-107 [facility] Work Phone: Eosinophils/100 WBC (Bld) 1.8 % 0-5 [facility] Work Phone: Glucose [Mass/Vol] 178 mg/dL 74-106 [facility] Work Phone: Comment on above: Fasting Glucose resu lt greater than or equal to 126 mg/dL suggests DIABETES MELLITUS per A.D.A. criteria. Neutrophils (Bld) [#/Vol] 5.1 10*3/uL 2.0-7.7 [facility] Work Phone: Neutrophils/100 WBC (Bld) 65.1 % 47-70 [facility] Work Phone: Potassium [Moles/Vol] 4.2 mmol/L 3.5-5.1 [facility] Work Phone: Protein [Mass/Vol] 7.2 g/dL 6.4-8.2 [facility] Work Phone: Sodium [Moles/Vol] 138 mmol/L 136-145 [facility] Work Phone: WBC (Bld) [#/Vol] 7.8 10*3/uL 4.4-11.0 [facility] Work Phone: Blood erythrocytes count (nu mber/volume)on 11-16-2021 RBC (Bld) [#/Vol] 5.70 10*6/uL 4.6-6.2 [facility] Work Phone: Blood hemoglobin measurement (mass/volume)on 11-16-2021 Hemoglobin (Bld) [Mass/Vol] 15.7 g/dL 13.0-16.5 [facility] Work Phone: Blood lymphocytes/100 leukoc yteson 11-16-2021 Lymphocytes/100 WBC (Bld) 24.1 % 19-41 [facility] Work Phone: Blood monocytes/100 leukocyt eson 11-16-2021 Monocytes/100 WBC (Bld) 8.0 % 0-10 [facility] Work Phone: Blood platelet mean volumeon 11-16-2021 Platelet mean volume (Bld) [Entitic vol] 9.7 fL 6.2-12.0 [facility] Work Phone: Determination of erythrocyte mean corpuscular volume (MCV)on 11-16-2021 MCV (RBC) [Entitic vol] 81.4 fL 80-94 [facility] Work Phone: Hematocrit Auto (Bld) [Volum e fraction]on 11-16-2021 Hematocrit (Bld) [Volume fraction] 46.4 % 40-54 [facility] Work Phone: Laboratory - Chemistry and C hemistry - challengeon 11-16-2021 ALP [Catalytic activity/Vol] 91 U/L 45-117 [facility] Work Phone: ALT [Catalytic activity/Vol] 42 U/L 16-61 [facility] Work Phone: CO2 [Moles/Vol] 28.0 mmol/L 21.0-32.0 [facility] Work Phone: Globulin (S) [Mass/Vol] 3.6 g/dL 2.2-4.2 [facility] Work Phone: Urea nitrogen/Creatinine [Mass ratio] 20.6 mg/mg 10-20 [facility] Work Phone: Laboratory - Hematology and Cell countson 11-16-2021 Erythrocyte distribution width (RBC) [Entitic vol] 39.5 fL 35.1-43.9 [facility] Work Phone: Erythrocyte distribution width (RBC) [Ratio] 13.5 % 11.6-14.6 [facility] Work Phone: Immature granulocytes/100 WBC (Bld) 0.400 % 0.0-0.9 [facility] Work Phone: Comment on above: IG% - Immature Granu locytes (promyelocytes, myelocytes and metamyelocytes) > 1% indicates that a LEFT SHIFT is Present. MCH (RBC) [Entitic mass] 27.5 pg 27.0-32.0 [facility] Work Phone: Nucleated RBC/100 WBC (Bld) [Ratio] 0 % 0-5 [facility] Work Phone: MCHC Auto (RBC) [Mass/Vol]on 11-16-2021 MCHC (RBC) [Mass/Vol] 33.8 g/dL 32-36 [facility] Work Phone: No Panel Informationon 11-16 Estimated GFR (MDRD) Amer 121 mL/min >60 [facility] Work Phone: Comment on above: GFR Calc Estimated GFR (MDRD) Non-Af Amer 100 mL/min >60 [facility] Work Phone: Comment on above: Non- GFR Calc Hepatitis B Surface Antigen Non-Reactive Nonreactive [facility] Work Phone: Hepatitis C Antibody Non-Reactive Nonreactive [facility] Work Phone: Comment on above: Non Reactive: < 0.8 Equivocal: >/= 0.8 to < 1.0 Reactive: >/= 1.0The CDC recommends that a reactive/equivocal HCV antibody result be followed up by the HCV Nucleic Acid Amplificationtest (493763) Platelets bldon 11-16-2021 Platelets (Bld) [#/Vol] 219 10*3/uL 150-450 [facility] Work Phone: Serum hepatitis B virus surf leonard antibody IgG detectionon 11-16-2021 HBV surface IgG Ql (S) Reactive [facility] Work Phone: Comment on above: Non Reactive: Incons istent with immunity less than <10 mIU/mL Reactive: Consistent with immunity greater than or equal to 10 mIU/mL Serum or plasma albumin sayda urement (mass/volume)on 11-16-2021 Albumin [Mass/Vol] 3.6 g/dL 3.2-5.0 [facility] Work Phone: Serum or plasma albumin/glob ulin mass ratioon 11-16-2021 Albumin/Globulin [Mass ratio] 1.0 {ratio} 0.9-2.4 [facility] Work Phone: Serum or plasma calcium sayda urement (mass/volume)on 11-16-2021 Calcium [Mass/Vol] 8.7 mg/dL 8.5-10.1 [facility] Work Phone: Serum or plasma creatinine m easurement (mass/volume)on 11-16-2021 Creatinine [Mass/Vol] 0.92 mg/dL 0.70-1.30 [facility] Work Phone: Comment on above: The validity of the calculated GFR & GFRAA in patients over 70 years has not been determined. Clinical correlation is essential. Serum or plasma urea nitroge n measurement (mass/volume)on 11-16-2021 Urea nitrogen [Mass/Vol] 19 mg/dL 7-18 [facility] Work Phone: Thin prep Papanicolaou smear with manual screeningon 11-16-2021 Thin prep Papanicolaou smear with manual screening 19 U/L 15-37 [facility] Work Phone: Thin prep Papanicolaou smear with manual screening 5 5-15 [facility] Work Phone: Absolute lymphocyte counton 09-04-2021 Lymphocytes Auto (Unsp spec) [#/Vol] 2.51 10*3/uL 0.83-4.51 [facility] Work Phone: Basophil percentageon 2021 Basophils/100 WBC (Bld) 0.7 % 0-1 [facility] Work Phone: Bilirubin [Mass/Vol] 0.40 mg/dL 0.20-1.00 [facility] Work Phone: Comment on above: For patients on eltr ombopag therapy, use of [employer] [place] TBIL is not recommended. Chloride [Moles/Vol] 102 mmol/L 98-107 [facility] Work Phone: Eosinophils/100 WBC (Bld) 3.2 % 0-5 [facility] Work Phone: Glucose [Mass/Vol] 162 mg/dL 74-106 [facility] Work Phone: Comment on above: Fasting Glucose resu lt greater than or equal to 126 mg/dL suggests DIABETES MELLITUS per A.D.A. criteria. Neutrophils (Bld) [#/Vol] 4.8 10*3/uL 2.0-7.7 [facility] Work Phone: Neutrophils/100 WBC (Bld) 56.3 % 47-70 [facility] Work Phone: Potassium [Moles/Vol] 3.6 mmol/L 3.5-5.1 [facility] Work Phone: Protein [Mass/Vol] 7.3 g/dL 6.4-8.2 [facility] Work Phone: Sodium [Moles/Vol] 137 mmol/L 136-145 [facility] Work Phone: WBC (Bld) [#/Vol] 8.5 10*3/uL 4.4-11.0 [facility] Work Phone: Blood erythrocytes count (nu mber/volume)on 09-04-2021 RBC (Bld) [#/Vol] 5.65 10*6/uL 4.6-6.2 [facility] Work Phone: Blood hemoglobin measurement (mass/volume)on 09-04-2021 Hemoglobin (Bld) [Mass/Vol] 15.3 g/dL 13.0-16.5 [facility] Work Phone: Blood lymphocytes/100 leukoc yteson 09-04-2021 Lymphocytes/100 WBC (Bld) 29.5 % 19-41 [facility] Work Phone: Blood monocytes/100 leukocyt eson 09-04-2021 Monocytes/100 WBC (Bld) 9.9 % 0-10 [facility] Work Phone: Blood platelet mean volumeon 09-04-2021 Platelet mean volume (Bld) [Entitic vol] 9.5 fL 6.2-12.0 [facility] Work Phone: Determination of erythrocyte mean corpuscular volume (MCV)on 09-04-2021 MCV (RBC) [Entitic vol] 80.7 fL 80-94 [facility] Work Phone: Erythrocyte sedimentation ra jose 09-04-2021 ESR (Bld) [Velocity] 13 mm/h 0-20 [facility] Work Phone: Hematocrit Auto (Bld) [Volum e fraction]on 09-04-2021 Hematocrit (Bld) [Volume fraction] 45.6 % 40-54 [facility] Work Phone: Laboratory - Chemistry and C hemistry - challengeon 09-04-2021 ALP [Catalytic activity/Vol] 95 U/L 45-117 [facility] Work Phone: ALT [Catalytic activity/Vol] 55 U/L 16-61 [facility] Work Phone: CO2 [Moles/Vol] 26.0 mmol/L 21.0-32.0 [facility] Work Phone: Globulin (S) [Mass/Vol] 3.5 g/dL 2.2-4.2 [facility] Work Phone: Urea nitrogen/Creatinine [Mass ratio] 23.3 mg/mg 10-20 [facility] Work Phone: Laboratory - Hematology and Cell countson 09-04-2021 Erythrocyte distribution width (RBC) [Entitic vol] 38.3 fL 35.1-43.9 [facility] Work Phone: Erythrocyte distribution width (RBC) [Ratio] 13.2 % 11.6-14.6 [facility] Work Phone: Immature granulocytes/100 WBC (Bld) 0.400 % 0.0-0.9 [facility] Work Phone: Comment on above: IG% - Immature Granu locytes (promyelocytes, myelocytes and metamyelocytes) > 1% indicates that a LEFT SHIFT is Present. MCH (RBC) [Entitic mass] 27.1 pg 27.0-32.0 [facility] Work Phone: Nucleated RBC/100 WBC (Bld) [Ratio] 0 % 0-5 [facility] Work Phone: MCHC Auto (RBC) [Mass/Vol]on 09-04-2021 MCHC (RBC) [Mass/Vol] 33.6 g/dL 32-36 [facility] Work Phone: No Panel Informationon 09-04 Anti-Nuclear Antibody Screen Negative Negative [facility] Work Phone: Comment on above: Performed at: [address] [id number] Director: Sukhi Ryan PhD, Phone: [phone] Estimated GFR (MDRD) Amer 106 mL/min >60 [facility] Work Phone: Comment on above: GFR Calc Estimated GFR (MDRD) Non-Af Amer 88 mL/min >60 [facility] Work Phone: Comment on above: Non- GFR Calc Thyroid Stimulating Hormone (TSH) 1.60 uIU/mL 0.358-3.74 [facility] Work Phone: Vitamin D 25-Hydroxy 27.0 ng/mL [facility] Work Phone: Comment on above: Vitamin D 25(OH) Sta tus Range Deficiency <20 ng/mL (50nmol/L) Insufficiency 20 - 30 ng/mL (50 - 75 nmol/L) Sufficiency 30 - 100 ng/mL (75 - 250 nmol/L) Toxicity >100 ng/mL (>250 nmol/L) Platelets bldon 09-04-2021 Platelets (Bld) [#/Vol] 236 10*3/uL 150-450 [facility] Work Phone: Serum cyclic citrullinated p eptide IgG antibody assay (units/volume)on 09-04-2021 Cyclic citrullinated peptide IgG Qn < 1 units 0-19 [facility] Work Phone: Comment on above: Negative <20 Weak po sitive 20 - 39 Moderate positive 40 - 59 Strong positive >59Performed at: [facility] [address] [id number] Director: Satinder Chase MD, Phone: [phone] Serum or plasma C reactive p rotein measurement (mass/volume)on 09-04-2021 CRP [Mass/Vol] 9.64 mg/L 0.0-3.0 [facility] Work Phone: Comment on above: C-Reactive Protein ( CRP) provides useful information for thediagnosis, therapy and monitoring of inflammatory processesand associated diseases. For the evaluation of Relative Riskfor Cardiovascular Disease, a High Sensitivity CRP (HSCRP)should be ordered. Serum or plasma albumin sayda urement (mass/volume)on 09-04-2021 Albumin [Mass/Vol] 3.8 g/dL 3.2-5.0 [facility] Work Phone: Serum or plasma albumin/glob ulin mass ratioon 09-04-2021 Albumin/Globulin [Mass ratio] 1.1 {ratio} 0.9-2.4 [facility] Work Phone: Serum or plasma calcium sayda urement (mass/volume)on 09-04-2021 Calcium [Mass/Vol] 9.1 mg/dL 8.5-10.1 [facility] Work Phone: Serum or plasma creatinine m easurement (mass/volume)on 09-04-2021 Creatinine [Mass/Vol] 1.03 mg/dL 0.70-1.30 [facility] Work Phone: Comment on above: The validity of the calculated GFR & GFRAA in patients over 70 years has not been determined. Clinical correlation is essential. Serum or plasma urea nitroge n measurement (mass/volume)on 09-04-2021 Urea nitrogen [Mass/Vol] 24 mg/dL 7-18 [facility] Work Phone: Serum or plasma uric acid me asurement (mass/volume)on 09-04-2021 Urate [Mass/Vol] 4.4 mg/dL 3.5-7.2 [facility] Work Phone: Comment on above: The drugs N-Acetylcy steine and Metamizole may falsely depress this assay. Serum rheumatoid factor dete ctionon 09-04-2021 Rheumatoid factor Ql (S) < 10.0 IU/mL <15 [facility] Work Phone: Thin prep Papanicolaou smear with manual screeningon 09-04-2021 Thin prep Papanicolaou smear with manual screening 31 U/L 15-37 [facility] Work Phone: Thin prep Papanicolaou smear with manual screening 9 5-15 [facility] Work Phone: Laboratory - Hematology and Cell countson 05-28-2021 HbA1c (Bld) [Mass fraction] 7.3 % [facility] Work Phone: Office Visiton 01-16-2017 Documentation of current medications (procedure) Done Invalid Interpretation Code [facility] Work Phone: Tobacco smoking status NHIS Never Invalid Interpretation Code [facility] Work Phone: Tobacco smoking status NHIS Tobacco smoking status NHIS Invalid Interpretation Code [facility] Work Phone: Tobacco use [facility] Never smoker Invalid Interpretation Code [facility] Work Phone: Office Visiton 12-05-2016 Documentation of current medications (procedure) Done Invalid Interpretation Code [facility] Work Phone: Protein mass conc Done [facility] Work Phone: Tobacco smoking status NHIS Never Invalid Interpretation Code [facility] Work Phone: Tobacco smoking status NHIS Never smoker [facility] Work Phone: Tobacco use [facility] Never smoker Invalid Interpretation Code [facility] Work Phone: Office Visiton 11-10-2016 Documentation of current medications (procedure) Done Invalid Interpretation Code [facility] Work Phone: Tobacco smoking status MOIS Never Invalid Interpretation Code [facility] Work Phone: Tobacco use [facility] Never smoker Invalid Interpretation Code [facility] Work Phone: Chart Maintenanceon 10-29-19 17 HbA1c 7.6 % Invalid Interpretation Code [facility] Work Phone: Lab Report: Bedside Glucoseo n 10-28-2016 Glucose 148 mg/dL High 70-110 [facility] Work Phone: Glucose mass conc 148 mg/dL High 70-110 [facility] Work Phone: Office Visiton 10-03-2016 Documentation of current medications (procedure) Done Invalid Interpretation Code [facility] Work Phone: Protein mass conc [facility] Work Phone: Office Visit: Type 1 diabete son 07-24-2016 Adolescent depression screening assessment Adolescent depression screening assessment Invalid Interpretation Code [facility] Work Phone: Adult depression screening assessment Adolescent depression screening assessment Invalid Interpretation Code [facility] Work Phone: Documentation of current medications (procedure) Done Invalid Interpretation Code [facility] Work Phone: Protein mass conc Done [facility] Work Phone: Tobacco smoking status NHIS Never [facility] Work Phone: Tobacco smoking status NHIS Never smoker [facility] Work Phone: Tobacco use [facility] Never smoker Invalid Interpretation Code [facility] Work Phone: Lab Report: Comprehensive [facility] 11-03-2015 Alanine aminotransferase (ALT) 43 U/L Invalid Interpretation Code 12-78 [facility] Work Phone: Albumin 3.7 g/dL Invalid Interpretation Code 3.4-5.0 [facility] Work Phone: Albumin/Globulin Ratio 1.1 {ratio} Invalid Interpretation Code 0.9-2.4 [facility] Work Phone: Alkaline phosphatase (ALP) 76 U/L Invalid Interpretation Code 50-136 [facility] Work Phone: ALP enzyme act/vol (Bld) 76 U/L 50-136 [facility] Work Phone: Anion gap 7 mmol/L Invalid Interpretation Code 5-15 [facility] Work Phone: Anion gap molar conc 7 mmol/L 5-[address] [facility] Work Phone: Aspartate aminotransferase (AST) 24 U/L Invalid Interpretation Code 15-37 [facility] Work Phone: Bilirubin (total) 0.40 mg/dL Invalid Interpretation Code 0.20-1.00 [facility] Work Phone: BUN/Creatinine Ratio 15.0 RATIO Invalid Interpretation Code 10-20 [facility] Work Phone: Calcium 8.7 mg/dL Invalid Interpretation Code 8.5-10.1 [facility] Work Phone: Chloride 104 mmol/L Invalid Interpretation Code 98-107 [facility] Work Phone: CO2 27.0 mmol/L Invalid Interpretation Code 21.0-32.0 [facility] Work Phone: CO2 ppres (BldV) 27.0 mmol/L 21.0-32.0 [facility] Work Phone: Creatinine 0.86 mg/dL Invalid Interpretation Code 0.70-1.30 [facility] Work Phone: eGFR (non-black) 135 mL/min/{1.73_m2} Invalid Interpretation Code >60 [facility] Work Phone: eGFR (non-black) 112 mL/min/{1.73_m2} Invalid Interpretation Code >60 [facility] Work Phone: EST GFR - AA 135 mL/min >60 [facility] Work Phone: Globulin 3.3 g/dL Invalid Interpretation Code 2.3-3.5 [facility] Work Phone: Globulin mass conc (S) 3.3 g/dL 2.3-3.5 [facility] Work Phone: Glucose 197 mg/dL High 70-110 [facility] Work Phone: Glucose mass conc 197 mg/dL High 70-110 [facility] Work Phone: Potassium 4.2 mmol/L Invalid Interpretation Code 3.5-5.1 [facility] Work Phone: Protein 7.0 g/dL Invalid Interpretation Code 6.4-8.2 [facility] Work Phone: Sodium 138 mmol/L Invalid Interpretation Code 136-145 [facility] Work Phone: Urea nitrogen 13 mg/dL Invalid Interpretation Code 7-18 [facility] Work Phone: Lab Report: Hemoglobin A1con 11-03-2015 HbA1c 7.0 % High 4.2-6.3 [facility] Work Phone: Lab Report: C-Peptideon 04-08 C PEPTIDE 33729 2.5 Invalid Interpretation Code [facility] Work Phone: GE use only - for [employer] import when terms are not otherwise specified 2.5 Invalid Interpretation Code [facility] Work Phone: Lab Report: Lipid Profileon 05-04-2015 Cholesterol 167 mg/dL Invalid Interpretation Code 200 [facility] Work Phone: HDL Cholesterol 41 mg/dL Invalid Interpretation Code [facility] Work Phone: LDL Cholesterol 104 mg/dL Invalid Interpretation Code 0-130 [facility] Work Phone: Triglyceride 109 mg/dL Invalid Interpretation Code [facility] Work Phone: very low density lipoproteins 22 mg/dL Invalid Interpretation Code 5-40 [facility] Work Phone: Lab Report: Thyroid Stim Hor melissa (TSH)on 05-04-2015 Thyroid stimulating hormone (TSH) 1.41 u[iU]/mL Invalid Interpretation Code 0.358-3.74 [facility] Work Phone: Lab Report: Vitamin B12on Cobalamin (Vitamin B12) mass conc 532 pg/mL Invalid Interpretation Code 211911 [facility] Work Phone: vitamin b12, serum 532 pg/mL Invalid Interpretation Code 211911 [facility] Work Phone: Lab Report: Microalb:Creat R atio,Random URon 02-02-2015 ACR (microalbumin/creatini ne) ratio 23.0 MG/G CRE Invalid Interpretation Code <30 mg/g CRE [facility] Work Phone: Albumin/Creatinine DL <= 20 mg/L Ratio (U) 23.0 MG/G CRE <30 mg/g CRE [facility] Work Phone: Urine, creatinine 24.90 mg/dL Invalid Interpretation Code NO RANGE EST. [facility] Work Phone: Urine, microalbumin 0.57 mg/dL Invalid Interpretation Code Units converted. See lab report for original value. [facility] Work Phone: Vital Signs Date Time Vital Sign Value Performing Clinician Facility 10-14-2024 17:19-0400 Body temperature 97.9 [degF] Dr. Marko Anne DO Work Phone: [facility] 10-14-2024 17:19-0400 Diastolic blood pressure 84 mm[Hg] Dr. Marko Anne DO Work Phone: [facility] 10-14-2024 17:19-0400 Heart rate 88 /min Dr. Marko Anne DO Work Phone: [facility] 10-14-2024 17:19-0400 Respiratory rate 16 /min Dr. Marko Anne DO Work Phone: [facility] 10-14-2024 17:19-0400 SaO2% (BldA) [Mass fraction] 97 % Dr. Marko Anne DO Work Phone: [facility] 10-14-2024 17:19-0400 Systolic blood pressure 144 mm[Hg] Dr. Marko Anne DO Work Phone: [facility] 09-15-2024 15:54-0400 Body height 195.[address] Marko Anne DO Work Phone: [facility] 09-15-2024 15:54-0400 Body mass index (BMI) [Ratio] 47.9 kg/m2 Dr. Marko Anne DO Work Phone: [facility] 09-15-2024 15:54-0400 Body weight 183.[address] Marko Anne DO Work Phone: [facility] 09-15-2024 15:54-0400 Diastolic blood pressure 88 mm[Hg] Dr. Marko Anne DO Work Phone: [facility] 09-15-2024 15:54-0400 Heart rate 100 /min Dr. Marko Anne DO Work Phone: [facility] 09-15-2024 15:54-0400 SaO2% (BldA) [Mass fraction] 98 % Dr. Marko Anne DO Work Phone: [facility] 09-15-2024 15:54-0400 Systolic blood pressure 138 mm[Hg] Dr. Marko Anne DO Work Phone: [facility] 05-13-2024 15:29-0500 Body height 195.[address] Marko Anne DO Work Phone: [facility] 05-13-2024 15:29-0500 Body mass index (BMI) [Ratio] 49.4 kg/m2 Dr. Marko Anne DO Work Phone: [facility] 05-13-2024 15:29-0500 Body weight 188.[address] Marko Anne DO Work Phone: [facility] 05-13-2024 15:29-0500 Diastolic blood pressure 81 mm[Hg] Dr. Marko Anne DO Work Phone: [facility] 05-13-2024 15:29-0500 Heart rate 84 /min Dr. Marko Anne DO Work Phone: [facility] 05-13-2024 15:29-0500 SaO2% (BldA) [Mass fraction] 97 % Dr. Marko Anne DO Work Phone: [facility] 05-13-2024 15:29-0500 Systolic blood pressure 137 mm[Hg] Dr. Marko Anne DO Work Phone: [facility] 05-21-2023 15:33-0500 Body height 195.[address] Marko Anne Work Phone: [facility] 05-21-2023 15:33-0500 Body mass index (BMI) [Ratio] 48.9 kg/m2 Dr. Marko Anne Work Phone: [facility] 05-21-2023 15:33-0500 Body temperature 98.6 [degF] Dr. Marko Anne Work Phone: [facility] 05-21-2023 15:33-0500 Body weight 187.[address] Marko Anne Work Phone: [facility] 05-21-2023 15:33-0500 Diastolic blood pressure 86 mm[Hg] Dr. Marko Anne Work Phone: [facility] 05-21-2023 15:33-0500 Heart rate 88 /min Dr. Marko Anne Work Phone: [facility] 05-21-2023 15:33-0500 Respiratory rate 18 /min Dr. Marko Anne Work Phone: [facility] 05-21-2023 15:33-0500 SaO2% (BldA) [Mass fraction] 97 % Dr. Marko Anne Work Phone: [facility] 05-21-2023 15:33-0500 Systolic blood pressure 146 mm[Hg] Dr. Marko Anne Work Phone: [facility] 11-18-2022 15:27-0400 Body height 195.[address] Marko Anne Work Phone: [facility] 11-18-2022 15:27-0400 Body mass index (BMI) [Ratio] 47 kg/m2 Dr. Marko Anne Work Phone: [facility] 11-18-2022 15:27-0400 Body temperature 98.4 [degF] Dr. Marko Anne Work Phone: [facility] 11-18-2022 15:27-0400 Body weight 179.[address] Marko Anne Work Phone: [facility] 11-18-2022 15:27-0400 Diastolic blood pressure 82 mm[Hg] Dr. Marko Anne Work Phone: [facility] 11-18-2022 15:27-0400 Heart rate 78 /min Dr. Marko Anne Work Phone: [facility] 11-18-2022 15:27-0400 Respiratory rate 18 /min Dr. Marko Anne Work Phone: [facility] 11-18-2022 15:27-0400 SaO2% (BldA) [Mass fraction] 98 % Dr. Marko Anne Work Phone: [facility] 11-18-2022 15:27-0400 Systolic blood pressure 142 mm[Hg] Dr. Marko Anne Work Phone: [facility] 05-20-2022 15:31-0500 Body height 195.[address] Marko Anne Work Phone: [facility] 05-20-2022 15:31-0500 Body mass index (BMI) [Ratio] 48.6 kg/m2 Dr. Marko Anne Work Phone: [facility] 05-20-2022 15:31-0500 Body temperature 98.2 [degF] Dr. Marko Anne Work Phone: [facility] 05-20-2022 15:31-0500 Body weight 186.[address] Marko Anne Work Phone: [facility] 05-20-2022 15:31-0500 Diastolic blood pressure 88 mm[Hg] Dr. Marko Anne Work Phone: [facility] 05-20-2022 15:31-0500 Heart rate 106 /min Dr. Marko Anne Work Phone: [facility] 05-20-2022 15:31-0500 Respiratory rate 18 /min Dr. Marko Anne Work Phone: [facility] 05-20-2022 15:31-0500 SaO2% (BldA) [Mass fraction] 93 % Dr. Marko Anne Work Phone: [facility] 05-20-2022 15:31-0500 Systolic blood pressure 157 mm[Hg] Dr. Marko Anne Work Phone: [facility] 11-28-2021 14:15-0400 Body height 195.[address] Marko Anne Work Phone: [facility] Work Phone: 11-28-2021 14:15-0400 Body mass index (BMI) [Ratio] 47 kg/m2 Dr. Marko Anne Work Phone: [facility] Work Phone: 11-28-2021 14:15-0400 Body temperature 94.4 [degF] Dr. Marko Anne Work Phone: [facility] Work Phone: 11-28-2021 14:15-0400 Body weight 179.[address] Marko Anne Work Phone: [facility] Work Phone: 11-28-2021 14:15-0400 Diastolic blood pressure 96 mm[Hg] Dr. Marko Anne Work Phone: [facility] Work Phone: 11-28-2021 14:15-0400 Heart rate 101 /min Dr. Marko Anne Work Phone: [facility] Work Phone: 11-28-2021 14:15-0400 Respiratory rate 18 /min Dr. Marko Anne Work Phone: [facility] Work Phone: 11-28-2021 14:15-0400 SaO2% (BldA) [Mass fraction] 97 % Dr. Marko Anne Work Phone: [facility] Work Phone: 11-28-2021 14:15-0400 Systolic blood pressure 150 mm[Hg] Dr. Marko Anne Work Phone: [facility] Work Phone: 05-28-2021 14:31-0500 Body height 195.58 cm [employer] Marko Hickey [employer] Work Phone: [facility] Work Phone: 05-28-2021 14:31-0500 Body mass index (BMI) [Ratio] 46.7 kg/m2 [employer]ILL[employer] HOPPER FEEDERAmara Zhu Hickey [employer] Work Phone: [facility] Work Phone: 05-28-2021 14:31-0500 Body temperature 93.3 [degF] [employer] Marko Hickey [employer] Work Phone: [facility] Work Phone: 05-28-2021 14:31-0500 Body weight 178.77 kg [employer] Marko Hickey [employer]ER Work Phone: [facility] Work Phone: 05-28-2021 14:31-0500 Diastolic blood pressure 82 mm[Hg] [employer] Marko Hickey [employer] Work Phone: [facility] Work Phone: 05-28-2021 14:31-0500 Heart rate 102 /min [employer] Marko Hickey [employer]ER Work Phone: [facility] Work Phone: 05-28-2021 14:31-0500 Respiratory rate 20 /min [employer] Marko Hickey [employer]ER Work Phone: [facility] Work Phone: 05-28-2021 14:31-0500 SaO2% (BldA) [Mass fraction] 98 % [employer] Marko Hickey [employer] Work Phone: [facility] Work Phone: 05-28-2021 14:31-0500 Systolic blood pressure 148 mm[Hg] [employer] Marko Hickey [employer]ER Work Phone: [facility] Work Phone: 10-20-2016 16:23-0400 BMI (Body Mass Index) 52.04 kg/m2 [facility] Work Phone: 10-20-2016 16:23-0400 Body Temperature 97.8 [degF] [facility] Work Phone: 10-20-2016 16:23-0400 BP Diastolic 86 mm[Hg] Morgan Salamanca [facility] Work Phone: 10-20-2016 16:23-0400 BP Systolic 138 mm[Hg] Morgan ROMAN [facility] Work Phone: 10-20-2016 16:23-0400 Height 190.5 cm [facility] Work Phone: 10-20-2016 16:23-0400 Pulse (Heart Rate) 93 /min Morgan ROMAN [facility] Work Phone: 10-20-2016 16:23-0400 Respiratory Rate 22 /min Morgan JESSICA Jadyn [facility] Work Phone: 10-20-2016 16:23-0400 Weight 188.88 kg Morgan JESSICA Jadyn [facility] Work Phone: 07-24-2016 16:06-0400 BMI (Body Mass Index) 50.24 kg/m2 Dilcia Plunkett DEEPIKA [facility] Work Phone: 07-24-2016 16:06-0400 Body Temperature 98.1 [degF] Dilcia Plunkett [employer] [facility] Work Phone: 07-24-2016 16:06-0400 BP Diastolic 98 mm[Hg] Dilcia Plunkett [employer] [facility] Work Phone: 07-24-2016 16:06-0400 BP Systolic 136 mm[Hg] Dilcia Plunkett [employer] [facility] Work Phone: 07-24-2016 16:06-0400 Height 190.5 cm Dilcia Boggsdominic POE [facility] Work Phone: 07-24-2016 16:06-0400 Pulse (Heart Rate) 106 /min Dilcia Boggsdominic POE [facility] Work Phone: 07-24-2016 16:06-0400 Pulse Oximetry 96 % Dilcia Dimitrios [employer] [facility] Work Phone: 07-24-2016 16:06-0400 Respiratory Rate 16 /min Dilcia Plunkett [employer] [facility] Work Phone: 07-24-2016 16:06-0400 Weight 182.35 kg Dilcia Plunkett [employer] [facility] Work Phone: 08-20-2015 14:51-0400 BSA (Body Surface Area) 2.93 m2 Dilcia Plunkett [employer] [facility] Work Phone: Encounters Encounter Date Encounter Type Care Provider Facility Start: 10-14-2024 End: 10-14-2024 Patient encounter procedure Zane Marks [place] -[facility] Work Phone: Start: 10-14-2024 End: 10-14-[address] Marko Anne DO Work Phone: -[facility] Start: 09-15-2024 End: 09-15-[address] Alejandro Waddell MD -[facility] Work Phone: Start: 09-15-2024 End: 09-15-[address] Marko Anne DO Work Phone: [facility] Work Phone: Start: 08-15-2024 End: 08-15-[address] Marko Anne DO Work Phone: [facility] Work Phone: Start: 08-15-2024 End: 08-15-[address] Jessa Rivera MD -[facility] [place] Work Phone: Start: 08-15-2024 End: 08-15-2024 ambulatory Marko Anne Facility:[facility] Start: 06-13-2024 End: 06-13-[address] Marko Anne DO Work Phone: [facility] Work Phone: Start: 06-13-2024 End: 06-13-[address] Jessa Rivera MD -Laboratory, [place] Work Phone: Start: 06-13-2024 End: 06-13-2024 ambulatory Marko [facility] Facility:[facility] Start: 05-21-2024 End: 05-21-[address] Alejandro Waddell MD -Laboratory Work Phone: Start: 05-21-2024 End: 05-21-2024 ambulatory Marko [facility] Facility:[facility] Start: 05-13-2024 End: 05-13-[address] Alejandro Waddell MD -[facility] Work Phone: Start: 05-13-2024 End: 05-13-2024 ambulatory Marko [facility] Facility:[facility] Start: 04-25-2024 End: 04-25-[address] Jessa Rivera MD -Laboratory, [email or web address] Work Phone: Start: 04-25-2024 End: 04-25-2024 ambulatory Marko MacielOmid Facility:[facility] Start: 02-26-2024 End: 02-26-[address] Jessa Rivera MD -Laboratory, [email or web address] Work Phone: Start: 02-26-2024 End: 02-26-2024 ambulatory Marko Omid Facility:[facility] Start: 01-25-2024 End: 01-26-2024 ambulatory Marko [facility] Facility:[facility] Start: 01-14-2024 End: 01-14-2024 ambulatory Marko [facility] Start: 11-20-2023 End: 11-20-2023 ambulatory Marko [facility] Start: 11-06-2023 End: 11-06-2023 ambulatory Jessa Rivera Facility:[facility] Start: 05-25-2023 End: 05-25-[address] Marko Anne Work Phone: [facility] Work Phone: Start: 05-25-2023 End: 05-25-[address] Marko Anne Work Phone: [facility]-Laboratory, [place] Work Phone: Start: 05-21-2023 End: 05-21-[address] Marko Anne Work Phone: [facility] Work Phone: Start: 02-28-2023 End: 02-28-[address] Marko Anne Work Phone: [facility] Work Phone: Start: 02-28-2023 End: 02-28-[address] [facility] Start: 01-06-2023 End: 01-06-[address] Marko Anne Work Phone: [facility] Work Phone: Start: 12-29-2022 Non-patient / Non-visit Dr. Marko Anne Work Phone: [facility] Start: 12-29-2022 End: 12-29-[address] Marko Anne Work Phone: [facility]-Pulmonary Services/Neurology Work Phone: Start: 12-27-2022 End: 12-27-[address] [facility] Start: 11-18-2022 End: 11-18-[address] Marko Anne Work Phone: [facility] Work Phone: Start: 10-20-2022 End: 10-20-[address] Marko Anne Work Phone: [facility] Work Phone: Start: 10-20-2022 End: 10-20-[address] Marko Anne Work Phone: [facility] Work Phone: Start: 09-25-2022 End: 09-25-[address] Marko Anne Work Phone: [facility] Work Phone: Start: 08-16-2022 End: 08-16-[address] Marko Anne Work Phone: [facility] Work Phone: Start: 06-21-2022 End: 06-21-[address] Marko Anne Work Phone: [facility] Start: 06-17-2022 End: 06-17-[address] Marko Anne Work Phone: [facility] Work Phone: Start: 06-17-2022 End: 06-17-[address] Marko Anne Work Phone: [facility] Start: 05-20-2022 End: 05-20-[address] Marko Anne Work Phone: [facility] Start: 05-17-2022 End: 05-17-[address] Marko Anne Work Phone: [facility] Work Phone: Start: 05-17-2022 End: 05-17-[address] [facility] Start: 04-02-2022 End: 04-02-2022 ambulatory [facility] Work Phone: Start: 04-02-2022 End: 04-02-2022 [facility] Start: 03-27-2022 End: 03-27-2022 ambulatory [facility] Work Phone: Start: 03-27-2022 End: 03-27-2022 Patient encounter procedure [facility] Start: 01-27-2022 End: 01-27-[address] Marko Anne Work Phone: [facility] Work Phone: Start: 01-27-2022 End: 01-27-[address] [facility] Start: 11-28-2021 End: 11-28-[address] Marko Anne Work Phone: [facility] Start: 11-16-2021 End: 11-16-[address] Marko Anne Work Phone: [facility]-Radiology, [facility] Start: 10-21-2021 End: 10-21-2021 Patient encounter procedure [facility]-Cardiovascular Services Start: 09-04-2021 End: 09-04-2021 Patient encounter procedure [employer] Marko Hickey [employer] [facility] Start: 08-17-2021 End: 08-17-2021 Patient encounter procedure [employer] Marko Hickey [employer] Work Phone: [facility]-MRI - [facility] Start: 05-28-2021 End: 05-28-2021 Patient encounter procedure [employer] Marko Hickey [employer] Work Phone: [facility] Procedures Date Procedure Procedure Detail Performing Clinician Start: 05-21-2024 Fol[address]le stimulating hormone measurement Dr. Marko Anne DO Work Phone: Comment on above: NORMAL REFERENCE RAN GES FEMALE FOLLICULAR 2.3 - 12.6 mIU/mL MID-CYCLE PEAK 5.2 - 17.5 mIU/mL LUTEAL 1.7 - 12.9 mIU/mL POST-MENOPAUSAL ON MHT 5.9 - 72.8 mIU/mL NOT ON MHT 12.7 - 132.2 mlU/mL MALE 0.7 - 10.8 mIU/mL Start: 05-21-[address] Marko Anne DO Work Phone: Comment on above: NORMAL REFERENCE RAN GES FEMALE FOLLICULAR 1.9 - 26.2 mIU/mL MID-CYCLE PEAK 22.8 - 76.1 mIU/mL LUTEAL 0.6 - 16.6 mIU/mL POST-MENOPAUSAL ON MHT 1.1 - 52.4 mIU/mL NOT ON MHT 8.6 - 61.8 mIU/mL MALE 1.2 - 10.6 mIU/mL Start: 05-21-[address] Marko Anne DO Work Phone: Start: 05-21-2024 Urine microalbumin/creatinine ratio measurement Dr. Marko Anne DO Work Phone: Start: 04-25-2024 Measurement of renal function Dr. Marko Anne DO Work Phone: Comment on above: GFR Calc Start: 06-21-[address] Marko Anne Work Phone: Start: 11-16-2021 End: 11-16-2021 Radiologic examination of knee Dr. Marko Anne Work Phone: Start: 08-17-2021 MRI of lower extremity [employer] Marko Hickey NP Work Phone: Start: 10-26-2015 End: 10-29-2016 Mri any jt lower extrem w/o contrast matrl Morgan Ty Work Phone: Start: 10-26-2015 End: 10-29-2016 Mri jnt of lwr extre w/o dye Morgan laws Work Phone: Start: 06-27-2015 End: 10-29-2016 Radiologic exam knee complete 4/more views Morgan Ty Work Phone: Start: 06-27-2015 End: 10-29-2016 X-ray exam, knee, 4 or more Morgan S To dd Work Phone: Plan of Treatment Date Care Activity Detail Author Start: 01-16-2017 End: 01-16-2017 Appointment Appointment [facility] Work Phone: Start: 12-05-2016 End: 12-05-2016 Appointment Appointment [facility] Work Phone: Start: 11-12-2016 End: 11-12-2016 Physical Therapy General Physical Therapy [facility], [address] [place] [address], [id number] [facility] Work Phone: Start: 11-12-2016 End: 11-12-2016 Physical Therapy General Physical Therapy [facility], [address] [place] [address], [id number] [facility] Work Phone: Start: 11-10-2016 End: 11-10-2016 Appointment Appointment [facility] Work Phone: Start: 10-28-2016 End: 10-28-2016 Appointment Appointment [facility] Work Phone: Start: 10-22-2016 End: 10-22-2016 Appointment [facility]ointment [facility] Work Phone: Start: 10-22-2016 End: 10-22-2016 Appointment Appointment [facility] Work Phone: Start: 10-20-2016 End: 10-20-2016 Appointment Appointment [facility] Work Phone: Start: 10-20-2016 End: 10-20-2016 *CMP Complete Metabolic Panel *CMP Complete Metabolic Panel [facility] Work Phone: Start: 10-20-2016 End: 10-20-2016 *Microalbumin, Creatine Ratio, rand urine *Microalbumin, Creatine Ratio, rand urine [facility] Work Phone: Start: 10-20-2016 End: 10-20-2016 Hemoglobin A1c/Hemoglobin.total mass fraction (Bld) *HgA1C [facility] Work Phone: Start: 10-20-2016 End: 10-20-2016 Lipid panel [AGGREGATE] *Lipid Profile [facility] Work Phone: Start: 10-20-2016 End: 10-20-2016 *CMP Complete Metabolic Panel *CMP Complete Metabolic Panel [facility] Work Phone: Start: 10-20-2016 End: 10-20-2016 *Microalbumin, Creatine Ratio, rand urine *Microalbumin, Creatine Ratio, rand urine [facility] Work Phone: Start: 10-20-2016 End: 10-20-2016 HbA1c *HgA1C [facility] Work Phone: Start: 10-20-2016 End: 10-20-2016 Lipid panel [AGGREGATE] *Lipid Profile [facility] Work Phone: Start: 10-03-2016 End: 10-03-2016 Appointment Appointment [facility] Work Phone: Start: 07-24-2016 End: 08-02-2016 *CMP Complete Metabolic Panel *CMP Complete Metabolic Panel [facility] Work Phone: Start: 07-24-2016 End: 08-02-2016 *Microalbumin, Creatine Ratio, rand urine *Microalbumin, Creatine Ratio, rand urine [facility] Work Phone: Start: 07-24-2016 End: 08-02-2016 Hemoglobin A1c/Hemoglobin.total mass fraction (Bld) *HgA1C [facility] Work Phone: Start: 07-24-2016 End: 08-02-2016 Lipid panel [AGGREGATE] *Lipid Profile [facility] Work Phone: Start: 07-24-2016 End: 08-02-2016 *CMP Complete Metabolic Panel *CMP Complete Metabolic Panel [facility] Work Phone: Start: 07-24-2016 End: 08-02-2016 *Microalbumin, Creatine Ratio, rand urine *Microalbumin, Creatine Ratio, rand urine [facility] Work Phone: Start: 07-24-2016 End: 08-02-2016 HbA1c *HgA1C [facility] Work Phone: Start: 07-24-2016 End: 08-02-2016 Lipid panel [AGGREGATE] *Lipid Profile [facility] Work Phone: Start: 10-26-2015 End: 10-29-2016 Mri any jt lower extrem w/o contrast matrl MRI Joint Lower Extremity [facility] Work Phone: Start: 10-26-2015 End: 10-29-2016 Mri jnt of lwr extre w/o dye MRI Joint Lower Extremity [facility] Work Phone: Start: 10-04-2015 End: 10-09-[address] [facility] Nutrition Services, [address] [place], [address] [facility] Work Phone: Start: 10-04-2015 End: 10-09-[address] [facility] Nutrition Services, [address] [place], [address] [facility] Work Phone: Start: 06-27-2015 End: 10-29-2016 Radiologic exam knee complete 4/more views X-Ray, Knee [facility] Work Phone: Start: 06-27-2015 End: 10-29-2016 X-ray exam, knee, 4 or more X-Ray, Knee [facility] Work Phone: Start: 06-20-2015 End: 06-22-2015 Orthopedic Referral Orthopedic Referral Morgan Ty DO, [facility], [address], [address], [place], [address] [facility] Work Phone: Start: 06-20-2015 End: 06-22-2015 Orthopedic Referral Orthopedic Referral Morgan Ty DO, [facility], [address], [address], [place], [address] [facility] Work Phone: Start: 05-07-2015 End: 05-09-2015 Endocrinology Referral Endocrinology Referral Reena Avalos MD, [address] [place] [address], [address] [facility] Work Phone: Start: 05-07-2015 End: 05-09-2015 Endocrinology Referral Endocrinology Referral Reena Avalos MD, [address] [place] [address], [address] [facility] Work Phone: Start: 03-15-2015 End: 03-16-2015 Podiatry Referral [facility], [address] [place] [address], [address] [facility] Work Phone: Start: 03-15-2015 End: 03-16-[address] [facility] Nutrition Services, [facility] [place], [address] [facility] Work Phone: Start: 03-15-2015 End: 03-16-2015 Podiatry Referral Podiatry Referral [facility], [address] [place], [address] [facility] Work Phone: Start: 03-15-2015 End: 03-16-[address] [facility] Nutrition Services, [address] [place], [address] [facility] Work Phone: Start: 05-09-2014 End: 05-16-2014 Endocrinology Referral Endocrinology Referral Reena Avalos MD, [address] [place], [address] [facility] Work Phone: Start: 05-09-2014 End: 05-16-2014 Endocrinology Referral Endocrinology Referral Reena Avalos MD, [address] [place], [address] [facility] Work Phone: In-vitro immunologic test [facility] Mycobacterium tuberculosis tuberculin stimulated gamma interferon [Presence] in Blood [facility] Immunizations Immunization Date Immunization Notes Care Provider Fa [facility] 01-14-2024 tetanus toxoid, redu jean diphtheria toxoid, and acellular pertussis vaccine, adsorbed Dr. Marko Anne DO Work Phone: [facility] 07-25-2019 diphtheria, tetanus toxoids and acellular pertussis vaccine, unspecified formulation [employer] Marko Hickey [employer] Work Phone: [facility] Work Phone: 07-25-2019 tetanus toxoid, redu jean diphtheria toxoid, and acellular pertussis vaccine, adsorbed [employer] Marko Hickey [employer] Work Phone: [facility] Payers Date Payer Category Payer Unknown [id number] 2023 Unknown [id number] 2023 Self-pay [id number] 2023 Private Health Insurance [id number] 2016 Unknown [id number] Unknown [id number] 2.16.8 [id number] Unknown [id number] 2.16.8 [id number] Unknown [id number] 2.16.8 [id number] Unknown [id number] 2.16.8 [id number] Unknown [id number] 2.16.8 [id number] Unknown [id number] 2.16.8 [id number] Unknown [id number] 2.16.8 [id number] Unknown [id number] 2.16.8 [id number] Unknown [id number] 2.16.8 [id number] Unknown [id number] 2.16.8 [id number] Unknown [id number] 2.16.8 [id number] Unknown [id number] 2.16.8 [id number] Unknown [id number] 2.16.8 [id number] Unknown [id number] 2.16.8 [id number] Social History Date Type Detail Facility Start: 05-28-2021 End: 05-21-2023 Tobacco smoking status NHIS Unknown if ever smoked [facility] Start: 11-21-2019 Non-smoker [facility] Start: 1985 Sex Assigned At Male [facility] Start: 01-14-2024 Tobacco smoking stat RUSTIS Ex-smoker (finding) [facility] Start: 06-21-2024 [facility] Procedure Code Equipment Code Equipment Origin al Text Equipment Identifier Dates INSULIN PEN NEEDLE EASY TOUCH PE N NEEDLES 29G X 12MM [facility] [id number] Start: 08-18-2016 End: 11-18-2024 Blood Sugar Diagnostic (Accu-Chek Guide Test Strips) strip Start: 05-28-2021 Blood Sugar Diagnostic (Contour Next Test Strips) strip Start: 11-27-2020 Lancets (Accu-Ch ek Fastclix Lancet Drum) [facility] Start: 03-18-2021 Blood Sugar Diagnostic (Accu-Chek Guide Test Strips) strip Start: 03-18-2021 End: 05-28-2021 Blood Sugar Diagnostic (Contour Next Test Strips) strip Start: 03-19-2017 End: 05-05-2018 Blood Sugar Diagnostic (Contour Next Test Strips) strip Start: 05-05-2018 End: 05-05-2018 Blood Sugar Diagnostic (Contour Next Test Strips) strip Start: 05-05-2018 End: 08-07-2019 Insulin Syringe-Needle U-100 (Bd Insulin Syringe Ultra-Fine) 0.5 mL 31 gauge x 5/16 syringe Start: 08-07-2019 End: 08-08-2019 Pen Needle, Diabetic (Comfort Ez Pen Wellpinit) 31 gauge x 5/16 needle Start: 05-05-2018 End: 05-05-2018 Pen Needle, Diabetic (Comfort Ez Pen Wellpinit) 31 gauge x 5/16 needle Start: 05-05-2018 End: 08-08-2019 Pen Needle, Diabetic (Comfort Ez Pen Wellpinit) 31 gauge x 5/16 needle Start: 08-08-2019 End: 08-09-2019 Blood Sugar Diagnostic (Accu-Chek Guide Test Strips) strip Start: 05-28-2021 Blood Sugar Diagnostic (Contour Next Test Strips) strip Start: 11-27-2020 Lancets (Accu-Ch ek Fastclix Lancet Drum) [facility] Start: 03-18-2021 Blood Sugar Diagnostic (Accu-Chek Guide Test Strips) strip Start: 03-18-2021 End: 05-28-2021 Blood Sugar Diagnostic (Contour Next Test Strips) strip Start: 03-19-2017 End: 05-05-2018 Blood Sugar Diagnostic (Contour Next Test Strips) strip Start: 05-05-2018 End: 05-05-2018 Blood Sugar Diagnostic (Contour Next Test Strips) strip Start: 05-05-2018 End: 08-07-2019 Insulin Syringe-Needle U-100 (Bd Insulin Syringe Ultra-Fine) 0.5 mL 31 gauge x 5/16 syringe Start: 08-07-2019 End: 08-08-2019 Pen Needle, Diabetic (Comfort Ez Pen Wellpinit) 31 gauge x 5/16 needle Start: 05-05-2018 End: 05-05-2018 Pen Needle, Diabetic (Comfort Ez Pen Wellpinit) 31 gauge x 5/16 needle Start: 05-05-2018 End: 08-08-2019 Pen Needle, Diabetic (Comfort Ez Pen Wellpinit) 31 gauge x 5/16 needle Start: 08-08-2019 End: 08-09-2019 Blood Sugar Diagnostic (Accu-Chek Guide Test Strips) strip Start: 05-28-2021 Blood Sugar Diagnostic (Contour Next Test Strips) strip Start: 11-27-2020 Lancets (Accu-Ch ek Fastclix Lancet Drum) [facility] Start: 03-18-2021 Blood Sugar Diagnostic (Accu-Chek Guide Test Strips) strip Start: 03-18-2021 End: 05-28-2021 Blood Sugar Diagnostic (Contour Next Test Strips) strip Start: 03-19-2017 End: 05-05-2018 Blood Sugar Diagnostic (Contour Next Test Strips) strip Start: 05-05-2018 End: 05-05-2018 Blood Sugar Diagnostic (Contour Next Test Strips) strip Start: 05-05-2018 End: 08-07-2019 Insulin Syringe-Needle U-100 (Bd Insulin Syringe Ultra-Fine) 0.5 mL 31 gauge x 5/16 syringe Start: 08-07-2019 End: 08-08-2019 Pen Needle, Diabetic (Comfort Ez Pen Wellpinit) 31 gauge x 5/16 needle Start: 05-05-2018 End: 05-05-2018 Pen Needle, Diabetic (Comfort Ez Pen Wellpinit) 31 gauge x 5/16 needle Start: 05-05-2018 End: 08-08-2019 Pen Needle, Diabetic (Comfort Ez Pen Wellpinit) 31 gauge x 5/16 needle Start: 08-08-2019 End: 08-09-2019 Blood Sugar Diagnostic (Accu-Chek Guide Test Strips) strip Start: 05-28-2021 Lancets (Accu-Ch ek Fastclix Lancet Drum) [facility] Start: 03-18-2021 Blood Sugar Diagnostic (Accu-Chek Guide Test Strips) strip Start: 03-18-2021 End: 05-28-2021 Blood Sugar Diagnostic (Contour Next Test Strips) strip Start: 11-27-2020 End: 11-28-2021 Blood Sugar Diagnostic (Contour Next Test Strips) strip Start: 03-19-2017 End: 05-05-2018 Blood Sugar Diagnostic (Contour Next Test Strips) strip Start: 05-05-2018 End: 05-05-2018 Blood Sugar Diagnostic (Contour Next Test Strips) strip Start: 05-05-2018 End: 08-07-2019 Insulin Syringe-Needle U-100 (Bd Insulin Syringe Ultra-Fine) 0.5 mL 31 gauge x 5/16 syringe Start: 08-07-2019 End: 08-08-2019 Pen Needle, Diabetic (Comfort Ez Pen Wellpinit) 31 gauge x 5/16 needle Start: 05-05-2018 End: 05-05-2018 Pen Needle, Diabetic (Comfort Ez Pen Wellpinit) 31 gauge x 5/16 needle Start: 05-05-2018 End: 08-08-2019 Pen Needle, Diabetic (Comfort Ez Pen Wellpinit) 31 gauge x 5/16 needle Start: 08-08-2019 End: 08-09-2019 Blood Sugar Diagnostic (Accu-Chek Guide Test Strips) strip Start: 05-28-2021 Lancets (Accu-Ch ek Fastclix Lancet Drum) [facility] Start: 03-18-2021 Blood Sugar Diagnostic (Accu-Chek Guide Test Strips) strip Start: 03-18-2021 End: 05-28-2021 Blood Sugar Diagnostic (Contour Next Test Strips) strip Start: 11-27-2020 End: 11-28-2021 Blood Sugar Diagnostic (Contour Next Test Strips) strip Start: 03-19-2017 End: 05-05-2018 Blood Sugar Diagnostic (Contour Next Test Strips) strip Start: 05-05-2018 End: 05-05-2018 Blood Sugar Diagnostic (Contour Next Test Strips) strip Start: 05-05-2018 End: 08-07-2019 Insulin Syringe-Needle U-100 (Bd Insulin Syringe Ultra-Fine) 0.5 mL 31 gauge x 5/16 syringe Start: 08-07-2019 End: 08-08-2019 Pen Needle, Diabetic (Comfort Ez Pen Wellpinit) 31 gauge x 5/16 needle Start: 05-05-2018 End: 05-05-2018 Pen Needle, Diabetic (Comfort Ez Pen Wellpinit) 31 gauge x 5/16 needle Start: 05-05-2018 End: 08-08-2019 Pen Needle, Diabetic (Comfort Ez Pen Wellpinit) 31 gauge x 5/16 needle Start: 08-08-2019 End: 08-09-2019 Blood Sugar Diagnostic (Accu-Chek Guide Test Strips) strip Start: 05-28-2021 Lancets (Accu-Ch ek Fastclix Lancet Drum) [facility] Start: 03-18-2021 Blood Sugar Diagnostic (Accu-Chek Guide Test Strips) strip Start: 03-18-2021 End: 05-28-2021 Blood Sugar Diagnostic (Contour Next Test Strips) strip Start: 11-27-2020 End: 11-28-2021 Blood Sugar Diagnostic (Contour Next Test Strips) strip Start: 03-19-2017 End: 05-05-2018 Blood Sugar Diagnostic (Contour Next Test Strips) strip Start: 05-05-2018 End: 05-05-2018 Blood Sugar Diagnostic (Contour Next Test Strips) strip Start: 05-05-2018 End: 08-07-2019 Insulin Syringe-Needle U-100 (Bd Insulin Syringe Ultra-Fine) 0.5 mL 31 gauge x 5/16 syringe Start: 08-07-2019 End: 08-08-2019 Pen Needle, Diabetic (Comfort Ez Pen Wellpinit) 31 gauge x 5/16 needle Start: 05-05-2018 End: 05-05-2018 Pen Needle, Diabetic (Comfort Ez Pen Wellpinit) 31 gauge x 5/16 needle Start: 05-05-2018 End: 08-08-2019 Pen Needle, Diabetic (Comfort Ez Pen Wellpinit) 31 gauge x 5/16 needle Start: 08-08-2019 End: 08-09-2019 Blood Sugar Diagnostic (Accu-Chek Guide Test Strips) strip Start: 05-28-2021 Lancets (Accu-Ch ek Fastclix Lancet Drum) [facility] Start: 03-18-2021 Blood Sugar Diagnostic (Accu-Chek Guide Test Strips) strip Start: 03-18-2021 End: 05-28-2021 Blood Sugar Diagnostic (Contour Next Test Strips) strip Start: 11-27-2020 End: 11-28-2021 Blood Sugar Diagnostic (Contour Next Test Strips) strip Start: 03-19-2017 End: 05-05-2018 Blood Sugar Diagnostic (Contour Next Test Strips) strip Start: 05-05-2018 End: 05-05-2018 Blood Sugar Diagnostic (Contour Next Test Strips) strip Start: 05-05-2018 End: 08-07-2019 Insulin Syringe-Needle U-100 (Bd Insulin Syringe Ultra-Fine) 0.5 mL 31 gauge x 5/16 syringe Start: 08-07-2019 End: 08-08-2019 Pen Needle, Diabetic (Comfort Ez Pen Wellpinit) 31 gauge x 5/16 needle Start: 05-05-2018 End: 05-05-2018 Pen Needle, Diabetic (Comfort Ez Pen Wellpinit) 31 gauge x 5/16 needle Start: 05-05-2018 End: 08-08-2019 Pen Needle, Diabetic (Comfort Ez Pen Wellpinit) 31 gauge x 5/16 needle Start: 08-08-2019 End: 08-09-2019 Blood Sugar Diagnostic (Accu-Chek Guide Test Strips) strip Start: 05-28-2021 Lancets (Accu-Ch ek Fastclix Lancet Drum) [facility] Start: 03-18-2021 Blood Sugar Diagnostic (Accu-Chek Guide Test Strips) strip Start: 03-18-2021 End: 05-28-2021 Blood Sugar Diagnostic (Contour Next Test Strips) strip Start: 11-27-2020 End: 11-28-2021 Blood Sugar Diagnostic (Contour Next Test Strips) strip Start: 03-19-2017 End: 05-05-2018 Blood Sugar Diagnostic (Contour Next Test Strips) strip Start: 05-05-2018 End: 05-05-2018 Blood Sugar Diagnostic (Contour Next Test Strips) strip Start: 05-05-2018 End: 08-07-2019 Insulin Syringe-Needle U-100 (Bd Insulin Syringe Ultra-Fine) 0.5 mL 31 gauge x 5/16 syringe Start: 08-07-2019 End: 08-08-2019 Pen Needle, Diabetic (Comfort Ez Pen Wellpinit) 31 gauge x 5/16 needle Start: 05-05-2018 End: 05-05-2018 Pen Needle, Diabetic (Comfort Ez Pen Wellpinit) 31 gauge x 5/16 needle Start: 05-05-2018 End: 08-08-2019 Pen Needle, Diabetic (Comfort Ez Pen Wellpinit) 31 gauge x 5/16 needle Start: 08-08-2019 End: 08-09-2019 Blood Sugar Diagnostic (Accu-Chek Guide Test Strips) strip Start: 05-28-2021 Lancets (Accu-Ch ek Fastclix Lancet Drum) misc Start: 03-18-2021 Blood Sugar Diagnostic (Accu-Chek Guide Test Strips) strip Start: 03-18-2021 End: 05-28-2021 Blood Sugar Diagnostic (Contour Next Test Strips) strip Start: 11-27-2020 End: 11-28-2021 Blood Sugar Diagnostic (Contour Next Test Strips) strip Start: 03-19-2017 End: 05-05-2018 Blood Sugar Diagnostic (Contour Next Test Strips) strip Start: 05-05-2018 End: 05-05-2018 Blood Sugar Diagnostic (Contour Next Test Strips) strip Start: 05-05-2018 End: 08-07-2019 Insulin Syringe-Needle U-100 (Bd Insulin Syringe Ultra-Fine) 0.5 mL 31 gauge x 5/16 syringe Start: 08-07-2019 End: 08-08-2019 Pen Needle, Diabetic (Comfort Ez Pen Wellpinit) 31 gauge x 5/16 needle Start: 05-05-2018 End: 05-05-2018 Pen Needle, Diabetic (Comfort Ez Pen Wellpinit) 31 gauge x 5/16 needle Start: 05-05-2018 End: 08-08-2019 Pen Needle, Diabetic (Comfort Ez Pen Wellpinit) 31 gauge x 5/16 needle Start: 08-08-2019 End: 08-09-2019 Blood Sugar Diagnostic (Accu-Chek Guide Test Strips) strip Start: 05-28-2021 Lancets (Accu-Ch ek Fastclix Lancet Drum) [facility] Start: 03-18-2021 Blood Sugar Diagnostic (Accu-Chek Guide Test Strips) strip Start: 03-18-2021 End: 05-28-2021 Blood Sugar Diagnostic (Contour Next Test Strips) strip Start: 11-27-2020 End: 11-28-2021 Blood Sugar Diagnostic (Contour Next Test Strips) strip Start: 03-19-2017 End: 05-05-2018 Blood Sugar Diagnostic (Contour Next Test Strips) strip Start: 05-05-2018 End: 05-05-2018 Blood Sugar Diagnostic (Contour Next Test Strips) strip Start: 05-05-2018 End: 08-07-2019 Insulin Syringe-Needle U-100 (Bd Insulin Syringe Ultra-Fine) 0.5 mL 31 gauge x 5/16 syringe Start: 08-07-2019 End: 08-08-2019 Pen Needle, Diabetic (Comfort Ez Pen Wellpinit) 31 gauge x 5/16 needle Start: 05-05-2018 End: 05-05-2018 Pen Needle, Diabetic (Comfort Ez Pen Wellpinit) 31 gauge x 5/16 needle Start: 05-05-2018 End: 08-08-2019 Pen Needle, Diabetic (Comfort Ez Pen Wellpinit) 31 gauge x 5/16 needle Start: 08-08-2019 End: 08-09-2019 Blood Sugar Diagnostic (Accu-Chek Guide Test Strips) strip Start: 05-28-2021 Lancets (Accu-Ch ek Fastclix Lancet Drum) misc Start: 03-18-2021 Blood Sugar Diagnostic (Accu-Chek Guide Test Strips) strip Start: 03-18-2021 End: 05-28-2021 Blood Sugar Diagnostic (Contour Next Test Strips) strip Start: 11-27-2020 End: 11-28-2021 Blood Sugar Diagnostic (Contour Next Test Strips) strip Start: 03-19-2017 End: 05-05-2018 Blood Sugar Diagnostic (Contour Next Test Strips) strip Start: 05-05-2018 End: 05-05-2018 Blood Sugar Diagnostic (Contour Next Test Strips) strip Start: 05-05-2018 End: 08-07-2019 Insulin Syringe-Needle U-100 (Bd Insulin Syringe Ultra-Fine) 0.5 mL 31 gauge x 5/16 syringe Start: 08-07-2019 End: 08-08-2019 Pen Needle, Diabetic (Comfort Ez Pen Wellpinit) 31 gauge x 5/16 needle Start: 05-05-2018 End: 05-05-2018 Pen Needle, Diabetic (Comfort Ez Pen Wellpinit) 31 gauge x 5/16 needle Start: 05-05-2018 End: 08-08-2019 Pen Needle, Diabetic (Comfort Ez Pen Wellpinit) 31 gauge x 5/16 needle Start: 08-08-2019 End: 08-09-2019 Blood Sugar Diagnostic (Accu-Chek Guide Test Strips) strip Start: 05-28-2021 Lancets (Accu-Ch ek Fastclix Lancet Drum) [facility] Start: 03-18-2021 Blood Sugar Diagnostic (Accu-Chek Guide Test Strips) strip Start: 03-18-2021 End: 05-28-2021 Blood Sugar Diagnostic (Contour Next Test Strips) strip Start: 11-27-2020 End: 11-28-2021 Blood Sugar Diagnostic (Contour Next Test Strips) strip Start: 03-19-2017 End: 05-05-2018 Blood Sugar Diagnostic (Contour Next Test Strips) strip Start: 05-05-2018 End: 05-05-2018 Blood Sugar Diagnostic (Contour Next Test Strips) strip Start: 05-05-2018 End: 08-07-2019 Insulin Syringe-Needle U-100 (Bd Insulin Syringe Ultra-Fine) 0.5 mL 31 gauge x 5/16 syringe Start: 08-07-2019 End: 08-08-2019 Pen Needle, Diabetic (Comfort Ez Pen Wellpinit) 31 gauge x 5/16 needle Start: 05-05-2018 End: 05-05-2018 Pen Needle, Diabetic (Comfort Ez Pen Wellpinit) 31 gauge x 5/16 needle Start: 05-05-2018 End: 08-08-2019 Pen Needle, Diabetic (Comfort Ez Pen Wellpinit) 31 gauge x 5/16 needle Start: 08-08-2019 End: 08-09-2019 Blood Sugar Diagnostic (Accu-Chek Guide Test Strips) strip Start: 05-28-2021 Lancets (Accu-Ch ek Fastclix Lancet Drum) mis Start: 03-18-2021 Blood Sugar Diagnostic (Accu-Chek Guide Test Strips) strip Start: 03-18-2021 End: 05-28-2021 Blood Sugar Diagnostic (Contour Next Test Strips) strip Start: 11-27-2020 End: 11-28-2021 Blood Sugar Diagnostic (Contour Next Test Strips) strip Start: 03-19-2017 End: 05-05-2018 Blood Sugar Diagnostic (Contour Next Test Strips) strip Start: 05-05-2018 End: 05-05-2018 Blood Sugar Diagnostic (Contour Next Test Strips) strip Start: 05-05-2018 End: 08-07-2019 Insulin Syringe-Needle U-100 (Bd Insulin Syringe Ultra-Fine) 0.5 mL 31 gauge x 5/16 syringe Start: 08-07-2019 End: 08-08-2019 Pen Needle, Diabetic (Comfort Ez Pen Wellpinit) 31 gauge x 5/16 needle Start: 05-05-2018 End: 05-05-2018 Pen Needle, Diabetic (Comfort Ez Pen Wellpinit) 31 gauge x 5/16 needle Start: 05-05-2018 End: 08-08-2019 Pen Needle, Diabetic (Comfort Ez Pen Wellpinit) 31 gauge x 5/16 needle Start: 08-08-2019 End: 08-09-2019 Blood Sugar Diagnostic (Accu-Chek Guide Test Strips) strip Start: 05-28-2021 Lancets (Accu-Ch ek Fastclix Lancet Drum) misc Start: 03-18-2021 Blood Sugar Diagnostic (Accu-Chek Guide Test Strips) strip Start: 03-18-2021 End: 05-28-2021 Blood Sugar Diagnostic (Contour Next Test Strips) strip Start: 11-27-2020 End: 11-28-2021 Blood Sugar Diagnostic (Contour Next Test Strips) strip Start: 03-19-2017 End: 05-05-2018 Blood Sugar Diagnostic (Contour Next Test Strips) strip Start: 05-05-2018 End: 05-05-2018 Blood Sugar Diagnostic (Contour Next Test Strips) strip Start: 05-05-2018 End: 08-07-2019 Insulin Syringe-Needle U-100 (Bd Insulin Syringe Ultra-Fine) 0.5 mL 31 gauge x 5/16 syringe Start: 08-07-2019 End: 08-08-2019 Pen Needle, Diabetic (Comfort Ez Pen Wellpinit) 31 gauge x 5/16 needle Start: 05-05-2018 End: 05-05-2018 Pen Needle, Diabetic (Comfort Ez Pen Wellpinit) 31 gauge x 5/16 needle Start: 05-05-2018 End: 08-08-2019 Pen Needle, Diabetic (Comfort Ez Pen Wellpinit) 31 gauge x 5/16 needle Start: 08-08-2019 End: 08-09-2019 Blood Sugar Diagnostic (Accu-Chek Guide Test Strips) strip Start: 05-28-2021 Lancets (Accu-Ch ek Fastclix Lancet Drum) [facility] Start: 03-18-2021 Blood Sugar Diagnostic (Accu-Chek Guide Test Strips) strip Start: 03-18-2021 End: 05-28-2021 Blood Sugar Diagnostic (Contour Next Test Strips) strip Start: 11-27-2020 End: 11-28-2021 Blood Sugar Diagnostic (Contour Next Test Strips) strip Start: 03-19-2017 End: 05-05-2018 Blood Sugar Diagnostic (Contour Next Test Strips) strip Start: 05-05-2018 End: 05-05-2018 Blood Sugar Diagnostic (Contour Next Test Strips) strip Start: 05-05-2018 End: 08-07-2019 Insulin Syringe-Needle U-100 (Bd Insulin Syringe Ultra-Fine) 0.5 mL 31 gauge x 5/16 syringe Start: 08-07-2019 End: 08-08-2019 Pen Needle, Diabetic (Comfort Ez Pen Wellpinit) 31 gauge x 5/16 needle Start: 05-05-2018 End: 05-05-2018 Pen Needle, Diabetic (Comfort Ez Pen Wellpinit) 31 gauge x 5/16 needle Start: 05-05-2018 End: 08-08-2019 Pen Needle, Diabetic (Comfort Ez Pen Wellpinit) 31 gauge x 5/16 needle Start: 08-08-2019 End: 08-09-2019 Evaluation note 09-15-2024 Note Date & Type Note Facility 09-15-2024 Evaluation note Diagnosis Onset Date Resolution Diabetes mellitus type 1 chronic September 15, 2024 3:53pm Hypertension associated with diabetes chronic September 15, 2024 3:53pm Microalbuminuria chronic September 3:53pm Obesity chronic September 15 3:53pm Presence of insulin pump chronic September 15, 2024 3:53pm [facility] Work Phone: Evaluation note 05-13-2024 Note Date & Type Note Facility 05-13-2024 Evaluation note Diagnosis Onset Date Resolution Diabetes mellitus type 1 chronic May 13, 2024 3:29pm Hypertension chronic May 3:29pm Microalbuminuria chronic May 13, 2024 3:29pm Obesity chronic May 13, 2024 3:29pm Presence of insulin pump chronic May 13, 2024 3:29pm [facility] Work Phone: Evaluation note Note Date & Type Note Facility Evaluation note Diagnosis Onset Date Diabetes chronic Hypertension associated with diabetes chronic Neuropathy chronic Presence of insulin pump chr onic Super obesity [facility] [place] Work Phone: Evaluation note Note Date & Type Note Facility Evaluation note No assessment information availa [facility] Work Phone: Evaluation note Note Date & Type Note Facility Evaluation note Diagnosis Onset Date Hypertension chronic Obesity chronic Type 1 diabetes mellitus wit hout complication [facility] [place] Work Phone: Evaluation note Note Date & Type Note Facility Evaluation note Diagnosis Onset Date Diabetes mellitus type 1 acu te Hypertension associated with diabetes chronic Obesity chronic Presence of insulin pump chr onic [facility] Work Phone: Evaluation note Note Date & Type Note Facility Evaluation note Diagnosis Onset Date Bilateral carpal tunnel syndrome acute [facility] Work Phone: Evaluation note Note Date & Type Note Facility Evaluation note Diagnosis Onset Date Diabetes mellitus type 1 chr onic Microalbuminuria chronic Neuropathy chronic Obesity chronic Presence of insulin pump chr onic Bilateral carpal tunnel syndrome acute [facility] Work Phone: Evaluation note Note Date & Type Note Facility Evaluation note Diagnosis Onset Date Diabetes mellitus type 1 chr onic Hypertension chronic Microalbuminuria chronic Neuropathy chronic Presence of insulin pump chr onic Super obesity chronic [facility] Work Phone: Reason for referral (narrative) Note Date & Type Note Facility Reason for referral (narrative) No reason for referral information available [facility] Work Phone: Chief Complaint and Reason for Visit Chief Complaint 6 M FU BILAT LOWER HEEL PLANTAR FASCITIS Reason for Visit Diabetes Hypertension associated with diabetes Neuropathy Presence of insulin pump Super obesity Chief Complaint 6 M FU BILAT LOWER HEEL PLANTAR FASCITIS FOOT ARTHRITIS BILATERAL Reason for Visit Diabetes Hypertension associated with diabetes Neuropathy Presence of insulin pump Super obesity Chief Complaint BILAT LOWER HEEL KRYSTLE NTAR FASCITIS FOOT ARTHRITIS BILATERAL DVT/BILAT CALF PAIN Chief Complaint DVT/BILAT CALF PAIN FU Reason for Visit Hypertension Obesity Type 1 diabetes mellitus without complication Chief Complaint 6 M FU Reason for Visit Diabetes mellitus ty pe 1 Hypertension associated with diabetes Obesity Presence of insulin pump Chief Complaint 6 M FU PAIN- COPY PCP Inflammatory polyarthropathy Reason for Visit Diabetes mellitus ty pe 1 Hypertension associated with diabetes Obesity Presence of insulin pump Chief Complaint BL HANDS Reason for Visit Bilateral carpal sandra starla syndrome Chief Complaint 6 M FU CTS, BI UPPER LIMBS CTS, BI UPPER LIMBS BI LAT HANDS Reason for Visit Diabetes mellitus ty pe 1 Microalbuminuria Neuropathy Obesity Presence of insulin pump Bilateral carpal tunnel syndrome Chief Complaint 6 M FU Reason for Visit Diabetes mellitus ty pe 1 Hypertension Microalbuminuria Neuropathy Presence of insulin pump Super obesity Chief Complaint Admit Date PAIN- COPY PCP February 26, 2024 3:14pm PAIN- COPY PCP April 25, 2024 3 :18pm 6 M FU May 13, 2024 3 :29pm EORDER May 21, 2024 9:19am PAIN- COPY PCP June 13, 2024 3:1 0pm Reason for Visit Admit Date Diabetes mellitus type 1 May 13, 2 025 3:29pm Hypertension May 13, 2024 3 :29pm Microalbuminuria May 13, 2024 3 :29pm Obesity May 13, 2024 3 :29pm Presence of insulin pump May 13, 2 025 3:29pm Chief Complaint Admit Date PAIN- COPY PCP April 25, 2024 3 :18pm 6 M FU May 13, 2024 3 :29pm EORDER May 21, 2024 9:19am PAIN- COPY PCP June 13, 2024 3:1 0pm PAIN- COPY PCP August 15, 2024 3:08p m Chief Complaint Admit Date EORDER May 21, 2024 9:19am PAIN- COPY PCP June 13, 2024 3:1 0pm PAIN- COPY PCP August 15, 2024 3:08p m 4 M FU September 15, 2024 3:53 pm Chief Complaint Admit Date PAIN- COPY PCP August 15, 2024 3:08p m 4 M FU September 15, 2024 3:53 pm SORE THROAT October 14, 2024 5:13 pm Reason for Visit Admit Date Diabetes mellitus type 1 September 15, 2024 3:53pm Hypertension associated with diabetes Ju 2024 3:53pm Microalbuminuria September 15, 2024 3:53 pm Obesity September 15, 2024 3:53 pm Presence of insulin pump September 15, 2024 3:53pm Family History No Family History Records Found Relationship Condition Age at Onset Recorded Date/T tata mother Diabetes mellitus Unknown Anxiety Unknown Arthritis Unknown Depression Unknown father Cardiac disease Unknown Diabetes mellitus Unknown Hypertension Unknown Kidney disorder Unknown Sleep apnea Unknown sister Leukemia Unknown uncle Venous thrombosis Unknown Malignant neoplasm Unknown Disorder of liver Unknown grandfather Diabetes mellitus Unknown Advance Directives No Advanced Directives Records Found Advance Directive Response Recorded Date/ Time Living Will No January 15 1:06pm Power of Group Activities Aide No January 16, 2020 1:06pm Advance Directive Response Recorded Date/ Time Living Will No January 15 12:06pm Power of Group Activities Aide No January 16, 2020 12:06pm Advance Directive Response Recorded Date/ Time Living Will No January 15 1:06pm Do you have a Healthcare Power of Group Activities Aide? No January 16, 2020 1:06pm Summary Purpose Additional Source Comments Goals (unrecognized section and content) Goals may be documented in a n alternate sectionGoals may be documented in an alternate sectionGoals may be documented in an alternate sectionGoals may be documented in an alternate sectionGoals may be documented in an alternate sectionGoals may be documented in an alternate sectionGoals may be documented in an alternate sectionGoals may be documented in an alternate sectionGoals may be documented in an alternate sectionGoals may be documented in an alternate sectionGoals may be documented in an alternate sectionGoals may be documented in an alternate sectionGoals may be documented in an alternate sectionGoals may be documented in an alternate sectionGoals may be documented in an alternate section Care Teams (unrecognized sec tion and content) Team Status: Active Member Role Status Dates Dr. Marko Anne DO Primary Care Provider Active Team Status: Inactive Member Role Status Dates Dr. Marko Anne DO Primary Care Provider, Referrin g Provider Active Dr. Alejandro Waddell MD Attending Provider Active Team Status: Inactive Member Role Status Dates Dr. Marko Anne DO Primary Care Provider Active Dr. Jessa Rivera MD Attending Provider, Referring Provider Active Team Status: Inactive Member Role Status Dates Dr. Marko Anne DO Primary Care Provider Active Dr. Jessa Rivera MD Attending Provider Active Team Status: Inactive Member Role Status Dates Dr. Marko Anne DO Primary Care Provider, Referrin g Provider Active Farhad Marshall MD Attending Provider Active Team Status: Active Member Role Status Dates Dr. Marko Anne DO Primary Care Provider Active Farhad Marshall MD Referring Provider, Other Provider Active Dr. Jin Ceja DO Attending Provider Active Team Status: Inactive Member Role Status Dates Dr. Marko Anne DO Primary Care Provider Active Farhad Marshall MD Attending Provider, Referring Prov ider Active Team Status: Inactive Member Role Status Dates Dr. Marko Anne DO Primary Care Provider Active Start: February 26, 2024 End: February 26, 2024 Dr. Jessa Rivera MD Attending Provider Active Start: February 26, 2024 End: February 26, 2024 Dr. Jessa Rivera MD Referring Provider Active Start: February 26, 2024 End: February 26, 2024 Team Status: Inactive Member Role Status Dates Dr. Marko Anne DO Primary Care Provider Active Start: April 25, 2024 End: April 25, 2024 Dr. Jessa Rivera MD Attending Provider Active Start: April 25, 2024 End: April 25, 2024 Dr. Jessa Rivera MD Referring Provider Active Start: April 25, 2024 End: April 25, 2024 Team Status: Inactive Member Role Status Dates Dr. Marko Anne DO Primary Care Provider Active Start: May 13, 2024 End: May 13, 2024 Dr. Marko Anne DO Referring Provider Active Start: May 13, 2024 End: May 13, 2024 Dr. Alejandro Waddell MD Attending Provider Active Sta rt: May 13, 2024 End: May 13, 2024 Team Status: Inactive Member Role Status Dates Dr. Marko Anne DO Primary Care Provider Active Start: May 21, 2024 End: May 21, 2024 Dr. Alejandro Waddell MD Attending Provider Active Sta rt: May 21, 2024 End: May 21, 2024 Dr. Alejandro Waddell MD Referring Provider Active Sta rt: May 21, 2024 End: May 21, 2024 Team Status: Inactive Member Role Status Dates Dr. Marko Anne DO Primary Care Provider Active Start: June 13, 2024 End: June 13, 2024 Dr. Jessa Rivera MD Attending Provider Active Start: June 13, 2024 End: June 13, 2024 Dr. Jessa Rivera MD Referring Provider Active Start: June 13, 2024 End: June 13, 2024 Team Status: Inactive Member Role Status Dates Dr. Marko Anne DO Primary Care Provider Active Start: August 15, 2024 End: August 15, 2024 Dr. Jessa Rivera MD Attending Provider Active Start: August 15, 2024 End: August 15, 2024 Dr. Jessa Rivera MD Referring Provider Active Start: August 15, 2024 End: August 15, 2024 Team Status: Inactive Member Role Status Dates Dr. Marko Anne DO Primary Care Provider Active Start: September 15, 2024 End: September 15, 2024 Dr. Marko Anne DO Referring Provider Active Start: September 15, 2024 End: September 15, 2024 Dr. Alejandro Waddell MD Attending Provider Active Sta rt: September 15, 2024 End: September 15, 2024 Team Status: Active Member Role/Relationship Status Dates Dr. Marko Anne DO Primary Care Provider Active Team Status: Inactive Member Role/Relationship Status Dates Dr. Marko Anne DO Primary Care Provider Active Start: August 15, 2024 End: August 15, 2024 Dr. Jessa Rivera MD Attending Provider Active Start: August 15, 2024 End: August 15, 2024 Dr. Jessa Rivera MD Referring Provider Active Start: August 15, 2024 End: August 15, 2024 Team Status: Inactive Member Role/Relationship Status Dates Dr. Marko Anne DO Primary Care Provider Active Start: September 15, 2024 End: September 15, 2024 Dr. Marko Anne DO Referring Provider Active Start: September 15, 2024 End: September 15, 2024 Dr. Alejandro Waddell MD Attending Provider Active Sta rt: September 15, 2024 End: September 15, 2024 Team Status: Inactive Member Role/Relationship Status Dates Dr. Marko Anne DO Primary Care Provider Active Start: October 14, 2024 End: October 14, 2024 Dr. Marko Anne DO Referring Provider Active Start: October 14, 2024 End: October 14, 2024 Zane MEI PA Attending Provider Active Sta rt: October 14, 2024 End: October 14, 2024 (unrecognized sect ion and content) No Status Records Found INFORMATION SOURCE (unrecogn ized section and content) DATE CREATED AUTHOR 10/19/2024 [facility] FOR RECORDS PERTAINING TO PATIENTS WHO ARE [...] BE BASED ON THE PRIMARY CLINICAL RECORDS. [employer] provides no warranty or guarantee of the accuracy or completeness of information in this document.
== END | disposition home or self-care (01) ==
LOC: MTLAB 15:21
PROVIDERS: PCP Family Medicine; Referring Provider Internal Medicine Rheumatology; Visit Provider Internal Medicine Rheumatology
DX: M06.00 Rheumatoid arthritis without rheumatoid factor, unspecified site (principal); Z79.899 Other long term (current) drug therapy
CPT/HCPCS: 36415; 80053; 85025

== ENCOUNTER → 2025-02-14 | Outpatient (CLI) | payer BC, SELFPAY ==
[2025-02-14 18:01] LABS: Hematocrit 46.1 % (40-54); Hemoglobin 15.7 g/dL (13.0-16.5); Immature Granulocytes Count 0.020 X10^3/uL (0.0-0.0); Mean Corp Hgb Conc 34.1 g/dL (32-36); Mean Corpuscular Volume 81.9 fL (80-94); Mean Platelet Vol. 9.5 fl (6.2-12.0); NRBC Flagged by Analyzer 0 % (0-5); Platelet Count 214 K/mm3 (150-450); RBC Distribution Width CV 13.7 % (11.6-14.6); RBC Distribution Width SD 39.7 fl (35.1-43.9); Red Blood Count 5.63 M/mm3 (4.6-6.2); White Blood Count 9.7 K/mm3 (4.4-11.0)
[2025-02-14 18:24] LABS: AST(SGOT) 27 U/L (<=37); Alanine Aminotransfer ALT/SGPT 37 U/L (<=46); Albumin, Serum 4.4 g/dL (3.5-5.0); Alkaline Phosphatase 83 U/L (40-129); Anion Gap 11 (5-15); BUN 25 mg/dL (4-19); BUN/Creat Ratio 27.6 RATIO (10-20); Calcium,Total 9.7 mg/dL (7.6-11.0); Carbon Dioxide 27.9 mmol/L (21.0-32.0); Chloride 99 mmol/L (98-108); Globulin 2.6 g/dL (2.2-4.2); Glucose 96 mg/dL (70-99); Potassium 3.9 mmol/L (3.3-5.1)
== END | disposition home or self-care (01) ==
LOC: MTLAB 16:01
PROVIDERS: PCP Family Medicine; Referring Provider Internal Medicine Rheumatology; Visit Provider Internal Medicine Rheumatology
DX: M06.00 Rheumatoid arthritis without rheumatoid factor, unspecified site (principal); Z79.899 Other long term (current) drug therapy
CPT/HCPCS: 36415; 80053; 85025